=== PATIENT | female | born 1980 | race Two or more races ===

== ENCOUNTER 2019-09-18 17:56 | Inpatient (IN) | payer MEDICAID, OTHER ==
[~2019-09-18] VITALS: Ht 162.6 cm; Wt 53.1 kg
[2019-09-18] MEDS ORDERED: IPRATROPIUM BROM 0.5 MG/2.5ML INH SOL HHN ONE (18:30)
[2019-09-18] MEDS ORDERED: ALBUTEROL SULF 2.5 MG/0.5ML(0.5%) NEB SOLN HHN ONE ×2 (18:30→20:00)
[2019-09-18] MEDS ORDERED: methylPREDNISolone SOD SUCC 125 MG/2 ML VL IV ONE (18:30)
[2019-09-18 19:08] LABS: Basophils # (auto) 0.1 10 ^3/uL (0-0.2); Basophils % (auto) 0.9 % (0.0-2.0); Eosinophils # (auto) 0.7 10 ^3/uL (0-0.8); Eosinophils % (auto) 7.5 % (0.0-7.0); Hematocrit 52.9 % (36.0-46.0); Hemoglobin 17.5 g/dL (12.2-16.2); Lymphocytes # (auto) 1.6 10 ^3/uL (0.4-5.4); Lymphocytes % (auto) 17.5 % (10.0-50.0); Mean Corpuscular Hemoglobin 30.9 pg (28.0-32.0); Mean Corpuscular Volume 93.8 fL (80.0-100.0); Monocytes # (auto) 0.6 10 ^3/uL (0-1.3); Monocytes % (auto) 6.2 % (0.0-12.0); Neutrophils # (auto) 6.3 10 ^3/uL (1.6-8.6); Neutrophils % (auto) 67.9 % (37.0-80.0); Nucleated Red Blood Cells % 0.1 %; Platelet Count (auto) 181 10^3/uL (140-450); Red Blood Cells 5.64 10^6/uL (4.0-5.20); Red Cell Distribution Width 13.2 % (11.8-14.3); White Blood Cell 9.3 10^3/uL (4.4-10.8)
[2019-09-18 19:20] LABS: Albumin 4.2 g/dL (3.4-5.0); Calcium 8.8 mg/dL (8.5-10.1); Potassium 3.9 mmol/L (3.5-5.1)
[2019-09-18 19:24] LABS: Bilirubin, Total 0.3 mg/dL (0.2-1.0); Total Protein 7.7 g/dL (6.4-8.2)
[2019-09-18] MEDS ORDERED: ONDANSETRON HCL 4 MG/2 ML VIAL IV PRN (21:15)
[2019-09-18] MEDS ORDERED: ACETAMINOPHEN 325 MG TAB PO PRN (21:15)
[2019-09-18] MEDS ORDERED: DOCUSATE SOD 100 MG CAP PO PRN (21:15)
[2019-09-18 21:26] VITALS: BP 116/68
[2019-09-18 22:10] VITALS: BP 128/76
--- NOTE | 2019-09-18 22:10 | NUR ---
Telemetry admit from ER MARGIE LEARY admitted to Telemetry unit after SBAR received. Patient oriented to CRISTIAN GILBERT RN primary RN, unit, room, bed, and unit policies regarding patient care and visiting hours. Patient now on continuous telemetry monitoring, tele box # 34 and telemetry reading on arrival to unit is ST [id number]. Patient placed on bedside oxygen 4L NC and has bilateral inspiratory and expiratory wheezes, weighed by bedscale and encouraged to call if they need something. All questions and concerns addressed, patient verbalized understanding. Paged RT for HHN breathing treatment.
[2019-09-18] MEDS: LORazepam 0.5 MG TAB PO PRN (22:37)
[2019-09-18] MEDS: ALBUTEROL SULF 2.5 MG/0.5ML(0.5%) NEB SOLN NEB PRN (22:37)
[2019-09-18] MEDS: IPRATROPIUM BROM 0.5 MG/2.5ML INH SOL NEB PRN (22:37)
[2019-09-18] MEDS: HYDROcodone-ACET 5/325MG TAB PO PRN (22:43)
[2019-09-18] MEDS ORDERED: ALBUAER3 IN (23:07)
[2019-09-18] MEDS ORDERED: ALBU0.08 HHN (23:07)
[2019-09-18] MEDS ORDERED: FLUT250M2 INH (23:07)
[2019-09-18] MEDS ORDERED: ZOLP10TA PO (23:07)
[2019-09-19] MEDS: ALBUTEROL SULF 2.5 MG/0.5ML(0.5%) NEB SOLN NEB SCH ×6 (02:11→22:00)
[2019-09-19] MEDS: IPRATROPIUM BROM 0.5 MG/2.5ML INH SOL NEB SCH ×6 (02:11→22:01)
[2019-09-19 04:57] VITALS: BP 110/61
[2019-09-19 05:48] LABS: Basophils # (auto) 0 10 ^3/uL (0-0.2); Basophils % (auto) 0.4 % (0.0-2.0); Eosinophils # (auto) 0 10 ^3/uL (0-0.8); Eosinophils % (auto) 0.1 % (0.0-7.0); Hematocrit 47.4 % (36.0-46.0); Hemoglobin 15.9 g/dL (12.2-16.2); Lymphocytes # (auto) 0.4 10 ^3/uL (0.4-5.4); Lymphocytes % (auto) 8.9 % (10.0-50.0); Mean Corpuscular Hemoglobin 31.3 pg (28.0-32.0); Mean Corpuscular Hgb Conc. 33.4 g/dL (32.0-36.0); Mean Corpuscular Volume 93.7 fL (80.0-100.0); Monocytes # (auto) 0.1 10 ^3/uL (0-1.3); Monocytes % (auto) 2.8 % (0.0-12.0); Neutrophils # (auto) 3.7 10 ^3/uL (1.6-8.6); Neutrophils % (auto) 87.8 % (37.0-80.0); Platelet Count (auto) 251 10^3/uL (140-450); Red Blood Cells 5.06 10^6/uL (4.0-5.20); Red Cell Distribution Width 13.1 % (11.8-14.3); White Blood Cell 4.2 10^3/uL (4.4-10.8)
[2019-09-19 06:09] LABS: Potassium 4.6 mmol/L (3.5-5.1)
[2019-09-19 06:17] LABS: BUN/Creatinine Ratio 18.8; Calcium 8.5 mg/dL (8.5-10.1)
[2019-09-19] MEDS: LORazepam 0.5 MG TAB PO PRN ×2 (07:41→20:25)
[2019-09-19] MEDS: HYDROcodone-ACET 5/325MG TAB PO PRN ×3 (07:42→20:25)
[2019-09-19 09:00] VITALS: BP 103/65
[2019-09-19] MEDS ORDERED: methylPREDNISolone SOD SUCC 125 MG/2 ML VL IV SCH (10:00)
[2019-09-19] MEDS ORDERED: AZITHROMYCIN 250 MG TAB PO ONE ×2 (11:30→11:45)
[2019-09-19] MEDS ORDERED: methylPREDNISolone SOD SUCC 40 MG/ML VL IV ONE (11:30)
[2019-09-19] MEDS ORDERED: cefTRIAXone 1GM/50ML D5W 50 ML IV ONE ×2 (11:30→11:45)
--- NOTE | 2019-09-19 11:33 | NUR ---
Dr. ABBOTT at bedside discussed with patient, received new orders, noted and carried it out.
[2019-09-19 14:46] VITALS: BP 105/57
[2019-09-19] MEDS: ALBUTEROL SULF 2.5 MG/0.5ML(0.5%) NEB SOLN NEB PRN (16:42)
[2019-09-19] MEDS: IPRATROPIUM BROM 0.5 MG/2.5ML INH SOL NEB PRN (16:42)
[2019-09-19 17:00] VITALS: BP 104/61
--- NOTE | 2019-09-19 18:35 | NUR ---
RT NOTE PT WAS SEEN BY RT FOR HHN TX. PT TOLERATES WELL VIA MASK. NO ADVERSE REACTION NOTED. CONT ORDERED Addendum: 09/19/19 at 1859 by Vickie Boone RT Amended: Links added.
[2019-09-19] MEDS: methylPREDNISolone SOD SUCC 40 MG/ML VL IV SCH (21:03)
[2019-09-19 22:00] VITALS: BP 106/61
--- NOTE | 2019-09-19 22:05 | NUR ---
RT NOTE PT WAS SEEN BY RT FOR HHN TX. PT TOLERATES WELL VIA MASK. NO ADVERSE REACTION NOTED. FIO2 TITRATED TO 6L OXYMIZER. CONT ORDERED Addendum: 09/19/19 at 2340 by Vickie Boone RT Amended: Links added.
[2019-09-20] MEDS: ALBUTEROL SULF 2.5 MG/0.5ML(0.5%) NEB SOLN NEB SCH ×6 (02:20→21:41)
[2019-09-20] MEDS: IPRATROPIUM BROM 0.5 MG/2.5ML INH SOL NEB SCH ×6 (02:20→21:41)
--- NOTE | 2019-09-20 02:20 | NUR ---
RT NOTE PT WAS SEEN BY RT FOR HHN TX. PT TOLERATES WELL VIA MASK. NO ADVERSE REACTION NOTED. FIO2 TITRATED TO 4L OXYMIZER AT THIS TIME. CONT ORDERED Addendum: 09/20/19 at 0247 by Vickie Boone RT Amended: Links added.
[2019-09-20 05:00] VITALS: BP 95/50
[2019-09-20] MEDS: LORazepam 0.5 MG TAB PO PRN ×2 (07:40→23:13)
[2019-09-20] MEDS: HYDROcodone-ACET 5/325MG TAB PO PRN ×3 (07:40→23:13)
[2019-09-20 09:00] VITALS: BP 108/62
[2019-09-20] MEDS ORDERED: cefTRIAXone 1GM/50ML D5W 50 ML IV SCH (09:00)
[2019-09-20] MEDS: AZITHROMYCIN 250 MG TAB PO SCH (09:15)
[2019-09-20] MEDS: cefTRIAXone 1GM/50ML D5W 50 ML IV SCH (09:15)
[2019-09-20] MEDS: methylPREDNISolone SOD SUCC 40 MG/ML VL IV SCH ×2 (09:16→22:33)
[2019-09-20] MEDS ORDERED: AZITHROMYCIN 250 MG TAB PO SCH (10:00)
[2019-09-20 10:24] LABS: Basophils # (auto) 0 10 ^3/uL (0-0.2); Eosinophils # (auto) 0 10 ^3/uL (0-0.8); Hematocrit 45.4 % (36.0-46.0); Lymphocytes # (auto) 0.7 10 ^3/uL (0.4-5.4); Lymphocytes % (auto) 6.8 % (10.0-50.0); Mean Corpuscular Hgb Conc. 33.2 g/dL (32.0-36.0); Mean Corpuscular Volume 93.6 fL (80.0-100.0); Monocytes # (auto) 0.7 10 ^3/uL (0-1.3); Monocytes % (auto) 6.7 % (0.0-12.0); Neutrophils # (auto) 8.9 10 ^3/uL (1.6-8.6); Neutrophils % (auto) 86.5 % (37.0-80.0); Platelet Count (auto) 264 10^3/uL (140-450); Red Blood Cells 4.85 10^6/uL (4.0-5.20); Red Cell Distribution Width 13.3 % (11.8-14.3); White Blood Cell 10.3 10^3/uL (4.4-10.8)
[2019-09-20 10:42] LABS: Albumin 3.3 g/dL (3.4-5.0); Calcium 8.3 mg/dL (8.5-10.1); Potassium 4.3 mmol/L (3.5-5.1)
[2019-09-20 10:48] LABS: Bilirubin, Total 0.4 mg/dL (0.2-1.0); Total Protein 6.2 g/dL (6.4-8.2)
[2019-09-20 13:00] VITALS: BP 105/72
--- NOTE | 2019-09-20 13:56 | NUR ---
IS at bedside, teaching explained, patient return demonstration.
[2019-09-20 17:00] VITALS: BP 116/66
--- NOTE | 2019-09-20 19:20 | NUR ---
Opening Shift Note Assumed care of patient, awake and alert. No S/S of distress/SOB or pain. Patient on 4L Oxymizer and tolerating well. Instructed on POC and to call for assist PRN, will continue to monitor for changes Q1hr and PRN. Safety precautions in place, bed is in lowest position and locked, bed rails 2x. Call light and bedside table are within reach.
[2019-09-20 22:00] VITALS: BP 116/71
--- NOTE | 2019-09-20 23:14 | NUR ---
PAIN Patient complains of upper/lower back pain. Pain level 6 on a pain scale 0-10. Medicated per MD orders will continue to monitor Q1 and PRN.
--- NOTE | 2019-09-21 00:14 | NUR ---
PAIN REASSESSMENT Patient states "no pain." Will continue to monitor patient Q1 and PRN.
[2019-09-21] MEDS: ALBUTEROL SULF 2.5 MG/0.5ML(0.5%) NEB SOLN NEB SCH ×6 (02:17→23:04)
[2019-09-21] MEDS: IPRATROPIUM BROM 0.5 MG/2.5ML INH SOL NEB SCH ×6 (02:17→23:04)
[2019-09-21 05:00] VITALS: BP 114/74
[2019-09-21] MEDS: HYDROcodone-ACET 5/325MG TAB PO PRN ×4 (05:06→22:01)
[2019-09-21 06:59] LABS: Basophils # (auto) 0 10 ^3/uL (0-0.2); Basophils % (auto) 0.1 % (0.0-2.0); Eosinophils # (auto) 0 10 ^3/uL (0-0.8); Hematocrit 47.7 % (36.0-46.0); Hemoglobin 15.8 g/dL (12.2-16.2); Lymphocytes # (auto) 0.6 10 ^3/uL (0.4-5.4); Lymphocytes % (auto) 7.7 % (10.0-50.0); Mean Corpuscular Hemoglobin 31.4 pg (28.0-32.0); Mean Corpuscular Hgb Conc. 33.1 g/dL (32.0-36.0); Monocytes # (auto) 0.3 10 ^3/uL (0-1.3); Monocytes % (auto) 3.5 % (0.0-12.0); Neutrophils # (auto) 6.9 10 ^3/uL (1.6-8.6); Neutrophils % (auto) 88.7 % (37.0-80.0); Platelet Count (auto) 253 10^3/uL (140-450); Red Blood Cells 5.03 10^6/uL (4.0-5.20); Red Cell Distribution Width 13.1 % (11.8-14.3); White Blood Cell 7.8 10^3/uL (4.4-10.8)
--- NOTE | 2019-09-21 07:10 | NUR ---
End of Shift Note Endorsed care to dayshift RN. At this time patient has no s/s of distress or SOB. Patient responsive to name and touch, no complaints.
[2019-09-21 07:20] LABS: Albumin 3.5 g/dL (3.4-5.0); Calcium 8.5 mg/dL (8.5-10.1); Potassium 4.3 mmol/L (3.5-5.1)
[2019-09-21 07:23] LABS: BUN/Creatinine Ratio 26.7; Bilirubin, Total 0.4 mg/dL (0.2-1.0); Total Protein 6.7 g/dL (6.4-8.2)
[2019-09-21 08:38] VITALS: BP 102/68
[2019-09-21] MEDS: AZITHROMYCIN 250 MG TAB PO SCH (08:58)
[2019-09-21] MEDS: methylPREDNISolone SOD SUCC 40 MG/ML VL IV SCH ×2 (08:58→21:45)
[2019-09-21] MEDS: cefTRIAXone 1GM/50ML D5W 50 ML IV SCH (08:58)
[2019-09-21] MEDS: LORazepam 0.5 MG TAB PO PRN ×2 (09:08→17:11)
[2019-09-21 13:00] VITALS: BP 109/69
--- NOTE | 2019-09-21 15:48 | NUR ---
RT NOTE: UNABLE TO SEE PT FOR TX DUE TO EMERGENCIES IN ER. WILL CONTINUE TO MONITOR.
[2019-09-21 17:27] VITALS: BP 120/73
--- NOTE | 2019-09-21 19:08 | NUR ---
Opening Shift Note Assumed care of patient, awake and alert. No S/S of distress/SOB or pain. Instructed on POC and to call for assist PRN, will continue to monitor for changes Q1hr and PRN. Safety precautions in place bed is in lowest position and locked, bed rails 2x. Call light and bedside table are within reach.
[2019-09-21 19:11] VITALS: BP 120/73
[2019-09-21 22:00] VITALS: BP 105/69
[2019-09-22] MEDS: IPRATROPIUM BROM 0.5 MG/2.5ML INH SOL NEB SCH ×4 (02:07→14:50)
[2019-09-22] MEDS: ALBUTEROL SULF 2.5 MG/0.5ML(0.5%) NEB SOLN NEB SCH ×4 (02:07→14:50)
[2019-09-22] MEDS: LORazepam 0.5 MG TAB PO PRN ×2 (04:08→14:52)
[2019-09-22] MEDS: HYDROcodone-ACET 5/325MG TAB PO PRN ×3 (04:08→14:53)
[2019-09-22 05:00] VITALS: BP 115/59
--- NOTE | 2019-09-22 07:15 | NUR ---
Assumed care Patient currently resting in bed AOx4. No s/s of distress or SOB noted at this time. Patient denies pain. Fall precautions in place. Patient updated on POC and instructed to call for assistance as needed, patient verbalizes understanding. Will continue care.
--- NOTE | 2019-09-22 07:25 | NUR ---
End of Shift Note Endorsed care to dayshift RN. At this time patient has no s/s of distress or SOB, responsive to name and touch, no complaints.
[2019-09-22 09:00] VITALS: BP 113/69
[2019-09-22] MEDS: AZITHROMYCIN 250 MG TAB PO SCH (09:39)
[2019-09-22] MEDS: methylPREDNISolone SOD SUCC 40 MG/ML VL IV SCH (09:40)
[2019-09-22] MEDS: cefTRIAXone 1GM/50ML D5W 50 ML IV SCH (09:40)
[2019-09-22 13:00] VITALS: BP 18/68
[2019-09-22 14:01] VITALS: BP 108/68
--- NOTE | 2019-09-22 15:36 | NUR ---
Discharge instructions given as ordered. Encourage to follow up with PMD as instructed. All questions and concerns addressed. Patient verbalized understanding. Prescriptions given to patient. IV removed with catheter intact, pressure dressing applied. Telemetry unit returned to ICU. Patient taken to vehicle via wheelchair with all personal belongings, accompanied by this RN. No distress noted at time of departure.
== END 2019-09-22 15:36 | disposition home or self-care (01) | DRG 133 ==
LOC: ER 17:56 → TELE-CENTR 17:57
PROVIDERS: ADMIT Hospitalist; ATTEND Internal Medicine
DX: J96.01 Acute respiratory failure with hypoxia (principal); D72.1 Eosinophilia; J45.902 Unspecified asthma with status asthmaticus; J98.11 Atelectasis; Z79.51 Long term (current) use of inhaled steroids; F17.213 Nicotine dependence, cigarettes, with withdrawal
CPT/HCPCS: 36415; 71045; 80048; 80053; 85025; 94640; 94644; 94645; G0378; J0696

== ENCOUNTER 2019-10-22 16:03 | Inpatient (IN) | payer MEDICAID ==
[~2019-10-22] VITALS: Ht 162.6 cm; Wt 53.8 kg
[~2019-10-22 16:03] MED LIST: ALBU0.08 HHN; ALBUAER3 IN; FLUT250M2 INH; ZOLP10TA PO
[2019-10-22] MEDS ORDERED: ALBUTEROL SULF 2.5 MG/0.5ML(0.5%) NEB SOLN ONE ×2 (16:18→16:33)
[2019-10-22] MEDS ORDERED: IPRATROPIUM BROM 0.5 MG/2.5ML INH SOL ONE ×2 (16:18→16:33)
[2019-10-22] MEDS ORDERED: IPRATROPIUM BROM 0.5 MG/2.5ML INH SOL NEB ONE ×3 (16:30→20:30)
[2019-10-22] MEDS ORDERED: ALBUTEROL SULF 2.5 MG/0.5ML(0.5%) NEB SOLN NEB ONE ×3 (16:30→20:30)
[2019-10-22] MEDS ORDERED: methylPREDNISolone SOD SUCC 125 MG/2 ML VL IV ONE (16:30)
[2019-10-22] MEDS ORDERED: methylPREDNISolone SOD SUCC 125 MG/2 ML VL ONE (16:31)
[2019-10-22 18:56] LABS: Basophils # (auto) 0 10 ^3/uL (0-0.2); Basophils % (auto) 0.5 % (0.0-2.0); Eosinophils # (auto) 0.2 10 ^3/uL (0-0.8); Hematocrit 46.1 % (36.0-46.0); Hemoglobin 15.4 g/dL (12.2-16.2); Lymphocytes # (auto) 0.6 10 ^3/uL (0.4-5.4); Lymphocytes % (auto) 7.6 % (10.0-50.0); Mean Corpuscular Hgb Conc. 33.4 g/dL (32.0-36.0); Mean Corpuscular Volume 92.8 fL (80.0-100.0); Monocytes # (auto) 0.1 10 ^3/uL (0-1.3); Monocytes % (auto) 1.5 % (0.0-12.0); Neutrophils % (auto) 87.4 % (37.0-80.0); Nucleated Red Blood Cells % 0.1 %; Platelet Count (auto) 293 10^3/uL (140-450); Red Blood Cells 4.96 10^6/uL (4.0-5.20)
[2019-10-22 19:17] LABS: Albumin 3.6 g/dL (3.4-5.0); Calcium 8.4 mg/dL (8.5-10.1); Magnesium 2.6 mg/dL (1.6-2.6); Potassium 4.4 mmol/L (3.5-5.1)
[2019-10-22 19:21] LABS: Bilirubin, Total 0.4 mg/dL (0.2-1.0); Total Protein 6.7 g/dL (6.4-8.2)
[2019-10-22] MEDS ORDERED: cefTRIAXone 1GM/50ML D5W 50 ML IV ONE (21:30)
[2019-10-22 21:43] VITALS: BP 125/77
[2019-10-22] MEDS ORDERED: NITROGLYCERIN 0.4 MG SL TAB SL PRN (21:45)
[2019-10-22] MEDS ORDERED: AZITHROMYCIN 500MG/ 250ML 250 ML IV ONE (21:45)
[2019-10-22] MEDS ORDERED: ONDANSETRON HCL 4 MG/2 ML VIAL IV PRN (21:45)
[2019-10-22] MEDS ORDERED: MORPHINE SULF INJ 2 MG/ML SYRINGE 1ML IV PRN (21:45)
[2019-10-22] MEDS: FAMOTIDINE 20 MG TAB PO SCH (22:20)
[2019-10-22] MEDS ORDERED: TEMAZEPAM 15 MG CAP PO ONE (22:30)
[2019-10-23 01:42] VITALS: BP 114/69
--- NOTE | 2019-10-23 01:42 | NUR ---
OPENING NOTE Telemetry admit from ER MARGIE LEARY admitted to Telemetry unit after SBAR received. Patient oriented to MANUELA XAVIER, RN primary RN, unit, room, bed, and unit policies regarding patient care and visiting hours. Patient now on continuous telemetry monitoring, tele box # 15 and telemetry reading on arrival to unit is NSR HR 77. Patient placed on bedside oxygen, weighed by bedscale and encouraged to call if they need something. All questions and concerns addressed, patient verbalized understanding.
[2019-10-23] MEDS: TEMAZEPAM 15 MG CAP PO PRN ×2 (03:04→22:42)
--- NOTE | 2019-10-23 05:24 | NUR ---
LAB Paged lab. I am not able to draw labs. electrocardiograph technician said they will be in at [phone]. will continue to monitor.
[2019-10-23 05:30] VITALS: BP 102/60
--- NOTE | 2019-10-23 05:31 | NUR ---
RT paged RT. patient has a scheduled medneb at 0600. pt is requesting at this time. RT said they will be in shortly.
--- NOTE | 2019-10-23 06:43 | NUR ---
Lab Spoke to lab. Patient refused lab at this time. Customer Resolution Specialist Annabelle said she will send someone else up later.
--- NOTE | 2019-10-23 07:01 | NUR ---
RT AT BEDSIDE Patient is requesting her breathing treatment at 0600. Rt informed patient that per protocol will not be able to administer her breathing treatment. because of her covid rule out. Patient visibly upset, wants to speak to a doctor. Rt spoke to their higher traffic signal supervisor maintenance. Rt agreed to do breathing treatment. because of it being administered. RT explained the door will be shut for one hr. Patient verbalized understanding.
--- NOTE | 2019-10-23 07:41 | NUR ---
Closing note endorsed care to day shift RN.
--- NOTE | 2019-10-23 07:44 | NUR ---
Opening Shift Note Assumed care of patient, awake and alert. No S/S of distress, reports SOB 5l O2, wheezing. Denies pain but anxious. Instructed on POC and to call for assist PRN, will continue to monitor for changes Q1hr and PRN.
[2019-10-23 08:07] VITALS: BP 139/84
[2019-10-23] MEDS: IPRATROPIUM BROM 0.5 MG/2.5ML INH SOL NEB SCH ×4 (08:22→23:15)
[2019-10-23] MEDS: ALBUTEROL SULF 2.5 MG/0.5ML(0.5%) NEB SOLN NEB SCH ×4 (08:22→23:15)
[2019-10-23] MEDS ORDERED: ENOXAPARIN SOD 40 MG/0.4 ML SYRINGE SC SCH (10:00)
[2019-10-23] MEDS: FAMOTIDINE 20 MG TAB PO SCH ×2 (10:36→22:41)
[2019-10-23] MEDS: levoFLOXacin 500MG 100 ML IV SCH (10:36)
[2019-10-23 13:00] VITALS: BP 124/64
[2019-10-23] MEDS ORDERED: methylPREDNISolone SOD SUCC 125 MG/2 ML VL IV ONE (14:30)
[2019-10-23 16:59] VITALS: BP 90/58
--- NOTE | 2019-10-23 17:10 | NUR ---
Assumed care of patient Patient A&Ox4. Respirations even and unlabored on 2 LPM NC, no distress noted. Patient is ambulatory with a steady gait. Instructed patient on POC, fall precautions and to call for assistance as needed. Fall precautions in place with call light within reach.
--- NOTE | 2019-10-23 17:11 | NUR ---
Patient reports having all personal belongings.
--- NOTE | 2019-10-23 18:23 | NUR ---
MRSA swab collected & sent to lab per MD order
--- NOTE | 2019-10-23 18:24 | NUR ---
Patient refused collection of urine specimen per MD order Patient stated "I don't feel like that's necessary. I don't want to do it." Education provided on MD order. Patient verbalized understanding and continued to refuse.
--- NOTE | 2019-10-23 18:36 | NUR ---
RE: anxiety Patient requesting medication for anxiety. Patient stated "I'm just feeling really anxious after being over there in that COVID unit." Paged on-call hospitalist (Dr. Rios).
[2019-10-23] MEDS: BUDESONIDE (INHALATION) 0.5 MG/2 ML NEB NEB SCH (18:42)
--- NOTE | 2019-10-23 18:48 | NUR ---
Closing note Patient resting in bed with even and unlabored respirations, no distress noted. Call light within reach.
--- NOTE | 2019-10-23 19:23 | NUR ---
Care endorsed to ASTER Bennett.
[2019-10-23 22:00] VITALS: BP 117/59
[2019-10-23] MEDS: methylPREDNISolone SOD SUCC 40 MG/ML VL IV SCH (22:41)
[2019-10-24] VITALS (7 sets, daily range): BP systolic 98–122; BP diastolic 52–72
[2019-10-24] MEDS: ALBUTEROL SULF 2.5 MG/0.5ML(0.5%) NEB SOLN NEB SCH ×6 (02:41→22:18)
[2019-10-24] MEDS: IPRATROPIUM BROM 0.5 MG/2.5ML INH SOL NEB SCH ×6 (02:41→22:19)
[2019-10-24 05:23] LABS: Basophils # (auto) 0 10 ^3/uL (0-0.2); Basophils % (auto) 0.3 % (0.0-2.0); Eosinophils # (auto) 0 10 ^3/uL (0-0.8); Hematocrit 45.8 % (36.0-46.0); Hemoglobin 15.2 g/dL (12.2-16.2); Lymphocytes # (auto) 0.4 10 ^3/uL (0.4-5.4); Mean Corpuscular Hgb Conc. 33.2 g/dL (32.0-36.0); Mean Corpuscular Volume 93.3 fL (80.0-100.0); Monocytes # (auto) 0.1 10 ^3/uL (0-1.3); Monocytes % (auto) 2.1 % (0.0-12.0); Neutrophils # (auto) 2.8 10 ^3/uL (1.6-8.6); Neutrophils % (auto) 86.6 % (37.0-80.0); Platelet Count (auto) 265 10^3/uL (140-450); Red Cell Distribution Width 12.9 % (11.8-14.3); White Blood Cell 3.3 10^3/uL (4.4-10.8)
[2019-10-24 05:36] LABS: Calcium 8.7 mg/dL (8.5-10.1); Potassium 4.6 mmol/L (3.5-5.1)
[2019-10-24 05:38] LABS: BUN/Creatinine Ratio 26.3
[2019-10-24] MEDS: BUDESONIDE (INHALATION) 0.5 MG/2 ML NEB NEB SCH ×2 (06:06→22:18)
--- NOTE | 2019-10-24 07:30 | NUR ---
Opening Shift Note Assumed care of patient, awake and alert. No S/S of distress/SOB or pain. Instructed on POC and to call for assist PRN, will continue to monitor for changes Q1hr and PRN.
--- NOTE | 2019-10-24 07:32 | NUR ---
closing note pt resting in semi fowlers with HOB at 30 degrees. pt denies pain or discomfort. respirations even and nonlabored on 2lnc. bed in low locked position, call light within reach.
[2019-10-24] MEDS: levoFLOXacin 500MG 100 ML IV SCH (10:42)
[2019-10-24] MEDS: methylPREDNISolone SOD SUCC 40 MG/ML VL IV SCH ×2 (10:42→21:42)
[2019-10-24] MEDS: FAMOTIDINE 20 MG TAB PO SCH ×2 (10:42→21:43)
[2019-10-24] MEDS: LORazepam 0.5 MG TAB PO PRN ×2 (13:06→20:41)
[2019-10-24 13:26] LABS: Albumin 3.6 g/dL (3.4-5.0); Calcium 8.8 mg/dL (8.5-10.1); Potassium 4.8 mmol/L (3.5-5.1)
[2019-10-24 13:31] LABS: BUN/Creatinine Ratio 25.3; Bilirubin, Total 0.4 mg/dL (0.2-1.0)
[2019-10-24] MEDS: ACETAMINOPHEN 325 MG TAB PO PRN (14:11)
--- NOTE | 2019-10-24 19:35 | NUR ---
Opening Shift Note Received report from Raffy RODARTE. Assumed care of patient, awake and alert. No S/S of distress/SOB or pain. Instructed on POC and to call for assist PRN, will continue to monitor for changes Q1hr and PRN.
[2019-10-24] MEDS: TEMAZEPAM 15 MG CAP PO PRN (22:55)
[2019-10-25] VITALS (8 sets, daily range): BP systolic 106–126; BP diastolic 68–76
[2019-10-25] MEDS: IPRATROPIUM BROM 0.5 MG/2.5ML INH SOL NEB SCH ×5 (06:38→22:46)
[2019-10-25] MEDS: ALBUTEROL SULF 2.5 MG/0.5ML(0.5%) NEB SOLN NEB SCH ×5 (06:38→22:46)
[2019-10-25] MEDS: BUDESONIDE (INHALATION) 0.5 MG/2 ML NEB NEB SCH ×2 (06:53→19:21)
[2019-10-25] MEDS: levoFLOXacin 500MG 100 ML IV SCH (10:02)
[2019-10-25] MEDS: LORazepam 0.5 MG TAB PO PRN ×2 (10:03→20:35)
[2019-10-25] MEDS: FAMOTIDINE 20 MG TAB PO SCH ×2 (10:03→21:41)
[2019-10-25] MEDS: methylPREDNISolone SOD SUCC 40 MG/ML VL IV SCH ×2 (10:03→21:41)
[2019-10-25] MEDS: TEMAZEPAM 15 MG CAP PO PRN (23:15)
[2019-10-26] MEDS: IPRATROPIUM BROM 0.5 MG/2.5ML INH SOL NEB SCH ×6 (02:45→22:15)
[2019-10-26] MEDS: ALBUTEROL SULF 2.5 MG/0.5ML(0.5%) NEB SOLN NEB SCH ×6 (02:45→22:15)
[2019-10-26 05:00] VITALS: BP 95/59
[2019-10-26] MEDS: BUDESONIDE (INHALATION) 0.5 MG/2 ML NEB NEB SCH ×2 (06:52→18:34)
[2019-10-26 08:00] VITALS: BP 111/68
[2019-10-26 09:00] VITALS: BP 111/68
[2019-10-26 10:25] LABS: Basophils # (auto) 0 10 ^3/uL (0-0.2); Basophils % (auto) 0.5 % (0.0-2.0); Eosinophils # (auto) 0 10 ^3/uL (0-0.8); Eosinophils % (auto) 0.1 % (0.0-7.0); Hematocrit 48.7 % (36.0-46.0); Hemoglobin 16.2 g/dL (12.2-16.2); Lymphocytes # (auto) 1.2 10 ^3/uL (0.4-5.4); Lymphocytes % (auto) 19.7 % (10.0-50.0); Mean Corpuscular Hemoglobin 31.4 pg (28.0-32.0); Mean Corpuscular Hgb Conc. 33.4 g/dL (32.0-36.0); Mean Corpuscular Volume 94.1 fL (80.0-100.0); Monocytes # (auto) 0.4 10 ^3/uL (0-1.3); Monocytes % (auto) 5.8 % (0.0-12.0); Neutrophils # (auto) 4.6 10 ^3/uL (1.6-8.6); Neutrophils % (auto) 73.9 % (37.0-80.0); Nucleated Red Blood Cells % 0.1 %; Platelet Count (auto) 320 10^3/uL (140-450); Red Blood Cells 5.17 10^6/uL (4.0-5.20); White Blood Cell 6.2 10^3/uL (4.4-10.8)
[2019-10-26 10:43] LABS: BUN/Creatinine Ratio 24.4; Calcium 8.9 mg/dL (8.5-10.1); Potassium 3.6 mmol/L (3.5-5.1)
[2019-10-26] MEDS: FAMOTIDINE 20 MG TAB PO SCH ×2 (10:56→21:36)
[2019-10-26] MEDS: levoFLOXacin 500MG 100 ML IV SCH (10:56)
[2019-10-26] MEDS: methylPREDNISolone SOD SUCC 40 MG/ML VL IV SCH ×2 (10:56→21:36)
[2019-10-26] MEDS: LORazepam 0.5 MG TAB PO PRN ×2 (10:57→20:09)
[2019-10-26 13:00] VITALS: BP 98/59
--- NOTE | 2019-10-26 15:45 | NUR ---
Nutrition Assessment Notes Please refer to link for full assessment notes. Est Energy needs: 0581-2710 kcals (25-30 kcal/kgBW) Est Protein needs: 41-52 gms/day (0.8-1.0 gm/kgBW) Will continue to monitor and reassess prn. Addendum: 10/26/19 at [address] Amended: Links added.
--- NOTE | 2019-10-26 18:37 | NUR ---
RT NOTE PT WAS SEEN BY RT FOR HHN TX. PT TOLERATES WELL VIA MOUTHPIECE. NO ADVERSE REACTION NOTED. PT HAS NOTED COARSE WHEEZES PRE AND POST TX. CONT ORDERED Addendum: 10/26/19 at 1838 by Vickie Boone RT Amended: Links added.
[2019-10-26 20:00] VITALS: BP 106/69
--- NOTE | 2019-10-26 22:16 | NUR ---
RT NOTE PT WAS SEEN BY RT FOR HHN TX. PT TOLERATES WELL VIA MOUTHPIECE. NO ADVERSE REACTION NOTED. PT GIVEN NEW SET UP AT THIS TIME. CONT ORDERED Addendum: 10/26/19 at 2221 by Vickie Boone RT Amended: Links added.
[2019-10-26] MEDS: TEMAZEPAM 15 MG CAP PO PRN (23:14)
[2019-10-27] VITALS (8 sets, daily range): BP systolic 96–112; BP diastolic 56–69
--- NOTE | 2019-10-27 02:15 | NUR ---
RT NOTE PT WAS SEEN BY RT FOR HHN TX. PT TOLERATES WELL VIA MOUTHPIECE. NO ADVERSE REACTION NOTED. CONT ORDERED Addendum: 10/27/19 at 0220 by Vickie Boone RT Amended: Links added.
[2019-10-27] MEDS: IPRATROPIUM BROM 0.5 MG/2.5ML INH SOL NEB SCH ×10 (02:16→22:35)
[2019-10-27] MEDS: ALBUTEROL SULF 2.5 MG/0.5ML(0.5%) NEB SOLN NEB SCH ×6 (02:17→22:35)
[2019-10-27] MEDS: BUDESONIDE (INHALATION) 0.5 MG/2 ML NEB NEB SCH ×2 (06:21→22:35)
--- NOTE | 2019-10-27 07:20 | NUR ---
Opening Shift Note Assumed care of patient, awake and alert. Patient was sitting up in bed. No S/S of distress/SOB or pain. Safety measures maintained by keeping the bed in locked and in lowest position, 2 side rails up, items and call light within reach. Instructed on POC and to call for assist PRN, will continue to monitor for changes Q1hr and PRN.
[2019-10-27] MEDS: FAMOTIDINE 20 MG TAB PO SCH ×2 (09:24→21:48)
[2019-10-27] MEDS: LORazepam 0.5 MG TAB PO PRN ×2 (09:24→15:10)
[2019-10-27] MEDS: levoFLOXacin 500MG 100 ML IV SCH (09:25)
[2019-10-27] MEDS: methylPREDNISolone SOD SUCC 40 MG/ML VL IV SCH ×2 (09:25→21:48)
--- NOTE | 2019-10-27 19:25 | NUR ---
Opening Shift Note Received report from ravinder Leonard RN. Assumed care of patient, awake and alert, sitting up in bed. No S/S of distress/SOB or pain. Safety measures maintained by keeping the bed in locked and in lowest position, 2 side rails up, items and call light within reach. Instructed on POC and to call for assist PRN, will continue to monitor for changes Q1hr and PRN.
[2019-10-27] MEDS: ACETAMINOPHEN 325 MG TAB PO PRN (20:15)
[2019-10-27] MEDS: TEMAZEPAM 15 MG CAP PO PRN (22:56)
[2019-10-28 05:00] VITALS: BP 102/69
[2019-10-28] MEDS: IPRATROPIUM BROM 0.5 MG/2.5ML INH SOL NEB SCH ×3 (06:00→10:55)
--- NOTE | 2019-10-28 06:43 | NUR ---
Rounds Patient is resting in bed with eyes closed, no distress noted and patient denies.
[2019-10-28] MEDS: BUDESONIDE (INHALATION) 0.5 MG/2 ML NEB NEB SCH (07:06)
[2019-10-28] MEDS: ALBUTEROL SULF 2.5 MG/0.5ML(0.5%) NEB SOLN NEB SCH ×2 (07:06→10:55)
--- NOTE | 2019-10-28 07:30 | NUR ---
Opening Shift Note Assumed care of patient, awake and alert. Patient was sitting up in bed. No S/S of distress/SOB or pain. Updated on POC and instructed to call for assistance as needed, patient verbalized understanding. Bed locked in lowest position, side rails up x2, call light within reach. Safety precautions in place. Will continue to monitor for changes Q1hr and PRN.
[2019-10-28] MEDS: FAMOTIDINE 20 MG TAB PO SCH (08:47)
[2019-10-28] MEDS: LORazepam 0.5 MG TAB PO PRN (08:47)
[2019-10-28] MEDS: levoFLOXacin 500MG 100 ML IV SCH (08:48)
[2019-10-28] MEDS: methylPREDNISolone SOD SUCC 40 MG/ML VL IV SCH (08:48)
[2019-10-28 09:32] LABS: Basophils # (auto) 0 10 ^3/uL (0-0.2); Basophils % (auto) 0.4 % (0.0-2.0); Eosinophils # (auto) 0 10 ^3/uL (0-0.8); Hematocrit 47.9 % (36.0-46.0); Hemoglobin 15.7 g/dL (12.2-16.2); Lymphocytes # (auto) 0.9 10 ^3/uL (0.4-5.4); Lymphocytes % (auto) 14.2 % (10.0-50.0); Mean Corpuscular Hemoglobin 30.8 pg (28.0-32.0); Mean Corpuscular Hgb Conc. 32.8 g/dL (32.0-36.0); Mean Corpuscular Volume 93.7 fL (80.0-100.0); Monocytes # (auto) 0.4 10 ^3/uL (0-1.3); Monocytes % (auto) 6.5 % (0.0-12.0); Neutrophils # (auto) 4.8 10 ^3/uL (1.6-8.6); Neutrophils % (auto) 78.9 % (37.0-80.0); Nucleated Red Blood Cells % 0.1 %; Platelet Count (auto) 290 10^3/uL (140-450); Red Blood Cells 5.11 10^6/uL (4.0-5.20); Red Cell Distribution Width 13.3 % (11.8-14.3); White Blood Cell 6.1 10^3/uL (4.4-10.8)
[2019-10-28 09:47] LABS: Albumin 3.5 g/dL (3.4-5.0); Calcium 8.6 mg/dL (8.5-10.1); Potassium 3.6 mmol/L (3.5-5.1)
[2019-10-28 09:50] LABS: Bilirubin, Total 0.4 mg/dL (0.2-1.0); Total Protein 6.7 g/dL (6.4-8.2)
[2019-10-28 10:03] VITALS: BP 103/65
--- NOTE | 2019-10-28 10:35 | NUR ---
Discharge home Discharge instructions given as ordered. Encourage to follow up with PMD as instructed. All questions and concerns addressed. Patient verbalized understanding. Medication reconciliation form completed and copy given to patientIV removed with catheter intact, pressure dressing applied. Telemetry unit returned to ICU. Patient taken to lobby via ambulation with all personal belongings, accompanied by staff. Patient to wait for taxi in main lobby. No distress noted at time of departure.
== END 2019-10-28 10:35 | disposition home or self-care (01) | DRG 141 ==
LOC: ER 16:03 → TELE 16:04 → TELE-EAST 23:45 → TELE-CENTR 10-23 17:15
PROVIDERS: ADMIT Nurse Practitioner; ATTEND Internal Medicine
DX: J45.901 Unspecified asthma with (acute) exacerbation (principal); J96.21 Acute and chronic respiratory failure with hypoxia; Z20.828 Contact with and (suspected) exposure to other viral communicable diseases; F41.9 Anxiety disorder, unspecified; J98.11 Atelectasis; Z82.49 Family history of ischemic heart disease and other diseases of the circulatory system
CPT/HCPCS: 36415; 71045; 80048; 80053; 82550; 82728; 83605; 83735; 84702; 85025; 85379; 87040; 87070; 87081; 87804; 87880; 94640; 94644; 94668; G0378; J0696; J1956

== ENCOUNTER 2019-11-21 12:23 | Emergency (ER) | payer MEDICAID ==
[~2019-11-21] VITALS: Ht 162.6 cm; Wt 52.2 kg
[2019-11-21] MEDS ORDERED: SODIUM CHLORIDE 0.9% 1,000 ML IV ONE (12:38)
[2019-11-21] MEDS ORDERED: IPRATROPIUM BROM 0.5 MG/2.5ML INH SOL NEB ONE (12:45)
[2019-11-21] MEDS ORDERED: methylPREDNISolone SOD SUCC 125 MG/2 ML VL IV ONE (12:45)
[2019-11-21] MEDS ORDERED: ALBUTEROL SULF 2.5 MG/0.5ML(0.5%) NEB SOLN NEB ONE (12:45)
[2019-11-21 13:10] LABS: Hematocrit 44.7 % (36.0-46.0); Hemoglobin 14.7 g/dL (12.2-16.2); Mean Corpuscular Hemoglobin 31.1 pg (28.0-32.0); Mean Corpuscular Volume 94.3 fL (80.0-100.0); Platelet Count (auto) 262 10^3/uL (140-450); Red Blood Cells 4.74 10^6/uL (4.0-5.20); Red Cell Distribution Width 13.5 % (11.8-14.3); White Blood Cell 4.4 10^3/uL (4.4-10.8)
[2019-11-21 13:20] LABS: Band Neutrophils % (manual) 0; Basophils % (manual) 0 (0.0-2.0); Blast Cells 0; Metamyelocytes % 0; Myelocytes % 0; Promyelocytes % 0; Reactive Lymphocytes 0
[2019-11-21 13:22] LABS: INR 0.94 (0.9-1.15); Partial Thromboplastin Time 25.9 sec (23.0-31.2)
[2019-11-21 13:23] LABS: Albumin 3.7 g/dL (3.4-5.0); Anion Gap 6 (5-15); Blood Urea Nitrogen 10 mg/dL (7-18); Calcium 8.5 mg/dL (8.5-10.1); Carbon Dioxide 26 mmol/L (21-32); Chloride 108 mmol/L (98-107); Glucose 100 mg/dL (74-106); Sodium 140 mmol/L (136-145)
[2019-11-21 13:29] LABS: Alanine Aminotransferase 19 U/L (13-56); Alkaline Phosphatase 63 U/L (45-117); Aspartate Aminotransferase 17 U/L (15-37); BUN/Creatinine Ratio 16.7; Bilirubin, Total 0.2 mg/dL (0.2-1.0); GFR African American 144 mL/min; GFR Non-African American 119 mL/min; Total Protein 7.1 g/dL (6.4-8.2)
[2019-11-21 13:45] LABS: Eosinophils % (manual) 17 (0-7); Lymphocytes % (manual) 28 (10.0-50.0); Monocytes % (manual) 8 (0-12)
[2019-11-21] MEDS: SODIUM CHLORIDE 0.9% 1,000 ML IV ONE ×2 (14:01→14:41)
[2019-11-21 15:06] LABS: Urine Bacteria MANY /hpf (None Seen); Urine Blood Negative /uL (Negative); Urine Mucus FEW (None Seen); Urine Specific Gravity 1.003 (1.001-1.035); Urine WBC 2 /hpf (0 - 5)
[2019-11-21 15:39] VITALS: BP 107/72
== END 2019-11-21 15:58 | disposition home or self-care (01) ==
LOC: ER 12:23
DX: J45.901 Unspecified asthma with (acute) exacerbation (principal); F17.210 Nicotine dependence, cigarettes, uncomplicated
CPT/HCPCS: 36415; 71045; 80053; 81001; 83880; 84484; 85007; 85027; 85610; 85730; 94644; 96374; 99285; J2930; J7030; J7644

== ENCOUNTER 2019-12-01 16:42 | Emergency (ER) | payer MEDICAID ==
[~2019-12-01] VITALS: Ht 162.6 cm; Wt 52.2 kg
[2019-12-01] MEDS ORDERED: MAGNESIUM SULFATE 1GM/100ML 100 ML IV ONE ×3 (16:57→17:15)
[2019-12-01] MEDS ORDERED: methylPREDNISolone SOD SUCC 125 MG/2 ML VL ONE (16:57)
[2019-12-01] MEDS ORDERED: methylPREDNISolone SOD SUCC 125 MG/2 ML VL IV ONE ×2 (17:00)
[2019-12-01] MEDS ORDERED: ALBUTEROL SULF 2.5 MG/0.5ML(0.5%) NEB SOLN NEB ONE ×2 (17:00)
[2019-12-01] MEDS ORDERED: IPRATROPIUM BROM 0.5 MG/2.5ML INH SOL NEB ONE (17:00)
[2019-12-01] MEDS ORDERED: cefTRIAXone 1GM/50ML D5W 50 ML IV ONE (17:15)
[2019-12-01 17:26] LABS: Basophils # (auto) 0.1 10 ^3/uL (0-0.2); Basophils % (auto) 0.9 % (0.0-2.0); Eosinophils # (auto) 0.8 10 ^3/uL (0-0.8); Eosinophils % (auto) 8.2 % (0.0-7.0); Hematocrit 48.9 % (36.0-46.0); Hemoglobin 15.9 g/dL (12.2-16.2); Lymphocytes # (auto) 1.4 10 ^3/uL (0.4-5.4); Lymphocytes % (auto) 14.6 % (10.0-50.0); Mean Corpuscular Hemoglobin 30.8 pg (28.0-32.0); Mean Corpuscular Hgb Conc. 32.5 g/dL (32.0-36.0); Mean Corpuscular Volume 94.6 fL (80.0-100.0); Monocytes # (auto) 0.7 10 ^3/uL (0-1.3); Monocytes % (auto) 7.5 % (0.0-12.0); Neutrophils # (auto) 6.6 10 ^3/uL (1.6-8.6); Neutrophils % (auto) 68.8 % (37.0-80.0); Nucleated Red Blood Cells % 0.1 %; Platelet Count (auto) 340 10^3/uL (140-450); Red Blood Cells 5.16 10^6/uL (4.0-5.20); Red Cell Distribution Width 13.5 % (11.8-14.3); White Blood Cell 9.6 10^3/uL (4.4-10.8)
[2019-12-01 17:30] LABS: Albumin 3.8 g/dL (3.4-5.0); Calcium 8.4 mg/dL (8.5-10.1)
[2019-12-01 17:32] LABS: BUN/Creatinine Ratio 8.6; Bilirubin, Total 0.4 mg/dL (0.2-1.0); Total Protein 6.9 g/dL (6.4-8.2)
[2019-12-01 17:52] VITALS: BP 134/88
== END 2019-12-01 18:30 | disposition home or self-care (01) ==
LOC: ER 16:42
DX: J45.901 Unspecified asthma with (acute) exacerbation (principal); F17.210 Nicotine dependence, cigarettes, uncomplicated
CPT/HCPCS: 36415; 71045; 80053; 85025; 93005; 94644; 96365; 96368; 96375; 99285; J0696; J2930; J3475

== ENCOUNTER 2019-12-10 20:46 | Inpatient (IN) | payer MEDICAID ==
[~2019-12-10] VITALS: Ht 162.6 cm; Wt 55.7 kg
[2019-12-10] MEDS ORDERED: SODIUM CHLORIDE 0.9% 1,000 ML IV ONE (20:53)
[2019-12-10] MEDS ORDERED: IPRATROPIUM BROM 0.5 MG/2.5ML INH SOL NEB ONE ×2 (21:00→23:45)
[2019-12-10] MEDS ORDERED: methylPREDNISolone SOD SUCC 125 MG/2 ML VL IV ONE (21:00)
[2019-12-10] MEDS ORDERED: ALBUTEROL SULF 2.5 MG/0.5ML(0.5%) NEB SOLN NEB ONE ×2 (21:00→23:45)
[2019-12-10] MEDS ORDERED: ACETAMINOPHEN 325 MG TAB PO ONE (23:00)
[2019-12-10 23:04] LABS: Basophils # (auto) 0.1 10 ^3/uL (0-0.2); Basophils % (auto) 0.9 % (0.0-2.0); Eosinophils # (auto) 1.1 10 ^3/uL (0-0.8); Eosinophils % (auto) 14.8 % (0.0-7.0); Hematocrit 47.9 % (36.0-46.0); Hemoglobin 15.8 g/dL (12.2-16.2); Lymphocytes % (auto) 26.6 % (10.0-50.0); Mean Corpuscular Hemoglobin 31.3 pg (28.0-32.0); Mean Corpuscular Hgb Conc. 33.1 g/dL (32.0-36.0); Mean Corpuscular Volume 94.7 fL (80.0-100.0); Monocytes # (auto) 0.6 10 ^3/uL (0-1.3); Monocytes % (auto) 7.6 % (0.0-12.0); Neutrophils # (auto) 3.7 10 ^3/uL (1.6-8.6); Neutrophils % (auto) 50.1 % (37.0-80.0); Nucleated Red Blood Cells % 0.1 %; Platelet Count (auto) 306 10^3/uL (140-450); Red Blood Cells 5.06 10^6/uL (4.0-5.20); White Blood Cell 7.4 10^3/uL (4.4-10.8)
[2019-12-10 23:14] LABS: Albumin 3.7 g/dL (3.4-5.0); Calcium 8.3 mg/dL (8.5-10.1)
[2019-12-10 23:16] LABS: BUN/Creatinine Ratio 16.7
[2019-12-10 23:19] LABS: Bilirubin, Total 0.5 mg/dL (0.2-1.0); Total Protein 6.9 g/dL (6.4-8.2)
[2019-12-10] MEDS ORDERED: MAGNESIUM SULFATE 1GM/100ML 100 ML IV ONE (23:30)
[2019-12-11] MEDS ORDERED: AZITHROMYCIN 500MG/ 250ML 250 ML IV ONE (03:00)
[2019-12-11] MEDS ORDERED: MORPHINE SULF INJ 2 MG/ML SYRINGE 1ML IV PRN (03:00)
[2019-12-11] MEDS ORDERED: methylPREDNISolone SOD SUCC 125 MG/2 ML VL IV ONE (03:00)
[2019-12-11] MEDS ORDERED: ONDANSETRON HCL 4 MG/2 ML VIAL IV PRN (03:11)
[2019-12-11 07:39] LABS: Basophils # (auto) 0 10 ^3/uL (0-0.2); Basophils % (auto) 0.3 % (0.0-2.0); Eosinophils # (auto) 0 10 ^3/uL (0-0.8); Hematocrit 45.7 % (36.0-46.0); Hemoglobin 14.8 g/dL (12.2-16.2); Lymphocytes # (auto) 0.2 10 ^3/uL (0.4-5.4); Lymphocytes % (auto) 3.9 % (10.0-50.0); Mean Corpuscular Hemoglobin 30.9 pg (28.0-32.0); Mean Corpuscular Hgb Conc. 32.4 g/dL (32.0-36.0); Mean Corpuscular Volume 95.4 fL (80.0-100.0); Monocytes # (auto) 0 10 ^3/uL (0-1.3); Monocytes % (auto) 0.6 % (0.0-12.0); Neutrophils # (auto) 5.9 10 ^3/uL (1.6-8.6); Neutrophils % (auto) 95.2 % (37.0-80.0); Platelet Count (auto) 263 10^3/uL (140-450); Red Blood Cells 4.79 10^6/uL (4.0-5.20); Red Cell Distribution Width 13.8 % (11.8-14.3); White Blood Cell 6.2 10^3/uL (4.4-10.8)
[2019-12-11 07:56] LABS: Albumin 3.6 g/dL (3.4-5.0); Calcium 8.4 mg/dL (8.5-10.1); Potassium 4.9 mmol/L (3.5-5.1)
[2019-12-11 07:59] LABS: BUN/Creatinine Ratio 15.6; Bilirubin, Total 0.5 mg/dL (0.2-1.0); Total Protein 6.5 g/dL (6.4-8.2)
[2019-12-11 09:00] VITALS: BP 122/63
[2019-12-11] MEDS ORDERED: ALBUTEROL SULF 2.5 MG/0.5ML(0.5%) NEB SOLN NEB ONE (09:15)
[2019-12-11] MEDS ORDERED: IPRATROPIUM BROM 0.5 MG/2.5ML INH SOL NEB ONE (09:15)
[2019-12-11] MEDS: IPRATROPIUM BROM 0.5 MG/2.5ML INH SOL NEB PRN ×2 (09:22→12:53)
[2019-12-11] MEDS: ALBUTEROL SULF 2.5 MG/0.5ML(0.5%) NEB SOLN NEB PRN ×2 (09:22→12:53)
[2019-12-11] MEDS ORDERED: methylPREDNISolone SOD SUCC 125 MG/2 ML VL IV SCH (12:00)
[2019-12-11] MEDS: methylPREDNISolone SOD SUCC 125 MG/2 ML VL IV SCH ×2 (12:18→18:12)
[2019-12-11] MEDS: ALBUTEROL SULF 2.5 MG/0.5ML(0.5%) NEB SOLN NEB SCH ×2 (14:20→21:38)
[2019-12-11] MEDS: IPRATROPIUM BROM 0.5 MG/2.5ML INH SOL NEB SCH ×2 (14:20→21:38)
[2019-12-11] MEDS ORDERED: ALB5IS NEB (17:53)
[2019-12-11] MEDS ORDERED: ALBU0.084 NEB (17:53)
[2019-12-11] MEDS: LORazepam 0.5 MG TAB PO PRN (18:54)
[2019-12-11] MEDS: BUDESONIDE (INHALATION) 0.5 MG/2 ML NEB NEB SCH (21:38)
[2019-12-12] MEDS: methylPREDNISolone SOD SUCC 125 MG/2 ML VL IV SCH ×4 (00:16→17:32)
[2019-12-12] MEDS: ALBUTEROL SULF 2.5 MG/0.5ML(0.5%) NEB SOLN NEB SCH ×6 (01:55→21:59)
[2019-12-12] MEDS: IPRATROPIUM BROM 0.5 MG/2.5ML INH SOL NEB SCH ×6 (01:55→21:59)
[2019-12-12] MEDS: BUDESONIDE (INHALATION) 0.5 MG/2 ML NEB NEB SCH ×2 (06:41→18:26)
[2019-12-12 09:32] LABS: Basophils # (auto) 0 10 ^3/uL (0-0.2); Basophils % (auto) 0.3 % (0.0-2.0); Eosinophils # (auto) 0 10 ^3/uL (0-0.8); Hematocrit 45.6 % (36.0-46.0); Hemoglobin 14.8 g/dL (12.2-16.2); Lymphocytes # (auto) 0.3 10 ^3/uL (0.4-5.4); Lymphocytes % (auto) 2.8 % (10.0-50.0); Mean Corpuscular Hgb Conc. 32.5 g/dL (32.0-36.0); Mean Corpuscular Volume 95.4 fL (80.0-100.0); Monocytes # (auto) 0.2 10 ^3/uL (0-1.3); Monocytes % (auto) 2.4 % (0.0-12.0); Neutrophils # (auto) 8.8 10 ^3/uL (1.6-8.6); Neutrophils % (auto) 94.5 % (37.0-80.0); Platelet Count (auto) 280 10^3/uL (140-450); Red Blood Cells 4.78 10^6/uL (4.0-5.20); Red Cell Distribution Width 14.1 % (11.8-14.3); White Blood Cell 9.4 10^3/uL (4.4-10.8)
[2019-12-12 09:56] LABS: Albumin 3.5 g/dL (3.4-5.0); Potassium 4.5 mmol/L (3.5-5.1)
[2019-12-12 09:59] LABS: Bilirubin, Total 0.5 mg/dL (0.2-1.0); Total Protein 6.6 g/dL (6.4-8.2)
[2019-12-12] MEDS: LORazepam 0.5 MG TAB PO PRN (10:27)
[2019-12-12 16:24] VITALS: BP 123/69
[2019-12-12 16:41] VITALS: BP 123/69
[2019-12-12] MEDS: DOCUSATE SOD 100 MG CAP PO PRN (17:32)
[2019-12-12] MEDS: ZOLPIDEM TARTRATE 5 MG TAB PO PRN (21:44)
[2019-12-12 22:10] VITALS: BP 104/66
[2019-12-13] MEDS: IPRATROPIUM BROM 0.5 MG/2.5ML INH SOL NEB SCH ×6 (01:53→21:47)
[2019-12-13] MEDS: ALBUTEROL SULF 2.5 MG/0.5ML(0.5%) NEB SOLN NEB SCH ×6 (01:53→21:47)
[2019-12-13 05:09] VITALS: BP 113/68
[2019-12-13] MEDS: methylPREDNISolone SOD SUCC 125 MG/2 ML VL IV SCH ×4 (05:21→17:50)
[2019-12-13 09:00] VITALS: BP 103/75
[2019-12-13] MEDS: LORazepam 0.5 MG TAB PO PRN (09:01)
[2019-12-13] MEDS: DOCUSATE SOD 100 MG CAP PO PRN ×2 (09:01→22:06)
[2019-12-13] MEDS: BUDESONIDE (INHALATION) 0.5 MG/2 ML NEB NEB SCH ×2 (10:15→21:47)
[2019-12-13 10:21] LABS: Basophils # (auto) 0 10 ^3/uL (0-0.2); Eosinophils # (auto) 0 10 ^3/uL (0-0.8); Hematocrit 43.9 % (36.0-46.0); Hemoglobin 14.4 g/dL (12.2-16.2); Lymphocytes # (auto) 0.2 10 ^3/uL (0.4-5.4); Lymphocytes % (auto) 1.8 % (10.0-50.0); Mean Corpuscular Hemoglobin 31.2 pg (28.0-32.0); Mean Corpuscular Hgb Conc. 32.7 g/dL (32.0-36.0); Mean Corpuscular Volume 95.4 fL (80.0-100.0); Monocytes # (auto) 0.1 10 ^3/uL (0-1.3); Monocytes % (auto) 1.4 % (0.0-12.0); Neutrophils # (auto) 8.5 10 ^3/uL (1.6-8.6); Neutrophils % (auto) 96.8 % (37.0-80.0); Platelet Count (auto) 243 10^3/uL (140-450); Red Cell Distribution Width 13.9 % (11.8-14.3); White Blood Cell 8.8 10^3/uL (4.4-10.8)
[2019-12-13] MEDS: MORPHINE SULF INJ 2 MG/ML SYRINGE 1ML IV PRN ×2 (10:39→19:57)
[2019-12-13 10:54] LABS: Potassium 3.8 mmol/L (3.5-5.1)
[2019-12-13 11:02] LABS: Albumin 3.4 g/dL (3.4-5.0); BUN/Creatinine Ratio 36.8; Bilirubin, Total 0.5 mg/dL (0.2-1.0); Calcium 8.7 mg/dL (8.5-10.1); Total Protein 6.2 g/dL (6.4-8.2)
[2019-12-13 13:00] VITALS: BP 98/64
[2019-12-13 17:00] VITALS: BP 102/70
[2019-12-13 22:00] VITALS: BP 109/57
[2019-12-13] MEDS: ZOLPIDEM TARTRATE 5 MG TAB PO PRN (22:06)
[2019-12-14] MEDS: methylPREDNISolone SOD SUCC 125 MG/2 ML VL IV SCH ×5 (00:59→23:32)
[2019-12-14] MEDS: ALBUTEROL SULF 2.5 MG/0.5ML(0.5%) NEB SOLN NEB SCH ×6 (02:55→22:35)
[2019-12-14] MEDS: IPRATROPIUM BROM 0.5 MG/2.5ML INH SOL NEB SCH ×6 (02:55→22:35)
[2019-12-14] MEDS: MORPHINE SULF INJ 2 MG/ML SYRINGE 1ML IV PRN ×3 (04:57→20:07)
[2019-12-14 05:00] VITALS: BP 109/64
[2019-12-14 09:00] VITALS: BP 108/70
[2019-12-14] MEDS: LORazepam 0.5 MG TAB PO PRN (09:06)
[2019-12-14] MEDS: DOCUSATE SOD 100 MG CAP PO PRN (09:06)
[2019-12-14] MEDS: BUDESONIDE (INHALATION) 0.5 MG/2 ML NEB NEB SCH ×2 (10:00→22:36)
[2019-12-14] MEDS: LACTULOSE 20Gm/30ML SOLN PO SCH ×3 (10:00→18:43)
[2019-12-14 11:16] VITALS: BP 108/70
[2019-12-14 13:00] VITALS: BP 112/76
[2019-12-14 16:55] VITALS: BP 115/66
[2019-12-14 22:00] VITALS: BP 106/67
[2019-12-14] MEDS: ZOLPIDEM TARTRATE 5 MG TAB PO PRN (23:33)
[2019-12-15] MEDS: IPRATROPIUM BROM 0.5 MG/2.5ML INH SOL NEB SCH ×4 (02:20→14:10)
[2019-12-15] MEDS: ALBUTEROL SULF 2.5 MG/0.5ML(0.5%) NEB SOLN NEB SCH ×4 (02:20→14:10)
[2019-12-15 05:00] VITALS: BP 106/68
[2019-12-15] MEDS: methylPREDNISolone SOD SUCC 125 MG/2 ML VL IV SCH ×2 (05:34→12:01)
[2019-12-15] MEDS: MORPHINE SULF INJ 2 MG/ML SYRINGE 1ML IV PRN (05:35)
[2019-12-15] MEDS: LACTULOSE 20Gm/30ML SOLN PO SCH ×3 (05:51→12:00)
[2019-12-15] MEDS: BUDESONIDE (INHALATION) 0.5 MG/2 ML NEB NEB SCH (06:16)
[2019-12-15 08:45] VITALS: BP 124/73
[2019-12-15 09:00] VITALS: BP 124/73
[2019-12-15] MEDS: LORazepam 0.5 MG TAB PO PRN (09:13)
[2019-12-15 09:57] LABS: Basophils # (auto) 0 10 ^3/uL (0-0.2); Basophils % (auto) 0.3 % (0.0-2.0); Eosinophils # (auto) 0 10 ^3/uL (0-0.8); Hematocrit 44.8 % (36.0-46.0); Hemoglobin 14.6 g/dL (12.2-16.2); Lymphocytes # (auto) 0.1 10 ^3/uL (0.4-5.4); Lymphocytes % (auto) 1.6 % (10.0-50.0); Mean Corpuscular Hemoglobin 31.1 pg (28.0-32.0); Mean Corpuscular Hgb Conc. 32.6 g/dL (32.0-36.0); Mean Corpuscular Volume 95.3 fL (80.0-100.0); Monocytes # (auto) 0.2 10 ^3/uL (0-1.3); Monocytes % (auto) 2.5 % (0.0-12.0); Neutrophils # (auto) 6.9 10 ^3/uL (1.6-8.6); Neutrophils % (auto) 95.6 % (37.0-80.0); Platelet Count (auto) 229 10^3/uL (140-450); Red Cell Distribution Width 13.9 % (11.8-14.3); White Blood Cell 7.2 10^3/uL (4.4-10.8)
[2019-12-15 10:17] LABS: Albumin 3.2 g/dL (3.4-5.0); BUN/Creatinine Ratio 31.8; Calcium 8.4 mg/dL (8.5-10.1)
[2019-12-15 10:20] LABS: Bilirubin, Total 0.4 mg/dL (0.2-1.0); Total Protein 6.2 g/dL (6.4-8.2)
[2019-12-15 10:48] VITALS: BP 124/73
[2019-12-15 12:35] VITALS: BP 97/52
== END 2019-12-15 15:35 | disposition home or self-care (01) | DRG 133 ==
LOC: ER 20:46 → TELE 20:47 → TELE-WESTW 12-12 15:42
PROVIDERS: ADMIT Internal Medicine; ATTEND Internal Medicine
DX: J96.01 Acute respiratory failure with hypoxia (principal); J45.902 Unspecified asthma with status asthmaticus; J01.00 Acute maxillary sinusitis, unspecified; E86.0 Dehydration; Z20.828 Contact with and (suspected) exposure to other viral communicable diseases; Z71.6 Tobacco abuse counseling; F17.210 Nicotine dependence, cigarettes, uncomplicated; Z82.49 Family history of ischemic heart disease and other diseases of the circulatory system
CPT/HCPCS: 36415; 36600; 71045; 80053; 82805; 85025; 87081; 94640; 96365; 96375; 99291; G0378

== ENCOUNTER 2020-03-26 17:24 | Inpatient (IN) | payer MEDICAID ==
[~2020-03-26] VITALS: Ht 160 cm; Wt 58.0 kg
[~2020-03-26 17:24] MED LIST changes: +ALB5IS NEB; -ALBU0.08 HHN; +ALBU0.084 NEB; -ALBUAER3 IN; -ZOLP10TA PO
[2020-03-26] MEDS ORDERED: ALBUTEROL SULF 2.5 MG/0.5ML(0.5%) NEB SOLN NEB ONE ×2 (17:30→19:45)
[2020-03-26] MEDS ORDERED: IPRATROPIUM BROM 0.5 MG/2.5ML INH SOL NEB ONE ×2 (17:30→19:45)
[2020-03-26] MEDS ORDERED: SODIUM CHLORIDE 0.9% 1,000 ML IV ONE (18:00)
[2020-03-26] MEDS ORDERED: methylPREDNISolone SOD SUCC 125 MG/2 ML VL IV ONE (18:00)
[2020-03-26] MEDS: MAGNESIUM SULFATE 1GM/100ML 100 ML IV SCH ×2 (20:00→21:02)
[2020-03-26 20:39] LABS: Basophils # (auto) 0.1 10 ^3/uL (0-0.2); Basophils % (auto) 0.9 % (0.0-2.0); Eosinophils # (auto) 0.5 10 ^3/uL (0-0.8); Eosinophils % (auto) 5.9 % (0.0-7.0); Hematocrit 47.5 % (36.0-46.0); Hemoglobin 15.9 g/dL (12.2-16.2); Lymphocytes # (auto) 0.7 10 ^3/uL (0.4-5.4); Lymphocytes % (auto) 8.9 % (10.0-50.0); Mean Corpuscular Hemoglobin 31.5 pg (28.0-32.0); Mean Corpuscular Hgb Conc. 33.4 g/dL (32.0-36.0); Mean Corpuscular Volume 94.4 fL (80.0-100.0); Monocytes # (auto) 0.4 10 ^3/uL (0-1.3); Monocytes % (auto) 4.9 % (0.0-12.0); Neutrophils # (auto) 6.5 10 ^3/uL (1.6-8.6); Neutrophils % (auto) 79.4 % (37.0-80.0); Platelet Count (auto) 318 10^3/uL (140-450); Red Blood Cells 5.03 10^6/uL (4.0-5.20); Red Cell Distribution Width 12.9 % (11.8-14.3); White Blood Cell 8.1 10^3/uL (4.4-10.8)
[2020-03-26 20:57] LABS: Albumin 3.8 g/dL (3.4-5.0); BUN/Creatinine Ratio 14.7; Calcium 8.8 mg/dL (8.5-10.1); Potassium 4.3 mmol/L (3.5-5.1)
[2020-03-26 21:00] LABS: Bilirubin, Total 0.5 mg/dL (0.2-1.0); Total Protein 7.1 g/dL (6.4-8.2)
[2020-03-26] MEDS ORDERED: ACETAMINOPHEN 325 MG TAB PO ONE (21:00)
[2020-03-26] MEDS ORDERED: diazePAM 5 MG TAB PO ONE (21:15)
[2020-03-26] MEDS ORDERED: DOCUSATE CALCIUM 240 MG CAP PO PRN (21:45)
[2020-03-26] MEDS ORDERED: hydrALAZINE HCL 20 MG/ML VL IV PRN (21:45)
[2020-03-26] MEDS ORDERED: ACETAMINOPHEN 500 MG TAB PO PRN (21:45)
[2020-03-26] MEDS ORDERED: ONDANSETRON HCL 4 MG/2 ML VIAL IV PRN (21:45)
[2020-03-26] MEDS ORDERED: NITROGLYCERIN 0.4 MG SL TAB SL PRN (21:45)
[2020-03-26] MEDS ORDERED: KETOROLAC TROMETH 60MG/2ML VIAL IM ONE (21:45)
[2020-03-26] MEDS ORDERED: KETOROLAC TROMETH 60MG/2ML VIAL IM PRN (21:45)
[2020-03-26] MEDS ORDERED: MORPHINE SULF INJ 2 MG/ML SYRINGE 1ML IV PRN (21:45)
[2020-03-26] MEDS: IPRATROPIUM BROM 0.5 MG/2.5ML INH SOL NEB SCH (22:00)
[2020-03-26] MEDS: ALBUTEROL SULF 2.5 MG/0.5ML(0.5%) NEB SOLN NEB SCH (22:00)
[2020-03-26] MEDS: BUDESONIDE (INHALATION) 0.5 MG/2 ML NEB NEB SCH (22:00)
[2020-03-26] MEDS: SODIUM CHLORIDE 0.9% 1,000 ML IV SCH (22:15)
[2020-03-27] MEDS: methylPREDNISolone SOD SUCC 125 MG/2 ML VL IV SCH ×4 (00:36→17:53)
[2020-03-27 05:42] LABS: Basophils # (auto) 0 10 ^3/uL (0-0.2); Basophils % (auto) 1.1 % (0.0-2.0); Eosinophils # (auto) 0 10 ^3/uL (0-0.8); Eosinophils % (auto) 0.1 % (0.0-7.0); Hematocrit 46.5 % (36.0-46.0); Hemoglobin 15.3 g/dL (12.2-16.2); Lymphocytes # (auto) 0.3 10 ^3/uL (0.4-5.4); Lymphocytes % (auto) 6.2 % (10.0-50.0); Mean Corpuscular Hemoglobin 31.2 pg (28.0-32.0); Mean Corpuscular Volume 94.5 fL (80.0-100.0); Monocytes # (auto) 0.1 10 ^3/uL (0-1.3); Monocytes % (auto) 1.8 % (0.0-12.0); Neutrophils # (auto) 3.7 10 ^3/uL (1.6-8.6); Neutrophils % (auto) 90.8 % (37.0-80.0); Nucleated Red Blood Cells % 0.1 %; Platelet Count (auto) 299 10^3/uL (140-450); Red Blood Cells 4.92 10^6/uL (4.0-5.20); Red Cell Distribution Width 13.1 % (11.8-14.3); White Blood Cell 4.1 10^3/uL (4.4-10.8)
[2020-03-27 06:03] LABS: Potassium 4.4 mmol/L (3.5-5.1)
[2020-03-27] MEDS: BUDESONIDE (INHALATION) 0.5 MG/2 ML NEB NEB SCH ×2 (06:14→19:27)
[2020-03-27] MEDS: ALBUTEROL SULF 2.5 MG/0.5ML(0.5%) NEB SOLN NEB SCH ×5 (06:14→23:46)
[2020-03-27] MEDS: IPRATROPIUM BROM 0.5 MG/2.5ML INH SOL NEB SCH ×5 (06:14→23:46)
[2020-03-27 06:15] LABS: Albumin 3.4 g/dL (3.4-5.0); BUN/Creatinine Ratio 16.9; Bilirubin, Total 0.5 mg/dL (0.2-1.0); Calcium 8.5 mg/dL (8.5-10.1); Total Protein 6.6 g/dL (6.4-8.2)
[2020-03-27] MEDS: PANTOPRAZOLE 40 MG TAB PO SCH (11:45)
[2020-03-27] MEDS: ENOXAPARIN SOD 40 MG/0.4 ML SYRINGE SC SCH (11:45)
[2020-03-27] MEDS: SODIUM CHLORIDE 0.9% 1,000 ML IV SCH (14:25)
[2020-03-27] MEDS ORDERED: MAGNESIUM SULFATE 1GM/100ML 100 ML IV ONE (15:05)
[2020-03-27] MEDS: MAGNESIUM SULFATE 1GM/100ML 100 ML IV SCH ×2 (16:00→17:53)
[2020-03-27] MEDS ORDERED: ACETAMINOPHEN 325 MG TAB PO PRN (21:30)
[2020-03-27] MEDS: LORazepam 0.5 MG TAB PO PRN (21:38)
[2020-03-28] MEDS: methylPREDNISolone SOD SUCC 125 MG/2 ML VL IV SCH ×3 (00:23→13:00)
[2020-03-28] MEDS: BUDESONIDE (INHALATION) 0.5 MG/2 ML NEB NEB SCH (05:55)
[2020-03-28] MEDS: IPRATROPIUM BROM 0.5 MG/2.5ML INH SOL NEB SCH ×3 (05:55→14:29)
[2020-03-28] MEDS: ALBUTEROL SULF 2.5 MG/0.5ML(0.5%) NEB SOLN NEB SCH ×3 (05:55→14:29)
[2020-03-28] MEDS: SODIUM CHLORIDE 0.9% 1,000 ML IV SCH ×2 (07:05→23:03)
[2020-03-28] MEDS: ENOXAPARIN SOD 40 MG/0.4 ML SYRINGE SC SCH (10:14)
[2020-03-28] MEDS: PANTOPRAZOLE 40 MG TAB PO SCH (10:14)
[2020-03-28] MEDS: LORazepam 0.5 MG TAB PO PRN (13:26)
[2020-03-28] MEDS: BUDESONIDE (INHALATION) 180 MCG IH IN SCH (22:00)
[2020-03-28] MEDS: ALBUTEROL SULF HFA 90MCG INH 200DOSE IN SCH (22:00)
[2020-03-28] MEDS ORDERED: TEMAZEPAM 15 MG CAP PO ONE (23:00)
[2020-03-29] MEDS ORDERED: ALBUTEROL SULF HFA 90MCG INH 200DOSE IN PRN (02:00)
[2020-03-29] MEDS: ALBUTEROL SULF HFA 90MCG INH 200DOSE IN SCH ×3 (06:00→22:00)
[2020-03-29 06:10] LABS: Basophils # (auto) 0 10 ^3/uL (0-0.2); Basophils % (auto) 0.1 % (0.0-2.0); Eosinophils # (auto) 0 10 ^3/uL (0-0.8); Eosinophils % (auto) 0.1 % (0.0-7.0); Hematocrit 42.7 % (36.0-46.0); Hemoglobin 13.7 g/dL (12.2-16.2); Lymphocytes # (auto) 1.3 10 ^3/uL (0.4-5.4); Lymphocytes % (auto) 14.2 % (10.0-50.0); Mean Corpuscular Hemoglobin 30.9 pg (28.0-32.0); Mean Corpuscular Hgb Conc. 32.1 g/dL (32.0-36.0); Mean Corpuscular Volume 96.2 fL (80.0-100.0); Monocytes # (auto) 0.7 10 ^3/uL (0-1.3); Monocytes % (auto) 7.7 % (0.0-12.0); Neutrophils # (auto) 7.3 10 ^3/uL (1.6-8.6); Neutrophils % (auto) 77.9 % (37.0-80.0); Platelet Count (auto) 260 10^3/uL (140-450); Red Blood Cells 4.44 10^6/uL (4.0-5.20); Red Cell Distribution Width 13.5 % (11.8-14.3); White Blood Cell 9.4 10^3/uL (4.4-10.8)
[2020-03-29 06:29] LABS: Potassium 4.2 mmol/L (3.5-5.1)
[2020-03-29 06:36] LABS: BUN/Creatinine Ratio 25.3; Bilirubin, Total 0.3 mg/dL (0.2-1.0); CRP High Sensitivity 0.07 mg/dL (< 0.3); Calcium 8.5 mg/dL (8.5-10.1); Total Protein 5.8 g/dL (6.4-8.2)
[2020-03-29] MEDS: BUDESONIDE (INHALATION) 180 MCG IH IN SCH ×2 (07:30→22:00)
[2020-03-29] MEDS: PANTOPRAZOLE 40 MG TAB PO SCH (08:23)
[2020-03-29] MEDS: AZITHROMYCIN 500MG/ 250ML 250 ML IV SCH (08:23)
[2020-03-29] MEDS: DexAMETHasone SOD PHOS 10MG/1ML VIAL INJ IV SCH (08:23)
[2020-03-29] MEDS: ZINC SULFATE 220mg CAP or TAB PO SCH (08:23)
[2020-03-29] MEDS: ASCORBIC ACID 500 MG TAB PO SCH (08:23)
[2020-03-29] MEDS: CHOLECALCIFEROL (VITD3) 1,000UNIT=25mCg TAB PO SCH (08:23)
[2020-03-29] MEDS: LORazepam 0.5 MG TAB PO PRN (08:30)
[2020-03-29] MEDS ORDERED: ENOXAPARIN SOD 60 MG/0.6 ML SYRINGE SC ONE (09:15)
[2020-03-29] MEDS: ENOXAPARIN SOD 40 MG/0.4 ML SYRINGE SC SCH (10:04)
[2020-03-29] MEDS ORDERED: ONDANSETRON HCL 4 MG/2 ML VIAL IV PRN (14:15)
[2020-03-29] MEDS ORDERED: LACTULOSE 20Gm/30ML SOLN PO ONE (14:15)
[2020-03-29] MEDS: HYDROcodone-ACET 10/325MG TAB PO PRN (14:51)
[2020-03-29] MEDS: ALPRAZolam 0.5 MG TAB PO PRN (19:37)
[2020-03-29] MEDS: DOCUSATE SOD 100 MG CAP PO SCH (22:07)
[2020-03-29] MEDS: MORPHINE SULFATE 4 MG/ML SYR/VIAL IV PRN (22:07)
[2020-03-30] MEDS: ZOLPIDEM TARTRATE 5 MG TAB PO PRN (00:12)
[2020-03-30] MEDS: BUDESONIDE (INHALATION) 180 MCG IH IN SCH ×2 (07:07→22:00)
[2020-03-30] MEDS: ALPRAZolam 0.5 MG TAB PO PRN ×2 (08:18→16:45)
[2020-03-30] MEDS: DexAMETHasone SOD PHOS 10MG/1ML VIAL INJ IV SCH (09:46)
[2020-03-30] MEDS: AZITHROMYCIN 500MG/ 250ML 250 ML IV SCH (09:47)
[2020-03-30] MEDS: PANTOPRAZOLE 40 MG TAB PO SCH (09:48)
[2020-03-30] MEDS: ASCORBIC ACID 500 MG TAB PO SCH (09:48)
[2020-03-30] MEDS: CHOLECALCIFEROL (VITD3) 1,000UNIT=25mCg TAB PO SCH (09:48)
[2020-03-30] MEDS: ZINC SULFATE 220mg CAP or TAB PO SCH (09:48)
[2020-03-30] MEDS: ENOXAPARIN SOD 40 MG/0.4 ML SYRINGE SC SCH (10:30)
[2020-03-30] MEDS: DOCUSATE SOD 100 MG CAP PO SCH ×2 (10:30→22:00)
[2020-03-30] MEDS ORDERED: REMDESIVIR PER PHARMACY 0 ML IV SCH (10:30)
[2020-03-30] MEDS ORDERED: ALBUTEROL SULF 2.5 MG/0.5ML(0.5%) NEB SOLN NEB PRN ×2 (10:30→18:00)
[2020-03-30 13:25] LABS: Albumin 3.3 g/dL (3.4-5.0); Calcium 8.6 mg/dL (8.5-10.1); Potassium 3.5 mmol/L (3.5-5.1)
[2020-03-30 13:34] LABS: BUN/Creatinine Ratio 17.4; Bilirubin, Total 0.2 mg/dL (0.2-1.0); CRP High Sensitivity 0.08 mg/dL (< 0.3); Total Protein 6.1 g/dL (6.4-8.2)
[2020-03-30] MEDS: MORPHINE SULFATE 4 MG/ML SYR/VIAL IV PRN (14:30)
[2020-03-30] MEDS ORDERED: REMDESIVIR 200 MG in NS 210ml LOADING DOSE ADULT IV ONE (15:00)
[2020-03-30 15:38] VITALS: BP 116/70
[2020-03-30] MEDS ORDERED: BUDE1AER4 PO (15:47)
[2020-03-30] MEDS ORDERED: IPRATROPIUM BROM 0.5 MG/2.5ML INH SOL ONE ×3 (16:45→21:52)
[2020-03-30 17:00] VITALS: BP 125/75
[2020-03-30 17:35] LABS: Basophils # (auto) 0 10 ^3/uL (0-0.2); Basophils % (auto) 0.2 % (0.0-2.0); Eosinophils # (auto) 0 10 ^3/uL (0-0.8); Eosinophils % (auto) 0.1 % (0.0-7.0); Hematocrit 48.4 % (36.0-46.0); Hemoglobin 15.9 g/dL (12.2-16.2); Lymphocytes # (auto) 0.3 10 ^3/uL (0.4-5.4); Lymphocytes % (auto) 5.4 % (10.0-50.0); Mean Corpuscular Hemoglobin 31.1 pg (28.0-32.0); Mean Corpuscular Hgb Conc. 32.9 g/dL (32.0-36.0); Mean Corpuscular Volume 94.3 fL (80.0-100.0); Monocytes # (auto) 0.2 10 ^3/uL (0-1.3); Monocytes % (auto) 2.5 % (0.0-12.0); Neutrophils # (auto) 5.7 10 ^3/uL (1.6-8.6); Neutrophils % (auto) 91.8 % (37.0-80.0); Platelet Count (auto) 240 10^3/uL (140-450); Red Blood Cells 5.13 10^6/uL (4.0-5.20); Red Cell Distribution Width 13.1 % (11.8-14.3); White Blood Cell 6.2 10^3/uL (4.4-10.8)
[2020-03-30] MEDS ORDERED: ALBUTEROL SULF 2.5 MG/0.5ML(0.5%) NEB SOLN ONE ×2 (18:59→21:52)
[2020-03-30 21:26] VITALS: BP 124/74
[2020-03-30 21:40] VITALS: BP 124/78
[2020-03-30] MEDS: BUDESONIDE FORMOTEROL FUMARATE PO SCH (22:00)
[2020-03-30 22:30] VITALS: BP 144/93
[2020-03-30] MEDS ORDERED: methylPREDNISolone SOD SUCC 40 MG/ML VL IV ONE (23:45)
[2020-03-31] MEDS: ZOLPIDEM TARTRATE 5 MG TAB PO PRN
[2020-03-31] MEDS: ALPRAZolam 0.5 MG TAB PO PRN ×2 (00:53→13:00)
[2020-03-31] MEDS ORDERED: ALBUTEROL SULF 2.5 MG/0.5ML(0.5%) NEB SOLN ONE (02:11)
[2020-03-31] MEDS ORDERED: IPRATROPIUM BROM 0.5 MG/2.5ML INH SOL ONE ×2 (02:11→05:45)
[2020-03-31 06:00] VITALS: BP 124/84
[2020-03-31] MEDS: BUDESONIDE (INHALATION) 180 MCG IH IN SCH ×2 (06:53→19:29)
[2020-03-31] MEDS: ALBUTEROL SULF 2.5 MG/0.5ML(0.5%) NEB SOLN NEB PRN ×4 (06:53→23:39)
[2020-03-31 08:04] LABS: Potassium 4.3 mmol/L (3.5-5.1)
[2020-03-31 08:06] LABS: Basophils # (auto) 0 10 ^3/uL (0-0.2); Basophils % (auto) 0.1 % (0.0-2.0); Eosinophils # (auto) 0 10 ^3/uL (0-0.8); Eosinophils % (auto) 0.1 % (0.0-7.0); Hematocrit 47.2 % (36.0-46.0); Hemoglobin 15.5 g/dL (12.2-16.2); Lymphocytes # (auto) 0.6 10 ^3/uL (0.4-5.4); Lymphocytes % (auto) 7.2 % (10.0-50.0); Mean Corpuscular Hemoglobin 31.2 pg (28.0-32.0); Mean Corpuscular Hgb Conc. 32.9 g/dL (32.0-36.0); Monocytes # (auto) 0.5 10 ^3/uL (0-1.3); Monocytes % (auto) 6.1 % (0.0-12.0); Neutrophils # (auto) 7.2 10 ^3/uL (1.6-8.6); Neutrophils % (auto) 86.5 % (37.0-80.0); Platelet Count (auto) 295 10^3/uL (140-450); Red Blood Cells 4.96 10^6/uL (4.0-5.20); Red Cell Distribution Width 12.9 % (11.8-14.3); White Blood Cell 8.4 10^3/uL (4.4-10.8)
[2020-03-31 08:10] LABS: Albumin 3.4 g/dL (3.4-5.0); BUN/Creatinine Ratio 21.4; Bilirubin, Total 0.3 mg/dL (0.2-1.0); CRP High Sensitivity 0.43 mg/dL (< 0.3); Calcium 9.1 mg/dL (8.5-10.1); Total Protein 6.8 g/dL (6.4-8.2)
[2020-03-31 09:00] VITALS: BP 117/70
[2020-03-31] MEDS: DexAMETHasone SOD PHOS 10MG/1ML VIAL INJ IV SCH (10:16)
[2020-03-31] MEDS: ZINC SULFATE 220mg CAP or TAB PO SCH (10:16)
[2020-03-31] MEDS: AZITHROMYCIN 500MG/ 250ML 250 ML IV SCH (10:16)
[2020-03-31] MEDS: PANTOPRAZOLE 40 MG TAB PO SCH (10:17)
[2020-03-31] MEDS: DOCUSATE SOD 100 MG CAP PO SCH ×2 (10:17→20:44)
[2020-03-31] MEDS: CHOLECALCIFEROL (VITD3) 1,000UNIT=25mCg TAB PO SCH (10:22)
[2020-03-31] MEDS: BUDESONIDE FORMOTEROL FUMARATE PO SCH (10:22)
[2020-03-31] MEDS: ASCORBIC ACID 500 MG TAB PO SCH (10:22)
[2020-03-31] MEDS: IPRATROPIUM BROM 0.5 MG/2.5ML INH SOL NEB PRN (11:04)
[2020-03-31] MEDS: MORPHINE SULFATE 4 MG/ML SYR/VIAL IV PRN ×2 (11:15→20:44)
[2020-03-31] MEDS ORDERED: REMDESIVIR PER PHARMACY 0 ML IV SCH (11:30)
[2020-03-31 12:54] VITALS: BP 111/77
[2020-03-31] MEDS: REMDESIVIR 100 MG in SODIUM CHL 0.9% 250 ML IV SCH (15:39)
[2020-03-31 17:00] VITALS: BP 125/76
[2020-03-31] MEDS: methylPREDNISolone SOD SUCC 40 MG/ML VL IV SCH (21:51)
[2020-03-31 22:47] VITALS: BP 119/64
[2020-04-01] MEDS: BUDESONIDE FORMOTEROL FUMARATE PO SCH ×3 (01:03→21:29)
[2020-04-01] MEDS: ZOLPIDEM TARTRATE 5 MG TAB PO PRN ×2 (01:16→23:02)
[2020-04-01 06:10] VITALS: BP 107/69
[2020-04-01] MEDS: methylPREDNISolone SOD SUCC 40 MG/ML VL IV SCH ×3 (06:36→21:29)
[2020-04-01] MEDS: MORPHINE SULFATE 4 MG/ML SYR/VIAL IV PRN ×2 (07:15→20:07)
[2020-04-01 09:00] VITALS: BP 112/64
[2020-04-01] MEDS: ALBUTEROL SULF 2.5 MG/0.5ML(0.5%) NEB SOLN NEB PRN (09:03)
[2020-04-01] MEDS: IPRATROPIUM BROM 0.5 MG/2.5ML INH SOL NEB PRN (09:04)
[2020-04-01] MEDS: AZITHROMYCIN 500MG/ 250ML 250 ML IV SCH (09:59)
[2020-04-01] MEDS: ZINC SULFATE 220mg CAP or TAB PO SCH (10:00)
[2020-04-01] MEDS ORDERED: BUDESONIDE (INHALATION) 0.5 MG/2 ML NEB NEB SCH (10:00)
[2020-04-01] MEDS: DOCUSATE SOD 100 MG CAP PO SCH ×2 (10:00→21:30)
[2020-04-01] MEDS: CHOLECALCIFEROL (VITD3) 1,000UNIT=25mCg TAB PO SCH (10:01)
[2020-04-01] MEDS: ENOXAPARIN SOD 40 MG/0.4 ML SYRINGE SC SCH (10:01)
[2020-04-01] MEDS: ASCORBIC ACID 500 MG TAB PO SCH (10:01)
[2020-04-01] MEDS: PANTOPRAZOLE 40 MG TAB PO SCH (10:01)
[2020-04-01] MEDS: ALBUTEROL SULF 2.5 MG/0.5ML(0.5%) NEB SOLN NEB SCH ×4 (10:33→21:13)
[2020-04-01] MEDS: IPRATROPIUM BROM 0.5 MG/2.5ML INH SOL NEB SCH ×4 (10:33→21:13)
[2020-04-01 13:00] VITALS: BP 131/82
[2020-04-01] MEDS: ALPRAZolam 0.5 MG TAB PO PRN (13:17)
[2020-04-01 13:39] LABS: Basophils # (auto) 0 10 ^3/uL (0-0.2); Basophils % (auto) 0.2 % (0.0-2.0); Eosinophils # (auto) 0 10 ^3/uL (0-0.8); Eosinophils % (auto) 0.1 % (0.0-7.0); Hematocrit 48.6 % (36.0-46.0); Hemoglobin 16.3 g/dL (12.2-16.2); Lymphocytes # (auto) 0.5 10 ^3/uL (0.4-5.4); Lymphocytes % (auto) 6.5 % (10.0-50.0); Mean Corpuscular Hemoglobin 31.9 pg (28.0-32.0); Mean Corpuscular Hgb Conc. 33.5 g/dL (32.0-36.0); Mean Corpuscular Volume 95.2 fL (80.0-100.0); Monocytes # (auto) 0.3 10 ^3/uL (0-1.3); Monocytes % (auto) 3.9 % (0.0-12.0); Neutrophils # (auto) 6.7 10 ^3/uL (1.6-8.6); Neutrophils % (auto) 89.3 % (37.0-80.0); Platelet Count (auto) 341 10^3/uL (140-450); Red Blood Cells 5.11 10^6/uL (4.0-5.20); Red Cell Distribution Width 13.1 % (11.8-14.3); White Blood Cell 7.5 10^3/uL (4.4-10.8)
[2020-04-01 14:18] LABS: Albumin 3.6 g/dL (3.4-5.0); CRP High Sensitivity 0.3 mg/dL (< 0.3); Calcium 8.5 mg/dL (8.5-10.1); Potassium 3.9 mmol/L (3.5-5.1)
[2020-04-01 14:22] LABS: BUN/Creatinine Ratio 18.5; Bilirubin, Total 0.3 mg/dL (0.2-1.0); Total Protein 7.1 g/dL (6.4-8.2)
[2020-04-01] MEDS ORDERED: LACTULOSE 20Gm/30ML SOLN ONE (15:13)
[2020-04-01] MEDS: REMDESIVIR 100 MG in SODIUM CHL 0.9% 250 ML IV SCH (16:09)
[2020-04-01 16:36] VITALS: BP 126/93
[2020-04-01] MEDS: BUDESONIDE (INHALATION) 0.5 MG/2 ML NEB NEB SCH (18:56)
[2020-04-01 20:15] VITALS: BP 121/70
[2020-04-01 22:00] VITALS: BP 112/70
[2020-04-01] MEDS ORDERED: LACTULOSE 20Gm/30ML SOLN PO SCH (22:00)
[2020-04-02] MEDS: IPRATROPIUM BROM 0.5 MG/2.5ML INH SOL NEB SCH ×6 (02:48→20:08)
[2020-04-02] MEDS: ALBUTEROL SULF 2.5 MG/0.5ML(0.5%) NEB SOLN NEB SCH ×6 (02:48→20:07)
[2020-04-02 05:00] VITALS: BP 121/68
[2020-04-02] MEDS: methylPREDNISolone SOD SUCC 40 MG/ML VL IV SCH ×3 (05:40→22:28)
[2020-04-02] MEDS: MORPHINE SULFATE 4 MG/ML SYR/VIAL IV PRN ×2 (06:59→20:56)
[2020-04-02 07:39] LABS: Basophils # (auto) 0 10 ^3/uL (0-0.2); Eosinophils # (auto) 0 10 ^3/uL (0-0.8); Eosinophils % (auto) 0.1 % (0.0-7.0); Hematocrit 47.1 % (36.0-46.0); Hemoglobin 15.6 g/dL (12.2-16.2); Lymphocytes # (auto) 0.7 10 ^3/uL (0.4-5.4); Lymphocytes % (auto) 9.7 % (10.0-50.0); Mean Corpuscular Hemoglobin 31.5 pg (28.0-32.0); Mean Corpuscular Volume 95.3 fL (80.0-100.0); Monocytes # (auto) 0.4 10 ^3/uL (0-1.3); Monocytes % (auto) 6.3 % (0.0-12.0); Neutrophils # (auto) 5.9 10 ^3/uL (1.6-8.6); Neutrophils % (auto) 83.9 % (37.0-80.0); Platelet Count (auto) 311 10^3/uL (140-450); Red Blood Cells 4.94 10^6/uL (4.0-5.20); Red Cell Distribution Width 12.8 % (11.8-14.3)
[2020-04-02 07:58] LABS: Potassium 4.3 mmol/L (3.5-5.1)
[2020-04-02 08:05] LABS: Albumin 3.4 g/dL (3.4-5.0); BUN/Creatinine Ratio 22.2; Bilirubin, Total 0.3 mg/dL (0.2-1.0); CRP High Sensitivity 0.14 mg/dL (< 0.3); Calcium 8.9 mg/dL (8.5-10.1); Total Protein 6.6 g/dL (6.4-8.2)
[2020-04-02] MEDS: BUDESONIDE (INHALATION) 0.5 MG/2 ML NEB NEB SCH ×2 (09:38→20:08)
[2020-04-02] MEDS: AZITHROMYCIN 500MG/ 250ML 250 ML IV SCH (10:27)
[2020-04-02] MEDS: ASCORBIC ACID 500 MG TAB PO SCH (10:28)
[2020-04-02] MEDS: ZINC SULFATE 220mg CAP or TAB PO SCH (10:28)
[2020-04-02] MEDS: PANTOPRAZOLE 40 MG TAB PO SCH (10:28)
[2020-04-02] MEDS: CHOLECALCIFEROL (VITD3) 1,000UNIT=25mCg TAB PO SCH (10:28)
[2020-04-02] MEDS: DOCUSATE SOD 100 MG CAP PO SCH ×2 (10:28→22:28)
[2020-04-02] MEDS: ENOXAPARIN SOD 40 MG/0.4 ML SYRINGE SC SCH (10:29)
[2020-04-02] MEDS: LACTULOSE 20Gm/30ML SOLN PO PRN (10:29)
[2020-04-02] MEDS: ALPRAZolam 0.5 MG TAB PO PRN (17:12)
[2020-04-02 22:00] VITALS: BP 118/73
[2020-04-02] MEDS: ZOLPIDEM TARTRATE 5 MG TAB PO PRN (22:34)
[2020-04-03 05:00] VITALS: BP 112/70
[2020-04-03] MEDS: IPRATROPIUM BROM 0.5 MG/2.5ML INH SOL NEB SCH ×5 (05:54→22:30)
[2020-04-03] MEDS: BUDESONIDE (INHALATION) 0.5 MG/2 ML NEB NEB SCH ×2 (05:54→19:41)
[2020-04-03] MEDS: ALBUTEROL SULF 2.5 MG/0.5ML(0.5%) NEB SOLN NEB SCH ×5 (05:54→22:30)
[2020-04-03] MEDS: methylPREDNISolone SOD SUCC 40 MG/ML VL IV SCH ×3 (05:56→21:06)
[2020-04-03] MEDS: MORPHINE SULFATE 4 MG/ML SYR/VIAL IV PRN ×3 (05:56→21:06)
[2020-04-03 09:00] VITALS: BP 117/73
[2020-04-03] MEDS: DOCUSATE SOD 100 MG CAP PO SCH ×2 (09:30→21:06)
[2020-04-03] MEDS: ZINC SULFATE 220mg CAP or TAB PO SCH (09:30)
[2020-04-03] MEDS: PANTOPRAZOLE 40 MG TAB PO SCH (09:30)
[2020-04-03] MEDS: AZITHROMYCIN 500MG/ 250ML 250 ML IV SCH (09:30)
[2020-04-03] MEDS: ASCORBIC ACID 500 MG TAB PO SCH (09:30)
[2020-04-03] MEDS: CHOLECALCIFEROL (VITD3) 1,000UNIT=25mCg TAB PO SCH (09:31)
[2020-04-03] MEDS: ENOXAPARIN SOD 40 MG/0.4 ML SYRINGE SC SCH (09:31)
[2020-04-03] MEDS: ALPRAZolam 0.5 MG TAB PO PRN (09:50)
[2020-04-03 13:00] VITALS: BP 125/74
[2020-04-03 17:00] VITALS: BP 128/90
[2020-04-03] MEDS: LACTULOSE 20Gm/30ML SOLN PO PRN (21:06)
[2020-04-03 22:00] VITALS: BP 114/73
[2020-04-03] MEDS: ZOLPIDEM TARTRATE 5 MG TAB PO PRN (23:44)
[2020-04-04] MEDS: ALBUTEROL SULF 2.5 MG/0.5ML(0.5%) NEB SOLN NEB SCH ×6 (01:32→22:50)
[2020-04-04] MEDS: IPRATROPIUM BROM 0.5 MG/2.5ML INH SOL NEB SCH ×6 (01:32→22:50)
[2020-04-04 05:00] VITALS: BP 102/63
[2020-04-04] MEDS: methylPREDNISolone SOD SUCC 40 MG/ML VL IV SCH ×3 (06:14→22:29)
[2020-04-04 09:00] VITALS: BP 124/69
[2020-04-04] MEDS: AZITHROMYCIN 500MG/ 250ML 250 ML IV SCH (09:10)
[2020-04-04] MEDS: PANTOPRAZOLE 40 MG TAB PO SCH (09:10)
[2020-04-04] MEDS: DOCUSATE SOD 100 MG CAP PO SCH ×2 (09:10→22:29)
[2020-04-04] MEDS: ZINC SULFATE 220mg CAP or TAB PO SCH (10:00)
[2020-04-04] MEDS: ASCORBIC ACID 500 MG TAB PO SCH (10:00)
[2020-04-04] MEDS: CHOLECALCIFEROL (VITD3) 1,000UNIT=25mCg TAB PO SCH (10:00)
[2020-04-04] MEDS: ENOXAPARIN SOD 40 MG/0.4 ML SYRINGE SC SCH (10:00)
[2020-04-04] MEDS: BUDESONIDE (INHALATION) 0.5 MG/2 ML NEB NEB SCH ×2 (11:00→18:27)
[2020-04-04 12:58] VITALS: BP 107/84
[2020-04-04] MEDS: MORPHINE SULFATE 4 MG/ML SYR/VIAL IV PRN (14:20)
[2020-04-04 17:00] VITALS: BP 91/52
[2020-04-04] MEDS: ALPRAZolam 0.5 MG TAB PO PRN (19:41)
[2020-04-04] MEDS: LACTULOSE 20Gm/30ML SOLN PO PRN (19:42)
[2020-04-04 22:00] VITALS: BP 124/72
[2020-04-04] MEDS: ZOLPIDEM TARTRATE 5 MG TAB PO PRN (22:29)
[2020-04-05] MEDS: IPRATROPIUM BROM 0.5 MG/2.5ML INH SOL NEB SCH ×4 (02:18→22:24)
[2020-04-05] MEDS: ALBUTEROL SULF 2.5 MG/0.5ML(0.5%) NEB SOLN NEB SCH ×4 (02:18→22:24)
[2020-04-05 05:00] VITALS: BP 110/62
[2020-04-05] MEDS: BUDESONIDE (INHALATION) 0.5 MG/2 ML NEB NEB SCH ×2 (06:00→18:52)
[2020-04-05] MEDS: methylPREDNISolone SOD SUCC 40 MG/ML VL IV SCH ×3 (06:03→22:02)
[2020-04-05 08:09] VITALS: BP 136/80
[2020-04-05 08:48] VITALS: BP 136/80
[2020-04-05] MEDS: MORPHINE SULFATE 4 MG/ML SYR/VIAL IV PRN ×2 (08:49→20:00)
[2020-04-05] MEDS: DOCUSATE SOD 100 MG CAP PO SCH ×2 (10:30→22:02)
[2020-04-05] MEDS: ZINC SULFATE 220mg CAP or TAB PO SCH (10:30)
[2020-04-05] MEDS: CHOLECALCIFEROL (VITD3) 1,000UNIT=25mCg TAB PO SCH (10:30)
[2020-04-05] MEDS: ENOXAPARIN SOD 40 MG/0.4 ML SYRINGE SC SCH (10:30)
[2020-04-05] MEDS: ASCORBIC ACID 500 MG TAB PO SCH (10:30)
[2020-04-05] MEDS: PANTOPRAZOLE 40 MG TAB PO SCH (10:30)
[2020-04-05] MEDS: AZITHROMYCIN 500MG/ 250ML 250 ML IV SCH (10:30)
[2020-04-05 13:00] VITALS: BP 119/80
[2020-04-05 16:59] VITALS: BP 110/86
[2020-04-05 22:00] VITALS: BP 126/83
[2020-04-05] MEDS: ZOLPIDEM TARTRATE 5 MG TAB PO PRN (22:46)
[2020-04-06] MEDS: IPRATROPIUM BROM 0.5 MG/2.5ML INH SOL NEB SCH ×3 (02:14→11:16)
[2020-04-06] MEDS: ALBUTEROL SULF 2.5 MG/0.5ML(0.5%) NEB SOLN NEB SCH ×3 (02:14→11:16)
[2020-04-06 05:00] VITALS: BP 105/63
[2020-04-06] MEDS: methylPREDNISolone SOD SUCC 40 MG/ML VL IV SCH ×2 (06:04→14:41)
[2020-04-06] MEDS: HYDROcodone-ACET 10/325MG TAB PO PRN (06:05)
[2020-04-06 09:00] VITALS: BP 128/83
[2020-04-06] MEDS: ASCORBIC ACID 500 MG TAB PO SCH ×2 (10:00→10:29)
[2020-04-06] MEDS: ZINC SULFATE 220mg CAP or TAB PO SCH ×2 (10:00→10:26)
[2020-04-06] MEDS: CHOLECALCIFEROL (VITD3) 1,000UNIT=25mCg TAB PO SCH ×2 (10:00→10:29)
[2020-04-06] MEDS: AZITHROMYCIN 500MG/ 250ML 250 ML IV SCH (10:26)
[2020-04-06] MEDS: DOCUSATE SOD 100 MG CAP PO SCH (10:26)
[2020-04-06] MEDS: PANTOPRAZOLE 40 MG TAB PO SCH (10:27)
[2020-04-06] MEDS: ALPRAZolam 0.5 MG TAB PO PRN (10:28)
[2020-04-06] MEDS: ENOXAPARIN SOD 40 MG/0.4 ML SYRINGE SC SCH (10:29)
[2020-04-06] MEDS: BUDESONIDE (INHALATION) 0.5 MG/2 ML NEB NEB SCH (11:16)
== END 2020-04-06 15:20 | disposition home or self-care (01) | DRG 137 ==
LOC: ER 17:24 → OVERFLOW 17:25 → TELE-EAST 03-30 13:27 → TELE-WESTW 04-02 20:30 → TELE-CENTR 04-05 21:36
PROVIDERS: ADMIT Family Medicine; ATTEND Internal Medicine
PROC: XW033E5 Introduction of Remdesivir Anti-infective into Peripheral Vein, Percutaneous Approach, New Technology Group 5 (ICD-10-PCS; principal; 2020-03-30)
DX: U07.1 COVID-19 (principal); J12.89 Other viral pneumonia; J96.21 Acute and chronic respiratory failure with hypoxia; J45.41 Moderate persistent asthma with (acute) exacerbation; F41.9 Anxiety disorder, unspecified; F17.210 Nicotine dependence, cigarettes, uncomplicated; Z79.51 Long term (current) use of inhaled steroids; Z82.49 Family history of ischemic heart disease and other diseases of the circulatory system; N91.2 Amenorrhea, unspecified; M54.6 Pain in thoracic spine; R73.9 Hyperglycemia, unspecified
CPT/HCPCS: 36415; 36600; 71045; 80053; 82728; 82805; 83036; 83605; 83615; 83735; 84702; 85025; 85379; 86141; 87040; 87426; 93005; 94640; 96361; 96365; 96367; 96372; 96375; G0378; J1100; J1885

== ENCOUNTER 2020-05-06 19:32 | Inpatient (IN) | payer MEDICAID ==
[~2020-05-06] VITALS: Ht 162.6 cm; Wt 57.3 kg
[~2020-05-06 19:32] MED LIST changes: +BUDE1AER4 PO
[2020-05-06] MEDS ORDERED: methylPREDNISolone SOD SUCC 125 MG/2 ML VL IV ONE (19:45)
[2020-05-06] MEDS ORDERED: SODIUM CHLORIDE 0.9% 1,000 ML IV ONE (19:45)
[2020-05-06] MEDS ORDERED: IPRATROPIUM BROM 0.5 MG/2.5ML INH SOL NEB ONE (19:45)
[2020-05-06] MEDS ORDERED: ALBUTEROL SULF 2.5 MG/0.5ML(0.5%) NEB SOLN NEB ONE (19:45)
[2020-05-06] MEDS ORDERED: ALBUTEROL SULF 2.5 MG/0.5ML(0.5%) NEB SOLN ONE (20:01)
[2020-05-06 23:58] LABS: Basophils # (auto) 0 10 ^3/uL (0-0.2); Basophils % (auto) 0.4 % (0.0-2.0); Eosinophils # (auto) 0 10 ^3/uL (0-0.8); Eosinophils % (auto) 0.1 % (0.0-7.0); Hematocrit 42.7 % (36.0-46.0); Hemoglobin 14.4 g/dL (12.2-16.2); Lymphocytes # (auto) 0.2 10 ^3/uL (0.4-5.4); Lymphocytes % (auto) 2.7 % (10.0-50.0); Mean Corpuscular Hemoglobin 31.9 pg (28.0-32.0); Mean Corpuscular Hgb Conc. 33.8 g/dL (32.0-36.0); Mean Corpuscular Volume 94.5 fL (80.0-100.0); Monocytes # (auto) 0.1 10 ^3/uL (0-1.3); Monocytes % (auto) 0.7 % (0.0-12.0); Neutrophils # (auto) 8.9 10 ^3/uL (1.6-8.6); Neutrophils % (auto) 96.1 % (37.0-80.0); Platelet Count (auto) 317 10^3/uL (140-450); Red Blood Cells 4.52 10^6/uL (4.0-5.20); Red Cell Distribution Width 13.1 % (11.8-14.3); White Blood Cell 9.2 10^3/uL (4.4-10.8)
[2020-05-07] MEDS ORDERED: ALBUTEROL SULF 2.5 MG/0.5ML(0.5%) NEB SOLN NEB ONE (00:15)
[2020-05-07] MEDS ORDERED: IPRATROPIUM BROM 0.5 MG/2.5ML INH SOL NEB ONE (00:15)
[2020-05-07] MEDS ORDERED: ALBUTEROL SULF 2.5 MG/0.5ML(0.5%) NEB SOLN ONE (00:16)
[2020-05-07 00:23] LABS: Albumin 3.5 g/dL (3.4-5.0); BUN/Creatinine Ratio 11.2; Potassium 3.9 mmol/L (3.5-5.1)
[2020-05-07 00:25] LABS: Bilirubin, Total 0.2 mg/dL (0.2-1.0); Total Protein 6.7 g/dL (6.4-8.2)
[2020-05-07] MEDS ORDERED: MAGNESIUM SULFATE 1GM/100ML 100 ML IV ONE (00:45)
[2020-05-07] MEDS ORDERED: ONDANSETRON HCL 4 MG/2 ML VIAL IV PRN (03:00)
[2020-05-07] MEDS ORDERED: MORPHINE SULF INJ 2 MG/ML SYRINGE 1ML IV PRN (03:00)
[2020-05-07] MEDS ORDERED: NITROGLYCERIN 0.4 MG SL TAB SL PRN (03:00)
[2020-05-07] MEDS ORDERED: ACETAMINOPHEN 325 MG TAB PO PRN (03:00)
[2020-05-07] MEDS ORDERED: DEXTROSE (50%) 50ML SYRG IV PRN (04:30)
[2020-05-07 05:37] LABS: Basophils # (auto) 0 10 ^3/uL (0-0.2); Basophils % (auto) 0.3 % (0.0-2.0); Eosinophils # (auto) 0 10 ^3/uL (0-0.8); Hematocrit 39.6 % (36.0-46.0); Hemoglobin 13.4 g/dL (12.2-16.2); Lymphocytes # (auto) 0.2 10 ^3/uL (0.4-5.4); Lymphocytes % (auto) 4.8 % (10.0-50.0); Mean Corpuscular Hemoglobin 31.7 pg (28.0-32.0); Mean Corpuscular Hgb Conc. 33.8 g/dL (32.0-36.0); Mean Corpuscular Volume 93.8 fL (80.0-100.0); Monocytes # (auto) 0 10 ^3/uL (0-1.3); Monocytes % (auto) 0.9 % (0.0-12.0); Neutrophils # (auto) 4.3 10 ^3/uL (1.6-8.6); Platelet Count (auto) 293 10^3/uL (140-450); Red Blood Cells 4.22 10^6/uL (4.0-5.20); Red Cell Distribution Width 12.8 % (11.8-14.3); White Blood Cell 4.6 10^3/uL (4.4-10.8)
[2020-05-07 05:51] LABS: Albumin 3.1 g/dL (3.4-5.0); Calcium 8.1 mg/dL (8.5-10.1); Magnesium 2.6 mg/dL (1.6-2.6); Potassium 4.1 mmol/L (3.5-5.1)
[2020-05-07 05:54] LABS: BUN/Creatinine Ratio 16.3; Bilirubin, Total 0.2 mg/dL (0.2-1.0); Total Protein 6.4 g/dL (6.4-8.2)
[2020-05-07] MEDS: methylPREDNISolone SOD SUCC 40 MG/ML VL IV SCH ×3 (05:59→20:42)
[2020-05-07] MEDS: ALBUTEROL SULF 2.5 MG/0.5ML(0.5%) NEB SOLN NEB SCH ×5 (06:00→22:27)
[2020-05-07] MEDS: IPRATROPIUM BROM 0.5 MG/2.5ML INH SOL NEB SCH ×5 (06:00→22:27)
[2020-05-07] MEDS: SODIUM CHLOR 0.9% PF (SALINE LOCK) 10ML VIAL/SYR IV SCH ×3 (06:00→20:43)
[2020-05-07] MEDS: InsuLIN REG 1unit/0.01ml Soln (100units/ml) SC SCH ×4 (07:49→20:39)
[2020-05-07] MEDS: ACCU-CHEK COMFORT CURVE STRIP VI SCH ×4 (07:49→20:39)
[2020-05-07] MEDS: FAMOTIDINE 20 MG TAB PO SCH ×2 (08:47→20:39)
[2020-05-07] MEDS: ASCORBIC ACID 500 MG TAB PO SCH ×2 (08:47→20:39)
[2020-05-07] MEDS: MULTIPLE VITAMIN TAB PO SCH (08:48)
[2020-05-07] MEDS: ZINC SULFATE 220mg CAP or TAB PO SCH (08:48)
[2020-05-07] MEDS: ENOXAPARIN SOD 40 MG/0.4 ML SYRINGE SC SCH (08:48)
[2020-05-07] MEDS ORDERED: cefTRIAXone 1GM/50ML D5W 50 ML IV ONE (15:00)
[2020-05-07] MEDS: LORazepam 2MG/ML-1ML VIAL IV PRN (20:17)
[2020-05-07] MEDS: HYDROcodone-ACET 5/325MG TAB PO PRN (22:07)
[2020-05-08] MEDS: LORazepam 2MG/ML-1ML VIAL IV PRN ×2 (02:38→17:28)
[2020-05-08 02:42] VITALS: BP 130/76
[2020-05-08] MEDS ORDERED: HYDR-4833 PO (03:05)
[2020-05-08] MEDS ORDERED: ZOLP10TA PO (03:05)
[2020-05-08] MEDS: DOCUSATE SOD 100 MG CAP PO PRN ×2 (03:16→21:09)
[2020-05-08] MEDS: HYDROcodone-ACET 5/325MG TAB PO PRN ×3 (03:17→21:14)
[2020-05-08] MEDS: ALBUTEROL SULF 2.5 MG/0.5ML(0.5%) NEB SOLN NEB SCH ×5 (05:35→21:50)
[2020-05-08] MEDS: IPRATROPIUM BROM 0.5 MG/2.5ML INH SOL NEB SCH ×5 (05:35→21:50)
[2020-05-08] MEDS: ACCU-CHEK COMFORT CURVE STRIP VI SCH ×2 (06:16→11:30)
[2020-05-08] MEDS: InsuLIN REG 1unit/0.01ml Soln (100units/ml) SC SCH ×2 (06:16→11:30)
[2020-05-08] MEDS: SODIUM CHLOR 0.9% PF (SALINE LOCK) 10ML VIAL/SYR IV SCH ×3 (06:22→21:09)
[2020-05-08] MEDS: methylPREDNISolone SOD SUCC 40 MG/ML VL IV SCH ×3 (06:23→21:09)
[2020-05-08 08:00] VITALS: BP 117/63
[2020-05-08] MEDS: ENOXAPARIN SOD 40 MG/0.4 ML SYRINGE SC SCH (09:38)
[2020-05-08] MEDS: MULTIPLE VITAMIN TAB PO SCH (09:38)
[2020-05-08] MEDS: cefTRIAXone 1GM/50ML D5W 50 ML IV SCH (09:38)
[2020-05-08] MEDS: ASCORBIC ACID 500 MG TAB PO SCH ×2 (09:38→21:09)
[2020-05-08] MEDS: FAMOTIDINE 20 MG TAB PO SCH ×2 (09:40→21:09)
[2020-05-08] MEDS: ZINC SULFATE 220mg CAP or TAB PO SCH (09:40)
[2020-05-08 10:53] LABS: Basophils # (auto) 0 10 ^3/uL (0-0.2); Basophils % (auto) 0.1 % (0.0-2.0); Eosinophils # (auto) 0 10 ^3/uL (0-0.8); Hematocrit 39.7 % (36.0-46.0); Hemoglobin 13.5 g/dL (12.2-16.2); Lymphocytes # (auto) 0.5 10 ^3/uL (0.4-5.4); Lymphocytes % (auto) 6.4 % (10.0-50.0); Mean Corpuscular Hemoglobin 31.7 pg (28.0-32.0); Mean Corpuscular Volume 93.1 fL (80.0-100.0); Monocytes # (auto) 0.3 10 ^3/uL (0-1.3); Monocytes % (auto) 3.8 % (0.0-12.0); Neutrophils # (auto) 7.5 10 ^3/uL (1.6-8.6); Neutrophils % (auto) 89.7 % (37.0-80.0); Platelet Count (auto) 338 10^3/uL (140-450); Red Blood Cells 4.26 10^6/uL (4.0-5.20); Red Cell Distribution Width 12.6 % (11.8-14.3); White Blood Cell 8.3 10^3/uL (4.4-10.8)
[2020-05-08 11:05] LABS: Albumin 3.4 g/dL (3.4-5.0); Calcium 8.8 mg/dL (8.5-10.1); Potassium 4.1 mmol/L (3.5-5.1)
[2020-05-08 11:09] LABS: BUN/Creatinine Ratio 15.8; Bilirubin, Total 0.2 mg/dL (0.2-1.0); Total Protein 6.8 g/dL (6.4-8.2)
[2020-05-08 16:00] VITALS: BP 119/80
[2020-05-08 21:45] VITALS: BP 127/62
[2020-05-08 21:48] VITALS: BP 106/72
[2020-05-09] MEDS: LORazepam 2MG/ML-1ML VIAL IV PRN ×3 (00:10→21:49)
[2020-05-09] MEDS: IPRATROPIUM BROM 0.5 MG/2.5ML INH SOL NEB SCH ×5 (02:21→21:03)
[2020-05-09] MEDS: ALBUTEROL SULF 2.5 MG/0.5ML(0.5%) NEB SOLN NEB SCH ×5 (02:21→21:03)
[2020-05-09] MEDS: SODIUM CHLOR 0.9% PF (SALINE LOCK) 10ML VIAL/SYR IV SCH ×3 (05:09→21:35)
[2020-05-09] MEDS: methylPREDNISolone SOD SUCC 40 MG/ML VL IV SCH ×3 (05:12→21:38)
[2020-05-09 05:16] VITALS: BP 112/70
[2020-05-09 08:00] VITALS: BP 116/70
[2020-05-09] MEDS: MULTIPLE VITAMIN TAB PO SCH (09:06)
[2020-05-09] MEDS: ASCORBIC ACID 500 MG TAB PO SCH ×2 (09:06→21:39)
[2020-05-09] MEDS: FAMOTIDINE 20 MG TAB PO SCH ×2 (09:06→21:38)
[2020-05-09] MEDS: cefTRIAXone 1GM/50ML D5W 50 ML IV SCH (09:07)
[2020-05-09] MEDS: ENOXAPARIN SOD 40 MG/0.4 ML SYRINGE SC SCH (09:07)
[2020-05-09] MEDS: HYDROcodone-ACET 5/325MG TAB PO PRN ×2 (09:13→19:42)
[2020-05-09] MEDS: DOCUSATE SOD 100 MG CAP PO PRN ×2 (09:17→21:49)
[2020-05-09] MEDS: ZINC SULFATE 220mg CAP or TAB PO SCH (09:19)
[2020-05-09 10:24] LABS: Basophils # (auto) 0 10 ^3/uL (0-0.2); Basophils % (auto) 0.2 % (0.0-2.0); Eosinophils # (auto) 0 10 ^3/uL (0-0.8); Hematocrit 44.3 % (36.0-46.0); Hemoglobin 14.7 g/dL (12.2-16.2); Lymphocytes # (auto) 0.5 10 ^3/uL (0.4-5.4); Lymphocytes % (auto) 6.9 % (10.0-50.0); Mean Corpuscular Hgb Conc. 33.1 g/dL (32.0-36.0); Mean Corpuscular Volume 93.6 fL (80.0-100.0); Monocytes # (auto) 0.2 10 ^3/uL (0-1.3); Monocytes % (auto) 3.1 % (0.0-12.0); Neutrophils # (auto) 6.5 10 ^3/uL (1.6-8.6); Neutrophils % (auto) 89.8 % (37.0-80.0); Platelet Count (auto) 392 10^3/uL (140-450); Red Blood Cells 4.73 10^6/uL (4.0-5.20); Red Cell Distribution Width 12.9 % (11.8-14.3); White Blood Cell 7.2 10^3/uL (4.4-10.8)
[2020-05-09 10:45] LABS: BUN/Creatinine Ratio 17.2; Potassium 3.7 mmol/L (3.5-5.1)
[2020-05-09 16:00] VITALS: BP 126/88
[2020-05-09 22:00] VITALS: BP 122/89
[2020-05-09] MEDS: BUDESONIDE (INHALATION) 0.5 MG/2 ML NEB NEB SCH (22:00)
[2020-05-10] MEDS: HYDROcodone-ACET 5/325MG TAB PO PRN ×2 (01:50→20:40)
[2020-05-10] MEDS: ALBUTEROL SULF 2.5 MG/0.5ML(0.5%) NEB SOLN NEB SCH ×6 (02:00→22:00)
[2020-05-10] MEDS: IPRATROPIUM BROM 0.5 MG/2.5ML INH SOL NEB SCH ×6 (02:00→22:00)
[2020-05-10] MEDS ORDERED: ALBUTEROL SULF 2.5 MG/0.5ML(0.5%) NEB SOLN NEB PRN (02:15)
[2020-05-10 05:00] VITALS: BP 98/49
[2020-05-10] MEDS: methylPREDNISolone SOD SUCC 40 MG/ML VL IV SCH ×3 (05:54→22:16)
[2020-05-10] MEDS: SODIUM CHLOR 0.9% PF (SALINE LOCK) 10ML VIAL/SYR IV SCH ×3 (05:54→22:16)
[2020-05-10] MEDS: LORazepam 2MG/ML-1ML VIAL IV PRN ×2 (05:56→22:32)
[2020-05-10 08:00] VITALS: BP 116/74
[2020-05-10] MEDS ORDERED: ALBUTEROL SULFATE IN PRN (08:00)
[2020-05-10] MEDS: DOCUSATE SOD 100 MG CAP PO PRN ×2 (09:45→22:32)
[2020-05-10] MEDS: BUDESONIDE (INHALATION) 0.5 MG/2 ML NEB NEB SCH ×2 (11:00→18:47)
[2020-05-10] MEDS: ZINC SULFATE 220mg CAP or TAB PO SCH (11:37)
[2020-05-10] MEDS: FAMOTIDINE 20 MG TAB PO SCH ×2 (11:37→22:17)
[2020-05-10] MEDS: ASCORBIC ACID 500 MG TAB PO SCH ×2 (11:37→22:17)
[2020-05-10] MEDS: cefTRIAXone 1GM/50ML D5W 50 ML IV SCH (11:37)
[2020-05-10] MEDS: MULTIPLE VITAMIN TAB PO SCH (11:37)
[2020-05-10] MEDS: ENOXAPARIN SOD 40 MG/0.4 ML SYRINGE SC SCH (11:38)
[2020-05-10 20:00] VITALS: BP 136/91
[2020-05-10 22:00] VITALS: BP 136/91
[2020-05-11] MEDS: IPRATROPIUM BROM 0.5 MG/2.5ML INH SOL NEB SCH ×6 (02:17→22:11)
[2020-05-11] MEDS: ALBUTEROL SULF 2.5 MG/0.5ML(0.5%) NEB SOLN NEB SCH ×6 (02:17→22:11)
[2020-05-11 05:00] VITALS: BP 104/70
[2020-05-11] MEDS: methylPREDNISolone SOD SUCC 40 MG/ML VL IV SCH ×3 (06:06→22:18)
[2020-05-11] MEDS: SODIUM CHLOR 0.9% PF (SALINE LOCK) 10ML VIAL/SYR IV SCH ×3 (06:06→22:18)
[2020-05-11 09:00] VITALS: BP 113/68
[2020-05-11] MEDS: BUDESONIDE (INHALATION) 0.5 MG/2 ML NEB NEB SCH ×2 (10:04→18:32)
[2020-05-11] MEDS: cefTRIAXone 1GM/50ML D5W 50 ML IV SCH (10:46)
[2020-05-11] MEDS: FAMOTIDINE 20 MG TAB PO SCH ×2 (10:48→22:19)
[2020-05-11] MEDS: ZINC SULFATE 220mg CAP or TAB PO SCH (10:48)
[2020-05-11] MEDS: MULTIPLE VITAMIN TAB PO SCH (10:48)
[2020-05-11] MEDS: ASCORBIC ACID 500 MG TAB PO SCH ×2 (10:48→22:19)
[2020-05-11] MEDS: ENOXAPARIN SOD 40 MG/0.4 ML SYRINGE SC SCH (10:49)
[2020-05-11] MEDS: DOCUSATE SOD 100 MG CAP PO PRN ×2 (11:28→22:20)
[2020-05-11] MEDS: HYDROcodone-ACET 5/325MG TAB PO PRN ×4 (11:29→22:57)
[2020-05-11] MEDS: LORazepam 2MG/ML-1ML VIAL IV PRN ×2 (11:29→22:19)
[2020-05-11 11:57] LABS: Albumin 3.4 g/dL (3.4-5.0); BUN/Creatinine Ratio 21.7; Bilirubin, Total 0.2 mg/dL (0.2-1.0); Calcium 8.5 mg/dL (8.5-10.1)
[2020-05-11 11:59] LABS: Basophils # (auto) 0 10 ^3/uL (0-0.2); Basophils % (auto) 0.1 % (0.0-2.0); Eosinophils # (auto) 0 10 ^3/uL (0-0.8); Hematocrit 43.6 % (36.0-46.0); Hemoglobin 14.8 g/dL (12.2-16.2); Lymphocytes # (auto) 0.4 10 ^3/uL (0.4-5.4); Lymphocytes % (auto) 6.6 % (10.0-50.0); Mean Corpuscular Hemoglobin 31.5 pg (28.0-32.0); Mean Corpuscular Volume 92.8 fL (80.0-100.0); Monocytes # (auto) 0.3 10 ^3/uL (0-1.3); Monocytes % (auto) 4.1 % (0.0-12.0); Neutrophils # (auto) 5.9 10 ^3/uL (1.6-8.6); Neutrophils % (auto) 89.2 % (37.0-80.0); Platelet Count (auto) 342 10^3/uL (140-450); Red Cell Distribution Width 12.5 % (11.8-14.3); White Blood Cell 6.6 10^3/uL (4.4-10.8)
[2020-05-11 15:57] VITALS: BP 124/54
[2020-05-11 16:00] VITALS: BP 131/86
[2020-05-11 20:00] VITALS: BP 148/82
[2020-05-11 22:00] VITALS: BP 141/89
[2020-05-12] MEDS: IPRATROPIUM BROM 0.5 MG/2.5ML INH SOL NEB SCH ×4 (02:00→13:27)
[2020-05-12] MEDS: ALBUTEROL SULF 2.5 MG/0.5ML(0.5%) NEB SOLN NEB SCH ×4 (02:00→13:27)
[2020-05-12 05:00] VITALS: BP 98/73
[2020-05-12] MEDS: methylPREDNISolone SOD SUCC 40 MG/ML VL IV SCH (06:09)
[2020-05-12] MEDS: SODIUM CHLOR 0.9% PF (SALINE LOCK) 10ML VIAL/SYR IV SCH (06:09)
[2020-05-12 08:00] VITALS: BP 109/74
[2020-05-12] MEDS: HYDROcodone-ACET 5/325MG TAB PO PRN ×2 (08:55→13:00)
[2020-05-12] MEDS: cefTRIAXone 1GM/50ML D5W 50 ML IV SCH (08:55)
[2020-05-12] MEDS: DOCUSATE SOD 100 MG CAP PO PRN (08:55)
[2020-05-12] MEDS: LORazepam 2MG/ML-1ML VIAL IV PRN (08:56)
[2020-05-12] MEDS: ZINC SULFATE 220mg CAP or TAB PO SCH (09:30)
[2020-05-12] MEDS: FAMOTIDINE 20 MG TAB PO SCH (09:30)
[2020-05-12] MEDS: ENOXAPARIN SOD 40 MG/0.4 ML SYRINGE SC SCH (09:30)
[2020-05-12] MEDS: ASCORBIC ACID 500 MG TAB PO SCH (09:30)
[2020-05-12] MEDS: MULTIPLE VITAMIN TAB PO SCH (09:30)
[2020-05-12] MEDS: BUDESONIDE (INHALATION) 0.5 MG/2 ML NEB NEB SCH (10:00)
[2020-05-12 12:12] VITALS: BP 109/74
== END 2020-05-12 14:30 | disposition home or self-care (01) | DRG 133 ==
LOC: ER 19:32 → TELE 05-07 03:00 → TELE-CENTR 05-07 23:57
PROVIDERS: ADMIT Nurse Practitioner Family; ATTEND Internal Medicine
DX: J96.01 Acute respiratory failure with hypoxia (principal); J45.51 Severe persistent asthma with (acute) exacerbation; R73.9 Hyperglycemia, unspecified; Z20.822 Contact with and (suspected) exposure to COVID-19; Z82.49 Family history of ischemic heart disease and other diseases of the circulatory system; F17.200 Nicotine dependence, unspecified, uncomplicated
CPT/HCPCS: 36415; 71045; 80048; 80053; 83036; 83735; 85025; 87081; 94640; 94644; 94645; 96361; 96365; 96367; 96375; G0378; J0696

== ENCOUNTER 2020-06-08 18:14 | Inpatient (IN) | payer MEDICAID ==
[~2020-06-08] VITALS: Ht 160 cm; Wt 56.0 kg
[~2020-06-08 18:14] MED LIST changes: -FLUT250M2 INH; +HYDR-4833 PO; +ZOLP10TA PO
[2020-06-08] MEDS ORDERED: ALBUTEROL SULF 2.5 MG/0.5ML(0.5%) NEB SOLN HHN STA ×2 (18:19→18:31)
[2020-06-08] MEDS ORDERED: IPRATROPIUM BROM 0.5 MG/2.5ML INH SOL NEB ONE ×2 (18:30→18:45)
[2020-06-08] MEDS ORDERED: methylPREDNISolone SOD SUCC 125 MG/2 ML VL IV ONE ×2 (18:45→21:45)
[2020-06-08] MEDS ORDERED: cefTRIAXone 1GM/50ML D5W 50 ML IV ONE (18:45)
[2020-06-08] MEDS ORDERED: AZITHROMYCIN 500MG/ 250ML 250 ML IV ONE ×2 (18:45→21:45)
[2020-06-08] MEDS ORDERED: SODIUM CHLORIDE 0.9% 1,000 ML IV ONE (18:45)
[2020-06-08 19:33] LABS: Basophils # (auto) 0.1 10 ^3/uL (0-0.2); Basophils % (auto) 1.2 % (0.0-2.0); Eosinophils # (auto) 0.5 10 ^3/uL (0-0.8); Eosinophils % (auto) 11.3 % (0.0-7.0); Hematocrit 42.9 % (36.0-46.0); Hemoglobin 14.7 g/dL (12.2-16.2); Lymphocytes # (auto) 1.3 10 ^3/uL (0.4-5.4); Lymphocytes % (auto) 28.6 % (10.0-50.0); Mean Corpuscular Hemoglobin 31.5 pg (28.0-32.0); Mean Corpuscular Hgb Conc. 34.4 g/dL (32.0-36.0); Mean Corpuscular Volume 91.7 fL (80.0-100.0); Monocytes # (auto) 0.4 10 ^3/uL (0-1.3); Monocytes % (auto) 8.6 % (0.0-12.0); Neutrophils # (auto) 2.2 10 ^3/uL (1.6-8.6); Neutrophils % (auto) 50.3 % (37.0-80.0); Platelet Count (auto) 416 10^3/uL (140-450); Red Blood Cells 4.68 10^6/uL (4.0-5.20); Red Cell Distribution Width 12.8 % (11.8-14.3); White Blood Cell 4.4 10^3/uL (4.4-10.8)
[2020-06-08 19:48] LABS: Albumin 3.6 g/dL (3.4-5.0); Calcium 8.6 mg/dL (8.5-10.1); Potassium 3.8 mmol/L (3.5-5.1)
[2020-06-08 19:50] LABS: BUN/Creatinine Ratio 6.3
[2020-06-08 19:53] LABS: Bilirubin, Total 0.2 mg/dL (0.2-1.0); Total Protein 7.1 g/dL (6.4-8.2)
[2020-06-08] MEDS: MAGNESIUM SULFATE 1GM/100ML 100 ML IV SCH ×2 (21:29→22:19)
[2020-06-08] MEDS ORDERED: ACETAMINOPHEN 325 MG TAB PO PRN (21:45)
[2020-06-08] MEDS ORDERED: NITROGLYCERIN 0.4 MG SL TAB SL PRN (21:45)
[2020-06-08] MEDS ORDERED: MORPHINE SULF INJ 2 MG/ML SYRINGE 1ML IV PRN (21:45)
[2020-06-08] MEDS ORDERED: ONDANSETRON HCL 4 MG/2 ML VIAL IV PRN (21:45)
[2020-06-08] MEDS: ENOXAPARIN SOD 40 MG/0.4 ML SYRINGE SC SCH (21:57)
[2020-06-08] MEDS: FAMOTIDINE 20 MG TAB PO SCH (21:58)
[2020-06-08] MEDS: ASCORBIC ACID 500 MG TAB PO SCH (21:58)
[2020-06-08] MEDS: MORPHINE SULF INJ 2 MG/ML SYRINGE 1ML IV PRN (22:19)
[2020-06-09] MEDS: methylPREDNISolone SOD SUCC 125 MG/2 ML VL IV SCH ×5 (00:17→23:44)
[2020-06-09] MEDS: MORPHINE SULF INJ 2 MG/ML SYRINGE 1ML IV PRN ×3 (06:14→21:05)
[2020-06-09 06:47] LABS: Basophils # (auto) 0 10 ^3/uL (0-0.2); Basophils % (auto) 0.8 % (0.0-2.0); Eosinophils # (auto) 0 10 ^3/uL (0-0.8); Eosinophils % (auto) 0.1 % (0.0-7.0); Hematocrit 43.9 % (36.0-46.0); Hemoglobin 14.8 g/dL (12.2-16.2); Lymphocytes # (auto) 0.4 10 ^3/uL (0.4-5.4); Lymphocytes % (auto) 14.6 % (10.0-50.0); Mean Corpuscular Hemoglobin 31.3 pg (28.0-32.0); Mean Corpuscular Hgb Conc. 33.6 g/dL (32.0-36.0); Mean Corpuscular Volume 93.1 fL (80.0-100.0); Monocytes # (auto) 0 10 ^3/uL (0-1.3); Monocytes % (auto) 0.9 % (0.0-12.0); Neutrophils # (auto) 2.6 10 ^3/uL (1.6-8.6); Neutrophils % (auto) 83.6 % (37.0-80.0); Nucleated Red Blood Cells % 0.2 %; Platelet Count (auto) 413 10^3/uL (140-450); Red Blood Cells 4.72 10^6/uL (4.0-5.20); Red Cell Distribution Width 12.7 % (11.8-14.3)
[2020-06-09 07:04] LABS: Calcium 8.6 mg/dL (8.5-10.1); Potassium 4.3 mmol/L (3.5-5.1)
[2020-06-09 07:07] LABS: Albumin 3.6 g/dL (3.4-5.0); BUN/Creatinine Ratio 11.3
[2020-06-09 07:20] LABS: Bilirubin, Total 0.3 mg/dL (0.2-1.0)
[2020-06-09] MEDS: FAMOTIDINE 20 MG TAB PO SCH ×2 (09:59→21:01)
[2020-06-09] MEDS: ASCORBIC ACID 500 MG TAB PO SCH ×2 (09:59→21:01)
[2020-06-09] MEDS: MULTIPLE VITAMIN TAB PO SCH (09:59)
[2020-06-09] MEDS: ZINC SULFATE 220mg CAP or TAB PO SCH (09:59)
[2020-06-09] MEDS: AZITHROMYCIN 500MG/ 250ML 250 ML IV SCH (09:59)
[2020-06-09] MEDS: ENOXAPARIN SOD 40 MG/0.4 ML SYRINGE SC SCH (10:00)
[2020-06-09] MEDS ORDERED: ALBUTEROL SULF 2.5 MG/0.5ML(0.5%) NEB SOLN NEB ONE (12:00)
[2020-06-09] MEDS ORDERED: IPRATROPIUM BROM 0.5 MG/2.5ML INH SOL NEB ONE (12:00)
[2020-06-09] MEDS: ALBUTEROL SULF 2.5 MG/0.5ML(0.5%) NEB SOLN NEB PRN (16:13)
[2020-06-09] MEDS: IPRATROPIUM BROM 0.5 MG/2.5ML INH SOL NEB PRN (16:14)
[2020-06-09 17:00] VITALS: BP 135/81
[2020-06-09] MEDS: ALPRAZolam 0.5 MG TAB PO PRN (17:04)
[2020-06-09] MEDS: IPRATROPIUM BROM 0.5 MG/2.5ML INH SOL NEB SCH ×2 (18:24→22:02)
[2020-06-09] MEDS: ALBUTEROL SULF 2.5 MG/0.5ML(0.5%) NEB SOLN NEB SCH ×2 (18:24→22:02)
[2020-06-09] MEDS: DOCUSATE SOD 100 MG CAP PO PRN (21:02)
[2020-06-09 22:00] VITALS: BP 99/74
[2020-06-09] MEDS: BUDESONIDE (INHALATION) 0.5 MG/2 ML NEB NEB SCH (22:02)
[2020-06-10] MEDS: ALBUTEROL SULF 2.5 MG/0.5ML(0.5%) NEB SOLN NEB SCH ×6 (02:18→22:27)
[2020-06-10] MEDS: IPRATROPIUM BROM 0.5 MG/2.5ML INH SOL NEB SCH ×6 (02:18→22:27)
[2020-06-10 05:00] VITALS: BP 96/58
[2020-06-10] MEDS: methylPREDNISolone SOD SUCC 125 MG/2 ML VL IV SCH ×4 (05:16→23:34)
[2020-06-10] MEDS: ALPRAZolam 0.5 MG TAB PO PRN ×2 (05:26→14:53)
[2020-06-10] MEDS: MORPHINE SULF INJ 2 MG/ML SYRINGE 1ML IV PRN ×4 (06:50→21:22)
[2020-06-10 08:15] VITALS: BP 105/73
[2020-06-10 09:00] VITALS: BP 105/73
[2020-06-10] MEDS: BUDESONIDE (INHALATION) 0.5 MG/2 ML NEB NEB SCH ×2 (10:12→22:27)
[2020-06-10] MEDS: MULTIPLE VITAMIN TAB PO SCH (10:31)
[2020-06-10] MEDS: ZINC SULFATE 220mg CAP or TAB PO SCH (10:31)
[2020-06-10] MEDS: AZITHROMYCIN 500MG/ 250ML 250 ML IV SCH (10:31)
[2020-06-10] MEDS: FAMOTIDINE 20 MG TAB PO SCH ×2 (10:31→21:16)
[2020-06-10] MEDS: ASCORBIC ACID 500 MG TAB PO SCH ×2 (10:32→21:16)
[2020-06-10] MEDS: ENOXAPARIN SOD 40 MG/0.4 ML SYRINGE SC SCH (10:32)
[2020-06-10 13:00] VITALS: BP 102/81
[2020-06-10 16:30] VITALS: BP 108/75
[2020-06-10] MEDS: DOCUSATE SOD 100 MG CAP PO PRN (21:23)
[2020-06-10 22:00] VITALS: BP 123/81
[2020-06-10] MEDS: TEMAZEPAM 15 MG CAP PO PRN (22:53)
[2020-06-11] MEDS: IPRATROPIUM BROM 0.5 MG/2.5ML INH SOL NEB SCH ×6 (02:21→22:12)
[2020-06-11] MEDS: ALBUTEROL SULF 2.5 MG/0.5ML(0.5%) NEB SOLN NEB SCH ×6 (02:21→22:12)
[2020-06-11 05:00] VITALS: BP 112/71
[2020-06-11] MEDS: methylPREDNISolone SOD SUCC 125 MG/2 ML VL IV SCH ×4 (05:32→23:32)
[2020-06-11] MEDS: ALPRAZolam 0.5 MG TAB PO PRN ×2 (06:44→15:07)
[2020-06-11 09:12] VITALS: BP 126/77
[2020-06-11] MEDS: ASCORBIC ACID 500 MG TAB PO SCH ×2 (10:20→21:11)
[2020-06-11] MEDS: ZINC SULFATE 220mg CAP or TAB PO SCH (10:20)
[2020-06-11] MEDS: MORPHINE SULF INJ 2 MG/ML SYRINGE 1ML IV PRN ×2 (10:20→21:22)
[2020-06-11] MEDS: AZITHROMYCIN 500MG/ 250ML 250 ML IV SCH (10:20)
[2020-06-11] MEDS: MULTIPLE VITAMIN TAB PO SCH (10:20)
[2020-06-11] MEDS: FAMOTIDINE 20 MG TAB PO SCH ×2 (10:20→21:11)
[2020-06-11] MEDS: ENOXAPARIN SOD 40 MG/0.4 ML SYRINGE SC SCH (10:20)
[2020-06-11] MEDS: BUDESONIDE (INHALATION) 0.5 MG/2 ML NEB NEB SCH ×2 (11:00→18:01)
[2020-06-11 13:00] VITALS: BP 128/68
[2020-06-11 15:59] VITALS: BP 136/85
[2020-06-11] MEDS: IPRATROPIUM BROM 0.5 MG/2.5ML INH SOL NEB PRN (18:10)
[2020-06-11] MEDS: ALBUTEROL SULF 2.5 MG/0.5ML(0.5%) NEB SOLN NEB PRN (18:10)
[2020-06-11] MEDS: DOCUSATE SOD 100 MG CAP PO PRN (21:22)
[2020-06-11 22:25] VITALS: BP 119/81
[2020-06-11] MEDS: TEMAZEPAM 15 MG CAP PO PRN (23:33)
[2020-06-12] MEDS: ALBUTEROL SULF 2.5 MG/0.5ML(0.5%) NEB SOLN NEB SCH ×6 (02:04→22:17)
[2020-06-12] MEDS: IPRATROPIUM BROM 0.5 MG/2.5ML INH SOL NEB SCH ×6 (02:04→22:17)
[2020-06-12 05:08] VITALS: BP 130/84
[2020-06-12] MEDS: methylPREDNISolone SOD SUCC 125 MG/2 ML VL IV SCH ×4 (06:02→23:18)
[2020-06-12] MEDS: BUDESONIDE (INHALATION) 0.5 MG/2 ML NEB NEB SCH ×2 (06:12→18:01)
[2020-06-12] MEDS: MORPHINE SULF INJ 2 MG/ML SYRINGE 1ML IV PRN ×2 (06:48→13:59)
[2020-06-12] MEDS: ALPRAZolam 0.5 MG TAB PO PRN ×2 (08:34→19:32)
[2020-06-12] MEDS: ASCORBIC ACID 500 MG TAB PO SCH ×2 (08:35→23:18)
[2020-06-12] MEDS: ZINC SULFATE 220mg CAP or TAB PO SCH (08:36)
[2020-06-12] MEDS: FAMOTIDINE 20 MG TAB PO SCH ×2 (08:36→23:18)
[2020-06-12] MEDS: MULTIPLE VITAMIN TAB PO SCH (08:36)
[2020-06-12] MEDS: AZITHROMYCIN 500MG/ 250ML 250 ML IV SCH (08:38)
[2020-06-12] MEDS: ENOXAPARIN SOD 40 MG/0.4 ML SYRINGE SC SCH (08:43)
[2020-06-12 09:00] VITALS: BP 138/89
[2020-06-12 13:00] VITALS: BP 116/87
[2020-06-12 14:20] VITALS: BP 138/89
[2020-06-12 16:53] VITALS: BP 125/88
[2020-06-12] MEDS: DOCUSATE SOD 100 MG CAP PO PRN ×2 (18:21→23:18)
[2020-06-12 22:00] VITALS: BP 120/86
[2020-06-12] MEDS: TEMAZEPAM 15 MG CAP PO PRN (23:18)
[2020-06-13] MEDS: IPRATROPIUM BROM 0.5 MG/2.5ML INH SOL NEB SCH ×6 (02:35→21:39)
[2020-06-13] MEDS: IPRATROPIUM BROM 0.5 MG/2.5ML INH SOL NEB PRN (02:35)
[2020-06-13] MEDS: ALBUTEROL SULF 2.5 MG/0.5ML(0.5%) NEB SOLN NEB SCH ×6 (02:35→21:39)
[2020-06-13] MEDS: ALBUTEROL SULF 2.5 MG/0.5ML(0.5%) NEB SOLN NEB PRN (02:35)
[2020-06-13] MEDS: MORPHINE SULF INJ 2 MG/ML SYRINGE 1ML IV PRN ×3 (02:44→21:22)
[2020-06-13 05:00] VITALS: BP 109/72
[2020-06-13] MEDS: methylPREDNISolone SOD SUCC 125 MG/2 ML VL IV SCH ×4 (06:22→23:20)
[2020-06-13] MEDS: MULTIPLE VITAMIN TAB PO SCH (08:50)
[2020-06-13] MEDS: FAMOTIDINE 20 MG TAB PO SCH ×2 (08:50→21:21)
[2020-06-13] MEDS: ZINC SULFATE 220mg CAP or TAB PO SCH (08:50)
[2020-06-13] MEDS: ALPRAZolam 0.5 MG TAB PO PRN ×2 (08:50→20:09)
[2020-06-13] MEDS: AZITHROMYCIN 500MG/ 250ML 250 ML IV SCH (08:51)
[2020-06-13] MEDS: ASCORBIC ACID 500 MG TAB PO SCH ×2 (08:51→21:22)
[2020-06-13] MEDS: ENOXAPARIN SOD 40 MG/0.4 ML SYRINGE SC SCH (08:51)
[2020-06-13 09:00] VITALS: BP 115/77
[2020-06-13] MEDS: BUDESONIDE (INHALATION) 0.5 MG/2 ML NEB NEB SCH ×2 (09:37→18:33)
[2020-06-13 13:00] VITALS: BP 117/60
[2020-06-13 17:00] VITALS: BP 106/76
[2020-06-13] MEDS: DOCUSATE SOD 100 MG CAP PO PRN (20:09)
[2020-06-13 22:00] VITALS: BP 120/74
[2020-06-13] MEDS: TEMAZEPAM 15 MG CAP PO PRN (23:21)
[2020-06-14] MEDS: IPRATROPIUM BROM 0.5 MG/2.5ML INH SOL NEB SCH ×6 (01:47→22:27)
[2020-06-14] MEDS: ALBUTEROL SULF 2.5 MG/0.5ML(0.5%) NEB SOLN NEB SCH ×6 (01:47→22:27)
[2020-06-14 05:00] VITALS: BP 113/77
[2020-06-14] MEDS: methylPREDNISolone SOD SUCC 125 MG/2 ML VL IV SCH ×3 (05:08→18:23)
[2020-06-14] MEDS: MORPHINE SULF INJ 2 MG/ML SYRINGE 1ML IV PRN ×3 (05:09→14:45)
[2020-06-14] MEDS: ALPRAZolam 0.5 MG TAB PO PRN ×2 (05:17→13:41)
[2020-06-14] MEDS: BUDESONIDE (INHALATION) 0.5 MG/2 ML NEB NEB SCH ×2 (06:00→18:16)
[2020-06-14 08:47] VITALS: BP 116/71
[2020-06-14] MEDS: AZITHROMYCIN 500MG/ 250ML 250 ML IV SCH (09:53)
[2020-06-14] MEDS: MULTIPLE VITAMIN TAB PO SCH (09:53)
[2020-06-14] MEDS: ENOXAPARIN SOD 40 MG/0.4 ML SYRINGE SC SCH (09:54)
[2020-06-14] MEDS: FAMOTIDINE 20 MG TAB PO SCH ×2 (09:54→22:14)
[2020-06-14] MEDS: ZINC SULFATE 220mg CAP or TAB PO SCH (10:21)
[2020-06-14] MEDS: DOCUSATE SOD 100 MG CAP PO PRN ×2 (10:21→22:16)
[2020-06-14 10:25] LABS: Basophils # (auto) 0 10 ^3/uL (0-0.2); Basophils % (auto) 0.2 % (0.0-2.0); Eosinophils # (auto) 0 10 ^3/uL (0-0.8); Hematocrit 45.4 % (36.0-46.0); Hemoglobin 15.3 g/dL (12.2-16.2); Lymphocytes # (auto) 0.5 10 ^3/uL (0.4-5.4); Lymphocytes % (auto) 8.8 % (10.0-50.0); Mean Corpuscular Hemoglobin 31.1 pg (28.0-32.0); Mean Corpuscular Hgb Conc. 33.7 g/dL (32.0-36.0); Mean Corpuscular Volume 92.4 fL (80.0-100.0); Monocytes # (auto) 0.2 10 ^3/uL (0-1.3); Monocytes % (auto) 3.7 % (0.0-12.0); Neutrophils # (auto) 4.7 10 ^3/uL (1.6-8.6); Neutrophils % (auto) 87.3 % (37.0-80.0); Nucleated Red Blood Cells % 0.1 %; Platelet Count (auto) 415 10^3/uL (140-450); Red Blood Cells 4.91 10^6/uL (4.0-5.20); Red Cell Distribution Width 12.8 % (11.8-14.3); White Blood Cell 5.4 10^3/uL (4.4-10.8)
[2020-06-14 10:41] LABS: Albumin 3.5 g/dL (3.4-5.0); Calcium 8.8 mg/dL (8.5-10.1); Magnesium 2.4 mg/dL (1.6-2.6); Potassium 4.1 mmol/L (3.5-5.1)
[2020-06-14 10:46] LABS: BUN/Creatinine Ratio 25.6; Bilirubin, Total 0.2 mg/dL (0.2-1.0); Phosphorus 3.8 mg/dL (2.5-4.90); Total Protein 6.8 g/dL (6.4-8.2)
[2020-06-14 12:51] VITALS: BP 122/75
[2020-06-14] MEDS: ASCORBIC ACID 500 MG TAB PO SCH ×2 (14:34→22:14)
[2020-06-14 16:43] VITALS: BP 124/83
[2020-06-14 22:35] VITALS: BP 126/76
[2020-06-15] MEDS: methylPREDNISolone SOD SUCC 125 MG/2 ML VL IV SCH ×2 (00:13→06:00)
[2020-06-15] MEDS: ALBUTEROL SULF 2.5 MG/0.5ML(0.5%) NEB SOLN NEB SCH ×4 (01:50→14:38)
[2020-06-15] MEDS: IPRATROPIUM BROM 0.5 MG/2.5ML INH SOL NEB SCH ×4 (01:50→14:38)
[2020-06-15 05:17] VITALS: BP 113/69
[2020-06-15] MEDS: BUDESONIDE (INHALATION) 0.5 MG/2 ML NEB NEB SCH (06:33)
[2020-06-15] MEDS: MORPHINE SULF INJ 2 MG/ML SYRINGE 1ML IV PRN (07:04)
[2020-06-15] MEDS: ALPRAZolam 0.5 MG TAB PO PRN ×2 (08:10→10:32)
[2020-06-15] MEDS: FAMOTIDINE 20 MG TAB PO SCH (08:13)
[2020-06-15] MEDS: ZINC SULFATE 220mg CAP or TAB PO SCH (08:13)
[2020-06-15] MEDS: MULTIPLE VITAMIN TAB PO SCH (08:13)
[2020-06-15] MEDS: ASCORBIC ACID 500 MG TAB PO SCH (08:13)
[2020-06-15] MEDS: ENOXAPARIN SOD 40 MG/0.4 ML SYRINGE SC SCH (08:14)
[2020-06-15 08:20] VITALS: BP 126/84
[2020-06-15] MEDS ORDERED: methylPREDNISolone SOD SUCC 40 MG/ML VL IV SCH (12:00)
[2020-06-15 12:45] VITALS: BP 100/65
== END 2020-06-15 15:30 | disposition home or self-care (01) | DRG 133 ==
LOC: ER 18:14 → TELE 18:15 → TELE-CENTR 06-09 15:31
PROVIDERS: ADMIT Internal Medicine; ATTEND Internal Medicine
DX: J96.21 Acute and chronic respiratory failure with hypoxia (principal); J18.9 Pneumonia, unspecified organism; R00.0 Tachycardia, unspecified; J98.11 Atelectasis; Z20.822 Contact with and (suspected) exposure to COVID-19; J84.10 Pulmonary fibrosis, unspecified; F17.200 Nicotine dependence, unspecified, uncomplicated; J45.901 Unspecified asthma with (acute) exacerbation
CPT/HCPCS: 36415; 36600; 71045; 80053; 82805; 83605; 83735; 84100; 85025; 87040; 87081; 87426; 93005; 94640; 96365; 96366; 96368; 96375; G0378; J0696; J2405

== ENCOUNTER 2020-07-18 13:42 | Inpatient (IN) | payer MEDICAID ==
[~2020-07-18] VITALS: Ht 162.6 cm; Wt 58.6 kg
[~2020-07-18 13:42] MED LIST changes: +BUDE1AER4 NEB; -BUDE1AER4 PO
[2020-07-18] MEDS ORDERED: methylPREDNISolone SOD SUCC 125 MG/2 ML VL IV ONE (14:00)
[2020-07-18] MEDS ORDERED: IPRATROPIUM BROM 0.5 MG/2.5ML INH SOL NEB ONE ×3 (14:00→17:00)
[2020-07-18] MEDS ORDERED: ALBUTEROL SULF 2.5 MG/0.5ML(0.5%) NEB SOLN NEB ONE ×3 (14:00→17:00)
[2020-07-18 14:43] LABS: Basophils # (auto) 0.1 10 ^3/uL (0-0.2); Basophils % (auto) 1.1 % (0.0-2.0); Eosinophils # (auto) 0.4 10 ^3/uL (0-0.8); Eosinophils % (auto) 5.3 % (0.0-7.0); Hematocrit 46.2 % (36.0-46.0); Hemoglobin 15.4 g/dL (12.2-16.2); Lymphocytes # (auto) 1.2 10 ^3/uL (0.4-5.4); Lymphocytes % (auto) 17.3 % (10.0-50.0); Mean Corpuscular Hgb Conc. 33.3 g/dL (32.0-36.0); Mean Corpuscular Volume 92.9 fL (80.0-100.0); Monocytes # (auto) 0.6 10 ^3/uL (0-1.3); Monocytes % (auto) 9.2 % (0.0-12.0); Neutrophils # (auto) 4.7 10 ^3/uL (1.6-8.6); Neutrophils % (auto) 67.1 % (37.0-80.0); Nucleated Red Blood Cells % 0.2 %; Platelet Count (auto) 352 10^3/uL (140-450); Red Blood Cells 4.97 10^6/uL (4.0-5.20); Red Cell Distribution Width 14.3 % (11.8-14.3)
[2020-07-18 15:04] LABS: Calcium 8.7 mg/dL (8.5-10.1); Chloride 104 mmol/L (98-107); Potassium 3.9 mmol/L (3.5-5.1); Sodium 138 mmol/L (136-145)
[2020-07-18 15:08] LABS: Albumin 3.9 g/dL (3.4-5.0); Anion Gap 8 (5-15); BUN/Creatinine Ratio 11.4; Blood Urea Nitrogen 9 mg/dL (7-18); Carbon Dioxide 26 mmol/L (21-32); GFR African American 104 mL/min; GFR Non-African American 86 mL/min; Glucose 117 mg/dL (74-106); Magnesium 2.2 mg/dL (1.6-2.6)
[2020-07-18 15:14] LABS: Alanine Aminotransferase 17 U/L (13-56); Alkaline Phosphatase 60 U/L (45-117); Aspartate Aminotransferase 11 U/L (15-37); Bilirubin, Total 0.4 mg/dL (0.2-1.0); Total Protein 7.2 g/dL (6.4-8.2)
[2020-07-18] MEDS ORDERED: MAGNESIUM SULFATE 1GM/100ML 100 ML IV ONE ×2 (15:15→18:45)
[2020-07-18] MEDS ORDERED: HYDROcodone-ACET 5/325MG TAB PO PRN (18:45)
[2020-07-18] MEDS ORDERED: TEMAZEPAM 15 MG CAP PO PRN (18:45)
[2020-07-18] MEDS ORDERED: MORPHINE SULF INJ 2 MG/ML SYRINGE 1ML IV PRN (18:45)
[2020-07-18] MEDS ORDERED: ONDANSETRON HCL 4 MG/2 ML VIAL IV PRN (18:45)
[2020-07-18] MEDS ORDERED: ACETAMINOPHEN 325 MG TAB PO PRN (18:45)
[2020-07-18] MEDS ORDERED: DOCUSATE SOD 100 MG CAP PO PRN (18:45)
[2020-07-18] MEDS ORDERED: NITROGLYCERIN 0.4 MG SL TAB SL PRN (18:45)
[2020-07-18 18:50] VITALS: BP 111/60
[2020-07-18 19:55] VITALS: BP 139/76
[2020-07-18] MEDS ORDERED: LORA0.5T20 PO (21:20)
[2020-07-18] MEDS ORDERED: ALBUAER3 IN (21:20)
[2020-07-18] MEDS ORDERED: IPRA0.03 NEB (21:21)
[2020-07-18] MEDS: BUDESONIDE (INHALATION) 0.5 MG/2 ML NEB NEB SCH (21:33)
[2020-07-18] MEDS: ALBUTEROL SULF 2.5 MG/0.5ML(0.5%) NEB SOLN NEB PRN (21:33)
[2020-07-18 23:05] VITALS: BP 139/76
[2020-07-19] MEDS: ALBUTEROL SULF 2.5 MG/0.5ML(0.5%) NEB SOLN NEB PRN (01:53)
[2020-07-19 04:40] VITALS: BP 100/61
[2020-07-19] MEDS: IPRATROPIUM BROM 0.5 MG/2.5ML INH SOL NEB SCH ×5 (06:28→22:04)
[2020-07-19] MEDS: ALBUTEROL SULF 2.5 MG/0.5ML(0.5%) NEB SOLN NEB SCH ×5 (06:28→22:04)
[2020-07-19] MEDS: BUDESONIDE (INHALATION) 0.5 MG/2 ML NEB NEB SCH ×2 (06:29→18:03)
[2020-07-19] MEDS ORDERED: methylPREDNISolone SOD SUCC 125 MG/2 ML VL IV SCH ×2 (08:00→14:00)
[2020-07-19 09:00] VITALS: BP 125/81
[2020-07-19 09:59] LABS: Basophils # (auto) 0 10 ^3/uL (0-0.2); Basophils % (auto) 0.4 % (0.0-2.0); Eosinophils # (auto) 0 10 ^3/uL (0-0.8); Eosinophils % (auto) 0.3 % (0.0-7.0); Hematocrit 40.5 % (36.0-46.0); Hemoglobin 13.6 g/dL (12.2-16.2); Lymphocytes # (auto) 0.4 10 ^3/uL (0.4-5.4); Lymphocytes % (auto) 4.7 % (10.0-50.0); Mean Corpuscular Hemoglobin 31.3 pg (28.0-32.0); Mean Corpuscular Hgb Conc. 33.6 g/dL (32.0-36.0); Mean Corpuscular Volume 93.2 fL (80.0-100.0); Monocytes # (auto) 0.4 10 ^3/uL (0-1.3); Monocytes % (auto) 3.9 % (0.0-12.0); Neutrophils # (auto) 8.6 10 ^3/uL (1.6-8.6); Neutrophils % (auto) 90.7 % (37.0-80.0); Platelet Count (auto) 293 10^3/uL (140-450); Red Blood Cells 4.34 10^6/uL (4.0-5.20); Red Cell Distribution Width 13.8 % (11.8-14.3); White Blood Cell 9.5 10^3/uL (4.4-10.8)
[2020-07-19] MEDS ORDERED: methylPREDNISolone SOD SUCC 40 MG/ML VL IV SCH (10:00)
[2020-07-19 10:40] LABS: Potassium 3.7 mmol/L (3.5-5.1)
[2020-07-19 10:46] LABS: Albumin 3.3 g/dL (3.4-5.0); BUN/Creatinine Ratio 17.6; Bilirubin, Total 0.3 mg/dL (0.2-1.0); Calcium 8.4 mg/dL (8.5-10.1); Total Protein 6.2 g/dL (6.4-8.2)
[2020-07-19 13:00] VITALS: BP 113/78
[2020-07-19] MEDS: methylPREDNISolone SOD SUCC 125 MG/2 ML VL IV SCH ×2 (18:16→23:52)
[2020-07-19] MEDS: MORPHINE SULF INJ 2 MG/ML SYRINGE 1ML IV PRN (18:20)
[2020-07-19 22:00] VITALS: BP 133/78
[2020-07-20 00:35] LABS: Urine Bacteria FEW /hpf (None Seen); Urine Blood Negative /uL (Negative); Urine WBC 2 /hpf (0 - 5)
[2020-07-20] MEDS: ALBUTEROL SULF 2.5 MG/0.5ML(0.5%) NEB SOLN NEB SCH ×6 (01:54→22:53)
[2020-07-20] MEDS: IPRATROPIUM BROM 0.5 MG/2.5ML INH SOL NEB SCH ×6 (01:54→22:52)
[2020-07-20] MEDS: MORPHINE SULF INJ 2 MG/ML SYRINGE 1ML IV PRN ×3 (02:08→22:51)
[2020-07-20 05:00] VITALS: BP 101/62
[2020-07-20] MEDS: BUDESONIDE (INHALATION) 0.5 MG/2 ML NEB NEB SCH ×2 (05:57→22:52)
[2020-07-20] MEDS: methylPREDNISolone SOD SUCC 125 MG/2 ML VL IV SCH ×3 (06:14→18:00)
[2020-07-20 08:00] VITALS: BP 113/76
[2020-07-20 09:16] VITALS: BP 113/76
[2020-07-20] MEDS ORDERED: LORazepam 2MG/ML-1ML VIAL IV ONE (11:30)
[2020-07-20] MEDS ORDERED: ALBUTEROL SULF 2.5 MG/0.5ML(0.5%) NEB SOLN NEB ONE (12:00)
[2020-07-20] MEDS ORDERED: IOHEXOL 350 MG/ML 100ML IJ ONE (12:10)
[2020-07-20 13:00] VITALS: BP 103/71
[2020-07-20 14:06] LABS: Basophils # (auto) 0 10 ^3/uL (0-0.2); Basophils % (auto) 0.1 % (0.0-2.0); Eosinophils # (auto) 0 10 ^3/uL (0-0.8); Hemoglobin 14.6 g/dL (12.2-16.2); Lymphocytes # (auto) 0.4 10 ^3/uL (0.4-5.4); Lymphocytes % (auto) 6.1 % (10.0-50.0); Mean Corpuscular Hemoglobin 31.7 pg (28.0-32.0); Mean Corpuscular Hgb Conc. 33.9 g/dL (32.0-36.0); Mean Corpuscular Volume 93.4 fL (80.0-100.0); Monocytes # (auto) 0.2 10 ^3/uL (0-1.3); Monocytes % (auto) 2.8 % (0.0-12.0); Neutrophils # (auto) 6.4 10 ^3/uL (1.6-8.6); Nucleated Red Blood Cells % 0.1 %; Platelet Count (auto) 312 10^3/uL (140-450); Red Cell Distribution Width 13.9 % (11.8-14.3)
[2020-07-20 14:48] LABS: Albumin 3.6 g/dL (3.4-5.0); Calcium 9.2 mg/dL (8.5-10.1); Magnesium 2.5 mg/dL (1.6-2.6); Potassium 4.3 mmol/L (3.5-5.1)
[2020-07-20 14:55] LABS: BUN/Creatinine Ratio 18.1; Bilirubin, Total 0.2 mg/dL (0.2-1.0); Phosphorus 2.9 mg/dL (2.5-4.90); Total Protein 6.7 g/dL (6.4-8.2)
[2020-07-20 17:00] VITALS: BP 112/76
[2020-07-20] MEDS: AZITHROMYCIN 500MG/ 250ML 250 ML IV SCH (18:00)
[2020-07-20 21:42] VITALS: BP 117/78
[2020-07-20] MEDS: ALPRAZolam 0.5 MG TAB PO PRN (21:44)
[2020-07-21] MEDS: methylPREDNISolone SOD SUCC 125 MG/2 ML VL IV SCH ×5 (00:31→23:30)
[2020-07-21] MEDS: IPRATROPIUM BROM 0.5 MG/2.5ML INH SOL NEB SCH ×6 (02:16→22:12)
[2020-07-21] MEDS: ALBUTEROL SULF 2.5 MG/0.5ML(0.5%) NEB SOLN NEB SCH ×6 (02:16→22:12)
[2020-07-21] MEDS: MORPHINE SULF INJ 2 MG/ML SYRINGE 1ML IV PRN ×3 (04:48→23:30)
[2020-07-21 05:01] VITALS: BP 102/62
[2020-07-21] MEDS: ALPRAZolam 0.5 MG TAB PO PRN ×2 (08:41→20:36)
[2020-07-21 08:56] VITALS: BP 111/72
[2020-07-21] MEDS: BUDESONIDE (INHALATION) 0.5 MG/2 ML NEB NEB SCH ×2 (09:58→22:12)
[2020-07-21] MEDS: AZITHROMYCIN 500MG/ 250ML 250 ML IV SCH (10:01)
[2020-07-21 13:00] VITALS: BP 96/49
[2020-07-21 16:28] VITALS: BP 109/66
[2020-07-21 22:00] VITALS: BP 104/72
[2020-07-22] MEDS: ALBUTEROL SULF 2.5 MG/0.5ML(0.5%) NEB SOLN NEB SCH ×6 (02:27→22:34)
[2020-07-22] MEDS: IPRATROPIUM BROM 0.5 MG/2.5ML INH SOL NEB SCH ×6 (02:27→22:34)
[2020-07-22] MEDS: MORPHINE SULF INJ 2 MG/ML SYRINGE 1ML IV PRN ×3 (04:22→23:03)
[2020-07-22 04:38] VITALS: BP 104/72
[2020-07-22 05:25] VITALS: BP 105/63
[2020-07-22] MEDS: methylPREDNISolone SOD SUCC 125 MG/2 ML VL IV SCH ×3 (05:56→19:56)
[2020-07-22] MEDS: BUDESONIDE (INHALATION) 0.5 MG/2 ML NEB NEB SCH ×2 (06:00→22:34)
[2020-07-22 06:47] LABS: Potassium 3.9 mmol/L (3.5-5.1)
[2020-07-22 06:57] LABS: Albumin 3.2 g/dL (3.4-5.0); BUN/Creatinine Ratio 30.2; Bilirubin, Total 0.2 mg/dL (0.2-1.0); Calcium 8.6 mg/dL (8.5-10.1); Total Protein 5.8 g/dL (6.4-8.2)
[2020-07-22 09:00] VITALS: BP 101/59
[2020-07-22] MEDS: ALPRAZolam 0.5 MG TAB PO PRN ×2 (09:15→20:23)
[2020-07-22] MEDS: AZITHROMYCIN 500MG/ 250ML 250 ML IV SCH (09:15)
[2020-07-22 12:43] VITALS: BP 106/65
[2020-07-22 16:45] VITALS: BP 122/85
[2020-07-22 22:00] VITALS: BP 110/72
[2020-07-23] MEDS: methylPREDNISolone SOD SUCC 125 MG/2 ML VL IV SCH ×4 (00:06→22:04)
[2020-07-23] MEDS: ALBUTEROL SULF 2.5 MG/0.5ML(0.5%) NEB SOLN NEB SCH ×6 (02:21→22:36)
[2020-07-23] MEDS: IPRATROPIUM BROM 0.5 MG/2.5ML INH SOL NEB SCH ×6 (02:21→22:36)
[2020-07-23 05:00] VITALS: BP 130/91
[2020-07-23] MEDS: MORPHINE SULF INJ 2 MG/ML SYRINGE 1ML IV PRN ×4 (05:51→23:35)
[2020-07-23] MEDS: BUDESONIDE (INHALATION) 0.5 MG/2 ML NEB NEB SCH ×2 (05:55→22:36)
[2020-07-23 09:24] VITALS: BP 118/74
[2020-07-23] MEDS: AZITHROMYCIN 500MG/ 250ML 250 ML IV SCH (09:53)
[2020-07-23] MEDS: ALPRAZolam 0.5 MG TAB PO PRN ×2 (11:23→20:28)
[2020-07-23 12:26] LABS: Albumin 3.3 g/dL (3.4-5.0); Calcium 8.7 mg/dL (8.5-10.1); Magnesium 2.6 mg/dL (1.6-2.6); Potassium 4.1 mmol/L (3.5-5.1)
[2020-07-23 12:29] LABS: BUN/Creatinine Ratio 26.2; Bilirubin, Total 0.2 mg/dL (0.2-1.0); Total Protein 6.2 g/dL (6.4-8.2)
[2020-07-23 13:00] VITALS: BP 135/68
[2020-07-23 15:23] LABS: Basophils # (auto) 0 10 ^3/uL (0-0.2); Eosinophils # (auto) 0 10 ^3/uL (0-0.8); Hematocrit 42.2 % (36.0-46.0); Hemoglobin 13.9 g/dL (12.2-16.2); Lymphocytes # (auto) 0.3 10 ^3/uL (0.4-5.4); Lymphocytes % (auto) 5.3 % (10.0-50.0); Mean Corpuscular Hemoglobin 30.9 pg (28.0-32.0); Mean Corpuscular Volume 93.4 fL (80.0-100.0); Monocytes # (auto) 0.3 10 ^3/uL (0-1.3); Monocytes % (auto) 6.7 % (0.0-12.0); Neutrophils # (auto) 4.2 10 ^3/uL (1.6-8.6); Platelet Count (auto) 317 10^3/uL (140-450); Red Blood Cells 4.52 10^6/uL (4.0-5.20); Red Cell Distribution Width 13.5 % (11.8-14.3); White Blood Cell 4.7 10^3/uL (4.4-10.8)
[2020-07-23 16:57] VITALS: BP 126/77
[2020-07-23] MEDS ORDERED: ALBUTEROL SULF 2.5 MG/0.5ML(0.5%) NEB SOLN NEB ONE (20:30)
[2020-07-23 22:00] VITALS: BP 121/83
[2020-07-24] MEDS: IPRATROPIUM BROM 0.5 MG/2.5ML INH SOL NEB SCH ×6 (02:30→22:35)
[2020-07-24] MEDS: ALBUTEROL SULF 2.5 MG/0.5ML(0.5%) NEB SOLN NEB SCH ×6 (02:30→22:35)
[2020-07-24] MEDS: MORPHINE SULF INJ 2 MG/ML SYRINGE 1ML IV PRN ×4 (04:44→19:19)
[2020-07-24 05:00] VITALS: BP 119/72
[2020-07-24] MEDS: methylPREDNISolone SOD SUCC 125 MG/2 ML VL IV SCH ×3 (06:22→22:32)
[2020-07-24] MEDS: BUDESONIDE (INHALATION) 0.5 MG/2 ML NEB NEB SCH ×2 (07:01→18:39)
[2020-07-24 09:00] VITALS: BP 106/66
[2020-07-24] MEDS: AZITHROMYCIN 500MG/ 250ML 250 ML IV SCH (09:23)
[2020-07-24] MEDS: ALPRAZolam 0.5 MG TAB PO PRN ×2 (11:06→22:32)
[2020-07-24 13:00] VITALS: BP 123/73
[2020-07-24 17:00] VITALS: BP 127/91
[2020-07-24 20:21] VITALS: BP 127/91
[2020-07-24 22:00] VITALS: BP 128/75
[2020-07-25] MEDS: IPRATROPIUM BROM 0.5 MG/2.5ML INH SOL NEB SCH ×4 (02:43→14:38)
[2020-07-25] MEDS: ALBUTEROL SULF 2.5 MG/0.5ML(0.5%) NEB SOLN NEB SCH ×4 (02:43→14:38)
[2020-07-25] MEDS: MORPHINE SULF INJ 2 MG/ML SYRINGE 1ML IV PRN (04:31)
[2020-07-25 05:00] VITALS: BP 132/81
[2020-07-25] MEDS: methylPREDNISolone SOD SUCC 125 MG/2 ML VL IV SCH ×2 (06:22→14:28)
[2020-07-25 09:00] VITALS: BP 109/69
[2020-07-25] MEDS: AZITHROMYCIN 500MG/ 250ML 250 ML IV SCH (09:09)
[2020-07-25] MEDS: ALPRAZolam 0.5 MG TAB PO PRN (09:10)
[2020-07-25] MEDS: BUDESONIDE (INHALATION) 0.5 MG/2 ML NEB NEB SCH (10:22)
[2020-07-25 13:00] VITALS: BP 115/75
== END 2020-07-25 15:04 | disposition home or self-care (01) | DRG 133 ==
LOC: ER 13:42 → TELE 18:32 → TELE-WESTW 19:55
PROVIDERS: ADMIT Nurse Practitioner; ATTEND Nurse Practitioner
DX: J96.01 Acute respiratory failure with hypoxia (principal); J45.902 Unspecified asthma with status asthmaticus; J43.9 Emphysema, unspecified; Z20.822 Contact with and (suspected) exposure to COVID-19; J98.11 Atelectasis; F41.9 Anxiety disorder, unspecified; F17.200 Nicotine dependence, unspecified, uncomplicated; G47.00 Insomnia, unspecified; Z79.52 Long term (current) use of systemic steroids; Z82.49 Family history of ischemic heart disease and other diseases of the circulatory system; Z71.6 Tobacco abuse counseling
CPT/HCPCS: 36415; 71045; 71275; 80053; 81001; 81025; 83735; 84100; 84484; 85025; 87081; 87426; 93005; 94640; 96365; 96366; 96375; G0378

== ENCOUNTER 2020-11-12 21:39 | Inpatient (IN) | payer MEDICAID ==
[~2020-11-12] VITALS: Ht 162.6 cm; Wt 58.7 kg
[~2020-11-12 21:39] MED LIST changes: -ALBU0.084 NEB; +ALBUAER3 IN; +DEXT1SYP9 PO; +IPRA0.03 NEB; +LEVO-28 PO; +LORA0.5T20 PO; +OMEP20TA PO; +PRED20TA2 PO
[2020-11-12] MEDS ORDERED: ALBUTEROL SULF 2.5 MG/0.5ML(0.5%) NEB SOLN NEB ONE ×2 (21:45→23:15)
[2020-11-12] MEDS ORDERED: IPRATROPIUM BROM 0.5 MG/2.5ML INH SOL NEB ONE (21:45)
[2020-11-12] MEDS ORDERED: methylPREDNISolone SOD SUCC 125 MG/2 ML VL IM ONE (22:30)
[2020-11-12] MEDS ORDERED: cefTRIAXone SOD 1,000 MG VL IM ONE (22:30)
[2020-11-12 22:53] LABS: Basophils # (auto) 0.1 10 ^3/uL (0-0.2); Basophils % (auto) 0.8 % (0.0-2.0); Eosinophils # (auto) 0.3 10 ^3/uL (0-0.8); Eosinophils % (auto) 3.7 % (0.0-7.0); Hemoglobin 14.7 g/dL (12.2-16.2); Lymphocytes # (auto) 1.1 10 ^3/uL (0.4-5.4); Lymphocytes % (auto) 12.5 % (10.0-50.0); Mean Corpuscular Hemoglobin 31.4 pg (28.0-32.0); Mean Corpuscular Hgb Conc. 34.1 g/dL (32.0-36.0); Monocytes # (auto) 0.8 10 ^3/uL (0-1.3); Monocytes % (auto) 9.1 % (0.0-12.0); Neutrophils # (auto) 6.6 10 ^3/uL (1.6-8.6); Neutrophils % (auto) 73.9 % (37.0-80.0); Red Blood Cells 4.67 10^6/uL (4.0-5.20)
[2020-11-12 23:08] LABS: Albumin 3.6 g/dL (3.4-5.0); Calcium 8.6 mg/dL (8.5-10.1); Potassium 3.8 mmol/L (3.5-5.1)
[2020-11-12 23:11] LABS: BUN/Creatinine Ratio 15.3; Bilirubin, Total 0.6 mg/dL (0.2-1.0); Total Protein 7.3 g/dL (6.4-8.2)
[2020-11-13] MEDS: MAGNESIUM SULFATE 1GM/100ML 100 ML IV SCH ×2 (02:52→03:46)
[2020-11-13] MEDS ORDERED: IOHEXOL 350 MG/ML 100ML IJ ONE (04:39)
[2020-11-13] MEDS ORDERED: ALBUTEROL SULF 2.5 MG/0.5ML(0.5%) NEB SOLN NEB ONE (05:45)
[2020-11-13] MEDS ORDERED: DexAMETHasone SOD PHOS 10MG/1ML VIAL INJ IV ONE (06:15)
[2020-11-13] MEDS ORDERED: NITROGLYCERIN 0.4 MG SL TAB SL PRN (06:30)
[2020-11-13] MEDS ORDERED: MORPHINE SULF INJ 2 MG/ML SYRINGE 1ML IV PRN (06:30)
[2020-11-13] MEDS ORDERED: ALBUTEROL SULF HFA 90MCG INH 200DOSE IN SCH (10:00)
[2020-11-13] MEDS: cefTRIAXone 1GM/50ML D5W 50 ML IV SCH (10:30)
[2020-11-13] MEDS: DexAMETHasone SOD PHOS 10MG/1ML VIAL INJ IV SCH (10:30)
[2020-11-13] MEDS: ENOXAPARIN SOD 40 MG/0.4 ML SYRINGE SC SCH (10:33)
[2020-11-13] MEDS ORDERED: FLUT1AER3 IN (10:46)
[2020-11-13] MEDS: AZITHROMYCIN 500MG/ 250ML 250 ML IV SCH (11:44)
[2020-11-13] MEDS: FOLIC ACID 1 MG TAB PO SCH (11:45)
[2020-11-13] MEDS: THIAMINE HCL 100 MG TAB PO SCH (11:45)
[2020-11-13 13:00] VITALS: BP 124/78
[2020-11-13] MEDS: GABAPENTIN 100 MG CAP PO SCH ×3 (14:14→21:43)
[2020-11-13] MEDS: chlordiazePOXIDE HCL 5 MG CAP PO PRN (14:14)
[2020-11-13 17:00] VITALS: BP 102/56
[2020-11-13] MEDS ORDERED: ALBUTEROL SULF 2.5 MG/0.5ML(0.5%) NEB SOLN NEB PRN (17:30)
[2020-11-13] MEDS: IPRATROPIUM BROM 0.5 MG/2.5ML INH SOL NEB SCH ×2 (18:32→22:59)
[2020-11-13] MEDS: BUDESONIDE (INHALATION) 0.5 MG/2 ML NEB NEB SCH (18:32)
[2020-11-13] MEDS: ALBUTEROL SULF 2.5 MG/0.5ML(0.5%) NEB SOLN NEB SCH ×2 (18:32→22:58)
[2020-11-13] MEDS: HYDROcodone-ACET 5/325MG TAB PO PRN (20:33)
[2020-11-13 22:00] VITALS: BP 115/77
[2020-11-14] MEDS: chlordiazePOXIDE HCL 5 MG CAP PO PRN ×3 (01:25→23:11)
[2020-11-14 01:26] VITALS: BP 115/77
[2020-11-14] MEDS: ALBUTEROL SULF 2.5 MG/0.5ML(0.5%) NEB SOLN NEB SCH ×6 (02:45→21:54)
[2020-11-14] MEDS: IPRATROPIUM BROM 0.5 MG/2.5ML INH SOL NEB SCH ×9 (02:45→22:00)
[2020-11-14 05:00] VITALS: BP 96/61
[2020-11-14] MEDS: BUDESONIDE (INHALATION) 0.5 MG/2 ML NEB NEB SCH ×2 (05:50→18:03)
[2020-11-14] MEDS: GABAPENTIN 100 MG CAP PO SCH ×3 (06:19→22:17)
[2020-11-14] MEDS: HYDROcodone-ACET 5/325MG TAB PO PRN ×3 (06:19→22:17)
[2020-11-14 08:28] LABS: Basophils # (auto) 0 10 ^3/uL (0-0.2); Basophils % (auto) 0.1 % (0.0-2.0); Eosinophils # (auto) 0 10 ^3/uL (0-0.8); Eosinophils % (auto) 0.1 % (0.0-7.0); Hematocrit 38.6 % (36.0-46.0); Lymphocytes # (auto) 0.8 10 ^3/uL (0.4-5.4); Lymphocytes % (auto) 5.9 % (10.0-50.0); Mean Corpuscular Hemoglobin 31.4 pg (28.0-32.0); Mean Corpuscular Hgb Conc. 33.8 g/dL (32.0-36.0); Mean Corpuscular Volume 93.2 fL (80.0-100.0); Monocytes % (auto) 6.9 % (0.0-12.0); Neutrophils # (auto) 12.2 10 ^3/uL (1.6-8.6); Red Blood Cells 4.14 10^6/uL (4.0-5.20); Red Cell Distribution Width 13.9 % (11.8-14.3)
[2020-11-14 08:40] LABS: Albumin 3.4 g/dL (3.4-5.0); Calcium 8.4 mg/dL (8.5-10.1); Potassium 4.6 mmol/L (3.5-5.1)
[2020-11-14 08:45] LABS: BUN/Creatinine Ratio 21.4; Bilirubin, Total 0.4 mg/dL (0.2-1.0); Total Protein 6.8 g/dL (6.4-8.2)
[2020-11-14] MEDS: cefTRIAXone 1GM/50ML D5W 50 ML IV SCH (09:29)
[2020-11-14] MEDS: ENOXAPARIN SOD 40 MG/0.4 ML SYRINGE SC SCH (09:30)
[2020-11-14] MEDS: DexAMETHasone SOD PHOS 10MG/1ML VIAL INJ IV SCH (09:32)
[2020-11-14] MEDS: FOLIC ACID 1 MG TAB PO SCH (09:32)
[2020-11-14] MEDS: THIAMINE HCL 100 MG TAB PO SCH (09:32)
[2020-11-14 09:54] VITALS: BP 103/56
[2020-11-14] MEDS: AZITHROMYCIN 500MG/ 250ML 250 ML IV SCH (10:30)
[2020-11-14] MEDS ORDERED: methylPREDNISolone SOD SUCC 125 MG/2 ML VL IV ONE (10:30)
[2020-11-14 12:51] VITALS: BP 120/74
[2020-11-14 17:27] VITALS: BP 100/64
[2020-11-14] MEDS: LACTULOSE 20Gm/30ML SOLN PO PRN (17:33)
[2020-11-14 22:00] VITALS: BP 102/62
[2020-11-14] MEDS: methylPREDNISolone SOD SUCC 40 MG/ML VL IV SCH (22:17)
[2020-11-15] MEDS: IPRATROPIUM BROM 0.5 MG/2.5ML INH SOL NEB SCH ×4 (02:08→14:19)
[2020-11-15] MEDS: ALBUTEROL SULF 2.5 MG/0.5ML(0.5%) NEB SOLN NEB SCH ×4 (02:08→14:19)
[2020-11-15 05:08] VITALS: BP 109/68
[2020-11-15] MEDS: GABAPENTIN 100 MG CAP PO SCH (06:16)
[2020-11-15] MEDS: HYDROcodone-ACET 5/325MG TAB PO PRN (06:16)
[2020-11-15] MEDS: BUDESONIDE (INHALATION) 0.5 MG/2 ML NEB NEB SCH (06:36)
[2020-11-15 07:35] VITALS: BP 102/60
[2020-11-15] MEDS: ENOXAPARIN SOD 40 MG/0.4 ML SYRINGE SC SCH (08:22)
[2020-11-15] MEDS: THIAMINE HCL 100 MG TAB PO SCH (08:22)
[2020-11-15] MEDS: cefTRIAXone 1GM/50ML D5W 50 ML IV SCH (08:22)
[2020-11-15] MEDS: FOLIC ACID 1 MG TAB PO SCH (08:22)
[2020-11-15 09:00] VITALS: BP 102/60
[2020-11-15] MEDS: LACTULOSE 20Gm/30ML SOLN PO PRN (09:01)
[2020-11-15] MEDS: AZITHROMYCIN 500MG/ 250ML 250 ML IV SCH (09:53)
[2020-11-15] MEDS: methylPREDNISolone SOD SUCC 40 MG/ML VL IV SCH (10:17)
[2020-11-15] MEDS ORDERED: LORazepam 0.5 MG TAB PO PRN (10:30)
[2020-11-15] MEDS ORDERED: LEVO500T31 PO (10:31)
[2020-11-15] MEDS ORDERED: IPR002IS NEB (10:31)
[2020-11-15] MEDS ORDERED: PRED20TA2 PO (10:31)
[2020-11-15] MEDS ORDERED: ALB5IS NEB (10:31)
[2020-11-15] MEDS ORDERED: THIA50CA PO (10:31)
[2020-11-15] MEDS ORDERED: DEXT1SYP9 PO (10:31)
[2020-11-15] MEDS ORDERED: FOLI1TAB6 PO (10:31)
[2020-11-15 12:58] VITALS: BP 94/63
[2020-11-15 13:00] VITALS: BP 94/63
== END 2020-11-15 14:20 | disposition home health service (06) | DRG 139 ==
LOC: ER 21:39 → TELE 11-13 06:26 → TELE-EAST 11-13 11:43
PROVIDERS: ADMIT Hospitalist; ATTEND Hospitalist
DX: J18.9 Pneumonia, unspecified organism (principal); J96.01 Acute respiratory failure with hypoxia; J45.901 Unspecified asthma with (acute) exacerbation; F17.200 Nicotine dependence, unspecified, uncomplicated; F41.9 Anxiety disorder, unspecified; Z20.822 Contact with and (suspected) exposure to COVID-19; Z82.49 Family history of ischemic heart disease and other diseases of the circulatory system; G47.00 Insomnia, unspecified; F10.20 Alcohol dependence, uncomplicated
CPT/HCPCS: 36415; 36600; 71275; 80053; 82728; 82805; 84702; 85025; 85379; 86141; 87081; 87426; 94640; 94644; 94645; 96365; 96366; 96372; 96375; 99291; G0378; J0696; J1100

== ENCOUNTER 2020-12-08 22:34 | Inpatient (IN) | payer MEDICAID ==
[~2020-12-08] VITALS: Ht 160 cm; Wt 63.3 kg
[~2020-12-08 22:34] MED LIST changes: -ALBUAER3 IN; +FLUT1AER3 IN; +FOLI1TAB6 PO; +IPR002IS NEB; -IPRA0.03 NEB; -LEVO-28 PO; +LEVO500T31 PO; +THIA50CA PO
[2020-12-08] MEDS ORDERED: MAGNESIUM SULFATE 1GM/100ML 200 ML IV STA (22:42)
[2020-12-08] MEDS ORDERED: methylPREDNISolone SOD SUCC 125 MG/2 ML VL IV ONE (22:45)
[2020-12-08] MEDS ORDERED: ALBUTEROL SULF 2.5 MG/0.5ML(0.5%) NEB SOLN NEB ONE (23:00)
[2020-12-08] MEDS ORDERED: IPRATROPIUM BROM 0.5 MG/2.5ML INH SOL NEB ONE (23:00)
[2020-12-09] MEDS ORDERED: ALBUTEROL SULF 2.5 MG/0.5ML(0.5%) NEB SOLN NEB ONE (02:45)
[2020-12-09] MEDS ORDERED: IPRATROPIUM BROM 0.5 MG/2.5ML INH SOL NEB ONE (02:45)
[2020-12-09 04:17] LABS: Basophils # (auto) 0.1 10 ^3/uL (0-0.2); Basophils % (auto) 0.9 % (0.0-2.0); Eosinophils # (auto) 0.5 10 ^3/uL (0-0.8); Eosinophils % (auto) 8.2 % (0.0-7.0); Hematocrit 43.4 % (36.0-46.0); Hemoglobin 14.3 g/dL (12.2-16.2); Lymphocytes # (auto) 1.4 10 ^3/uL (0.4-5.4); Mean Corpuscular Hemoglobin 31.3 pg (28.0-32.0); Mean Corpuscular Hgb Conc. 32.9 g/dL (32.0-36.0); Monocytes # (auto) 0.5 10 ^3/uL (0-1.3); Neutrophils # (auto) 4.1 10 ^3/uL (1.6-8.6); Neutrophils % (auto) 61.9 % (37.0-80.0); Nucleated Red Blood Cells % 0.2 %; Red Blood Cells 4.57 10^6/uL (4.0-5.20); Red Cell Distribution Width 14.4 % (11.8-14.3); White Blood Cell 6.6 10^3/uL (4.4-10.8)
[2020-12-09 04:31] LABS: Albumin 3.6 g/dL (3.4-5.0); Calcium 8.9 mg/dL (8.5-10.1); Magnesium 2.7 mg/dL (1.6-2.6); Potassium 3.2 mmol/L (3.5-5.1)
[2020-12-09 04:36] LABS: Bilirubin, Total 0.3 mg/dL (0.2-1.0); Total Protein 7.2 g/dL (6.4-8.2)
[2020-12-09] MEDS ORDERED: NITROGLYCERIN 0.4 MG SL TAB SL PRN (06:45)
[2020-12-09] MEDS ORDERED: MORPHINE SULFATE INJECTION 2 MG/ML SYRG IV PRN (06:45)
[2020-12-09] MEDS ORDERED: ALBUTEROL SULF 2.5 MG/0.5ML(0.5%) NEB SOLN HHN ONE (07:15)
[2020-12-09] MEDS ORDERED: IPRATROPIUM BROM 0.5 MG/2.5ML INH SOL HHN ONE (07:15)
[2020-12-09] MEDS: ALBUTEROL SULF 2.5 MG/0.5ML(0.5%) NEB SOLN NEB SCH ×4 (10:15→21:38)
[2020-12-09] MEDS: IPRATROPIUM BROM 0.5 MG/2.5ML INH SOL NEB SCH ×4 (10:15→21:38)
[2020-12-09] MEDS ORDERED: POTASSIUM CHL 20 Meq TABLET PO ONE (10:30)
[2020-12-09] MEDS: methylPREDNISolone SOD SUCC 125 MG/2 ML VL IV SCH ×2 (11:58→23:40)
[2020-12-09 23:19] VITALS: BP 128/69
[2020-12-09] MEDS ORDERED: ZOLPIDEM TARTRATE 5 MG TAB PO PRN (23:30)
[2020-12-09] MEDS: LACTULOSE 20Gm/30ML SOLN PO PRN (23:41)
[2020-12-09] MEDS: LORazepam 0.5 MG TAB PO PRN (23:41)
[2020-12-09 23:50] VITALS: BP 128/69
[2020-12-10] MEDS: IPRATROPIUM BROM 0.5 MG/2.5ML INH SOL NEB SCH ×6 (02:07→22:26)
[2020-12-10] MEDS: ALBUTEROL SULF 2.5 MG/0.5ML(0.5%) NEB SOLN NEB SCH ×6 (02:07→22:26)
[2020-12-10 05:00] VITALS: BP 105/54
[2020-12-10] MEDS: methylPREDNISolone SOD SUCC 125 MG/2 ML VL IV SCH ×4 (06:04→23:40)
[2020-12-10 09:00] VITALS: BP 104/64
[2020-12-10 09:18] LABS: Basophils # (auto) 0 10 ^3/uL (0-0.2); Basophils % (auto) 0.1 % (0.0-2.0); Eosinophils # (auto) 0 10 ^3/uL (0-0.8); Hemoglobin 13.5 g/dL (12.2-16.2); Lymphocytes # (auto) 0.3 10 ^3/uL (0.4-5.4); Lymphocytes % (auto) 4.4 % (10.0-50.0); Mean Corpuscular Hemoglobin 31.2 pg (28.0-32.0); Mean Corpuscular Volume 94.5 fL (80.0-100.0); Monocytes # (auto) 0.1 10 ^3/uL (0-1.3); Monocytes % (auto) 1.7 % (0.0-12.0); Neutrophils # (auto) 6.1 10 ^3/uL (1.6-8.6); Neutrophils % (auto) 93.8 % (37.0-80.0); Red Blood Cells 4.33 10^6/uL (4.0-5.20); Red Cell Distribution Width 14.2 % (11.8-14.3); White Blood Cell 6.5 10^3/uL (4.4-10.8)
[2020-12-10 09:44] LABS: BUN/Creatinine Ratio 16.7; Potassium 4.2 mmol/L (3.5-5.1)
[2020-12-10 09:45] LABS: Calcium 8.9 mg/dL (8.5-10.1); Magnesium 2.6 mg/dL (1.6-2.6)
[2020-12-10] MEDS: LORazepam 0.5 MG TAB PO PRN ×2 (10:34→21:43)
[2020-12-10] MEDS ORDERED: HYDROcodone-ACET 5/325MG TAB PO SCH (11:45)
[2020-12-10] MEDS: HYDROcodone-ACET 5/325MG TAB PO PRN ×2 (12:58→17:26)
[2020-12-10 13:00] VITALS: BP 118/81
[2020-12-10] MEDS: levoFLOXacin 500MG 100 ML IV SCH (13:01)
[2020-12-10] MEDS: ENOXAPARIN SOD 40 MG/0.4 ML SYRINGE SC SCH (14:19)
[2020-12-10 16:26] VITALS: BP 121/71
[2020-12-10] MEDS: FAMOTIDINE 20 MG TAB PO SCH (21:37)
[2020-12-10] MEDS: LACTULOSE 20Gm/30ML SOLN PO PRN (21:43)
[2020-12-10 22:00] VITALS: BP 130/69
[2020-12-11] MEDS: ALBUTEROL SULF 2.5 MG/0.5ML(0.5%) NEB SOLN NEB SCH ×5 (02:12→19:26)
[2020-12-11] MEDS: IPRATROPIUM BROM 0.5 MG/2.5ML INH SOL NEB SCH ×6 (02:12→22:16)
[2020-12-11 05:07] VITALS: BP 114/63
[2020-12-11] MEDS: HYDROcodone-ACET 5/325MG TAB PO PRN ×3 (05:07→18:55)
[2020-12-11] MEDS: methylPREDNISolone SOD SUCC 125 MG/2 ML VL IV SCH ×3 (06:26→21:24)
[2020-12-11] MEDS: LORazepam 0.5 MG TAB PO PRN ×2 (08:55→22:16)
[2020-12-11 09:00] VITALS: BP 117/71
[2020-12-11 09:37] LABS: Basophils # (auto) 0 10 ^3/uL (0-0.2); Basophils % (auto) 0.6 % (0.0-2.0); Eosinophils # (auto) 0 10 ^3/uL (0-0.8); Hematocrit 44.3 % (36.0-46.0); Lymphocytes # (auto) 0.3 10 ^3/uL (0.4-5.4); Lymphocytes % (auto) 4.7 % (10.0-50.0); Mean Corpuscular Hemoglobin 31.1 pg (28.0-32.0); Mean Corpuscular Hgb Conc. 31.7 g/dL (32.0-36.0); Mean Corpuscular Volume 98.2 fL (80.0-100.0); Monocytes # (auto) 0.2 10 ^3/uL (0-1.3); Monocytes % (auto) 2.4 % (0.0-12.0); Neutrophils # (auto) 5.9 10 ^3/uL (1.6-8.6); Neutrophils % (auto) 92.3 % (37.0-80.0); Red Blood Cells 4.51 10^6/uL (4.0-5.20); Red Cell Distribution Width 14.6 % (11.8-14.3); White Blood Cell 6.4 10^3/uL (4.4-10.8)
[2020-12-11] MEDS: FAMOTIDINE 20 MG TAB PO SCH (09:45)
[2020-12-11] MEDS: levoFLOXacin 500MG 100 ML IV SCH (09:45)
[2020-12-11] MEDS: LACTULOSE 20Gm/30ML SOLN PO PRN (09:46)
[2020-12-11] MEDS: ENOXAPARIN SOD 40 MG/0.4 ML SYRINGE SC SCH (09:46)
[2020-12-11 09:55] LABS: Potassium 3.7 mmol/L (3.5-5.1)
[2020-12-11 10:03] LABS: BUN/Creatinine Ratio 18.8; Magnesium 2.8 mg/dL (1.6-2.6)
[2020-12-11] MEDS: PANTOPRAZOLE 40 MG/10 ML VIAL INJ IV SCH (11:39)
[2020-12-11 12:47] VITALS: BP 130/87
[2020-12-11 16:36] VITALS: BP 132/76
[2020-12-11 21:53] VITALS: BP 116/72
[2020-12-12] MEDS: HYDROcodone-ACET 5/325MG TAB PO PRN ×3 (00:50→21:52)
[2020-12-12] MEDS: IPRATROPIUM BROM 0.5 MG/2.5ML INH SOL NEB SCH ×6 (02:30→22:20)
[2020-12-12] MEDS: ALBUTEROL SULF 2.5 MG/0.5ML(0.5%) NEB SOLN NEB SCH ×6 (02:31→22:20)
[2020-12-12] MEDS: methylPREDNISolone SOD SUCC 125 MG/2 ML VL IV SCH ×3 (05:29→21:52)
[2020-12-12 05:30] VITALS: BP 121/71
[2020-12-12] MEDS: PANTOPRAZOLE 40 MG/10 ML VIAL INJ IV SCH (08:35)
[2020-12-12] MEDS: ENOXAPARIN SOD 40 MG/0.4 ML SYRINGE SC SCH (08:35)
[2020-12-12] MEDS: levoFLOXacin 500MG 100 ML IV SCH (08:36)
[2020-12-12] MEDS: LACTULOSE 20Gm/30ML SOLN PO PRN (08:46)
[2020-12-12] MEDS: LORazepam 0.5 MG TAB PO PRN ×2 (08:46→18:21)
[2020-12-12 09:00] VITALS: BP 135/80
[2020-12-12] MEDS: BUDESONIDE (INHALATION) 0.5 MG/2 ML NEB NEB SCH ×2 (10:05→18:14)
[2020-12-12 12:15] VITALS: BP 135/80
[2020-12-12 13:00] VITALS: BP 137/84
[2020-12-12 17:00] VITALS: BP 130/87
[2020-12-12 21:53] VITALS: BP 139/81
[2020-12-13] MEDS: ALBUTEROL SULF 2.5 MG/0.5ML(0.5%) NEB SOLN NEB SCH ×6 (03:12→23:05)
[2020-12-13] MEDS: IPRATROPIUM BROM 0.5 MG/2.5ML INH SOL NEB SCH ×6 (03:12→23:06)
[2020-12-13 05:30] VITALS: BP 121/75
[2020-12-13] MEDS: methylPREDNISolone SOD SUCC 125 MG/2 ML VL IV SCH ×3 (05:43→21:40)
[2020-12-13] MEDS: BUDESONIDE (INHALATION) 0.5 MG/2 ML NEB NEB SCH ×2 (06:03→19:06)
[2020-12-13 08:00] VITALS: BP 132/87
[2020-12-13] MEDS: ENOXAPARIN SOD 40 MG/0.4 ML SYRINGE SC SCH (08:41)
[2020-12-13] MEDS: LACTULOSE 20Gm/30ML SOLN PO PRN (08:41)
[2020-12-13] MEDS: PANTOPRAZOLE 40 MG/10 ML VIAL INJ IV SCH (08:41)
[2020-12-13] MEDS: LORazepam 0.5 MG TAB PO PRN ×2 (08:41→18:11)
[2020-12-13] MEDS: levoFLOXacin 500MG 100 ML IV SCH (08:42)
[2020-12-13] MEDS: HYDROcodone-ACET 5/325MG TAB PO PRN ×2 (11:42→21:42)
[2020-12-13 12:00] VITALS: BP 125/87
[2020-12-13 16:00] VITALS: BP 123/75
[2020-12-14] MEDS: ALBUTEROL SULF 2.5 MG/0.5ML(0.5%) NEB SOLN NEB SCH ×5 (02:49→19:08)
[2020-12-14] MEDS: IPRATROPIUM BROM 0.5 MG/2.5ML INH SOL NEB SCH ×5 (02:49→19:08)
[2020-12-14 05:00] VITALS: BP 109/70
[2020-12-14] MEDS: methylPREDNISolone SOD SUCC 125 MG/2 ML VL IV SCH ×3 (05:54→21:08)
[2020-12-14] MEDS: BUDESONIDE (INHALATION) 0.5 MG/2 ML NEB NEB SCH ×2 (06:07→19:08)
[2020-12-14] MEDS: LACTULOSE 20Gm/30ML SOLN PO PRN (08:31)
[2020-12-14] MEDS: LORazepam 0.5 MG TAB PO PRN (08:32)
[2020-12-14 09:00] VITALS: BP 125/81
[2020-12-14] MEDS: levoFLOXacin 500MG 100 ML IV SCH (09:39)
[2020-12-14] MEDS: PANTOPRAZOLE 40 MG/10 ML VIAL INJ IV SCH (09:39)
[2020-12-14] MEDS: ENOXAPARIN SOD 40 MG/0.4 ML SYRINGE SC SCH (09:39)
[2020-12-14] MEDS: HYDROcodone-ACET 5/325MG TAB PO PRN ×2 (12:30→17:50)
[2020-12-14 13:00] VITALS: BP 126/74
[2020-12-14 14:40] LABS: Basophils # (auto) 0 10 ^3/uL (0-0.2); Basophils % (auto) 0.5 % (0.0-2.0); Eosinophils # (auto) 0 10 ^3/uL (0-0.8); Hematocrit 42.4 % (36.0-46.0); Lymphocytes # (auto) 0.3 10 ^3/uL (0.4-5.4); Lymphocytes % (auto) 6.6 % (10.0-50.0); Mean Corpuscular Hemoglobin 30.6 pg (28.0-32.0); Mean Corpuscular Hgb Conc. 33.1 g/dL (32.0-36.0); Mean Corpuscular Volume 92.5 fL (80.0-100.0); Monocytes # (auto) 0.4 10 ^3/uL (0-1.3); Monocytes % (auto) 9.3 % (0.0-12.0); Neutrophils # (auto) 3.8 10 ^3/uL (1.6-8.6); Neutrophils % (auto) 83.6 % (37.0-80.0); Red Blood Cells 4.58 10^6/uL (4.0-5.20); Red Cell Distribution Width 13.9 % (11.8-14.3); White Blood Cell 4.6 10^3/uL (4.4-10.8)
[2020-12-14 15:00] LABS: Potassium 4.4 mmol/L (3.5-5.1)
[2020-12-14 15:01] LABS: BUN/Creatinine Ratio 21.4; Calcium 8.4 mg/dL (8.5-10.1); Magnesium 2.4 mg/dL (1.6-2.6)
[2020-12-14 17:00] VITALS: BP 134/72
== END 2020-12-14 21:14 | disposition home or self-care (01) | DRG 140 ==
LOC: ER 22:35 → TELE 12-09 06:43 → TELE-WESTW 12-09 21:10
PROVIDERS: ADMIT Hospitalist; ATTEND Hospitalist
DX: J44.1 Chronic obstructive pulmonary disease with (acute) exacerbation (principal); J96.01 Acute respiratory failure with hypoxia; J45.901 Unspecified asthma with (acute) exacerbation; E87.6 Hypokalemia; F41.9 Anxiety disorder, unspecified; J98.11 Atelectasis; Z20.822 Contact with and (suspected) exposure to COVID-19; Z82.49 Family history of ischemic heart disease and other diseases of the circulatory system; Z87.891 Personal history of nicotine dependence
CPT/HCPCS: 36415; 71045; 80048; 80053; 83605; 83735; 83880; 84702; 85025; 87081; 87426; 93005; 94640; 94644; 96365; 96375; 96376; C9113; G0378; J1956

== ENCOUNTER 2021-01-07 17:16 | Inpatient (IN) | payer MEDICAID ==
[~2021-01-07] VITALS: Ht 162.6 cm; Wt 62.5 kg
[2021-01-07 02:15] VITALS: BP 124/81
[~2021-01-07 17:16] MED LIST changes: -LEVO500T31 PO
[2021-01-07] MEDS ORDERED: ALBUTEROL SULF 2.5 MG/0.5ML(0.5%) NEB SOLN HHN ONE ×2 (17:30→20:30)
[2021-01-07] MEDS ORDERED: IPRATROPIUM BROM 0.5 MG/2.5ML INH SOL HHN ONE (17:30)
[2021-01-07] MEDS ORDERED: methylPREDNISolone SOD SUCC 125 MG/2 ML VL IV ONE (17:30)
[2021-01-07 17:52] LABS: Basophils # (auto) 0.1 10 ^3/uL (0-0.2); Basophils % (auto) 1.3 % (0.0-2.0); Eosinophils # (auto) 0.5 10 ^3/uL (0-0.8); Eosinophils % (auto) 9.6 % (0.0-7.0); Hematocrit 46.8 % (36.0-46.0); Lymphocytes % (auto) 18.5 % (10.0-50.0); Mean Corpuscular Hemoglobin 29.8 pg (28.0-32.0); Mean Corpuscular Volume 92.9 fL (80.0-100.0); Monocytes # (auto) 0.4 10 ^3/uL (0-1.3); Neutrophils # (auto) 3.3 10 ^3/uL (1.6-8.6); Neutrophils % (auto) 62.6 % (37.0-80.0); Nucleated Red Blood Cells % 0.1 %; Red Blood Cells 5.04 10^6/uL (4.0-5.20); Red Cell Distribution Width 14.6 % (11.8-14.3); White Blood Cell 5.3 10^3/uL (4.4-10.8)
[2021-01-07 18:04] LABS: Alanine Aminotransferase 15 U/L (13-56); Albumin 3.3 g/dL (3.4-5.0); Anion Gap 6 (5-15); Aspartate Aminotransferase 10 U/L (15-37); BUN/Creatinine Ratio 9.2; Blood Urea Nitrogen 6 mg/dL (7-18); Calcium 8.3 mg/dL (8.5-10.1); Carbon Dioxide 27 mmol/L (21-32); Chloride 109 mmol/L (98-107); GFR African American 131 mL/min; GFR Non-African American 108 mL/min; Glucose 118 mg/dL (74-106); Potassium 3.8 mmol/L (3.5-5.1); Sodium 142 mmol/L (136-145)
[2021-01-07 18:07] LABS: Alkaline Phosphatase 70 U/L (45-117); Bilirubin, Total 0.2 mg/dL (0.2-1.0); Total Protein 6.7 g/dL (6.4-8.2)
[2021-01-07] MEDS ORDERED: HYDROcodone-ACET 10/325MG TAB PO ONE (19:45)
[2021-01-07] MEDS ORDERED: LORazepam 2MG/ML-1ML VIAL IV ONE (21:30)
[2021-01-07 23:55] VITALS: BP 111/65
[2021-01-08] MEDS: methylPREDNISolone SOD SUCC 125 MG/2 ML VL IV SCH ×5 (00:28→23:04)
[2021-01-08] MEDS: ALBUTEROL SULF 2.5 MG/0.5ML(0.5%) NEB SOLN NEB SCH ×7 (01:56→22:20)
[2021-01-08] MEDS: IPRATROPIUM BROM 0.5 MG/2.5ML INH SOL NEB SCH ×7 (01:57→22:20)
[2021-01-08 02:15] VITALS: BP 124/81
[2021-01-08] MEDS ORDERED: HYDR-4609 PO (03:33)
[2021-01-08 05:00] VITALS: BP 122/67
[2021-01-08] MEDS: HYDROcodone-ACET 7.5/325MG TAB PO PRN ×3 (05:49→21:13)
[2021-01-08] MEDS: ALPRAZolam 0.5 MG TAB PO PRN ×3 (07:07→23:04)
[2021-01-08 08:43] LABS: Basophils # (auto) 0 10 ^3/uL (0-0.2); Basophils % (auto) 0.4 % (0.0-2.0); Eosinophils # (auto) 0 10 ^3/uL (0-0.8); Hematocrit 44.8 % (36.0-46.0); Hemoglobin 14.7 g/dL (12.2-16.2); Lymphocytes # (auto) 0.2 10 ^3/uL (0.4-5.4); Lymphocytes % (auto) 8.3 % (10.0-50.0); Mean Corpuscular Hemoglobin 30.7 pg (28.0-32.0); Mean Corpuscular Hgb Conc. 32.8 g/dL (32.0-36.0); Mean Corpuscular Volume 93.5 fL (80.0-100.0); Monocytes # (auto) 0 10 ^3/uL (0-1.3); Monocytes % (auto) 1.1 % (0.0-12.0); Neutrophils # (auto) 2.4 10 ^3/uL (1.6-8.6); Neutrophils % (auto) 90.2 % (37.0-80.0); Nucleated Red Blood Cells % 0.3 %; Red Blood Cells 4.79 10^6/uL (4.0-5.20); Red Cell Distribution Width 14.6 % (11.8-14.3); White Blood Cell 2.7 10^3/uL (4.4-10.8)
[2021-01-08 08:59] LABS: Albumin 3.5 g/dL (3.4-5.0); Calcium 8.9 mg/dL (8.5-10.1)
[2021-01-08 09:00] VITALS: BP 113/72
[2021-01-08 09:01] LABS: BUN/Creatinine Ratio 15.5
[2021-01-08 09:04] LABS: Bilirubin, Total 0.3 mg/dL (0.2-1.0)
[2021-01-08 13:00] VITALS: BP 123/82
[2021-01-08] MEDS: DOXYCYCLINE 100MG/250ML 250 ML IV SCH ×2 (15:58→20:37)
[2021-01-08 17:00] VITALS: BP 122/68
[2021-01-08] MEDS: BUDESONIDE (INHALATION) 0.5 MG/2 ML NEB NEB SCH (18:22)
[2021-01-08] MEDS: FAMOTIDINE 20 MG TAB PO SCH (20:37)
[2021-01-08] MEDS: LACTULOSE 20Gm/30ML SOLN PO PRN (21:13)
[2021-01-08 22:00] VITALS: BP 121/78
[2021-01-09] MEDS: ALBUTEROL SULF 2.5 MG/0.5ML(0.5%) NEB SOLN NEB SCH ×6 (02:14→22:16)
[2021-01-09] MEDS: IPRATROPIUM BROM 0.5 MG/2.5ML INH SOL NEB SCH ×6 (02:14→22:16)
[2021-01-09 05:00] VITALS: BP 101/66
[2021-01-09] MEDS: methylPREDNISolone SOD SUCC 125 MG/2 ML VL IV SCH ×4 (05:57→23:59)
[2021-01-09] MEDS: HYDROcodone-ACET 7.5/325MG TAB PO PRN ×3 (05:58→20:27)
[2021-01-09] MEDS: BUDESONIDE (INHALATION) 0.5 MG/2 ML NEB NEB SCH ×2 (06:19→18:33)
[2021-01-09 08:00] VITALS: BP 105/71
[2021-01-09 09:00] VITALS: BP 105/71
[2021-01-09] MEDS: DOXYCYCLINE 100MG/250ML 250 ML IV SCH ×2 (09:35→21:23)
[2021-01-09] MEDS: ALPRAZolam 0.5 MG TAB PO PRN ×2 (09:35→19:55)
[2021-01-09] MEDS: FAMOTIDINE 20 MG TAB PO SCH ×2 (09:35→21:23)
[2021-01-09 13:00] VITALS: BP 111/63
[2021-01-09 17:00] VITALS: BP 118/79
[2021-01-09] MEDS: LACTULOSE 20Gm/30ML SOLN PO PRN (20:28)
[2021-01-09 22:00] VITALS: BP 122/79
[2021-01-10] MEDS: ALBUTEROL SULF 2.5 MG/0.5ML(0.5%) NEB SOLN NEB SCH ×6 (02:12→22:30)
[2021-01-10] MEDS: IPRATROPIUM BROM 0.5 MG/2.5ML INH SOL NEB SCH ×6 (02:12→22:30)
[2021-01-10 05:00] VITALS: BP 102/63
[2021-01-10] MEDS: methylPREDNISolone SOD SUCC 125 MG/2 ML VL IV SCH ×2 (05:55→12:24)
[2021-01-10] MEDS: BUDESONIDE (INHALATION) 0.5 MG/2 ML NEB NEB SCH ×2 (06:15→18:40)
[2021-01-10] MEDS: HYDROcodone-ACET 7.5/325MG TAB PO PRN ×3 (06:17→18:29)
[2021-01-10] MEDS: ALPRAZolam 0.5 MG TAB PO PRN ×3 (06:28→18:29)
[2021-01-10] MEDS: LACTULOSE 20Gm/30ML SOLN PO PRN (08:49)
[2021-01-10] MEDS: FAMOTIDINE 20 MG TAB PO SCH ×2 (08:49→21:53)
[2021-01-10] MEDS: DOXYCYCLINE 100MG/250ML 250 ML IV SCH ×2 (08:58→21:53)
[2021-01-10 09:00] VITALS: BP 114/76
[2021-01-10 13:00] VITALS: BP 144/78
[2021-01-10 17:00] VITALS: BP 111/77
[2021-01-10] MEDS: methylPREDNISolone SOD SUCC 40 MG/ML VL IV SCH (18:27)
[2021-01-10] MEDS: SENNA 8.6 MG TAB PO SCH (21:53)
[2021-01-10 22:00] VITALS: BP 121/71
[2021-01-11] MEDS: methylPREDNISolone SOD SUCC 40 MG/ML VL IV SCH ×4 (00:31→18:47)
[2021-01-11] MEDS: ALPRAZolam 0.5 MG TAB PO PRN ×4 (00:32→18:49)
[2021-01-11] MEDS: LACTULOSE 20Gm/30ML SOLN PO PRN ×3 (00:32→21:51)
[2021-01-11] MEDS: HYDROcodone-ACET 7.5/325MG TAB PO PRN ×4 (00:46→18:49)
[2021-01-11] MEDS: IPRATROPIUM BROM 0.5 MG/2.5ML INH SOL NEB SCH ×6 (02:19→21:47)
[2021-01-11] MEDS: ALBUTEROL SULF 2.5 MG/0.5ML(0.5%) NEB SOLN NEB SCH ×7 (02:19→21:47)
[2021-01-11 05:00] VITALS: BP 132/77
[2021-01-11] MEDS: BUDESONIDE (INHALATION) 0.5 MG/2 ML NEB NEB SCH ×2 (06:11→19:10)
[2021-01-11] MEDS: DOXYCYCLINE 100MG/250ML 250 ML IV SCH (08:31)
[2021-01-11] MEDS: FAMOTIDINE 20 MG TAB PO SCH ×2 (08:32→21:50)
[2021-01-11] MEDS: SENNA 8.6 MG TAB PO SCH ×2 (08:32→21:50)
[2021-01-11 08:39] VITALS: BP 121/80
[2021-01-11 12:26] VITALS: BP 122/77
[2021-01-11 17:27] VITALS: BP 121/84
[2021-01-11] MEDS: DOXYCYCLINE 100 MG TAB/CAP PO SCH (21:50)
[2021-01-11 22:00] VITALS: BP 128/70
[2021-01-12] MEDS: methylPREDNISolone SOD SUCC 40 MG/ML VL IV SCH ×4 (00:40→18:29)
[2021-01-12] MEDS: HYDROcodone-ACET 7.5/325MG TAB PO PRN ×3 (00:40→14:21)
[2021-01-12] MEDS: ALPRAZolam 0.5 MG TAB PO PRN ×3 (00:41→14:21)
[2021-01-12] MEDS: ALBUTEROL SULF 2.5 MG/0.5ML(0.5%) NEB SOLN NEB SCH ×4 (01:45→14:07)
[2021-01-12] MEDS: IPRATROPIUM BROM 0.5 MG/2.5ML INH SOL NEB SCH ×4 (01:45→14:07)
[2021-01-12 05:00] VITALS: BP 108/68
[2021-01-12] MEDS: BUDESONIDE (INHALATION) 0.5 MG/2 ML NEB NEB SCH (06:16)
[2021-01-12 09:00] VITALS: BP 139/78
[2021-01-12] MEDS: SENNA 8.6 MG TAB PO SCH (10:00)
[2021-01-12] MEDS: FAMOTIDINE 20 MG TAB PO SCH (10:00)
[2021-01-12] MEDS: DOXYCYCLINE 100 MG TAB/CAP PO SCH (10:00)
[2021-01-12 13:00] VITALS: BP 126/77
[2021-01-12] MEDS ORDERED: BUDE1AER4 NEB (13:28)
[2021-01-12] MEDS ORDERED: ALB5IS NEB (13:28)
[2021-01-12] MEDS ORDERED: AMOX500T86 PO (13:28)
[2021-01-12] MEDS ORDERED: PRED20TA2 PO (13:28)
[2021-01-12] MEDS ORDERED: IPR002IS NEB (13:28)
[2021-01-12 15:34] VITALS: BP 132/66
[2021-01-12 17:00] VITALS: BP 131/73
[2021-01-12] MEDS ORDERED: ALPR0.25 PO (17:08)
[2021-01-12] MEDS ORDERED: HYDR-4902 PO (17:08)
== END 2021-01-12 18:40 | disposition home or self-care (01) | DRG 133 ==
LOC: ER 17:16 → TELE 01-08 02:06 → TELE-WESTW 01-08 02:15
PROVIDERS: ADMIT Hospitalist; ATTEND Hospitalist
DX: J96.01 Acute respiratory failure with hypoxia (principal); J45.901 Unspecified asthma with (acute) exacerbation; J44.9 Chronic obstructive pulmonary disease, unspecified; J98.11 Atelectasis; F17.210 Nicotine dependence, cigarettes, uncomplicated; Z20.822 Contact with and (suspected) exposure to COVID-19; F41.9 Anxiety disorder, unspecified; G47.00 Insomnia, unspecified; Z82.49 Family history of ischemic heart disease and other diseases of the circulatory system
CPT/HCPCS: 36415; 36600; 71045; 80053; 82805; 83735; 85025; 87081; 87426; 94640; 94644; 96374; 96375; G0378; J3490

== ENCOUNTER 2021-02-18 18:22 | Inpatient (IN) | payer MEDICAID ==
[~2021-02-18] VITALS: Ht 162.6 cm; Wt 54.1 kg
[~2021-02-18 18:22] MED LIST changes: +ALPR0.25 PO; +AMOX500T86 PO; -FOLI1TAB6 PO; +HYDR-4609 PO; -HYDR-4833 PO; +HYDR-4902 PO; -THIA50CA PO
[2021-02-18] MEDS ORDERED: IPRATROPIUM BROM 0.5 MG/2.5ML INH SOL HHN ONE (18:30)
[2021-02-18] MEDS ORDERED: ALBUTEROL SULF 2.5 MG/0.5ML(0.5%) NEB SOLN HHN ONE (18:30)
[2021-02-18] MEDS ORDERED: methylPREDNISolone SOD SUCC 125 MG/2 ML VL IV ONE (18:30)
[2021-02-18 20:38] LABS: Basophils # (auto) 0.1 10 ^3/uL (0-0.2); Eosinophils # (auto) 0.1 10 ^3/uL (0-0.8); Eosinophils % (auto) 1.3 % (0.0-7.0); Hematocrit 46.2 % (36.0-46.0); Hemoglobin 15.1 g/dL (12.2-16.2); Lymphocytes # (auto) 0.3 10 ^3/uL (0.4-5.4); Lymphocytes % (auto) 5.2 % (10.0-50.0); Mean Corpuscular Hemoglobin 30.1 pg (28.0-32.0); Mean Corpuscular Hgb Conc. 32.6 g/dL (32.0-36.0); Mean Corpuscular Volume 92.2 fL (80.0-100.0); Monocytes # (auto) 0.2 10 ^3/uL (0-1.3); Monocytes % (auto) 3.2 % (0.0-12.0); Neutrophils # (auto) 5.8 10 ^3/uL (1.6-8.6); Neutrophils % (auto) 89.3 % (37.0-80.0); Red Blood Cells 5.01 10^6/uL (4.0-5.20); Red Cell Distribution Width 14.8 % (11.8-14.3); White Blood Cell 6.4 10^3/uL (4.4-10.8)
[2021-02-18 20:55] LABS: Albumin 3.8 g/dL (3.4-5.0); BUN/Creatinine Ratio 7.7; Calcium 8.6 mg/dL (8.5-10.1)
[2021-02-18 20:59] LABS: Bilirubin, Total 0.2 mg/dL (0.2-1.0)
[2021-02-18] MEDS ORDERED: HYDROcodone-ACET 10/325MG TAB PO ONE (21:00)
[2021-02-18] MEDS ORDERED: ACETAMINOPHEN 325 MG TAB PO ONE (22:00)
[2021-02-18] MEDS ORDERED: MORPHINE SULFATE INJECTION 2 MG/ML SYRG IV PRN (22:45)
[2021-02-18] MEDS ORDERED: NITROGLYCERIN 0.4 MG SL TAB SL PRN (22:45)
[2021-02-18] MEDS ORDERED: ONDANSETRON HCL 4 MG/2 ML VIAL IV PRN (22:45)
[2021-02-18 23:14] VITALS: BP 109/67
[2021-02-19] MEDS: methylPREDNISolone SOD SUCC 125 MG/2 ML VL IV SCH ×4 (00:07→21:54)
[2021-02-19] MEDS: ALBUTEROL SULF 2.5 MG/0.5ML(0.5%) NEB SOLN NEB SCH ×6 (01:56→22:21)
[2021-02-19] MEDS: IPRATROPIUM BROM 0.5 MG/2.5ML INH SOL NEB SCH ×6 (01:56→22:21)
[2021-02-19] MEDS: LORazepam 0.5 MG TAB PO PRN ×2 (03:50→16:24)
[2021-02-19 04:03] VITALS: BP_SYST 118; BP_DIAS 71; BP_DIAS 72
[2021-02-19 05:00] VITALS: BP 118/71
[2021-02-19 08:46] VITALS: BP 99/55
[2021-02-19] MEDS: MORPHINE SULFATE 4 MG/ML SYR/VIAL IV PRN ×3 (10:13→22:09)
[2021-02-19 11:25] LABS: Basophils # (auto) 0 10 ^3/uL (0-0.2); Basophils % (auto) 0.3 % (0.0-2.0); Eosinophils # (auto) 0 10 ^3/uL (0-0.8); Hematocrit 45.9 % (36.0-46.0); Hemoglobin 15.3 g/dL (12.2-16.2); Lymphocytes # (auto) 0.2 10 ^3/uL (0.4-5.4); Lymphocytes % (auto) 8.5 % (10.0-50.0); Mean Corpuscular Hemoglobin 30.8 pg (28.0-32.0); Mean Corpuscular Hgb Conc. 33.3 g/dL (32.0-36.0); Mean Corpuscular Volume 92.7 fL (80.0-100.0); Monocytes # (auto) 0.1 10 ^3/uL (0-1.3); Monocytes % (auto) 2.4 % (0.0-12.0); Neutrophils # (auto) 2.4 10 ^3/uL (1.6-8.6); Neutrophils % (auto) 88.8 % (37.0-80.0); Red Blood Cells 4.95 10^6/uL (4.0-5.20); Red Cell Distribution Width 14.9 % (11.8-14.3); White Blood Cell 2.7 10^3/uL (4.4-10.8)
[2021-02-19 11:34] LABS: BUN/Creatinine Ratio 13.9; Calcium 8.5 mg/dL (8.5-10.1); Potassium 4.2 mmol/L (3.5-5.1)
[2021-02-19 13:00] VITALS: BP 118/69
[2021-02-19 17:00] VITALS: BP 107/61
[2021-02-19] MEDS: AZITHROMYCIN 500MG/ 250ML 250 ML IV SCH (20:23)
[2021-02-19 22:05] VITALS: BP 117/77
[2021-02-19] MEDS: BUDESONIDE (INHALATION) 0.5 MG/2 ML NEB NEB SCH (22:22)
[2021-02-20] MEDS: IPRATROPIUM BROM 0.5 MG/2.5ML INH SOL NEB SCH ×6 (02:57→22:08)
[2021-02-20] MEDS: ALBUTEROL SULF 2.5 MG/0.5ML(0.5%) NEB SOLN NEB SCH ×6 (02:57→22:08)
[2021-02-20 04:50] VITALS: BP 107/73
[2021-02-20] MEDS: BUDESONIDE (INHALATION) 0.5 MG/2 ML NEB NEB SCH ×2 (06:18→18:35)
[2021-02-20] MEDS: methylPREDNISolone SOD SUCC 125 MG/2 ML VL IV SCH ×3 (06:20→22:18)
[2021-02-20] MEDS: LORazepam 0.5 MG TAB PO PRN ×3 (06:25→22:26)
[2021-02-20] MEDS: MORPHINE SULFATE 4 MG/ML SYR/VIAL IV PRN ×3 (08:53→20:03)
[2021-02-20 09:00] VITALS: BP 115/67
[2021-02-20] MEDS: AZITHROMYCIN 500MG/ 250ML 250 ML IV SCH (10:08)
[2021-02-20 12:00] VITALS: BP 118/78
[2021-02-20] MEDS: LACTULOSE 20Gm/30ML SOLN PO PRN ×2 (12:23→22:40)
[2021-02-20 16:00] VITALS: BP 120/75
[2021-02-20 20:00] VITALS: BP 134/81
[2021-02-20 22:00] VITALS: BP 134/81
[2021-02-21] MEDS: IPRATROPIUM BROM 0.5 MG/2.5ML INH SOL NEB SCH ×6 (01:56→23:05)
[2021-02-21] MEDS: ALBUTEROL SULF 2.5 MG/0.5ML(0.5%) NEB SOLN NEB SCH ×6 (01:56→23:05)
[2021-02-21] MEDS: MORPHINE SULFATE 4 MG/ML SYR/VIAL IV PRN ×3 (04:41→19:46)
[2021-02-21 05:00] VITALS: BP 130/90
[2021-02-21] MEDS: BUDESONIDE (INHALATION) 0.5 MG/2 ML NEB NEB SCH ×2 (06:02→19:57)
[2021-02-21] MEDS: methylPREDNISolone SOD SUCC 125 MG/2 ML VL IV SCH (06:15)
[2021-02-21 08:00] VITALS: BP 136/95
[2021-02-21] MEDS: AZITHROMYCIN 500MG/ 250ML 250 ML IV SCH (09:53)
[2021-02-21] MEDS: LORazepam 0.5 MG TAB PO PRN (10:01)
[2021-02-21 12:00] VITALS: BP 124/76
[2021-02-21] MEDS ORDERED: LORazepam 0.5 MG TAB PO PRN (15:45)
[2021-02-21] MEDS: ALPRAZolam 0.5 MG TAB PO SCH ×2 (15:50→21:31)
[2021-02-21 16:00] VITALS: BP 136/91
[2021-02-21] MEDS: methylPREDNISolone SOD SUCC 40 MG/ML VL IV SCH ×2 (16:11→21:31)
[2021-02-21] MEDS: LACTULOSE 20Gm/30ML SOLN PO PRN (21:36)
[2021-02-21 22:00] VITALS: BP 111/67
[2021-02-21 23:28] VITALS: BP 111/67
[2021-02-22] MEDS: IPRATROPIUM BROM 0.5 MG/2.5ML INH SOL NEB SCH ×6 (04:16→21:46)
[2021-02-22] MEDS: ALBUTEROL SULF 2.5 MG/0.5ML(0.5%) NEB SOLN NEB SCH ×6 (04:16→21:46)
[2021-02-22 05:00] VITALS: BP 102/59
[2021-02-22] MEDS: ALPRAZolam 0.5 MG TAB PO SCH ×3 (06:00→21:18)
[2021-02-22] MEDS: methylPREDNISolone SOD SUCC 40 MG/ML VL IV SCH ×3 (06:00→21:18)
[2021-02-22 08:58] VITALS: BP 120/81
[2021-02-22] MEDS: AZITHROMYCIN 500MG/ 250ML 250 ML IV SCH (09:25)
[2021-02-22] MEDS: BUDESONIDE (INHALATION) 0.5 MG/2 ML NEB NEB SCH ×2 (09:42→19:15)
[2021-02-22] MEDS: MORPHINE SULFATE 4 MG/ML SYR/VIAL IV PRN ×3 (09:43→23:46)
[2021-02-22] MEDS: LACTULOSE 20Gm/30ML SOLN PO PRN ×2 (09:55→23:37)
[2021-02-22 12:42] VITALS: BP 105/61
[2021-02-22] MEDS ORDERED: ALBUTEROL SULF 2.5 MG/0.5ML(0.5%) NEB SOLN NEB ONE (14:00)
[2021-02-22 17:00] VITALS: BP 113/73
[2021-02-22 22:00] VITALS: BP 128/83
[2021-02-23] MEDS: ALBUTEROL SULF 2.5 MG/0.5ML(0.5%) NEB SOLN NEB SCH ×6 (02:31→22:11)
[2021-02-23] MEDS: IPRATROPIUM BROM 0.5 MG/2.5ML INH SOL NEB SCH ×6 (02:31→22:11)
[2021-02-23 05:00] VITALS: BP 116/70
[2021-02-23] MEDS: methylPREDNISolone SOD SUCC 40 MG/ML VL IV SCH ×3 (06:02→21:01)
[2021-02-23] MEDS: ALPRAZolam 0.5 MG TAB PO SCH ×3 (06:02→21:01)
[2021-02-23] MEDS: BUDESONIDE (INHALATION) 0.5 MG/2 ML NEB NEB SCH ×2 (08:44→19:11)
[2021-02-23 09:00] VITALS: BP 107/71
[2021-02-23] MEDS: LACTULOSE 20Gm/30ML SOLN PO PRN ×2 (10:04→21:14)
[2021-02-23] MEDS: AZITHROMYCIN 500MG/ 250ML 250 ML IV SCH (10:04)
[2021-02-23 12:57] VITALS: BP 121/74
[2021-02-23 16:33] VITALS: BP 104/71
[2021-02-23] MEDS: MORPHINE SULFATE 4 MG/ML SYR/VIAL IV PRN (17:55)
[2021-02-23 21:53] VITALS: BP 116/78
[2021-02-24] MEDS: IPRATROPIUM BROM 0.5 MG/2.5ML INH SOL NEB SCH ×6 (02:43→23:19)
[2021-02-24] MEDS: ALBUTEROL SULF 2.5 MG/0.5ML(0.5%) NEB SOLN NEB SCH ×6 (02:43→23:19)
[2021-02-24 04:54] VITALS: BP 112/70
[2021-02-24] MEDS: ALPRAZolam 0.5 MG TAB PO SCH ×3 (05:18→22:06)
[2021-02-24] MEDS: methylPREDNISolone SOD SUCC 40 MG/ML VL IV SCH ×3 (05:19→22:05)
[2021-02-24] MEDS: BUDESONIDE (INHALATION) 0.5 MG/2 ML NEB NEB SCH ×2 (07:49→19:25)
[2021-02-24 08:33] VITALS: BP 122/81
[2021-02-24] MEDS: AZITHROMYCIN 500MG/ 250ML 250 ML IV SCH (09:00)
[2021-02-24] MEDS: LACTULOSE 20Gm/30ML SOLN PO PRN ×2 (09:15→22:07)
[2021-02-24] MEDS: MORPHINE SULFATE 4 MG/ML SYR/VIAL IV PRN ×3 (09:16→22:06)
[2021-02-24 11:54] LABS: Basophils # (auto) 0 10 ^3/uL (0-0.2); Basophils % (auto) 0.2 % (0.0-2.0); Eosinophils # (auto) 0 10 ^3/uL (0-0.8); Hematocrit 46.4 % (36.0-46.0); Hemoglobin 15.1 g/dL (12.2-16.2); Lymphocytes # (auto) 0.3 10 ^3/uL (0.4-5.4); Lymphocytes % (auto) 5.6 % (10.0-50.0); Mean Corpuscular Hemoglobin 29.8 pg (28.0-32.0); Mean Corpuscular Hgb Conc. 32.6 g/dL (32.0-36.0); Mean Corpuscular Volume 91.6 fL (80.0-100.0); Monocytes # (auto) 0.4 10 ^3/uL (0-1.3); Monocytes % (auto) 6.1 % (0.0-12.0); Neutrophils # (auto) 5.2 10 ^3/uL (1.6-8.6); Neutrophils % (auto) 88.1 % (37.0-80.0); Red Blood Cells 5.07 10^6/uL (4.0-5.20); Red Cell Distribution Width 14.6 % (11.8-14.3); White Blood Cell 5.9 10^3/uL (4.4-10.8)
[2021-02-24 12:07] LABS: BUN/Creatinine Ratio 24.7; Calcium 8.8 mg/dL (8.5-10.1); Magnesium 3.3 mg/dL (1.6-2.6); Potassium 4.7 mmol/L (3.5-5.1)
[2021-02-24 13:00] VITALS: BP 123/84
[2021-02-24 16:33] VITALS: BP 121/77
[2021-02-24 22:00] VITALS: BP 122/78
[2021-02-25] VITALS (7 sets, daily range): BP systolic 112–122; BP diastolic 64–83
[2021-02-25] MEDS: IPRATROPIUM BROM 0.5 MG/2.5ML INH SOL NEB SCH ×6 (04:41→22:02)
[2021-02-25] MEDS: ALBUTEROL SULF 2.5 MG/0.5ML(0.5%) NEB SOLN NEB SCH ×6 (04:41→22:02)
[2021-02-25] MEDS: methylPREDNISolone SOD SUCC 40 MG/ML VL IV SCH ×3 (06:03→22:18)
[2021-02-25] MEDS: ALPRAZolam 0.5 MG TAB PO SCH ×3 (06:04→22:19)
[2021-02-25] MEDS: MORPHINE SULFATE 4 MG/ML SYR/VIAL IV PRN ×3 (06:06→23:21)
[2021-02-25] MEDS: BUDESONIDE (INHALATION) 0.5 MG/2 ML NEB NEB SCH ×2 (06:35→22:02)
[2021-02-25] MEDS: LACTULOSE 20Gm/30ML SOLN PO PRN ×2 (08:19→22:42)
[2021-02-26] MEDS: ALBUTEROL SULF 2.5 MG/0.5ML(0.5%) NEB SOLN NEB SCH ×2 (01:59→06:25)
[2021-02-26] MEDS: IPRATROPIUM BROM 0.5 MG/2.5ML INH SOL NEB SCH ×2 (01:59→06:25)
[2021-02-26 05:00] VITALS: BP 109/71
[2021-02-26] MEDS: BUDESONIDE (INHALATION) 0.5 MG/2 ML NEB NEB SCH (06:25)
[2021-02-26] MEDS: methylPREDNISolone SOD SUCC 40 MG/ML VL IV SCH (07:00)
[2021-02-26] MEDS: ALPRAZolam 0.5 MG TAB PO SCH (07:01)
== END 2021-02-26 08:19 | disposition home or self-care (01) | DRG 141 ==
LOC: ER 18:24 → TELE 22:44 → TELE-WESTW 02-19 02:53
PROVIDERS: ADMIT Hospitalist; ATTEND Hospitalist
DX: J45.52 Severe persistent asthma with status asthmaticus (principal); J96.21 Acute and chronic respiratory failure with hypoxia; Z77.22 Contact with and (suspected) exposure to environmental tobacco smoke (acute) (chronic); D72.819 Decreased white blood cell count, unspecified; F41.9 Anxiety disorder, unspecified; Z20.822 Contact with and (suspected) exposure to COVID-19; Z82.49 Family history of ischemic heart disease and other diseases of the circulatory system; Z87.891 Personal history of nicotine dependence
CPT/HCPCS: 36415; 71045; 80048; 80053; 83735; 85025; 87081; 87426; 93005; 94640; 96374; G0378

== ENCOUNTER 2021-03-28 20:03 | Inpatient (IN) | payer MEDICAID ==
[~2021-03-28] VITALS: Ht 162.6 cm; Wt 57.1 kg
[2021-03-28] MEDS ORDERED: IPRATROPIUM BROM 0.5 MG/2.5ML INH SOL ONE (20:11)
[2021-03-28] MEDS ORDERED: ALBUTEROL SULF 2.5 MG/0.5ML(0.5%) NEB SOLN ONE (20:11)
[2021-03-28] MEDS: MAGNESIUM SULFATE 1GM/100ML 100 ML IV SCH ×2 (20:15→21:29)
[2021-03-28] MEDS ORDERED: methylPREDNISolone SOD SUCC 125 MG/2 ML VL IV ONE (20:15)
[2021-03-28] MEDS ORDERED: MAGNESIUM SULFATE 1GM/100ML 200 ML IV ONE (20:18)
[2021-03-28] MEDS ORDERED: IPRATROPIUM BROM 0.5 MG/2.5ML INH SOL NEB ONE (21:15)
[2021-03-28] MEDS ORDERED: ALBUTEROL SULF 2.5 MG/0.5ML(0.5%) NEB SOLN NEB ONE (21:15)
[2021-03-29] MEDS ORDERED: LORazepam 2MG/ML-1ML VIAL IV ONE
[2021-03-29] MEDS ORDERED: IPRATROPIUM BROM 0.5 MG/2.5ML INH SOL ONE (00:10)
[2021-03-29] MEDS ORDERED: ALBUTEROL SULF 2.5 MG/0.5ML(0.5%) NEB SOLN ONE (00:10)
[2021-03-29] MEDS ORDERED: BUDESONIDE (INHALATION) 0.5 MG/2 ML NEB ONE (00:10)
[2021-03-29] MEDS ORDERED: IPRATROPIUM BROM 0.5 MG/2.5ML INH SOL NEB ONE (00:30)
[2021-03-29] MEDS ORDERED: ALBUTEROL SULF 2.5 MG/0.5ML(0.5%) NEB SOLN NEB ONE ×3 (00:30→09:00)
[2021-03-29] MEDS ORDERED: BUDESONIDE (INHALATION) 0.5 MG/2 ML NEB NEB ONE ×2 (00:30→09:00)
[2021-03-29 03:43] LABS: Basophils # (auto) 0.1 10 ^3/uL (0-0.2); Basophils % (auto) 1.2 % (0.0-2.0); Eosinophils # (auto) 0.5 10 ^3/uL (0-0.8); Hematocrit 50.3 % (36.0-46.0); Lymphocytes # (auto) 1.5 10 ^3/uL (0.4-5.4); Lymphocytes % (auto) 23.3 % (10.0-50.0); Mean Corpuscular Hemoglobin 29.2 pg (28.0-32.0); Mean Corpuscular Hgb Conc. 31.7 g/dL (32.0-36.0); Mean Corpuscular Volume 92.2 fL (80.0-100.0); Monocytes # (auto) 0.6 10 ^3/uL (0-1.3); Monocytes % (auto) 9.8 % (0.0-12.0); Neutrophils # (auto) 3.8 10 ^3/uL (1.6-8.6); Neutrophils % (auto) 58.7 % (37.0-80.0); Nucleated Red Blood Cells % 0.1 %; Red Blood Cells 5.46 10^6/uL (4.0-5.20); Red Cell Distribution Width 16.7 % (11.8-14.3); White Blood Cell 6.4 10^3/uL (4.4-10.8)
[2021-03-29 05:57] LABS: Albumin 4.1 g/dL (3.4-5.0); Bilirubin, Total 0.2 mg/dL (0.2-1.0); Calcium 9.1 mg/dL (8.5-10.1); Potassium 3.6 mmol/L (3.5-5.1); Total Protein 7.3 g/dL (6.4-8.2)
[2021-03-29] MEDS ORDERED: methylPREDNISolone SOD SUCC 125 MG/2 ML VL IV ONE (09:00)
[2021-03-29] MEDS ORDERED: SODIUM CHLORIDE 0.9% 1,000 ML IV ONE (13:30)
[2021-03-29] MEDS ORDERED: ONDANSETRON HCL 4 MG/2 ML VIAL IV PRN (13:30)
[2021-03-29] MEDS ORDERED: ACETAMINOPHEN 325 MG TAB PO PRN (13:30)
[2021-03-29] MEDS ORDERED: NITROGLYCERIN 0.4 MG SL TAB SL PRN (13:30)
[2021-03-29] MEDS ORDERED: ALBUTEROL SULF 2.5 MG/0.5ML(0.5%) NEB SOLN NEB PRN (13:30)
[2021-03-29] MEDS: IPRATROPIUM BROM 0.5 MG/2.5ML INH SOL NEB SCH ×4 (14:00→22:07)
[2021-03-29 14:12] VITALS: BP 115/62
[2021-03-29] MEDS: ALPRAZolam 0.25 MG TAB PO PRN (14:23)
[2021-03-29] MEDS: ALBUTEROL SULF 2.5 MG/0.5ML(0.5%) NEB SOLN NEB SCH ×4 (14:34→22:07)
[2021-03-29] MEDS: levoFLOXacin 500MG 100 ML IV SCH (16:20)
[2021-03-29] MEDS: BUDESONIDE (INHALATION) 0.5 MG/2 ML NEB NEB SCH (18:24)
[2021-03-29] MEDS: MORPHINE SULFATE INJECTION 2 MG/ML SYRG IV PRN ×2 (19:05→23:05)
[2021-03-29 23:00] VITALS: BP_SYST 130; BP_SYST 132; BP_DIAS 79; BP_DIAS 80
[2021-03-29] MEDS: methylPREDNISolone SOD SUCC 125 MG/2 ML VL IV SCH (23:04)
[2021-03-30] MEDS: ALBUTEROL SULF 2.5 MG/0.5ML(0.5%) NEB SOLN NEB SCH ×6 (02:13→22:15)
[2021-03-30] MEDS: IPRATROPIUM BROM 0.5 MG/2.5ML INH SOL NEB SCH ×6 (02:13→22:16)
[2021-03-30 05:00] VITALS: BP 112/72
[2021-03-30] MEDS: methylPREDNISolone SOD SUCC 125 MG/2 ML VL IV SCH ×3 (05:16→21:52)
[2021-03-30] MEDS: MORPHINE SULFATE INJECTION 2 MG/ML SYRG IV PRN ×3 (05:17→21:54)
[2021-03-30 08:51] VITALS: BP 114/69
[2021-03-30] MEDS: HYDROcodone-ACET 5/325MG TAB PO PRN ×2 (09:20→17:46)
[2021-03-30] MEDS: ALPRAZolam 0.25 MG TAB PO PRN ×2 (09:21→17:47)
[2021-03-30] MEDS ORDERED: levoFLOXacin 250MG 50 ML IV SCH (10:00)
[2021-03-30] MEDS: levoFLOXacin 500MG 100 ML IV SCH (10:14)
[2021-03-30] MEDS: BUDESONIDE (INHALATION) 0.5 MG/2 ML NEB NEB SCH ×2 (11:05→22:16)
[2021-03-30 12:36] VITALS: BP 119/66
[2021-03-30 16:35] VITALS: BP 120/77
[2021-03-30 22:00] VITALS: BP 112/82
[2021-03-30] MEDS: LACTULOSE 20Gm/30ML SOLN PO PRN (22:26)
[2021-03-31] MEDS: ALBUTEROL SULF 2.5 MG/0.5ML(0.5%) NEB SOLN NEB SCH ×6 (01:47→22:30)
[2021-03-31] MEDS: IPRATROPIUM BROM 0.5 MG/2.5ML INH SOL NEB SCH ×6 (01:47→22:30)
[2021-03-31 05:00] VITALS: BP 106/66
[2021-03-31] MEDS: methylPREDNISolone SOD SUCC 125 MG/2 ML VL IV SCH ×3 (06:32→21:03)
[2021-03-31] MEDS: BUDESONIDE (INHALATION) 0.5 MG/2 ML NEB NEB SCH ×2 (06:53→18:45)
[2021-03-31] MEDS: MORPHINE SULFATE INJECTION 2 MG/ML SYRG IV PRN ×2 (08:54→20:17)
[2021-03-31] MEDS: ALPRAZolam 0.25 MG TAB PO PRN ×2 (08:55→20:16)
[2021-03-31 09:00] VITALS: BP 121/83
[2021-03-31 12:00] VITALS: BP 128/90
[2021-03-31] MEDS: HYDROcodone-ACET 5/325MG TAB PO PRN (12:19)
[2021-03-31 17:00] VITALS: BP 147/89
[2021-03-31] MEDS: LACTULOSE 20Gm/30ML SOLN PO PRN (20:16)
[2021-03-31 22:00] VITALS: BP 126/72
[2021-04-01] MEDS: ALBUTEROL SULF 2.5 MG/0.5ML(0.5%) NEB SOLN NEB SCH ×6 (02:19→22:21)
[2021-04-01] MEDS: IPRATROPIUM BROM 0.5 MG/2.5ML INH SOL NEB SCH ×6 (02:19→22:21)
[2021-04-01 05:10] VITALS: BP 126/80
[2021-04-01] MEDS: methylPREDNISolone SOD SUCC 125 MG/2 ML VL IV SCH ×4 (05:43→21:39)
[2021-04-01] MEDS: BUDESONIDE (INHALATION) 0.5 MG/2 ML NEB NEB SCH ×2 (07:08→19:04)
[2021-04-01 08:00] VITALS: BP 126/80
[2021-04-01 09:00] VITALS: BP 134/80
[2021-04-01] MEDS: LACTULOSE 20Gm/30ML SOLN PO PRN ×2 (09:03→22:08)
[2021-04-01] MEDS: MORPHINE SULFATE INJECTION 2 MG/ML SYRG IV PRN ×2 (09:03→17:29)
[2021-04-01] MEDS: ALPRAZolam 0.25 MG TAB PO PRN ×2 (09:04→17:30)
[2021-04-01 13:00] VITALS: BP 105/65
[2021-04-01 16:53] VITALS: BP 118/77
[2021-04-01] MEDS: HYDROcodone-ACET 5/325MG TAB PO PRN (19:42)
[2021-04-01 22:00] VITALS: BP 125/83
[2021-04-02] MEDS: ALBUTEROL SULF 2.5 MG/0.5ML(0.5%) NEB SOLN NEB SCH ×6 (02:23→22:18)
[2021-04-02] MEDS: IPRATROPIUM BROM 0.5 MG/2.5ML INH SOL NEB SCH ×6 (02:23→22:18)
[2021-04-02 05:04] VITALS: BP 107/55
[2021-04-02] MEDS: methylPREDNISolone SOD SUCC 125 MG/2 ML VL IV SCH ×3 (05:55→22:08)
[2021-04-02] MEDS: BUDESONIDE (INHALATION) 0.5 MG/2 ML NEB NEB SCH ×2 (07:53→18:32)
[2021-04-02 09:00] VITALS: BP 117/77
[2021-04-02] MEDS: MORPHINE SULFATE INJECTION 2 MG/ML SYRG IV PRN ×2 (10:30→21:12)
[2021-04-02] MEDS: ALPRAZolam 0.25 MG TAB PO PRN ×2 (10:57→22:08)
[2021-04-02 13:00] VITALS: BP 112/64
[2021-04-02 17:00] VITALS: BP 135/93
[2021-04-02 22:00] VITALS: BP 114/74
[2021-04-02] MEDS: LACTULOSE 20Gm/30ML SOLN PO PRN (22:17)
[2021-04-03] MEDS: IPRATROPIUM BROM 0.5 MG/2.5ML INH SOL NEB SCH ×5 (02:00→18:41)
[2021-04-03] MEDS: ALBUTEROL SULF 2.5 MG/0.5ML(0.5%) NEB SOLN NEB SCH ×5 (02:00→18:41)
[2021-04-03 05:00] VITALS: BP 120/73
[2021-04-03] MEDS: methylPREDNISolone SOD SUCC 125 MG/2 ML VL IV SCH ×2 (06:17→15:26)
[2021-04-03 09:02] VITALS: BP 113/68
[2021-04-03] MEDS: ALPRAZolam 0.25 MG TAB PO PRN ×2 (10:37→18:32)
[2021-04-03] MEDS: BUDESONIDE (INHALATION) 0.5 MG/2 ML NEB NEB SCH ×2 (10:44→18:41)
[2021-04-03] MEDS ORDERED: ALB5IS NEB (12:01)
[2021-04-03] MEDS ORDERED: PRED20TA2 PO (12:01)
[2021-04-03] MEDS ORDERED: ALBUAER3 IN (12:01)
[2021-04-03] MEDS ORDERED: IPR002IS NEB (12:02)
[2021-04-03 12:44] VITALS: BP 112/72
[2021-04-03] MEDS: HYDROcodone-ACET 5/325MG TAB PO PRN (15:43)
[2021-04-03 17:29] VITALS: BP 117/68
== END 2021-04-03 18:50 | disposition home health service (06) | DRG 133 ==
LOC: ER 20:05 → TELE 03-29 13:17 → TELE-WESTW 03-29 22:25
PROVIDERS: ADMIT Nurse Practitioner Family; ATTEND Nurse Practitioner Family
DX: J96.21 Acute and chronic respiratory failure with hypoxia (principal); J45.901 Unspecified asthma with (acute) exacerbation; F41.9 Anxiety disorder, unspecified; Z82.49 Family history of ischemic heart disease and other diseases of the circulatory system; K21.9 Gastro-esophageal reflux disease without esophagitis; Z20.822 Contact with and (suspected) exposure to COVID-19
CPT/HCPCS: 36415; 36600; 71045; 80053; 82805; 85025; 87426; 94640; 94644; 96365; 96375; 96376; 99291; G0378; J1956

== ENCOUNTER 2021-05-12 05:31 | Inpatient (IN) | payer MEDICAID ==
[~2021-05-12] VITALS: Ht 162.6 cm; Wt 62.9 kg
[~2021-05-12 05:31] MED LIST changes: +ALBUAER3 IN; -ALPR0.25 PO; -AMOX500T86 PO; -DEXT1SYP9 PO; -HYDR-4609 PO; -HYDR-4902 PO
[2021-05-12] MEDS ORDERED: IPRATROPIUM BROM 0.5 MG/2.5ML INH SOL NEB ONE ×3 (05:45→13:45)
[2021-05-12] MEDS ORDERED: methylPREDNISolone SOD SUCC 125 MG/2 ML VL IV ONE (05:45)
[2021-05-12] MEDS ORDERED: ALBUTEROL SULF 2.5 MG/0.5ML(0.5%) NEB SOLN NEB ONE ×4 (05:45→13:45)
[2021-05-12 07:27] LABS: Basophils # (auto) 0.1 10 ^3/uL (0-0.2); Eosinophils # (auto) 0.4 10 ^3/uL (0-0.8); Eosinophils % (auto) 5.8 % (0.0-7.0); Hemoglobin 15.3 g/dL (12.2-16.2); Lymphocytes # (auto) 1.1 10 ^3/uL (0.4-5.4); Lymphocytes % (auto) 15.5 % (10.0-50.0); Mean Corpuscular Hemoglobin 30.3 pg (28.0-32.0); Mean Corpuscular Hgb Conc. 32.5 g/dL (32.0-36.0); Mean Corpuscular Volume 93.3 fL (80.0-100.0); Monocytes # (auto) 0.5 10 ^3/uL (0-1.3); Monocytes % (auto) 6.7 % (0.0-12.0); Neutrophils # (auto) 4.9 10 ^3/uL (1.6-8.6); Nucleated Red Blood Cells % 0.2 %; Red Blood Cells 5.04 10^6/uL (4.0-5.20); Red Cell Distribution Width 15.3 % (11.8-14.3); White Blood Cell 6.9 10^3/uL (4.4-10.8)
[2021-05-12] MEDS: MAGNESIUM SULFATE 1GM/100ML 100 ML IV SCH ×2 (07:38→08:35)
[2021-05-12] MEDS ORDERED: IPRATROPIUM BROM 0.5 MG/2.5ML INH SOL ONE (07:46)
[2021-05-12 09:17] LABS: Albumin 3.9 g/dL (3.4-5.0); BUN/Creatinine Ratio 14.1; Calcium 8.7 mg/dL (8.5-10.1); Potassium 3.7 mmol/L (3.5-5.1)
[2021-05-12 09:26] LABS: Bilirubin, Total 0.3 mg/dL (0.2-1.0); Total Protein 6.6 g/dL (6.4-8.2)
[2021-05-12] MEDS ORDERED: NITROGLYCERIN 0.4 MG SL TAB SL PRN (14:45)
[2021-05-12] MEDS ORDERED: cloNIDine HCL 0.1 MG TAB PO PRN (14:45)
[2021-05-12] MEDS ORDERED: PROMETHAZINE HCL 25 MG/ML 1ML IV PRN (14:45)
[2021-05-12] MEDS ORDERED: MORPHINE SULFATE INJECTION 2 MG/ML SYRG IV PRN (14:45)
[2021-05-12] MEDS ORDERED: ACETAMINOPHEN 500 MG TAB PO PRN (14:45)
[2021-05-12] MEDS: methylPREDNISolone SOD SUCC 125 MG/2 ML VL IV SCH ×2 (17:13→23:08)
[2021-05-12] MEDS: IPRATROPIUM BROM 0.5 MG/2.5ML INH SOL NEB SCH ×2 (19:18→21:41)
[2021-05-12] MEDS: ALBUTEROL SULF 2.5 MG/0.5ML(0.5%) NEB SOLN NEB SCH ×2 (19:18→21:41)
[2021-05-12] MEDS: BUDESONIDE (INHALATION) 0.5 MG/2 ML NEB NEB SCH (19:18)
[2021-05-12 21:30] VITALS: BP 124/83
[2021-05-12] MEDS: ALPRAZolam 0.25 MG TAB PO SCH (21:32)
[2021-05-12 22:00] VITALS: BP 124/83
[2021-05-12] MEDS: FAMOTIDINE 20 MG TAB PO SCH (23:07)
[2021-05-12] MEDS: DOXYCYCLINE 100 MG TAB/CAP PO SCH (23:08)
[2021-05-12] MEDS: HYDROcodone-ACET 5/325MG TAB PO PRN (23:09)
[2021-05-13] MEDS: IPRATROPIUM BROM 0.5 MG/2.5ML INH SOL NEB SCH ×6 (02:29→22:00)
[2021-05-13] MEDS: ALBUTEROL SULF 2.5 MG/0.5ML(0.5%) NEB SOLN NEB SCH ×6 (02:29→22:00)
[2021-05-13 05:00] VITALS: BP 103/57
[2021-05-13] MEDS: methylPREDNISolone SOD SUCC 125 MG/2 ML VL IV SCH ×4 (06:05→23:49)
[2021-05-13 08:54] VITALS: BP 129/70
[2021-05-13] MEDS: BUDESONIDE (INHALATION) 0.5 MG/2 ML NEB NEB SCH ×2 (10:23→18:50)
[2021-05-13 13:19] VITALS: BP 107/49
[2021-05-13] MEDS: FAMOTIDINE 20 MG TAB PO SCH ×2 (13:39→22:19)
[2021-05-13] MEDS: DOXYCYCLINE 100 MG TAB/CAP PO SCH ×2 (13:39→22:21)
[2021-05-13] MEDS: ENOXAPARIN SOD 40 MG/0.4 ML SYRINGE SC SCH (13:40)
[2021-05-13] MEDS: ALPRAZolam 0.25 MG TAB PO SCH ×2 (13:40→22:21)
[2021-05-13 16:56] VITALS: BP 115/68
[2021-05-13] MEDS: HYDROcodone-ACET 5/325MG TAB PO PRN ×2 (18:38→23:49)
[2021-05-13 21:25] VITALS: BP 131/83
[2021-05-14 04:40] VITALS: BP 122/74
[2021-05-14] MEDS: methylPREDNISolone SOD SUCC 125 MG/2 ML VL IV SCH ×4 (06:12→23:24)
[2021-05-14] MEDS: ALBUTEROL SULF 2.5 MG/0.5ML(0.5%) NEB SOLN NEB SCH ×5 (06:24→22:36)
[2021-05-14] MEDS: IPRATROPIUM BROM 0.5 MG/2.5ML INH SOL NEB SCH ×4 (06:24→22:37)
[2021-05-14 09:00] VITALS: BP 125/78
[2021-05-14] MEDS: FAMOTIDINE 20 MG TAB PO SCH ×2 (09:21→21:47)
[2021-05-14] MEDS: ALPRAZolam 0.25 MG TAB PO SCH ×2 (09:22→21:49)
[2021-05-14] MEDS: DOXYCYCLINE 100 MG TAB/CAP PO SCH ×2 (09:22→21:49)
[2021-05-14] MEDS: ENOXAPARIN SOD 40 MG/0.4 ML SYRINGE SC SCH (09:24)
[2021-05-14] MEDS: BUDESONIDE (INHALATION) 0.5 MG/2 ML NEB NEB SCH ×2 (10:19→22:37)
[2021-05-14] MEDS: HYDROcodone-ACET 5/325MG TAB PO PRN ×2 (12:25→21:50)
[2021-05-14 13:00] VITALS: BP 114/72
[2021-05-14] MEDS: LACTULOSE 20Gm/30ML SOLN PO PRN (14:38)
[2021-05-14 15:20] LABS: Cannabinoid Screen, Urine NEGATIVE (NEGATIVE)
[2021-05-14 15:33] LABS: Amphetamine Screen, Urine NEGATIVE (NEGATIVE); Barbiturate Scree,Urine NEGATIVE (NEGATIVE); Benzodiazephine Screen, Urine NEGATIVE (NEGATIVE); Cocaine Screen, Urine NEGATIVE (NEGATIVE); Opiate Scree,Urine POSITIVE (NEGATIVE); Phencyclidine Screen, Urine NEGATIVE (NEGATIVE)
[2021-05-14 15:34] LABS: Alcohol, Urine < 3.0 mg/dL (0-10)
[2021-05-14 17:00] VITALS: BP 132/77
[2021-05-14 22:00] VITALS: BP 125/75
[2021-05-15] MEDS: IPRATROPIUM BROM 0.5 MG/2.5ML INH SOL NEB SCH ×6 (02:41→22:21)
[2021-05-15] MEDS: ALBUTEROL SULF 2.5 MG/0.5ML(0.5%) NEB SOLN NEB SCH ×6 (02:41→22:21)
[2021-05-15 05:12] VITALS: BP 111/61
[2021-05-15] MEDS: methylPREDNISolone SOD SUCC 125 MG/2 ML VL IV SCH ×4 (06:20→23:38)
[2021-05-15] MEDS: HYDROcodone-ACET 5/325MG TAB PO PRN ×3 (06:24→13:49)
[2021-05-15 09:00] VITALS: BP_SYST 114; BP_SYST 115; BP_DIAS 68; BP_DIAS 77
[2021-05-15] MEDS: LACTULOSE 20Gm/30ML SOLN PO PRN (10:01)
[2021-05-15] MEDS: DOXYCYCLINE 100 MG TAB/CAP PO SCH ×2 (10:02→21:39)
[2021-05-15] MEDS: FAMOTIDINE 20 MG TAB PO SCH ×2 (10:02→21:39)
[2021-05-15] MEDS: ENOXAPARIN SOD 40 MG/0.4 ML SYRINGE SC SCH (10:03)
[2021-05-15] MEDS: ALPRAZolam 0.25 MG TAB PO SCH ×2 (10:04→21:39)
[2021-05-15] MEDS: BUDESONIDE (INHALATION) 0.5 MG/2 ML NEB NEB SCH ×2 (10:05→22:21)
[2021-05-15 12:36] VITALS: BP 126/89
[2021-05-15 17:00] VITALS: BP 127/74
[2021-05-15 22:00] VITALS: BP 137/85
[2021-05-16] MEDS: ALBUTEROL SULF 2.5 MG/0.5ML(0.5%) NEB SOLN NEB SCH ×4 (02:40→18:57)
[2021-05-16] MEDS: IPRATROPIUM BROM 0.5 MG/2.5ML INH SOL NEB SCH ×4 (02:40→18:57)
[2021-05-16 04:46] VITALS: BP 122/73
[2021-05-16] MEDS: methylPREDNISolone SOD SUCC 125 MG/2 ML VL IV SCH ×3 (06:20→18:00)
[2021-05-16] MEDS: HYDROcodone-ACET 5/325MG TAB PO PRN (06:21)
[2021-05-16 08:45] VITALS: BP_SYST 126; BP_SYST 134; BP_DIAS 46; BP_DIAS 85
[2021-05-16] MEDS: FAMOTIDINE 20 MG TAB PO SCH (09:50)
[2021-05-16] MEDS: ALPRAZolam 0.25 MG TAB PO SCH (09:50)
[2021-05-16] MEDS: ENOXAPARIN SOD 40 MG/0.4 ML SYRINGE SC SCH (09:50)
[2021-05-16] MEDS: DOXYCYCLINE 100 MG TAB/CAP PO SCH (09:51)
[2021-05-16] MEDS: LACTULOSE 20Gm/30ML SOLN PO PRN (09:52)
[2021-05-16] MEDS: BUDESONIDE (INHALATION) 0.5 MG/2 ML NEB NEB SCH ×2 (10:38→18:57)
[2021-05-16 13:00] VITALS: BP 125/79
[2021-05-16] MEDS ORDERED: ALBUAER3 IN (15:06)
[2021-05-16] MEDS ORDERED: ACE104IS IN (15:06)
[2021-05-16] MEDS ORDERED: FAMO20TA10 PO (15:06)
[2021-05-16] MEDS ORDERED: PRED20TA2 PO (15:06)
[2021-05-16 17:00] VITALS: BP 119/78
[2021-05-16 20:00] VITALS: BP 120/68
== END 2021-05-16 20:30 | disposition home or self-care (01) | DRG 133 ==
LOC: ER 05:31 → TELE 14:37 → CENTRAL 21:18
PROVIDERS: ADMIT Hospitalist; ATTEND Hospitalist
DX: J96.01 Acute respiratory failure with hypoxia (principal); J45.901 Unspecified asthma with (acute) exacerbation; F41.9 Anxiety disorder, unspecified; J98.11 Atelectasis; Z20.822 Contact with and (suspected) exposure to COVID-19; Z82.49 Family history of ischemic heart disease and other diseases of the circulatory system
CPT/HCPCS: 36415; 36600; 71045; 80053; 80307; 82805; 84484; 85025; 87426; 93005; 94640; 94644; 96365; 96375; G0378

== ENCOUNTER 2021-06-06 23:47 | Inpatient (IN) | payer MEDICAID ==
[~2021-06-06] VITALS: Ht 162.6 cm; Wt 57.5 kg
[~2021-06-06 23:47] MED LIST changes: +ACE104IS IN; +FAMO20TA10 PO
[2021-06-06] MEDS ORDERED: ALBUTEROL SULF 2.5 MG/0.5ML(0.5%) NEB SOLN ONE (23:54)
[2021-06-07] MEDS ORDERED: ALBUTEROL SULF 2.5 MG/0.5ML(0.5%) NEB SOLN NEB ONE ×2
[2021-06-07] MEDS ORDERED: IPRATROPIUM BROM 0.5 MG/2.5ML INH SOL NEB ONE ×2
[2021-06-07] MEDS ORDERED: methylPREDNISolone SOD SUCC 125 MG/2 ML VL IV ONE (00:15)
[2021-06-07] MEDS ORDERED: MAGNESIUM SULFATE 1GM/100ML 100 ML IV STA (05:32)
[2021-06-07] MEDS ORDERED: cefTRIAXone 1GM/50ML D5W 50 ML IV ONE (05:45)
[2021-06-07] MEDS ORDERED: AZITHROMYCIN 500MG/ 250ML 250 ML IV ONE (05:45)
[2021-06-07] MEDS: IPRATROPIUM BROM 0.5 MG/2.5ML INH SOL NEB SCH ×5 (05:58→21:58)
[2021-06-07] MEDS: ALBUTEROL SULF 2.5 MG/0.5ML(0.5%) NEB SOLN NEB SCH ×2 (05:58→09:20)
[2021-06-07] MEDS: BUDESONIDE (INHALATION) 0.5 MG/2 ML NEB NEB SCH ×2 (05:58→18:22)
[2021-06-07] MEDS: methylPREDNISolone SOD SUCC 40 MG/ML VL IV SCH ×3 (10:55→21:36)
[2021-06-07 11:35] LABS: BUN/Creatinine Ratio 12.2; Calcium 8.8 mg/dL (8.5-10.1); Potassium 4.4 mmol/L (3.5-5.1)
[2021-06-07 11:36] LABS: Basophils # (auto) 0 10 ^3/uL (0-0.2); Basophils % (auto) 0.7 % (0.0-2.0); Eosinophils # (auto) 0 10 ^3/uL (0-0.8); Hematocrit 42.7 % (36.0-46.0); Hemoglobin 13.9 g/dL (12.2-16.2); Lymphocytes # (auto) 0.4 10 ^3/uL (0.4-5.4); Lymphocytes % (auto) 10.6 % (10.0-50.0); Mean Corpuscular Hemoglobin 30.4 pg (28.0-32.0); Mean Corpuscular Hgb Conc. 32.6 g/dL (32.0-36.0); Mean Corpuscular Volume 93.3 fL (80.0-100.0); Monocytes # (auto) 0.1 10 ^3/uL (0-1.3); Monocytes % (auto) 3.4 % (0.0-12.0); Neutrophils # (auto) 2.8 10 ^3/uL (1.6-8.6); Neutrophils % (auto) 85.3 % (37.0-80.0); Nucleated Red Blood Cells % 0.2 %; Red Blood Cells 4.58 10^6/uL (4.0-5.20); White Blood Cell 3.3 10^3/uL (4.4-10.8)
[2021-06-07] MEDS ORDERED: LEVALBUTEROL HCL 1.25 MG/3 ML NEB NEB SCH (12:00)
[2021-06-07 12:09] LABS: INR 0.97 (0.9-1.15); Partial Thromboplastin Time 23.4 sec (23.6-33.0)
[2021-06-07] MEDS: LEVALBUTEROL HCL 1.25 MG/3 ML NEB NEB SCH ×3 (13:25→21:58)
[2021-06-07] MEDS ORDERED: ACETAMINOPHEN 325 MG TAB PO PRN (13:45)
[2021-06-07] MEDS ORDERED: levoFLOXacin 500MG 100 ML IV ONE (13:45)
[2021-06-07] MEDS ORDERED: ONDANSETRON HCL 4 MG/2 ML VIAL IV PRN (13:45)
[2021-06-07] MEDS: ALPRAZolam 0.5 MG TAB PO PRN (17:23)
[2021-06-07 17:52] VITALS: BP 131/86
[2021-06-07] MEDS: FAMOTIDINE 20 MG TAB PO SCH (21:36)
[2021-06-07 22:00] VITALS: BP 127/78
[2021-06-08] MEDS: IPRATROPIUM BROM 0.5 MG/2.5ML INH SOL NEB SCH ×6 (01:51→22:04)
[2021-06-08] MEDS: LEVALBUTEROL HCL 1.25 MG/3 ML NEB NEB SCH ×5 (01:51→18:39)
[2021-06-08 05:00] VITALS: BP 110/70
[2021-06-08] MEDS: methylPREDNISolone SOD SUCC 40 MG/ML VL IV SCH ×3 (05:29→22:13)
[2021-06-08] MEDS: HYDROcodone-ACET 5/325MG TAB PO PRN ×3 (08:29→22:13)
[2021-06-08] MEDS: ALPRAZolam 0.5 MG TAB PO PRN (08:29)
[2021-06-08 09:00] VITALS: BP 134/69
[2021-06-08] MEDS: levoFLOXacin 500 MG TAB PO SCH (09:11)
[2021-06-08] MEDS: FAMOTIDINE 20 MG TAB PO SCH (09:11)
[2021-06-08] MEDS: ENOXAPARIN SOD 40 MG/0.4 ML SYRINGE SC SCH (09:11)
[2021-06-08 09:30] LABS: Basophils # (auto) 0 10 ^3/uL (0-0.2); Eosinophils # (auto) 0 10 ^3/uL (0-0.8); Eosinophils % (auto) 0.2 % (0.0-7.0); Hematocrit 43.1 % (36.0-46.0); Hemoglobin 14.1 g/dL (12.2-16.2); Lymphocytes # (auto) 0.3 10 ^3/uL (0.4-5.4); Lymphocytes % (auto) 4.7 % (10.0-50.0); Mean Corpuscular Hemoglobin 30.5 pg (28.0-32.0); Mean Corpuscular Hgb Conc. 32.7 g/dL (32.0-36.0); Mean Corpuscular Volume 93.3 fL (80.0-100.0); Monocytes # (auto) 0.2 10 ^3/uL (0-1.3); Monocytes % (auto) 4.5 % (0.0-12.0); Neutrophils % (auto) 90.6 % (37.0-80.0); Nucleated Red Blood Cells % 0.1 %; Red Blood Cells 4.61 10^6/uL (4.0-5.20); Red Cell Distribution Width 14.1 % (11.8-14.3); White Blood Cell 5.6 10^3/uL (4.4-10.8)
[2021-06-08 10:08] LABS: BUN/Creatinine Ratio 18.5; Calcium 8.9 mg/dL (8.5-10.1)
[2021-06-08] MEDS: BUDESONIDE (INHALATION) 0.5 MG/2 ML NEB NEB SCH ×2 (10:56→18:39)
[2021-06-08 13:00] VITALS: BP 118/68
[2021-06-08] MEDS: DOCUSATE SOD 100 MG CAP PO PRN ×2 (14:38→20:43)
[2021-06-08 17:00] VITALS: BP 124/67
[2021-06-08] MEDS: LORazepam 0.5 MG TAB PO PRN (20:44)
[2021-06-08 22:00] VITALS: BP 120/87
[2021-06-08] MEDS: ALBUTEROL SULF 2.5 MG/0.5ML(0.5%) NEB SOLN NEB SCH (22:04)
[2021-06-09] MEDS: ALBUTEROL SULF 2.5 MG/0.5ML(0.5%) NEB SOLN NEB SCH ×6 (01:45→23:44)
[2021-06-09] MEDS: IPRATROPIUM BROM 0.5 MG/2.5ML INH SOL NEB SCH ×6 (01:45→23:44)
[2021-06-09 05:00] VITALS: BP 110/67
[2021-06-09] MEDS: methylPREDNISolone SOD SUCC 40 MG/ML VL IV SCH ×3 (05:45→22:38)
[2021-06-09] MEDS: HYDROcodone-ACET 5/325MG TAB PO PRN ×3 (05:46→23:00)
[2021-06-09 07:04] LABS: Basophils # (auto) 0 10 ^3/uL (0-0.2); Basophils % (auto) 0.1 % (0.0-2.0); Eosinophils # (auto) 0 10 ^3/uL (0-0.8); Hematocrit 42.5 % (36.0-46.0); Hemoglobin 14.3 g/dL (12.2-16.2); Lymphocytes # (auto) 0.8 10 ^3/uL (0.4-5.4); Lymphocytes % (auto) 13.1 % (10.0-50.0); Mean Corpuscular Hemoglobin 31.2 pg (28.0-32.0); Mean Corpuscular Hgb Conc. 33.7 g/dL (32.0-36.0); Mean Corpuscular Volume 92.7 fL (80.0-100.0); Monocytes # (auto) 0.3 10 ^3/uL (0-1.3); Monocytes % (auto) 5.2 % (0.0-12.0); Neutrophils # (auto) 4.7 10 ^3/uL (1.6-8.6); Neutrophils % (auto) 81.6 % (37.0-80.0); Red Blood Cells 4.58 10^6/uL (4.0-5.20); White Blood Cell 5.8 10^3/uL (4.4-10.8)
[2021-06-09 07:11] LABS: Potassium 4.4 mmol/L (3.5-5.1)
[2021-06-09 07:17] LABS: BUN/Creatinine Ratio 25.6; Calcium 9.6 mg/dL (8.5-10.1)
[2021-06-09 09:10] VITALS: BP 109/66
[2021-06-09] MEDS: levoFLOXacin 500 MG TAB PO SCH (10:23)
[2021-06-09] MEDS: ENOXAPARIN SOD 40 MG/0.4 ML SYRINGE SC SCH (10:23)
[2021-06-09] MEDS: DOCUSATE SOD 100 MG CAP PO PRN ×2 (10:24→21:28)
[2021-06-09] MEDS: LORazepam 0.5 MG TAB PO PRN ×3 (10:24→23:00)
[2021-06-09] MEDS: BUDESONIDE (INHALATION) 0.5 MG/2 ML NEB NEB SCH ×2 (10:32→19:44)
[2021-06-09 13:00] VITALS: BP 107/66
[2021-06-09 17:12] VITALS: BP 113/69
[2021-06-09 20:00] VITALS: BP 135/86
[2021-06-09 22:00] VITALS: BP 135/86
[2021-06-10] MEDS: LACTULOSE 20Gm/30ML SOLN PO PRN ×2 (00:02→09:20)
[2021-06-10] MEDS: IPRATROPIUM BROM 0.5 MG/2.5ML INH SOL NEB SCH ×4 (03:20→13:44)
[2021-06-10] MEDS: ALBUTEROL SULF 2.5 MG/0.5ML(0.5%) NEB SOLN NEB SCH ×4 (03:21→13:44)
[2021-06-10] MEDS: methylPREDNISolone SOD SUCC 40 MG/ML VL IV SCH ×2 (06:00→14:00)
[2021-06-10] MEDS: BUDESONIDE (INHALATION) 0.5 MG/2 ML NEB NEB SCH (06:21)
[2021-06-10] MEDS: HYDROcodone-ACET 5/325MG TAB PO PRN (07:14)
[2021-06-10 08:00] VITALS: BP 134/47
[2021-06-10 09:00] VITALS: BP 128/75
[2021-06-10] MEDS: LORazepam 0.5 MG TAB PO PRN ×2 (09:22→14:53)
[2021-06-10] MEDS: levoFLOXacin 500 MG TAB PO SCH (09:22)
[2021-06-10] MEDS: ENOXAPARIN SOD 40 MG/0.4 ML SYRINGE SC SCH (09:22)
[2021-06-10 10:56] LABS: Basophils # (auto) 0 10 ^3/uL (0-0.2); Basophils % (auto) 0.4 % (0.0-2.0); Eosinophils # (auto) 0 10 ^3/uL (0-0.8); Eosinophils % (auto) 0.4 % (0.0-7.0); Hematocrit 44.3 % (36.0-46.0); Hemoglobin 14.7 g/dL (12.2-16.2); Lymphocytes # (auto) 0.4 10 ^3/uL (0.4-5.4); Lymphocytes % (auto) 8.7 % (10.0-50.0); Mean Corpuscular Hemoglobin 30.9 pg (28.0-32.0); Mean Corpuscular Hgb Conc. 33.2 g/dL (32.0-36.0); Mean Corpuscular Volume 93.3 fL (80.0-100.0); Monocytes # (auto) 0.2 10 ^3/uL (0-1.3); Monocytes % (auto) 4.3 % (0.0-12.0); Neutrophils # (auto) 4.2 10 ^3/uL (1.6-8.6); Neutrophils % (auto) 86.2 % (37.0-80.0); Nucleated Red Blood Cells % 0.2 %; Red Blood Cells 4.75 10^6/uL (4.0-5.20); Red Cell Distribution Width 14.2 % (11.8-14.3); White Blood Cell 4.9 10^3/uL (4.4-10.8)
[2021-06-10 11:11] LABS: Potassium 3.9 mmol/L (3.5-5.1)
[2021-06-10 11:42] LABS: BUN/Creatinine Ratio 24.4; Calcium 9.1 mg/dL (8.5-10.1)
[2021-06-10 12:31] VITALS: BP 116/75
[2021-06-10] MEDS ORDERED: PRED20TA2 PO (14:00)
[2021-06-10] MEDS ORDERED: OMEP20TA PO (14:00)
[2021-06-10] MEDS ORDERED: FAMO20TA10 PO (14:00)
[2021-06-10] MEDS ORDERED: LORA0.5T20 PO (14:00)
[2021-06-10] MEDS ORDERED: ALB5IS NEB (14:00)
[2021-06-10] MEDS ORDERED: IPR002IS NEB (14:00)
[2021-06-10] MEDS ORDERED: LEVO-28 PO (14:00)
[2021-06-10] MEDS ORDERED: ALBUAER3 IN (14:00)
[2021-06-10] MEDS ORDERED: FLUT1AER3 IN (14:00)
== END 2021-06-10 16:10 | disposition home or self-care (01) | DRG 139 ==
LOC: ER 23:47 → OVERFLOW 06-07 13:39 → EAST 06-07 16:41 → WEST WING 06-08 03:23
PROVIDERS: ADMIT Internal Medicine; ATTEND Internal Medicine
DX: J18.9 Pneumonia, unspecified organism (principal); J96.21 Acute and chronic respiratory failure with hypoxia; J45.901 Unspecified asthma with (acute) exacerbation; Z20.822 Contact with and (suspected) exposure to COVID-19; F41.9 Anxiety disorder, unspecified; G89.4 Chronic pain syndrome; Z82.49 Family history of ischemic heart disease and other diseases of the circulatory system; Z87.891 Personal history of nicotine dependence
CPT/HCPCS: 36415; 36600; 71046; 80048; 82805; 83605; 85025; 85379; 85610; 85730; 87040; 87081; 87426; 87804; 94010; 94640; 94644; 96365; 96367; 96368; 96375; G0378; J0696; J1956

== ENCOUNTER 2021-09-16 20:30 | Inpatient (IN) | payer MEDICAID ==
[~2021-09-16] VITALS: Ht 162.6 cm; Wt 62.3 kg
[~2021-09-16 20:30] MED LIST changes: -ACE104IS IN; -BUDE1AER4 NEB; +DEXT1SYP9 PO; +DOXY-332 PO; -LORA0.5T20 PO; -ZOLP10TA PO
[2021-09-16] MEDS ORDERED: IPRATROPIUM BROM 0.5 MG/2.5ML INH SOL NEB ONE (20:45)
[2021-09-16] MEDS ORDERED: ALBUTEROL SULF 2.5 MG/0.5ML(0.5%) NEB SOLN NEB ONE (20:45)
[2021-09-16] MEDS ORDERED: ALBUTEROL SULF 2.5 MG/0.5ML(0.5%) NEB SOLN ONE (20:49)
[2021-09-16 21:14] LABS: Basophils # (auto) 0 10 ^3/uL (0-0.2); Basophils % (auto) 0.5 % (0.0-2.0); Eosinophils # (auto) 0 10 ^3/uL (0-0.8); Eosinophils % (auto) 0.3 % (0.0-7.0); Hematocrit 44.2 % (36.0-46.0); Hemoglobin 14.9 g/dL (12.2-16.2); Lymphocytes # (auto) 0.9 10 ^3/uL (0.4-5.4); Lymphocytes % (auto) 11.8 % (10.0-50.0); Mean Corpuscular Hgb Conc. 33.7 g/dL (32.0-36.0); Mean Corpuscular Volume 91.8 fL (80.0-100.0); Monocytes # (auto) 0.6 10 ^3/uL (0-1.3); Monocytes % (auto) 7.8 % (0.0-12.0); Neutrophils # (auto) 6.2 10 ^3/uL (1.6-8.6); Neutrophils % (auto) 79.6 % (37.0-80.0); Nucleated Red Blood Cells % 0.1 %; Red Blood Cells 4.82 10^6/uL (4.0-5.20); Red Cell Distribution Width 13.5 % (11.8-14.3); White Blood Cell 7.8 10^3/uL (4.4-10.8)
[2021-09-16] MEDS ORDERED: predniSONE 20 MG TAB PO ONE (21:15)
[2021-09-16 21:22] LABS: Albumin 3.2 g/dL (3.4-5.0); Calcium 8.2 mg/dL (8.5-10.1); Magnesium 2.3 mg/dL (1.6-2.6); Potassium 3.7 mmol/L (3.5-5.1)
[2021-09-16 21:27] LABS: Bilirubin, Total 0.4 mg/dL (0.2-1.0); Total Protein 6.3 g/dL (6.4-8.2)
[2021-09-16] MEDS ORDERED: methylPREDNISolone SOD SUCC 125 MG/2 ML VL IV ONE (21:30)
[2021-09-16] MEDS: MAGNESIUM SULFATE 1GM/100ML 100 ML IV SCH ×2 (22:13→23:06)
[2021-09-17] MEDS ORDERED: ONDANSETRON HCL 4 MG/2 ML VIAL IV PRN (00:30)
[2021-09-17] MEDS ORDERED: MORPHINE SULFATE INJ 2 MG/ml SYRG IV PRN (00:30)
[2021-09-17] MEDS ORDERED: NITROGLYCERIN 0.4 MG SL TAB SL PRN (00:30)
[2021-09-17] MEDS ORDERED: ALBUTEROL SULF 2.5 MG/0.5ML(0.5%) NEB SOLN NEB PRN (01:00)
[2021-09-17] MEDS: ALBUTEROL SULF 2.5 MG/0.5ML(0.5%) NEB SOLN NEB SCH ×6 (01:31→21:56)
[2021-09-17] MEDS: IPRATROPIUM BROM 0.5 MG/2.5ML INH SOL NEB SCH ×6 (01:32→21:56)
[2021-09-17 01:43] VITALS: BP 128/101
[2021-09-17] MEDS ORDERED: ALBUTEROL SULF 2.5 MG/0.5ML(0.5%) NEB SOLN NEB SCH ×2 (02:00→06:00)
[2021-09-17] MEDS ORDERED: methylPREDNISolone SOD SUCC 125 MG/2 ML VL IV SCH ×2 (06:00→12:00)
[2021-09-17] MEDS ORDERED: HYDROcodone-ACET 10/325MG TAB PO ONE (08:30)
[2021-09-17 08:53] LABS: Hematocrit 46.9 % (36.0-46.0); Hemoglobin 15.7 g/dL (12.2-16.2); Mean Corpuscular Hemoglobin 30.8 pg (28.0-32.0); Mean Corpuscular Hgb Conc. 33.4 g/dL (32.0-36.0); Mean Corpuscular Volume 92.1 fL (80.0-100.0); Red Blood Cells 5.09 10^6/uL (4.0-5.20); Red Cell Distribution Width 13.4 % (11.8-14.3); White Blood Cell 7.5 10^3/uL (4.4-10.8)
[2021-09-17 08:58] LABS: Basophils % (manual) 0 (0.0-2.0); Blast Cells 0; Eosinophils % (manual) 0 (0-7); Metamyelocytes % 0; Myelocytes % 0; Promyelocytes % 0; Reactive Lymphocytes 0
[2021-09-17] MEDS: ALPRAZolam 0.5 MG TAB PO PRN ×2 (09:08→18:56)
[2021-09-17 09:13] LABS: Calcium 8.8 mg/dL (8.5-10.1); Potassium 4.3 mmol/L (3.5-5.1)
[2021-09-17 09:16] LABS: BUN/Creatinine Ratio 9.6
[2021-09-17 10:34] LABS: Band Neutrophils % (manual) 5; Lymphocytes % (manual) 5 (10.0-50.0); Monocytes % (manual) 1 (0-12)
[2021-09-17] MEDS: methylPREDNISolone SOD SUCC 125 MG/2 ML VL IV SCH ×3 (12:30→23:42)
[2021-09-17 17:55] VITALS: BP 123/76
[2021-09-17] MEDS ORDERED: [UNRECOGNIZED DRUG - CODE] SC (18:03)
[2021-09-17] MEDS ORDERED: ALPR0.5T8 PO (18:03)
[2021-09-17] MEDS ORDERED: HYDR-4798 PO (18:03)
[2021-09-17] MEDS: HYDROcodone-ACET 5/325MG TAB PO PRN (18:56)
[2021-09-17 22:00] VITALS: BP 109/64
[2021-09-18] MEDS: HYDROcodone-ACET 5/325MG TAB PO PRN ×3 (02:05→21:56)
[2021-09-18] MEDS: ALBUTEROL SULF 2.5 MG/0.5ML(0.5%) NEB SOLN NEB SCH ×6 (02:12→22:00)
[2021-09-18] MEDS: IPRATROPIUM BROM 0.5 MG/2.5ML INH SOL NEB SCH ×6 (02:12→22:00)
[2021-09-18 05:00] VITALS: BP 100/62
[2021-09-18 08:00] VITALS: BP 107/53
[2021-09-18 09:00] VITALS: BP 107/55
[2021-09-18] MEDS: ALPRAZolam 0.5 MG TAB PO PRN ×2 (09:22→21:56)
[2021-09-18] MEDS: methylPREDNISolone SOD SUCC 125 MG/2 ML VL IV SCH ×2 (09:48→21:56)
[2021-09-18 13:00] VITALS: BP 102/57
[2021-09-18 17:11] VITALS: BP 107/65
[2021-09-18 22:00] VITALS: BP 98/64
[2021-09-19 05:00] VITALS: BP 109/58
[2021-09-19] MEDS: HYDROcodone-ACET 5/325MG TAB PO PRN ×3 (05:07→20:54)
[2021-09-19] MEDS: ALBUTEROL SULF 2.5 MG/0.5ML(0.5%) NEB SOLN NEB SCH ×5 (05:36→22:04)
[2021-09-19] MEDS: IPRATROPIUM BROM 0.5 MG/2.5ML INH SOL NEB SCH ×5 (05:36→22:04)
[2021-09-19 08:00] VITALS: BP 106/69
[2021-09-19 09:25] VITALS: BP 106/69
[2021-09-19] MEDS: methylPREDNISolone SOD SUCC 125 MG/2 ML VL IV SCH ×2 (10:29→20:49)
[2021-09-19] MEDS: ALPRAZolam 0.5 MG TAB PO PRN ×2 (10:40→20:55)
[2021-09-19 13:05] VITALS: BP 92/52
[2021-09-19 17:00] VITALS: BP 97/68
[2021-09-19] MEDS: BUDESONIDE (INHALATION) 0.5 MG/2 ML NEB NEB SCH (18:45)
[2021-09-19 22:00] VITALS: BP 125/87
[2021-09-20] MEDS: IPRATROPIUM BROM 0.5 MG/2.5ML INH SOL NEB SCH ×6 (02:22→22:10)
[2021-09-20] MEDS: ALBUTEROL SULF 2.5 MG/0.5ML(0.5%) NEB SOLN NEB SCH ×6 (02:23→22:10)
[2021-09-20 05:00] VITALS: BP 101/60
[2021-09-20 09:00] VITALS: BP 115/81
[2021-09-20] MEDS: methylPREDNISolone SOD SUCC 125 MG/2 ML VL IV SCH ×2 (09:04→21:38)
[2021-09-20] MEDS: HYDROcodone-ACET 5/325MG TAB PO PRN ×2 (09:05→15:06)
[2021-09-20] MEDS: ALPRAZolam 0.5 MG TAB PO PRN ×2 (09:05→17:12)
[2021-09-20] MEDS: BUDESONIDE (INHALATION) 0.5 MG/2 ML NEB NEB SCH ×2 (09:59→22:10)
[2021-09-20 13:00] VITALS: BP 108/60
[2021-09-20 17:00] VITALS: BP 126/78
[2021-09-20] MEDS ORDERED: LACTULOSE 20Gm/30ML SOLN PO ONE (17:30)
[2021-09-20 22:00] VITALS: BP 109/78
[2021-09-21] MEDS: ALBUTEROL SULF 2.5 MG/0.5ML(0.5%) NEB SOLN NEB SCH ×5 (02:12→18:52)
[2021-09-21] MEDS: IPRATROPIUM BROM 0.5 MG/2.5ML INH SOL NEB SCH ×5 (02:12→18:52)
[2021-09-21] MEDS: HYDROcodone-ACET 5/325MG TAB PO PRN ×2 (04:29→12:24)
[2021-09-21 05:00] VITALS: BP 119/72
[2021-09-21] MEDS: methylPREDNISolone SOD SUCC 125 MG/2 ML VL IV SCH (08:16)
[2021-09-21] MEDS: ALPRAZolam 0.5 MG TAB PO PRN (08:17)
[2021-09-21 09:00] VITALS: BP 130/79
[2021-09-21 09:54] LABS: Basophils # (auto) 0 10 ^3/uL (0-0.2); Basophils % (auto) 0.3 % (0.0-2.0); Eosinophils # (auto) 0 10 ^3/uL (0-0.8); Hematocrit 42.5 % (36.0-46.0); Hemoglobin 14.1 g/dL (12.2-16.2); Lymphocytes # (auto) 0.5 10 ^3/uL (0.4-5.4); Lymphocytes % (auto) 8.9 % (10.0-50.0); Mean Corpuscular Hemoglobin 30.9 pg (28.0-32.0); Mean Corpuscular Hgb Conc. 33.2 g/dL (32.0-36.0); Mean Corpuscular Volume 92.9 fL (80.0-100.0); Monocytes # (auto) 0.5 10 ^3/uL (0-1.3); Monocytes % (auto) 7.9 % (0.0-12.0); Neutrophils # (auto) 5.1 10 ^3/uL (1.6-8.6); Neutrophils % (auto) 82.9 % (37.0-80.0); Nucleated Red Blood Cells % 0.1 %; Red Blood Cells 4.58 10^6/uL (4.0-5.20); Red Cell Distribution Width 13.6 % (11.8-14.3); White Blood Cell 6.1 10^3/uL (4.4-10.8)
[2021-09-21] MEDS: BUDESONIDE (INHALATION) 0.5 MG/2 ML NEB NEB SCH ×2 (10:26→18:52)
[2021-09-21 10:27] LABS: Calcium 8.4 mg/dL (8.5-10.1)
[2021-09-21 13:00] VITALS: BP 121/85
[2021-09-21 17:00] VITALS: BP 97/56
[2021-09-21] MEDS ORDERED: ALBUAER3 IN (19:30)
[2021-09-21] MEDS ORDERED: ALB5IS NEB (19:30)
[2021-09-21] MEDS ORDERED: PRED20TA2 PO (19:30)
== END 2021-09-21 20:33 | disposition home or self-care (01) | DRG 141 ==
LOC: ER 20:30 → TELE 09-17 00:26 → TELE-EAST 09-17 16:50
PROVIDERS: ADMIT Hospitalist; ATTEND Internal Medicine
DX: J45.901 Unspecified asthma with (acute) exacerbation (principal); J96.10 Chronic respiratory failure, unspecified whether with hypoxia or hypercapnia; Z99.81 Dependence on supplemental oxygen; F17.210 Nicotine dependence, cigarettes, uncomplicated; F41.9 Anxiety disorder, unspecified; Z20.822 Contact with and (suspected) exposure to COVID-19
CPT/HCPCS: 36415; 71045; 80048; 80053; 83735; 85007; 85025; 85027; 94640; 94644; 96365; 96375; 96376; 99291; G0378

== ENCOUNTER 2021-12-01 15:58 | Inpatient (IN) | payer MEDICAID ==
[~2021-12-01] VITALS: Ht 162.6 cm; Wt 139.7 kg
[~2021-12-01 15:58] MED LIST changes: +ALPR0.5T8 PO; +AZIT250T9 PO; +BUDE0.5S IN; -DEXT1SYP9 PO; -DOXY-332 PO; -FAMO20TA10 PO; -FLUT1AER3 IN; +HYDR-4798 PO; -OMEP20TA PO; -PRED20TA2 PO; +[UNRECOGNIZED DRUG - CODE] SC
[2021-12-01] MEDS ORDERED: IPRATROPIUM BROM 0.5 MG/2.5ML INH SOL NEB ONE (16:15)
[2021-12-01] MEDS ORDERED: ALBUTEROL SULF 2.5 MG/0.5ML(0.5%) NEB SOLN NEB ONE ×2 (16:15→17:30)
[2021-12-01] MEDS ORDERED: methylPREDNISolone SOD SUCC 125 MG/2 ML VL IV ONE (16:30)
[2021-12-01] MEDS: MAGNESIUM SULFATE 1GM/100ML 100 ML IV SCH ×2 (17:06→18:45)
[2021-12-01] MEDS ORDERED: DOCUSATE SOD 100 MG CAP PO PRN (21:30)
[2021-12-01] MEDS ORDERED: IPRATROPIUM BROM 0.5 MG/2.5ML INH SOL NEB PRN (21:30)
[2021-12-01] MEDS ORDERED: ALBUTEROL SULF 2.5 MG/0.5ML(0.5%) NEB SOLN NEB PRN (21:30)
[2021-12-01] MEDS ORDERED: ONDANSETRON HCL 4 MG/2 ML VIAL IV PRN (21:30)
[2021-12-01] MEDS ORDERED: MORPHINE SULFATE INJ 2 MG/ml SYRG IV PRN (21:30)
[2021-12-01] MEDS ORDERED: ACETAMINOPHEN 325 MG TAB PO PRN (21:30)
[2021-12-01] MEDS ORDERED: NITROGLYCERIN 0.4 MG SL TAB SL PRN (21:30)
[2021-12-01] MEDS: IPRATROPIUM BROM 0.5 MG/2.5ML INH SOL NEB SCH ×2 (22:21→22:25)
[2021-12-01] MEDS: ALBUTEROL SULF 2.5 MG/0.5ML(0.5%) NEB SOLN NEB SCH ×2 (22:21→22:25)
[2021-12-01 22:27] LABS: Basophils # (auto) 0 10 ^3/uL (0-0.2); Basophils % (auto) 0.3 % (0.0-2.0); Eosinophils # (auto) 0 10 ^3/uL (0-0.8); Eosinophils % (auto) 0.1 % (0.0-7.0); Hematocrit 47.3 % (36.0-46.0); Lymphocytes # (auto) 0.2 10 ^3/uL (0.4-5.4); Lymphocytes % (auto) 3.4 % (10.0-50.0); Mean Corpuscular Hemoglobin 28.5 pg (28.0-32.0); Mean Corpuscular Hgb Conc. 31.8 g/dL (32.0-36.0); Mean Corpuscular Volume 89.8 fL (80.0-100.0); Monocytes # (auto) 0.1 10 ^3/uL (0-1.3); Monocytes % (auto) 1.1 % (0.0-12.0); Neutrophils # (auto) 6.6 10 ^3/uL (1.6-8.6); Neutrophils % (auto) 95.1 % (37.0-80.0); Red Blood Cells 5.27 10^6/uL (4.0-5.20); Red Cell Distribution Width 15.3 % (11.8-14.3)
[2021-12-01 22:46] VITALS: BP 124/75
[2021-12-01] MEDS: ALPRAZolam 0.5 MG TAB PO PRN (23:18)
[2021-12-01] MEDS: methylPREDNISolone SOD SUCC 40 MG/ML VL IV SCH (23:18)
[2021-12-01 23:42] LABS: Calcium 9.1 mg/dL (8.5-10.1); Potassium 5.1 mmol/L (3.5-5.1)
[2021-12-01 23:46] LABS: BUN/Creatinine Ratio 11.6; Bilirubin, Total 0.5 mg/dL (0.2-1.0); Total Protein 7.6 g/dL (6.4-8.2)
[2021-12-02] MEDS: IPRATROPIUM BROM 0.5 MG/2.5ML INH SOL NEB SCH ×6 (02:10→22:03)
[2021-12-02] MEDS: ALBUTEROL SULF 2.5 MG/0.5ML(0.5%) NEB SOLN NEB SCH ×6 (02:10→22:03)
[2021-12-02] MEDS: methylPREDNISolone SOD SUCC 40 MG/ML VL IV SCH ×3 (06:24→21:13)
[2021-12-02 07:20] LABS: Basophils # (auto) 0 10 ^3/uL (0-0.2); Basophils % (auto) 0.3 % (0.0-2.0); Eosinophils # (auto) 0 10 ^3/uL (0-0.8); Hematocrit 42.9 % (36.0-46.0); Hemoglobin 13.6 g/dL (12.2-16.2); Lymphocytes # (auto) 0.3 10 ^3/uL (0.4-5.4); Lymphocytes % (auto) 2.9 % (10.0-50.0); Mean Corpuscular Hemoglobin 28.5 pg (28.0-32.0); Mean Corpuscular Hgb Conc. 31.7 g/dL (32.0-36.0); Mean Corpuscular Volume 89.9 fL (80.0-100.0); Monocytes # (auto) 0.4 10 ^3/uL (0-1.3); Monocytes % (auto) 4.7 % (0.0-12.0); Neutrophils # (auto) 7.9 10 ^3/uL (1.6-8.6); Neutrophils % (auto) 92.1 % (37.0-80.0); Red Blood Cells 4.78 10^6/uL (4.0-5.20); Red Cell Distribution Width 15.3 % (11.8-14.3); White Blood Cell 8.5 10^3/uL (4.4-10.8)
[2021-12-02 07:49] LABS: Albumin 3.7 g/dL (3.4-5.0); Calcium 8.9 mg/dL (8.5-10.1); Potassium 4.9 mmol/L (3.5-5.1)
[2021-12-02 07:52] LABS: BUN/Creatinine Ratio 16.9
[2021-12-02 07:53] LABS: Bilirubin, Total 0.3 mg/dL (0.2-1.0)
[2021-12-02] MEDS: HYDROcodone-ACET 5/325MG TAB PO PRN ×2 (08:53→15:22)
[2021-12-02] MEDS ORDERED: IOHEXOL 350 MG/ML 100ML IJ ONE (12:33)
[2021-12-02] MEDS: ALPRAZolam 0.5 MG TAB PO PRN ×2 (12:38→18:52)
[2021-12-02] MEDS ORDERED: ALPRAZolam 0.5 MG TAB PO PRN (13:00)
[2021-12-02] MEDS: BUDESONIDE (INHALATION) 0.5 MG/2 ML NEB NEB SCH (18:41)
[2021-12-02] MEDS: PANTOPRAZOLE 40 MG TAB PO SCH (21:13)
[2021-12-02 22:00] VITALS: BP 108/66
[2021-12-03] MEDS: HYDROcodone-ACET 5/325MG TAB PO PRN ×4 (00:09→22:26)
[2021-12-03] MEDS: IPRATROPIUM BROM 0.5 MG/2.5ML INH SOL NEB SCH ×6 (02:41→22:16)
[2021-12-03] MEDS: ALBUTEROL SULF 2.5 MG/0.5ML(0.5%) NEB SOLN NEB SCH ×6 (02:41→22:16)
[2021-12-03 05:00] VITALS: BP 104/63
[2021-12-03] MEDS: BUDESONIDE (INHALATION) 0.5 MG/2 ML NEB NEB SCH ×2 (05:50→22:16)
[2021-12-03] MEDS: methylPREDNISolone SOD SUCC 40 MG/ML VL IV SCH ×3 (05:52→22:25)
[2021-12-03] MEDS: ALPRAZolam 0.5 MG TAB PO PRN ×2 (08:46→19:34)
[2021-12-03 09:17] VITALS: BP 108/69
[2021-12-03] MEDS: PANTOPRAZOLE 40 MG TAB PO SCH ×2 (09:48→22:25)
[2021-12-03] MEDS ORDERED: AZITHROMYCIN 500MG/ 250ML 250 ML IV SCH (10:00)
[2021-12-03] MEDS ORDERED: LACTULOSE 20Gm/30ML SOLN PO SCH (12:00)
[2021-12-03 13:00] VITALS: BP 101/58
[2021-12-03] MEDS: LACTULOSE 20Gm/30ML SOLN PO PRN ×2 (13:01→22:26)
[2021-12-03 17:11] VITALS: BP 105/54
[2021-12-03 22:00] VITALS: BP 119/68
[2021-12-04] MEDS: IPRATROPIUM BROM 0.5 MG/2.5ML INH SOL NEB SCH ×6 (02:15→22:02)
[2021-12-04] MEDS: ALBUTEROL SULF 2.5 MG/0.5ML(0.5%) NEB SOLN NEB SCH ×6 (02:15→22:02)
[2021-12-04 05:00] VITALS: BP 101/68
[2021-12-04] MEDS: methylPREDNISolone SOD SUCC 40 MG/ML VL IV SCH ×3 (05:50→21:40)
[2021-12-04 09:00] VITALS: BP 133/88
[2021-12-04] MEDS: LACTULOSE 20Gm/30ML SOLN PO PRN ×2 (09:03→21:40)
[2021-12-04] MEDS: HYDROcodone-ACET 5/325MG TAB PO PRN ×3 (09:04→22:50)
[2021-12-04] MEDS: ALPRAZolam 0.5 MG TAB PO PRN ×2 (09:04→20:12)
[2021-12-04] MEDS: PANTOPRAZOLE 40 MG TAB PO SCH ×2 (09:53→21:40)
[2021-12-04] MEDS: AZITHROMYCIN 250 MG TAB PO SCH (09:54)
[2021-12-04] MEDS: BUDESONIDE (INHALATION) 0.5 MG/2 ML NEB NEB SCH ×2 (10:09→18:13)
[2021-12-04 17:00] VITALS: BP 113/69
[2021-12-04 21:44] VITALS: BP 114/63
[2021-12-04 22:45] VITALS: BP 114/63
[2021-12-05] MEDS: ALBUTEROL SULF 2.5 MG/0.5ML(0.5%) NEB SOLN NEB SCH ×4 (02:01→13:54)
[2021-12-05] MEDS: IPRATROPIUM BROM 0.5 MG/2.5ML INH SOL NEB SCH ×4 (02:01→13:54)
[2021-12-05 04:42] VITALS: BP 121/80
[2021-12-05] MEDS: ALPRAZolam 0.5 MG TAB PO PRN ×2 (05:05→11:16)
[2021-12-05] MEDS: methylPREDNISolone SOD SUCC 40 MG/ML VL IV SCH ×2 (05:33→14:01)
[2021-12-05 09:00] VITALS: BP 114/89
[2021-12-05] MEDS: PANTOPRAZOLE 40 MG TAB PO SCH (09:14)
[2021-12-05] MEDS: AZITHROMYCIN 250 MG TAB PO SCH (09:14)
[2021-12-05] MEDS: HYDROcodone-ACET 5/325MG TAB PO PRN (09:16)
[2021-12-05] MEDS: LACTULOSE 20Gm/30ML SOLN PO PRN (09:17)
[2021-12-05] MEDS: BUDESONIDE (INHALATION) 0.5 MG/2 ML NEB NEB SCH (09:52)
[2021-12-05 12:38] VITALS: BP 125/79
[2021-12-05] MEDS ORDERED: ALB5IS NEB (13:27)
[2021-12-05] MEDS ORDERED: AMOX500T86 PO (13:28)
[2021-12-05] MEDS ORDERED: BUDE0.5S IN (13:28)
[2021-12-05] MEDS ORDERED: IPR002IS NEB (13:28)
[2021-12-05 16:49] VITALS: BP 116/73
== END 2021-12-05 17:30 | disposition home or self-care (01) | DRG 140 ==
LOC: ER 15:58 → UNDOADMIN 21:24 → TELE 21:24 → TELE-EAST 12-02 18:31
PROVIDERS: ADMIT Nurse Practitioner Family; ATTEND Hospitalist
DX: J44.1 Chronic obstructive pulmonary disease with (acute) exacerbation (principal); J96.01 Acute respiratory failure with hypoxia; J45.51 Severe persistent asthma with (acute) exacerbation; F41.9 Anxiety disorder, unspecified; J98.11 Atelectasis; Z20.822 Contact with and (suspected) exposure to COVID-19; Z82.3 Family history of stroke; Z82.49 Family history of ischemic heart disease and other diseases of the circulatory system; Z79.891 Long term (current) use of opiate analgesic; Z79.899 Other long term (current) drug therapy
CPT/HCPCS: 36415; 36600; 71045; 71275; 80053; 82805; 85025; 87804; 94640; 96365; 96375; 99291; G0378

== ENCOUNTER 2021-12-31 17:55 | Inpatient (IN) | payer MEDICAID ==
[~2021-12-31] VITALS: Ht 162.6 cm; Wt 60.0 kg
[~2021-12-31 17:55] MED LIST changes: +AMOX500T86 PO
[2021-12-31] MEDS ORDERED: IPRATROPIUM BROM 0.5 MG/2.5ML INH SOL ONE (18:03)
[2021-12-31] MEDS ORDERED: ALBUTEROL SULF 2.5 MG/0.5ML(0.5%) NEB SOLN ONE (18:03)
[2021-12-31] MEDS ORDERED: methylPREDNISolone SOD SUCC 125 MG/2 ML VL IV ONE (18:30)
[2021-12-31] MEDS ORDERED: SODIUM CHLORIDE 0.9% 1,000 ML IVB ONE (19:15)
[2021-12-31] MEDS ORDERED: SODIUM CHLORIDE 0.9% 500 ML IV ONE (19:15)
[2021-12-31] MEDS ORDERED: LORazepam 0.5 MG TAB PO ONE (19:15)
[2021-12-31 19:33] LABS: Basophils # (auto) 0 10 ^3/uL (0-0.2); Basophils % (auto) 0.5 % (0.0-2.0); Eosinophils # (auto) 0.1 10 ^3/uL (0-0.8); Eosinophils % (auto) 0.9 % (0.0-7.0); Hemoglobin 15.3 g/dL (12.2-16.2); Lymphocytes # (auto) 0.9 10 ^3/uL (0.4-5.4); Lymphocytes % (auto) 12.4 % (10.0-50.0); Mean Corpuscular Hemoglobin 28.4 pg (28.0-32.0); Mean Corpuscular Hgb Conc. 31.8 g/dL (32.0-36.0); Mean Corpuscular Volume 89.3 fL (80.0-100.0); Monocytes # (auto) 0.7 10 ^3/uL (0-1.3); Monocytes % (auto) 10.6 % (0.0-12.0); Neutrophils # (auto) 5.3 10 ^3/uL (1.6-8.6); Neutrophils % (auto) 75.6 % (37.0-80.0); Red Blood Cells 5.38 10^6/uL (4.0-5.20); Red Cell Distribution Width 15.3 % (11.8-14.3)
[2021-12-31 19:49] LABS: Albumin 3.8 g/dL (3.4-5.0); Calcium 8.8 mg/dL (8.5-10.1); Magnesium 2.3 mg/dL (1.6-2.6); Potassium 4.3 mmol/L (3.5-5.1)
[2021-12-31 19:53] LABS: BUN/Creatinine Ratio 8.3; Bilirubin, Total 0.3 mg/dL (0.2-1.0); Total Protein 7.4 g/dL (6.4-8.2)
[2021-12-31] MEDS ORDERED: ALBUTEROL SULF 2.5 MG/0.5ML(0.5%) NEB SOLN NEB ONE (20:45)
[2021-12-31] MEDS ORDERED: IPRATROPIUM BROM 0.5 MG/2.5ML INH SOL NEB ONE (20:45)
[2021-12-31] MEDS: MAGNESIUM SULFATE 1GM/100ML 100 ML IV SCH (23:20)
[2022-01-01] MEDS ORDERED: ONDANSETRON HCL 4 MG/2 ML VIAL IV PRN
[2022-01-01] MEDS ORDERED: ACETAMINOPHEN 325 MG TAB PO PRN
[2022-01-01] MEDS ORDERED: ALBUTEROL SULF 2.5 MG/0.5ML(0.5%) NEB SOLN NEB PRN
[2022-01-01] MEDS ORDERED: TEMAZEPAM 15 MG CAP PO PRN
[2022-01-01] MEDS ORDERED: IPRATROPIUM BROM 0.5 MG/2.5ML INH SOL NEB PRN
[2022-01-01] MEDS ORDERED: DOCUSATE SOD 100 MG CAP PO PRN
[2022-01-01] MEDS: MAGNESIUM SULFATE 1GM/100ML 100 ML IV SCH (00:20)
[2022-01-01 00:52] VITALS: BP 102/62
[2022-01-01] MEDS ORDERED: MORPHINE SULFATE INJ 2 MG/ml SYRG IV PRN (01:30)
[2022-01-01] MEDS ORDERED: NITROGLYCERIN 0.4 MG SL TAB SL PRN (01:30)
[2022-01-01] MEDS: ALBUTEROL SULF 2.5 MG/0.5ML(0.5%) NEB SOLN NEB SCH ×6 (01:52→22:44)
[2022-01-01] MEDS: IPRATROPIUM BROM 0.5 MG/2.5ML INH SOL NEB SCH ×6 (01:52→22:44)
[2022-01-01] MEDS: SODIUM CHLOR 0.9% PF (SALINE LOCK) 10ML VIAL/SYR IV SCH ×3 (05:42→21:56)
[2022-01-01] MEDS: methylPREDNISolone SOD SUCC 40 MG/ML VL IV SCH ×3 (05:42→21:56)
[2022-01-01] MEDS: LORazepam 0.5 MG TAB PO PRN ×2 (05:45→10:18)
[2022-01-01] MEDS: HYDROcodone-ACET 5/325MG TAB PO PRN ×2 (06:13→21:58)
[2022-01-01 06:56] LABS: Basophils # (auto) 0 10 ^3/uL (0-0.2); Basophils % (auto) 0.3 % (0.0-2.0); Eosinophils # (auto) 0 10 ^3/uL (0-0.8); Hematocrit 43.8 % (36.0-46.0); Hemoglobin 14.2 g/dL (12.2-16.2); Lymphocytes # (auto) 0.3 10 ^3/uL (0.4-5.4); Lymphocytes % (auto) 5.7 % (10.0-50.0); Mean Corpuscular Hemoglobin 28.7 pg (28.0-32.0); Mean Corpuscular Hgb Conc. 32.4 g/dL (32.0-36.0); Mean Corpuscular Volume 88.4 fL (80.0-100.0); Monocytes # (auto) 0.3 10 ^3/uL (0-1.3); Monocytes % (auto) 5.7 % (0.0-12.0); Neutrophils # (auto) 4.6 10 ^3/uL (1.6-8.6); Neutrophils % (auto) 88.3 % (37.0-80.0); Red Blood Cells 4.95 10^6/uL (4.0-5.20); Red Cell Distribution Width 15.1 % (11.8-14.3); White Blood Cell 5.3 10^3/uL (4.4-10.8)
[2022-01-01 07:13] LABS: Albumin 3.5 g/dL (3.4-5.0); Calcium 8.8 mg/dL (8.5-10.1); Potassium 4.6 mmol/L (3.5-5.1)
[2022-01-01 07:16] LABS: BUN/Creatinine Ratio 10.9; Bilirubin, Total 0.5 mg/dL (0.2-1.0); Total Protein 7.1 g/dL (6.4-8.2)
[2022-01-01 09:20] VITALS: BP 111/66
[2022-01-01] MEDS: FAMOTIDINE (10MG/ML) 2ML VL IV SCH ×2 (10:16→21:56)
[2022-01-01] MEDS: ASCORBIC ACID 500 MG TAB PO SCH ×2 (10:17→21:57)
[2022-01-01] MEDS: ZINC SULFATE 220mg CAP or TAB PO SCH (10:17)
[2022-01-01 10:46] VITALS: BP 103/60
[2022-01-01 12:45] VITALS: BP 100/55
[2022-01-01 14:47] LABS: Urine Bacteria MANY /hpf (None Seen); Urine Blood Negative /uL (Negative); Urine Mucus FEW (None Seen); Urine Specific Gravity 1.015 (1.001-1.035); Urine WBC 6 /hpf (0 - 5)
[2022-01-01 14:54] LABS: Alcohol, Urine < 3.0 mg/dL (0-10); Barbiturate Scree,Urine NEGATIVE (NEGATIVE); Benzodiazephine Screen, Urine POSITIVE (NEGATIVE); Cannabinoid Screen, Urine NEGATIVE (NEGATIVE); Cocaine Screen, Urine POSITIVE (NEGATIVE); Opiate Scree,Urine POSITIVE (NEGATIVE); Phencyclidine Screen, Urine NEGATIVE (NEGATIVE)
[2022-01-01 15:01] LABS: Amphetamine Screen, Urine NEGATIVE (NEGATIVE)
[2022-01-01 16:18] VITALS: BP 115/53
[2022-01-01] MEDS: MONTELUKAST SODIUM 10 MG TAB PO SCH (21:56)
[2022-01-01] MEDS: BUDESONIDE (INHALATION) 0.5 MG/2 ML NEB NEB SCH (22:44)
[2022-01-01 22:53] VITALS: BP 117/80
[2022-01-02] MEDS: IPRATROPIUM BROM 0.5 MG/2.5ML INH SOL NEB SCH ×6 (02:42→22:30)
[2022-01-02] MEDS: ALBUTEROL SULF 2.5 MG/0.5ML(0.5%) NEB SOLN NEB SCH ×6 (02:42→22:30)
[2022-01-02] MEDS: methylPREDNISolone SOD SUCC 40 MG/ML VL IV SCH ×3 (05:23→21:41)
[2022-01-02] MEDS: SODIUM CHLOR 0.9% PF (SALINE LOCK) 10ML VIAL/SYR IV SCH ×3 (05:23→21:41)
[2022-01-02 05:37] VITALS: BP 113/66
[2022-01-02] MEDS: BUDESONIDE (INHALATION) 0.5 MG/2 ML NEB NEB SCH ×2 (06:02→22:31)
[2022-01-02 09:00] VITALS: BP 122/79
[2022-01-02] MEDS: cefTRIAXone 1GM/50ML D5W 50 ML IV SCH (09:20)
[2022-01-02] MEDS: FAMOTIDINE (10MG/ML) 2ML VL IV SCH ×2 (09:21→21:41)
[2022-01-02] MEDS: ASCORBIC ACID 500 MG TAB PO SCH ×2 (09:21→21:42)
[2022-01-02] MEDS: ZINC SULFATE 220mg CAP or TAB PO SCH (09:21)
[2022-01-02] MEDS: HYDROcodone-ACET 5/325MG TAB PO PRN ×2 (09:22→22:50)
[2022-01-02] MEDS: LORazepam 0.5 MG TAB PO PRN ×3 (09:22→22:50)
[2022-01-02] MEDS ORDERED: ACETYLCYSTEINE 10 %(100MG/ML) SOL 4ML NEB ONE (11:00)
[2022-01-02 13:00] VITALS: BP 114/64
[2022-01-02] MEDS: LACTULOSE 20Gm/30ML SOLN PO PRN ×2 (14:48→21:43)
[2022-01-02 17:00] VITALS: BP 145/89
[2022-01-02] MEDS: ACETYLCYSTEINE 10 %(100MG/ML) SOL 4ML NEB SCH ×2 (18:37→22:50)
[2022-01-02] MEDS: MONTELUKAST SODIUM 10 MG TAB PO SCH (21:41)
[2022-01-02 22:00] VITALS: BP 107/68
[2022-01-03] MEDS: IPRATROPIUM BROM 0.5 MG/2.5ML INH SOL NEB SCH ×4 (02:00→13:54)
[2022-01-03] MEDS: ALBUTEROL SULF 2.5 MG/0.5ML(0.5%) NEB SOLN NEB SCH ×4 (02:00→13:54)
[2022-01-03 05:00] VITALS: BP 109/70
[2022-01-03] MEDS: SODIUM CHLOR 0.9% PF (SALINE LOCK) 10ML VIAL/SYR IV SCH ×2 (05:15→14:00)
[2022-01-03] MEDS: methylPREDNISolone SOD SUCC 40 MG/ML VL IV SCH ×2 (05:15→15:09)
[2022-01-03] MEDS: ACETYLCYSTEINE 10 %(100MG/ML) SOL 4ML NEB SCH ×2 (06:09→09:50)
[2022-01-03 09:00] VITALS: BP 114/70
[2022-01-03] MEDS: BUDESONIDE (INHALATION) 0.5 MG/2 ML NEB NEB SCH (09:50)
[2022-01-03] MEDS: cefTRIAXone 1GM/50ML D5W 50 ML IV SCH (09:53)
[2022-01-03] MEDS: ZINC SULFATE 220mg CAP or TAB PO SCH (09:53)
[2022-01-03] MEDS: HYDROcodone-ACET 5/325MG TAB PO PRN (09:54)
[2022-01-03] MEDS: LACTULOSE 20Gm/30ML SOLN PO PRN (09:54)
[2022-01-03] MEDS: LORazepam 0.5 MG TAB PO PRN (11:34)
[2022-01-03] MEDS: ASCORBIC ACID 500 MG TAB PO SCH (11:34)
[2022-01-03] MEDS ORDERED: ALBUAER3 IN (14:07)
[2022-01-03] MEDS ORDERED: PRED20TA2 PO (14:07)
[2022-01-03] MEDS ORDERED: ACE104IS NEB (14:07)
[2022-01-03] MEDS ORDERED: FAMO20TA10 PO (14:07)
== END 2022-01-03 15:42 | disposition home or self-care (01) | DRG 133 ==
LOC: ER 17:58 → TELE 01-01 01:21 → TELE-WESTW 01-01 09:05
PROVIDERS: ADMIT Nurse Practitioner Family; ATTEND Hospitalist
DX: J96.01 Acute respiratory failure with hypoxia (principal); J45.42 Moderate persistent asthma with status asthmaticus; F19.90 Other psychoactive substance use, unspecified, uncomplicated; F41.1 Generalized anxiety disorder; F12.90 Cannabis use, unspecified, uncomplicated; Z82.49 Family history of ischemic heart disease and other diseases of the circulatory system; Z87.891 Personal history of nicotine dependence
CPT/HCPCS: 36415; 71046; 80053; 80307; 81001; 83735; 84702; 85025; 93005; 94640; 94644; 96361; 96365; 96375; G0378; J0696; J3490

== ENCOUNTER 2022-01-22 15:52 | Inpatient (IN) | payer MEDICAID ==
[~2022-01-22] VITALS: Ht 154.9 cm; Wt 55.0 kg
[~2022-01-22 15:52] MED LIST changes: +ACE104IS NEB; -AMOX500T86 PO; -AZIT250T9 PO; -BUDE0.5S IN; +FAMO20TA10 PO; +PRED20TA2 PO
[2022-01-22] MEDS ORDERED: IPRATROPIUM BROM 0.5 MG/2.5ML INH SOL ONE (15:58)
[2022-01-22] MEDS ORDERED: ALBUTEROL SULF 2.5 MG/0.5ML(0.5%) NEB SOLN ONE (15:58)
[2022-01-22] MEDS ORDERED: MAGNESIUM SULFATE 1GM/100ML 100 ML IV ONE (16:00)
[2022-01-22] MEDS ORDERED: ALBUTEROL SULF 2.5 MG/0.5ML(0.5%) NEB SOLN NEB ONE ×3 (16:15→20:00)
[2022-01-22] MEDS ORDERED: IPRATROPIUM BROM 0.5 MG/2.5ML INH SOL NEB ONE ×3 (16:15→20:00)
[2022-01-22] MEDS ORDERED: methylPREDNISolone SOD SUCC 125 MG/2 ML VL IV ONE (16:30)
[2022-01-22 17:02] LABS: Basophils # (auto) 0.1 10 ^3/uL (0-0.2); Basophils % (auto) 0.8 % (0.0-2.0); Eosinophils # (auto) 0 10 ^3/uL (0-0.8); Eosinophils % (auto) 0.7 % (0.0-7.0); Hematocrit 44.4 % (36.0-46.0); Hemoglobin 14.2 g/dL (12.2-16.2); Lymphocytes # (auto) 0.7 10 ^3/uL (0.4-5.4); Lymphocytes % (auto) 10.6 % (10.0-50.0); Mean Corpuscular Hemoglobin 28.4 pg (28.0-32.0); Mean Corpuscular Hgb Conc. 32.1 g/dL (32.0-36.0); Mean Corpuscular Volume 88.5 fL (80.0-100.0); Monocytes # (auto) 0.5 10 ^3/uL (0-1.3); Monocytes % (auto) 7.1 % (0.0-12.0); Neutrophils # (auto) 5.4 10 ^3/uL (1.6-8.6); Neutrophils % (auto) 80.8 % (37.0-80.0); Nucleated Red Blood Cells % 0.1 %; Red Blood Cells 5.01 10^6/uL (4.0-5.20); Red Cell Distribution Width 14.3 % (11.8-14.3); White Blood Cell 6.7 10^3/uL (4.4-10.8)
[2022-01-22 17:21] LABS: Albumin 3.5 g/dL (3.4-5.0); Calcium 8.8 mg/dL (8.5-10.1); Potassium 4.3 mmol/L (3.5-5.1)
[2022-01-22 17:24] LABS: BUN/Creatinine Ratio 14.5; Bilirubin, Total 0.3 mg/dL (0.2-1.0); Total Protein 6.5 g/dL (6.4-8.2)
[2022-01-23] MEDS ORDERED: ALBUTEROL SULF 2.5 MG/0.5ML(0.5%) NEB SOLN NEB ONE ×2 (02:00→07:20)
[2022-01-23] MEDS ORDERED: IPRATROPIUM BROM 0.5 MG/2.5ML INH SOL NEB ONE (02:00)
[2022-01-23] MEDS ORDERED: ONDANSETRON HCL 4 MG/2 ML VIAL IV PRN (02:15)
[2022-01-23] MEDS ORDERED: NITROGLYCERIN 0.4 MG SL TAB SL PRN (02:15)
[2022-01-23 02:28] VITALS: BP 106/66
[2022-01-23] MEDS: TEMAZEPAM 15 MG CAP PO PRN ×2 (04:05→21:20)
[2022-01-23] MEDS ORDERED: ALPRAZolam 0.5 MG TAB PO ONE (04:45)
[2022-01-23] MEDS ORDERED: ALBUTEROL SULF 2.5 MG/0.5ML(0.5%) NEB SOLN NEB SCH (06:00)
[2022-01-23] MEDS ORDERED: IPRATROPIUM BROM 0.5 MG/2.5ML INH SOL NEB SCH (06:00)
[2022-01-23] MEDS ORDERED: ALPRAZolam 0.5 MG TAB PO PRN ×2 (06:45→13:30)
[2022-01-23] MEDS: ALBUTEROL SULF 2.5 MG/0.5ML(0.5%) NEB SOLN NEB SCH ×5 (06:48→21:57)
[2022-01-23] MEDS: IPRATROPIUM BROM 0.5 MG/2.5ML INH SOL NEB SCH ×5 (06:48→21:58)
[2022-01-23] MEDS: BUDESONIDE (INHALATION) 0.5 MG/2 ML NEB NEB SCH ×2 (06:48→18:35)
[2022-01-23] MEDS ORDERED: ALBUTEROL SULF 2.5 MG/0.5ML(0.5%) NEB SOLN ONE (07:22)
[2022-01-23] MEDS ORDERED: PANTOPRAZOLE 40 MG TAB PO SCH (10:00)
[2022-01-23] MEDS ORDERED: methylPREDNISolone SOD SUCC 125 MG/2 ML VL IV SCH (10:00)
[2022-01-23] MEDS ORDERED: LORazepam 2MG/ML-1ML VIAL IV ONE (13:30)
[2022-01-23] MEDS ORDERED: guaiFENesin-DM 100/10mg/5ml SYR PO PRN (13:30)
[2022-01-23] MEDS: MAGNESIUM SULFATE 1GM/100ML 100 ML IV SCH ×2 (14:03→15:21)
[2022-01-23] MEDS: SODIUM CHLORIDE 0.9% 1,000 ML IV SCH ×2 (15:23→23:21)
[2022-01-23] MEDS: ALPRAZolam 0.5 MG TAB PO PRN ×2 (16:48→21:20)
[2022-01-23 17:33] VITALS: BP 125/74
[2022-01-23] MEDS: methylPREDNISolone SOD SUCC 125 MG/2 ML VL IV SCH ×2 (17:42→21:19)
[2022-01-23] MEDS ORDERED: ALPR1TAB2 PO (17:48)
[2022-01-23] MEDS ORDERED: ALBU0.084 INH (17:48)
[2022-01-23] MEDS ORDERED: ALBU108A5 INH (17:48)
[2022-01-23] MEDS ORDERED: BUDE0.5S NEB (17:48)
[2022-01-23 22:00] VITALS: BP 109/71
[2022-01-24] MEDS: ACETAMINOPHEN 325 MG TAB PO PRN ×2 (03:02→18:20)
[2022-01-24 05:00] VITALS: BP 95/57
[2022-01-24] MEDS: BUDESONIDE (INHALATION) 0.5 MG/2 ML NEB NEB SCH ×2 (05:54→18:06)
[2022-01-24] MEDS: IPRATROPIUM BROM 0.5 MG/2.5ML INH SOL NEB SCH ×5 (05:54→23:23)
[2022-01-24] MEDS: ALBUTEROL SULF 2.5 MG/0.5ML(0.5%) NEB SOLN NEB SCH ×5 (05:54→23:23)
[2022-01-24] MEDS: methylPREDNISolone SOD SUCC 125 MG/2 ML VL IV SCH ×4 (06:13→22:15)
[2022-01-24 09:00] VITALS: BP 102/62
[2022-01-24] MEDS: SODIUM CHLORIDE 0.9% 1,000 ML IV SCH ×2 (09:15→18:15)
[2022-01-24] MEDS: ALPRAZolam 0.5 MG TAB PO PRN ×2 (09:29→22:17)
[2022-01-24 09:35] LABS: Basophils # (auto) 0 10 ^3/uL (0-0.2); Basophils % (auto) 0.2 % (0.0-2.0); Eosinophils # (auto) 0 10 ^3/uL (0-0.8); Hematocrit 44.1 % (36.0-46.0); Hemoglobin 14.1 g/dL (12.2-16.2); Lymphocytes # (auto) 0.4 10 ^3/uL (0.4-5.4); Mean Corpuscular Hemoglobin 28.4 pg (28.0-32.0); Mean Corpuscular Volume 88.6 fL (80.0-100.0); Monocytes # (auto) 0.3 10 ^3/uL (0-1.3); Monocytes % (auto) 3.7 % (0.0-12.0); Neutrophils # (auto) 6.6 10 ^3/uL (1.6-8.6); Neutrophils % (auto) 91.1 % (37.0-80.0); Red Blood Cells 4.98 10^6/uL (4.0-5.20); Red Cell Distribution Width 14.9 % (11.8-14.3); White Blood Cell 7.3 10^3/uL (4.4-10.8)
[2022-01-24 10:00] LABS: Albumin 3.5 g/dL (3.4-5.0); Calcium 8.6 mg/dL (8.5-10.1); Potassium 4.5 mmol/L (3.5-5.1)
[2022-01-24 10:05] LABS: Bilirubin, Total 0.3 mg/dL (0.2-1.0); Total Protein 6.8 g/dL (6.4-8.2)
[2022-01-24] MEDS: LACTULOSE 20Gm/30ML SOLN PO PRN ×2 (11:39→22:16)
[2022-01-24 13:00] VITALS: BP 116/80
[2022-01-24 17:00] VITALS: BP 100/60
[2022-01-24 19:08] VITALS: BP 100/60
[2022-01-24 22:00] VITALS: BP 118/80
[2022-01-24] MEDS: TEMAZEPAM 15 MG CAP PO PRN (22:16)
[2022-01-25] MEDS: IPRATROPIUM BROM 0.5 MG/2.5ML INH SOL NEB SCH ×4 (03:47→13:35)
[2022-01-25] MEDS: ALBUTEROL SULF 2.5 MG/0.5ML(0.5%) NEB SOLN NEB SCH ×4 (03:47→13:35)
[2022-01-25] MEDS: MORPHINE SULFATE INJ 2 MG/ml SYRG IV PRN ×2 (04:51→13:29)
[2022-01-25 05:00] VITALS: BP 103/70
[2022-01-25] MEDS: SODIUM CHLORIDE 0.9% 1,000 ML IV SCH (05:30)
[2022-01-25] MEDS: methylPREDNISolone SOD SUCC 125 MG/2 ML VL IV SCH ×2 (05:34→11:54)
[2022-01-25] MEDS: BUDESONIDE (INHALATION) 0.5 MG/2 ML NEB NEB SCH (05:55)
[2022-01-25 07:28] VITALS: BP 116/76
[2022-01-25] MEDS ORDERED: ALBU108A5 IN (10:49)
[2022-01-25] MEDS ORDERED: BUDE0.5S IN (10:49)
[2022-01-25] MEDS ORDERED: PRED10TA PO (10:49)
[2022-01-25] MEDS ORDERED: PRED20TA2 PO ×2 (10:49)
[2022-01-25] MEDS: ALPRAZolam 0.5 MG TAB PO PRN (11:00)
[2022-01-25] MEDS: LACTULOSE 20Gm/30ML SOLN PO PRN (11:00)
[2022-01-25 12:07] VITALS: BP 116/86
[2022-01-25 12:45] VITALS: BP 116/86
[2022-01-25 14:00] VITALS: BP 116/86
== END 2022-01-25 14:10 | disposition home or self-care (01) | DRG 133 ==
LOC: ER 15:59 → TELE 01-23 02:18 → TELE-EAST 01-23 17:07 → EAST 01-23 17:35
PROVIDERS: ADMIT Nurse Practitioner; ATTEND Nurse Practitioner Acute Care
DX: J96.21 Acute and chronic respiratory failure with hypoxia (principal); J45.902 Unspecified asthma with status asthmaticus; Z20.822 Contact with and (suspected) exposure to COVID-19; F41.9 Anxiety disorder, unspecified; Z79.51 Long term (current) use of inhaled steroids; Z82.49 Family history of ischemic heart disease and other diseases of the circulatory system; Z87.891 Personal history of nicotine dependence
CPT/HCPCS: 36415; 71045; 80053; 84484; 85025; 87081; 93005; 94640; 94644; 94645; 96365; 96366; 96375; 96376; G0378

== ENCOUNTER 2022-02-09 15:26 | Inpatient (IN) | payer MEDICAID ==
[~2022-02-09] VITALS: Ht 162.6 cm; Wt 77.6 kg
[~2022-02-09 15:26] MED LIST changes: +ALBU0.084 INH; +ALBU108A5 IN; +ALBU108A5 INH; +ALPR1TAB2 PO; +BUDE0.5S IN; +BUDE0.5S NEB; +PRED10TA PO
[2022-02-09] MEDS ORDERED: ALBUTEROL SULF 2.5 MG/0.5ML(0.5%) NEB SOLN NEB ONE (15:30)
[2022-02-09] MEDS ORDERED: DexAMETHasone SOD PHOS 10MG/1ML VIAL INJ IV ONE (15:30)
[2022-02-09] MEDS ORDERED: MAGNESIUM SULFATE 1GM/100ML 100 ML IV ONE (15:30)
[2022-02-09] MEDS ORDERED: IPRATROPIUM BROM 0.5 MG/2.5ML INH SOL NEB ONE (15:30)
[2022-02-09 15:40] VITALS: BP 122/78
[2022-02-09 16:00] VITALS: BP 122/78
[2022-02-09 16:03] LABS: Basophils # (auto) 0.1 10 ^3/uL (0-0.2); Basophils % (auto) 0.7 % (0.0-2.0); Eosinophils # (auto) 0 10 ^3/uL (0-0.8); Eosinophils % (auto) 0.3 % (0.0-7.0); Hematocrit 43.2 % (36.0-46.0); Hemoglobin 14.4 g/dL (12.2-16.2); Lymphocytes # (auto) 0.9 10 ^3/uL (0.4-5.4); Lymphocytes % (auto) 9.7 % (10.0-50.0); Mean Corpuscular Hemoglobin 29.2 pg (28.0-32.0); Mean Corpuscular Hgb Conc. 33.3 g/dL (32.0-36.0); Mean Corpuscular Volume 87.6 fL (80.0-100.0); Monocytes # (auto) 0.8 10 ^3/uL (0-1.3); Monocytes % (auto) 8.8 % (0.0-12.0); Neutrophils # (auto) 7.2 10 ^3/uL (1.6-8.6); Neutrophils % (auto) 80.5 % (37.0-80.0); Red Blood Cells 4.94 10^6/uL (4.0-5.20); Red Cell Distribution Width 14.6 % (11.8-14.3); White Blood Cell 8.9 10^3/uL (4.4-10.8)
[2022-02-09 16:33] LABS: Albumin 3.6 g/dL (3.4-5.0); BUN/Creatinine Ratio 11.6; Calcium 8.5 mg/dL (8.5-10.1); Magnesium 2.2 mg/dL (1.6-2.6); Potassium 4.2 mmol/L (3.5-5.1)
[2022-02-09 16:35] LABS: Bilirubin, Total 0.5 mg/dL (0.2-1.0); Total Protein 6.6 g/dL (6.4-8.2)
[2022-02-09 17:38] VITALS: BP 97/54
[2022-02-09] MEDS ORDERED: IPRATROPIUM BROM 0.5 MG/2.5ML INH SOL NEB SCH (18:00)
[2022-02-09] MEDS ORDERED: ALBUTEROL SULF 2.5 MG/0.5ML(0.5%) NEB SOLN NEB SCH (18:00)
[2022-02-09] MEDS ORDERED: NITROGLYCERIN 0.4 MG SL TAB SL PRN (18:00)
[2022-02-09] MEDS ORDERED: ALBUTEROL SULF 2.5 MG/0.5ML(0.5%) NEB SOLN NEB PRN (18:15)
[2022-02-09] MEDS ORDERED: IPRATROPIUM BROM 0.5 MG/2.5ML INH SOL NEB PRN (18:15)
[2022-02-09] MEDS ORDERED: AZITHROMYCIN 500MG/ 250ML 250 ML IV ONE (18:15)
[2022-02-09] MEDS: BUDESONIDE (INHALATION) 0.5 MG/2 ML NEB NEB SCH (18:18)
[2022-02-09] MEDS: methylPREDNISolone SOD SUCC 40 MG/ML VL IV SCH (22:42)
[2022-02-09] MEDS: IPRATROPIUM BROM 0.5 MG/2.5ML INH SOL NEB SCH (23:31)
[2022-02-09] MEDS: ALBUTEROL SULF 2.5 MG/0.5ML(0.5%) NEB SOLN NEB SCH (23:31)
[2022-02-10] MEDS: IPRATROPIUM BROM 0.5 MG/2.5ML INH SOL NEB SCH ×6 (02:17→22:24)
[2022-02-10] MEDS: ALBUTEROL SULF 2.5 MG/0.5ML(0.5%) NEB SOLN NEB SCH ×6 (02:17→22:24)
[2022-02-10 04:44] LABS: Basophils # (auto) 0 10 ^3/uL (0-0.2); Basophils % (auto) 0.2 % (0.0-2.0); Eosinophils # (auto) 0 10 ^3/uL (0-0.8); Hematocrit 41.2 % (36.0-46.0); Hemoglobin 13.6 g/dL (12.2-16.2); Lymphocytes # (auto) 0.3 10 ^3/uL (0.4-5.4); Lymphocytes % (auto) 8.1 % (10.0-50.0); Mean Corpuscular Hemoglobin 28.9 pg (28.0-32.0); Mean Corpuscular Hgb Conc. 32.9 g/dL (32.0-36.0); Mean Corpuscular Volume 87.8 fL (80.0-100.0); Monocytes # (auto) 0.1 10 ^3/uL (0-1.3); Monocytes % (auto) 1.5 % (0.0-12.0); Neutrophils # (auto) 3.4 10 ^3/uL (1.6-8.6); Neutrophils % (auto) 90.2 % (37.0-80.0); Red Blood Cells 4.69 10^6/uL (4.0-5.20); Red Cell Distribution Width 14.5 % (11.8-14.3); White Blood Cell 3.8 10^3/uL (4.4-10.8)
[2022-02-10] MEDS ORDERED: IPRATROPIUM BROM 0.5 MG/2.5ML INH SOL NEB SCH (06:00)
[2022-02-10] MEDS ORDERED: ALBUTEROL SULF 2.5 MG/0.5ML(0.5%) NEB SOLN NEB SCH (06:00)
[2022-02-10] MEDS: methylPREDNISolone SOD SUCC 40 MG/ML VL IV SCH ×3 (06:36→23:23)
[2022-02-10] MEDS: BUDESONIDE (INHALATION) 0.5 MG/2 ML NEB NEB SCH ×2 (06:36→22:24)
[2022-02-10] MEDS: AZITHROMYCIN 500MG/ 250ML 250 ML IV SCH (10:26)
[2022-02-10] MEDS: ALPRAZolam 0.25 MG TAB PO SCH (19:47)
[2022-02-10] MEDS: MORPHINE SULFATE INJ 2 MG/ml SYRG IV PRN ×2 (19:48→23:30)
[2022-02-10] MEDS: FAMOTIDINE 20 MG TAB PO SCH (23:23)
[2022-02-10 23:39] VITALS: BP 118/67
[2022-02-10 23:40] VITALS: BP 118/67
[2022-02-11] MEDS: ALBUTEROL SULF 2.5 MG/0.5ML(0.5%) NEB SOLN NEB SCH ×6 (02:02→22:06)
[2022-02-11] MEDS: IPRATROPIUM BROM 0.5 MG/2.5ML INH SOL NEB SCH ×6 (02:02→22:06)
[2022-02-11 05:00] VITALS: BP 93/60
[2022-02-11] MEDS: methylPREDNISolone SOD SUCC 40 MG/ML VL IV SCH ×3 (05:13→21:01)
[2022-02-11] MEDS: BUDESONIDE (INHALATION) 0.5 MG/2 ML NEB NEB SCH ×2 (06:25→18:00)
[2022-02-11 09:00] VITALS: BP 113/72
[2022-02-11] MEDS: FAMOTIDINE 20 MG TAB PO SCH ×2 (09:42→21:01)
[2022-02-11] MEDS: ENOXAPARIN SOD 30 MG/0.3 ML SYRINGE SC SCH (09:43)
[2022-02-11] MEDS: ALPRAZolam 0.25 MG TAB PO SCH ×2 (09:43→21:01)
[2022-02-11] MEDS: AZITHROMYCIN 500MG/ 250ML 250 ML IV SCH (10:09)
[2022-02-11] MEDS: HYDROcodone-ACET 7.5/325MG TAB PO PRN ×2 (11:58→21:08)
[2022-02-11 13:00] VITALS: BP 104/58
[2022-02-11] MEDS ORDERED: LACTULOSE 20Gm/30ML SOLN PO ONE (13:30)
[2022-02-11 17:02] VITALS: BP 110/65
[2022-02-11 22:00] VITALS: BP 111/76
[2022-02-12] MEDS: ALBUTEROL SULF 2.5 MG/0.5ML(0.5%) NEB SOLN NEB SCH ×6 (02:08→21:58)
[2022-02-12] MEDS: IPRATROPIUM BROM 0.5 MG/2.5ML INH SOL NEB SCH ×6 (02:08→21:58)
[2022-02-12] MEDS: HYDROcodone-ACET 7.5/325MG TAB PO PRN ×4 (04:54→21:24)
[2022-02-12] MEDS: methylPREDNISolone SOD SUCC 40 MG/ML VL IV SCH ×3 (04:54→21:17)
[2022-02-12 05:00] VITALS: BP 92/56
[2022-02-12] MEDS: AZITHROMYCIN 500MG/ 250ML 250 ML IV SCH (08:57)
[2022-02-12] MEDS: ALPRAZolam 0.25 MG TAB PO SCH ×2 (08:58→21:18)
[2022-02-12] MEDS: ENOXAPARIN SOD 30 MG/0.3 ML SYRINGE SC SCH (08:58)
[2022-02-12] MEDS: LACTULOSE 20Gm/30ML SOLN PO SCH (08:58)
[2022-02-12] MEDS: FAMOTIDINE 20 MG TAB PO SCH ×2 (08:58→21:18)
[2022-02-12 09:00] VITALS: BP 120/82
[2022-02-12] MEDS: BUDESONIDE (INHALATION) 0.5 MG/2 ML NEB NEB SCH ×2 (10:24→18:48)
[2022-02-12 11:12] VITALS: BP 122/80
[2022-02-12 13:00] VITALS: BP 114/69
[2022-02-12 17:00] VITALS: BP 141/84
[2022-02-12 22:13] VITALS: BP 143/68
[2022-02-13] MEDS: HYDROcodone-ACET 7.5/325MG TAB PO PRN ×2 (03:59→13:17)
[2022-02-13] MEDS: IPRATROPIUM BROM 0.5 MG/2.5ML INH SOL NEB SCH ×2 (05:42→11:54)
[2022-02-13] MEDS: BUDESONIDE (INHALATION) 0.5 MG/2 ML NEB NEB SCH (05:43)
[2022-02-13] MEDS: ALBUTEROL SULF 2.5 MG/0.5ML(0.5%) NEB SOLN NEB SCH ×2 (05:43→11:56)
[2022-02-13 05:53] VITALS: BP 118/64
[2022-02-13] MEDS: methylPREDNISolone SOD SUCC 40 MG/ML VL IV SCH ×2 (05:56→14:26)
[2022-02-13 06:18] LABS: BUN/Creatinine Ratio 19.4; Potassium 4.3 mmol/L (3.5-5.1)
[2022-02-13 06:29] LABS: Basophils # (auto) 0 10 ^3/uL (0-0.2); Basophils % (auto) 0.1 % (0.0-2.0); Eosinophils # (auto) 0 10 ^3/uL (0-0.8); Hematocrit 38.9 % (36.0-46.0); Hemoglobin 12.8 g/dL (12.2-16.2); Lymphocytes # (auto) 0.7 10 ^3/uL (0.4-5.4); Lymphocytes % (auto) 12.2 % (10.0-50.0); Mean Corpuscular Hemoglobin 28.9 pg (28.0-32.0); Mean Corpuscular Volume 87.7 fL (80.0-100.0); Monocytes # (auto) 0.5 10 ^3/uL (0-1.3); Monocytes % (auto) 8.9 % (0.0-12.0); Neutrophils # (auto) 4.6 10 ^3/uL (1.6-8.6); Neutrophils % (auto) 78.8 % (37.0-80.0); Nucleated Red Blood Cells % 0.1 %; Red Blood Cells 4.44 10^6/uL (4.0-5.20); Red Cell Distribution Width 14.3 % (11.8-14.3); White Blood Cell 5.8 10^3/uL (4.4-10.8)
[2022-02-13 09:00] VITALS: BP 119/73
[2022-02-13] MEDS: FAMOTIDINE 20 MG TAB PO SCH ×2 (10:00→10:18)
[2022-02-13] MEDS: LACTULOSE 20Gm/30ML SOLN PO SCH (10:18)
[2022-02-13] MEDS: AZITHROMYCIN 500MG/ 250ML 250 ML IV SCH (10:18)
[2022-02-13] MEDS: ALPRAZolam 0.25 MG TAB PO SCH (10:18)
[2022-02-13] MEDS: ENOXAPARIN SOD 30 MG/0.3 ML SYRINGE SC SCH (10:20)
[2022-02-13 13:00] VITALS: BP 124/79
[2022-02-13] MEDS ORDERED: FAMO20TA10 PO (13:00)
[2022-02-13] MEDS ORDERED: ALBU108A5 INH (13:00)
[2022-02-13] MEDS ORDERED: AZIT250T9 PO (13:00)
[2022-02-13] MEDS ORDERED: PRED20TA2 PO (13:00)
[2022-02-13 17:00] VITALS: BP 127/84
== END 2022-02-13 17:20 | disposition home or self-care (01) | DRG 133 ==
LOC: ER 15:26 → TELE 17:55 → TELE-CENTR 02-10 21:17
PROVIDERS: ADMIT Registered Nurse; ATTEND Hospitalist
PROC: 5A09357 Assistance with Respiratory Ventilation, Less than 24 Consecutive Hours, Continuous Positive Airway Pressure (ICD-10-PCS; principal; 2022-02-09)
DX: J96.01 Acute respiratory failure with hypoxia (principal); J44.1 Chronic obstructive pulmonary disease with (acute) exacerbation; J45.902 Unspecified asthma with status asthmaticus; Z99.81 Dependence on supplemental oxygen; F41.9 Anxiety disorder, unspecified; J98.11 Atelectasis; K59.00 Constipation, unspecified; Z79.51 Long term (current) use of inhaled steroids; Z79.899 Other long term (current) drug therapy; Z82.49 Family history of ischemic heart disease and other diseases of the circulatory system; Z87.891 Personal history of nicotine dependence; Z20.822 Contact with and (suspected) exposure to COVID-19
CPT/HCPCS: 36415; 36600; 71045; 80048; 80053; 82805; 83735; 83880; 84484; 85025; 85652; 87081; 87426; 94640; 94660; 96365; 96375; 99291; G0378; J1100

== ENCOUNTER 2022-04-05 14:12 | Inpatient (IN) | payer MEDICAID ==
[~2022-04-05] VITALS: Ht 162.6 cm; Wt 62.8 kg
[~2022-04-05 14:12] MED LIST changes: +AZIT250T9 PO; -PRED10TA PO
[2022-04-05] MEDS ORDERED: IPRATROPIUM BROM 0.5 MG/2.5ML INH SOL ONE (14:16)
[2022-04-05] MEDS ORDERED: ALBUTEROL SULF 2.5 MG/0.5ML(0.5%) NEB SOLN ONE (14:16)
[2022-04-05] MEDS ORDERED: methylPREDNISolone SOD SUCC 125 MG/2 ML VL IV ONE (14:30)
[2022-04-05] MEDS ORDERED: ALBUTEROL SULF 2.5 MG/0.5ML(0.5%) NEB SOLN NEB ONE (14:30)
[2022-04-05] MEDS ORDERED: IPRATROPIUM BROM 0.5 MG/2.5ML INH SOL NEB ONE (14:30)
[2022-04-05] MEDS: MAGNESIUM SULFATE 1GM/100ML 100 ML IV SCH ×2 (15:20→18:33)
[2022-04-05] MEDS ORDERED: MAGNESIUM SULFATE 1GM/100ML 100 ML IV ONE (18:31)
[2022-04-05 18:41] LABS: Basophils # (auto) 0 10 ^3/uL (0-0.2); Basophils % (auto) 0.3 % (0.0-2.0); Eosinophils # (auto) 0 10 ^3/uL (0-0.8); Eosinophils % (auto) 0.2 % (0.0-7.0); Hematocrit 40.7 % (36.0-46.0); Hemoglobin 13.4 g/dL (12.2-16.2); Lymphocytes # (auto) 0.3 10 ^3/uL (0.4-5.4); Lymphocytes % (auto) 3.4 % (10.0-50.0); Mean Corpuscular Volume 88.1 fL (80.0-100.0); Monocytes # (auto) 0.1 10 ^3/uL (0-1.3); Monocytes % (auto) 1.1 % (0.0-12.0); Neutrophils # (auto) 7.2 10 ^3/uL (1.6-8.6); Red Blood Cells 4.62 10^6/uL (4.0-5.20); Red Cell Distribution Width 15.2 % (11.8-14.3); White Blood Cell 7.6 10^3/uL (4.4-10.8)
[2022-04-05 18:48] LABS: Albumin 3.3 g/dL (3.4-5.0); Calcium 9.2 mg/dL (8.5-10.1); Potassium 4.3 mmol/L (3.5-5.1)
[2022-04-05 18:50] LABS: BUN/Creatinine Ratio 14.5; Bilirubin, Total 0.3 mg/dL (0.2-1.0); Total Protein 6.8 g/dL (6.4-8.2)
[2022-04-05] MEDS ORDERED: DOCUSATE SOD 100 MG CAP PO PRN (19:30)
[2022-04-05] MEDS ORDERED: NITROGLYCERIN 0.4 MG SL TAB SL PRN (19:30)
[2022-04-05] MEDS ORDERED: MORPHINE SULFATE INJ 2 MG/ml SYRG IV PRN (19:30)
[2022-04-05] MEDS ORDERED: ONDANSETRON HCL 4 MG/2 ML VIAL IV PRN (19:30)
[2022-04-05] MEDS ORDERED: ACETAMINOPHEN 325 MG TAB PO PRN (19:30)
[2022-04-05 20:12] VITALS: BP 95/50
[2022-04-05] MEDS ORDERED: IPRATROPIUM BROM 0.5 MG/2.5ML INH SOL NEB SCH (20:15)
[2022-04-05] MEDS ORDERED: ALBUTEROL SULF 2.5 MG/0.5ML(0.5%) NEB SOLN NEB SCH (20:15)
[2022-04-05] MEDS: methylPREDNISolone SOD SUCC 40 MG/ML VL IV SCH (22:18)
[2022-04-05] MEDS: ALPRAZolam 0.5 MG TAB PO PRN (22:18)
[2022-04-05] MEDS: IPRATROPIUM BROM 0.5 MG/2.5ML INH SOL NEB SCH (23:04)
[2022-04-05] MEDS: ALBUTEROL SULF 2.5 MG/0.5ML(0.5%) NEB SOLN NEB SCH (23:04)
[2022-04-06] MEDS: ALBUTEROL SULF 2.5 MG/0.5ML(0.5%) NEB SOLN NEB SCH ×5 (02:09→22:22)
[2022-04-06] MEDS: IPRATROPIUM BROM 0.5 MG/2.5ML INH SOL NEB SCH ×5 (02:09→22:21)
[2022-04-06 04:32] LABS: Basophils # (auto) 0 10 ^3/uL (0-0.2); Basophils % (auto) 0.3 % (0.0-2.0); Eosinophils # (auto) 0 10 ^3/uL (0-0.8); Hematocrit 40.2 % (36.0-46.0); Lymphocytes # (auto) 0.3 10 ^3/uL (0.4-5.4); Lymphocytes % (auto) 10.5 % (10.0-50.0); Mean Corpuscular Hemoglobin 28.4 pg (28.0-32.0); Mean Corpuscular Hgb Conc. 32.4 g/dL (32.0-36.0); Mean Corpuscular Volume 87.8 fL (80.0-100.0); Monocytes # (auto) 0.1 10 ^3/uL (0-1.3); Monocytes % (auto) 2.8 % (0.0-12.0); Neutrophils # (auto) 2.8 10 ^3/uL (1.6-8.6); Neutrophils % (auto) 86.4 % (37.0-80.0); Nucleated Red Blood Cells % 0.1 %; Red Blood Cells 4.57 10^6/uL (4.0-5.20); White Blood Cell 3.3 10^3/uL (4.4-10.8)
[2022-04-06 04:54] LABS: Potassium 5.3 mmol/L (3.5-5.1)
[2022-04-06 05:04] LABS: Albumin 3.2 g/dL (3.4-5.0); BUN/Creatinine Ratio 23.3; Bilirubin, Total 0.4 mg/dL (0.2-1.0); Calcium 8.8 mg/dL (8.5-10.1); Magnesium 2.6 mg/dL (1.6-2.6); Total Protein 6.1 g/dL (6.4-8.2)
[2022-04-06] MEDS ORDERED: IPRATROPIUM BROM 0.5 MG/2.5ML INH SOL NEB SCH (06:00)
[2022-04-06] MEDS ORDERED: ALBUTEROL SULF 2.5 MG/0.5ML(0.5%) NEB SOLN NEB SCH (06:00)
[2022-04-06 09:00] VITALS: BP 117/63
[2022-04-06] MEDS ORDERED: PANTOPRAZOLE 40 MG/10 ML VIAL INJ IV SCH (10:00)
[2022-04-06] MEDS: methylPREDNISolone SOD SUCC 40 MG/ML VL IV SCH ×2 (11:20→21:08)
[2022-04-06] MEDS: ALPRAZolam 0.5 MG TAB PO PRN (11:20)
[2022-04-06 13:37] VITALS: BP 102/61
[2022-04-06 16:45] VITALS: BP 91/42
[2022-04-06] MEDS: TEMAZEPAM 15 MG CAP PO PRN ×2 (21:46→21:51)
[2022-04-06 22:00] VITALS: BP 108/64
[2022-04-07] MEDS: ALBUTEROL SULF 2.5 MG/0.5ML(0.5%) NEB SOLN NEB SCH ×6 (02:00→22:04)
[2022-04-07] MEDS: IPRATROPIUM BROM 0.5 MG/2.5ML INH SOL NEB SCH ×6 (02:01→22:04)
[2022-04-07 05:00] VITALS: BP 104/65
[2022-04-07] MEDS: HYDROcodone-ACET 5/325MG TAB PO PRN ×3 (08:19→21:40)
[2022-04-07 08:53] VITALS: BP 124/57
[2022-04-07] MEDS: BUDESONIDE (INHALATION) 0.5 MG/2 ML NEB NEB SCH ×2 (10:00→22:05)
[2022-04-07] MEDS: methylPREDNISolone SOD SUCC 40 MG/ML VL IV SCH ×3 (10:45→21:21)
[2022-04-07] MEDS: ALPRAZolam 0.5 MG TAB PO PRN (10:47)
[2022-04-07] MEDS: LACTULOSE 20Gm/30ML SOLN PO PRN (12:05)
[2022-04-07 12:23] VITALS: BP 118/62
[2022-04-07] MEDS: ACETYLCYSTEINE 10 %(100MG/ML) SOL 4ML NEB SCH ×3 (14:23→22:04)
[2022-04-07 18:02] VITALS: BP 129/78
[2022-04-07] MEDS: FAMOTIDINE 20 MG TAB PO SCH (21:21)
[2022-04-07 22:00] VITALS: BP 137/96
[2022-04-07] MEDS: TEMAZEPAM 15 MG CAP PO PRN (22:52)
[2022-04-08 01:41] LABS: Alcohol, Urine < 3.0 mg/dL (0-10); Amphetamine Screen, Urine NEGATIVE (NEGATIVE); Barbiturate Scree,Urine NEGATIVE (NEGATIVE); Benzodiazephine Screen, Urine POSITIVE (NEGATIVE); Cannabinoid Screen, Urine NEGATIVE (NEGATIVE); Cocaine Screen, Urine NEGATIVE (NEGATIVE); Opiate Scree,Urine POSITIVE (NEGATIVE); Phencyclidine Screen, Urine NEGATIVE (NEGATIVE)
[2022-04-08] MEDS: IPRATROPIUM BROM 0.5 MG/2.5ML INH SOL NEB SCH ×6 (02:16→22:06)
[2022-04-08] MEDS: ALBUTEROL SULF 2.5 MG/0.5ML(0.5%) NEB SOLN NEB SCH ×6 (02:16→22:06)
[2022-04-08] MEDS: ACETYLCYSTEINE 10 %(100MG/ML) SOL 4ML NEB SCH ×6 (02:17→22:06)
[2022-04-08] MEDS: HYDROcodone-ACET 5/325MG TAB PO PRN ×4 (04:57→22:55)
[2022-04-08] MEDS: TEMAZEPAM 15 MG CAP PO PRN ×2 (04:57→22:54)
[2022-04-08 05:00] VITALS: BP 128/68
[2022-04-08] MEDS: BUDESONIDE (INHALATION) 0.5 MG/2 ML NEB NEB SCH ×2 (07:13→22:06)
[2022-04-08 09:00] VITALS: BP 129/77
[2022-04-08] MEDS: LACTULOSE 20Gm/30ML SOLN PO PRN ×2 (09:59→23:01)
[2022-04-08] MEDS: methylPREDNISolone SOD SUCC 40 MG/ML VL IV SCH ×4 (10:00→22:55)
[2022-04-08] MEDS: ALPRAZolam 0.5 MG TAB PO PRN (10:00)
[2022-04-08] MEDS: FAMOTIDINE 20 MG TAB PO SCH ×2 (10:01→22:54)
[2022-04-08] MEDS: guaiFENesin-DM 100/10mg/5ml SYR PO PRN ×2 (12:13→17:58)
[2022-04-08 13:00] VITALS: BP 139/97
[2022-04-08 17:00] VITALS: BP 130/77
[2022-04-08 20:00] VITALS: BP 131/80
[2022-04-08 22:00] VITALS: BP 131/80
[2022-04-09] VITALS (8 sets, daily range): BP systolic 106–131; BP diastolic 64–81
[2022-04-09] MEDS: ACETYLCYSTEINE 10 %(100MG/ML) SOL 4ML NEB SCH ×7 (02:00→22:01)
[2022-04-09] MEDS: ALBUTEROL SULF 2.5 MG/0.5ML(0.5%) NEB SOLN NEB SCH ×6 (02:29→22:01)
[2022-04-09] MEDS: IPRATROPIUM BROM 0.5 MG/2.5ML INH SOL NEB SCH ×6 (02:29→22:01)
[2022-04-09] MEDS: BUDESONIDE (INHALATION) 0.5 MG/2 ML NEB NEB SCH ×2 (05:56→22:01)
[2022-04-09] MEDS: methylPREDNISolone SOD SUCC 40 MG/ML VL IV SCH ×4 (06:08→22:17)
[2022-04-09] MEDS: LACTULOSE 20Gm/30ML SOLN PO PRN ×2 (06:08→21:01)
[2022-04-09] MEDS: HYDROcodone-ACET 5/325MG TAB PO PRN ×2 (06:08→21:02)
[2022-04-09] MEDS: ALPRAZolam 0.5 MG TAB PO PRN ×2 (09:49→22:16)
[2022-04-09] MEDS: FAMOTIDINE 20 MG TAB PO SCH ×2 (09:51→22:17)
[2022-04-09] MEDS: guaiFENesin-DM 100/10mg/5ml SYR PO PRN (09:51)
[2022-04-09] MEDS: TEMAZEPAM 15 MG CAP PO PRN (23:02)
[2022-04-10] MEDS: ACETYLCYSTEINE 10 %(100MG/ML) SOL 4ML NEB SCH ×5 (02:00→18:00)
[2022-04-10] MEDS: IPRATROPIUM BROM 0.5 MG/2.5ML INH SOL NEB SCH ×5 (02:36→18:09)
[2022-04-10] MEDS: ALBUTEROL SULF 2.5 MG/0.5ML(0.5%) NEB SOLN NEB SCH ×5 (02:36→18:09)
[2022-04-10] MEDS: methylPREDNISolone SOD SUCC 40 MG/ML VL IV SCH ×3 (03:53→16:08)
[2022-04-10 05:00] VITALS: BP 123/72
[2022-04-10] MEDS: HYDROcodone-ACET 5/325MG TAB PO PRN ×3 (06:39→16:03)
[2022-04-10 08:00] VITALS: BP 121/62
[2022-04-10 08:36] LABS: Basophils # (auto) 0 10 ^3/uL (0-0.2); Eosinophils # (auto) 0 10 ^3/uL (0-0.8); Lymphocytes # (auto) 0.4 10 ^3/uL (0.4-5.4); Mean Corpuscular Volume 89.1 fL (80.0-100.0); Monocytes # (auto) 0.2 10 ^3/uL (0-1.3)
[2022-04-10 08:38] LABS: Basophils % (auto) 0.1 % (0.0-2.0); Hemoglobin 13.4 g/dL (12.2-16.2); Lymphocytes % (auto) 6.9 % (10.0-50.0); Mean Corpuscular Hemoglobin 28.5 pg (28.0-32.0); Mean Corpuscular Hgb Conc. 31.9 g/dL (32.0-36.0); Nucleated Red Blood Cells % 0.1 %; Red Blood Cells 4.71 10^6/uL (4.0-5.20); Red Cell Distribution Width 15.3 % (11.8-14.3); White Blood Cell 5.6 10^3/uL (4.4-10.8)
[2022-04-10 08:53] LABS: Calcium 8.7 mg/dL (8.5-10.1)
[2022-04-10 09:00] VITALS: BP 121/62
[2022-04-10] MEDS: FAMOTIDINE 20 MG TAB PO SCH (10:00)
[2022-04-10] MEDS ORDERED: ALBUAER3 IN (10:10)
[2022-04-10] MEDS ORDERED: IPR002IS NEB (10:10)
[2022-04-10] MEDS ORDERED: ALB5IS NEB (10:10)
[2022-04-10] MEDS: BUDESONIDE (INHALATION) 0.5 MG/2 ML NEB NEB SCH (10:21)
[2022-04-10] MEDS: ALPRAZolam 0.5 MG TAB PO PRN (11:53)
[2022-04-10] MEDS: LACTULOSE 20Gm/30ML SOLN PO PRN ×2 (11:53→18:00)
[2022-04-10 13:00] VITALS: BP 114/80
[2022-04-10] MEDS ORDERED: BUDE0.5S NEB (15:57)
[2022-04-10] MEDS ORDERED: PRED20TA2 PO (15:57)
[2022-04-10 17:00] VITALS: BP 132/80
== END 2022-04-10 18:45 | disposition home or self-care (01) | DRG 133 ==
LOC: ER 14:12 → TELE 19:32 → TELE-CENTR 04-06 08:05
PROVIDERS: ADMIT Nurse Practitioner Family; ATTEND Hospitalist
PROC: 5A0935A Assistance with Respiratory Ventilation, Less than 24 Consecutive Hours, High Flow/Velocity Cannula (ICD-10-PCS; principal; 2022-04-06)
DX: J96.21 Acute and chronic respiratory failure with hypoxia (principal); J45.902 Unspecified asthma with status asthmaticus; F41.9 Anxiety disorder, unspecified; Z20.822 Contact with and (suspected) exposure to COVID-19; K59.00 Constipation, unspecified; Z87.891 Personal history of nicotine dependence; Z82.49 Family history of ischemic heart disease and other diseases of the circulatory system
CPT/HCPCS: 36415; 71045; 80048; 80053; 80307; 83036; 83735; 85025; 85379; 87426; 87804; 94640; 94644; 96365; 96366; 96375; 99291; C9113; G0378; J2405

== ENCOUNTER 2022-04-26 19:54 | Inpatient (IN) | payer MEDICAID ==
[~2022-04-26] VITALS: Ht 162.6 cm; Wt 103.1 kg
[~2022-04-26 19:54] MED LIST changes: -ACE104IS NEB; -ALBU0.084 INH; -ALBU108A5 IN; -ALPR0.5T8 PO; -AZIT250T9 PO; -FAMO20TA10 PO; -HYDR-4798 PO
[2022-04-26] MEDS ORDERED: ALBUTEROL MEDNEB 2.5 mg/3ml NEB ONE ×2 (20:14→22:50)
[2022-04-26] MEDS ORDERED: SODIUM CHLORIDE 0.9% 1,000 ML IV ONE (20:15)
[2022-04-26] MEDS ORDERED: methylPREDNISolone SOD SUCC 125 MG/2 ML VL IV ONE (20:15)
[2022-04-26] MEDS ORDERED: FAMOTIDINE (10MG/ML) 2ML VL IV ONE (20:15)
[2022-04-26] MEDS ORDERED: IPRATROPIUM BROM 0.5 MG/2.5ML INH SOL NEB ONE ×2 (20:15→23:00)
[2022-04-26] MEDS ORDERED: ALBUTEROL SULF 2.5 MG/0.5ML(0.5%) NEB SOLN NEB ONE ×2 (20:15→23:00)
[2022-04-26] MEDS ORDERED: MAGNESIUM SULFATE 1GM/100ML 100 ML IV ONE (20:30)
[2022-04-26 21:34] LABS: Basophils # (auto) 0.1 10 ^3/uL (0-0.2); Basophils % (auto) 0.4 % (0.0-2.0); Eosinophils # (auto) 0 10 ^3/uL (0-0.8); Eosinophils % (auto) 0.1 % (0.0-7.0); Hematocrit 44.2 % (36.0-46.0); Hemoglobin 14.9 g/dL (12.2-16.2); Lymphocytes # (auto) 0.7 10 ^3/uL (0.4-5.4); Mean Corpuscular Hemoglobin 29.7 pg (28.0-32.0); Mean Corpuscular Hgb Conc. 33.6 g/dL (32.0-36.0); Mean Corpuscular Volume 88.3 fL (80.0-100.0); Monocytes # (auto) 0.6 10 ^3/uL (0-1.3); Neutrophils # (auto) 10.6 10 ^3/uL (1.6-8.6); Neutrophils % (auto) 88.5 % (37.0-80.0); Nucleated Red Blood Cells % 0.1 %; Red Blood Cells 5.01 10^6/uL (4.0-5.20); Red Cell Distribution Width 15.6 % (11.8-14.3)
[2022-04-26 21:50] LABS: BUN/Creatinine Ratio 15.4; Calcium 9.4 mg/dL (8.5-10.1); Potassium 4.4 mmol/L (3.5-5.1)
[2022-04-26 21:53] LABS: Bilirubin, Total 0.7 mg/dL (0.2-1.0); Total Protein 6.9 g/dL (6.4-8.2)
[2022-04-27] MEDS: SODIUM CHLORIDE 0.9% 1,000 ML IV SCH ×2 (00:45→18:57)
[2022-04-27] MEDS ORDERED: MAALOX PLUS or MAALOX 30 ML PO PRN (00:45)
[2022-04-27] MEDS: MORPHINE SULFATE INJ 2 MG/ml SYRG IV PRN ×3 (01:01→21:22)
[2022-04-27] MEDS: LORazepam 0.5 MG TAB PO PRN ×3 (01:46→21:21)
[2022-04-27] MEDS ORDERED: ALBUTEROL SULF 2.5 MG/0.5ML(0.5%) NEB SOLN NEB PRN ×2 (02:00→02:15)
[2022-04-27] MEDS ORDERED: methylPREDNISolone SOD SUCC 40 MG/ML VL IM ONE (02:00)
[2022-04-27] MEDS ORDERED: IPRATROPIUM BROM 0.5 MG/2.5ML INH SOL NEB PRN ×2 (02:00→02:15)
[2022-04-27] MEDS ORDERED: ALBUTEROL MEDNEB 2.5 mg/3ml NEB ONE ×5 (02:08→13:06)
[2022-04-27] MEDS ORDERED: IPRATROPIUM BROM 0.5 MG/2.5ML INH SOL ONE ×2 (02:10→02:30)
[2022-04-27] MEDS ORDERED: ALBUTEROL SULF 2.5 MG/0.5ML(0.5%) NEB SOLN NEB ONE (02:40)
[2022-04-27 02:55] VITALS: BP 141/84
[2022-04-27] MEDS: ALBUTEROL SULF 2.5 MG/0.5ML(0.5%) NEB SOLN NEB SCH ×3 (07:19→13:18)
[2022-04-27] MEDS: IPRATROPIUM BROM 0.5 MG/2.5ML INH SOL NEB SCH ×5 (07:19→22:10)
[2022-04-27 07:59] LABS: Hematocrit 40.5 % (36.0-46.0); Hemoglobin 13.7 g/dL (12.2-16.2); Mean Corpuscular Hgb Conc. 33.7 g/dL (32.0-36.0); Mean Corpuscular Volume 88.8 fL (80.0-100.0); Red Blood Cells 4.56 10^6/uL (4.0-5.20); Red Cell Distribution Width 15.1 % (11.8-14.3); White Blood Cell 8.1 10^3/uL (4.4-10.8)
[2022-04-27 08:04] LABS: Basophils % (manual) 0 (0.0-2.0); Eosinophils % (manual) 0 (0-7)
[2022-04-27 08:05] LABS: Blast Cells 0; Metamyelocytes % 0; Myelocytes % 0; Promyelocytes % 0; Reactive Lymphocytes 0
[2022-04-27 08:18] LABS: BUN/Creatinine Ratio 23.5; Calcium 8.6 mg/dL (8.5-10.1); Potassium 4.8 mmol/L (3.5-5.1)
[2022-04-27] MEDS: methylPREDNISolone SOD SUCC 40 MG/ML VL IV SCH ×2 (09:25→22:17)
[2022-04-27 13:18] LABS: Band Neutrophils % (manual) 20; Lymphocytes % (manual) 2 (10.0-50.0); Monocytes % (manual) 1 (0-12)
[2022-04-27] MEDS ORDERED: ALBUTEROL MEDNEB 2.5 mg/3ml NEB NEB PRN (16:15)
[2022-04-27] MEDS: ALBUTEROL MEDNEB 2.5 mg/3ml NEB NEB SCH ×2 (18:55→22:11)
[2022-04-27] MEDS: ONDANSETRON HCL 4 MG/2 ML VIAL IV PRN (21:21)
[2022-04-27] MEDS: ACETAMINOPHEN 325 MG TAB PO PRN (22:18)
[2022-04-28] MEDS: HYDROcodone-ACET 5/325MG TAB PO PRN ×3 (00:33→17:47)
[2022-04-28] MEDS: ALBUTEROL MEDNEB 2.5 mg/3ml NEB NEB SCH ×6 (02:28→22:53)
[2022-04-28] MEDS: IPRATROPIUM BROM 0.5 MG/2.5ML INH SOL NEB SCH ×6 (02:28→22:53)
[2022-04-28] MEDS: MORPHINE SULFATE INJ 2 MG/ml SYRG IV PRN (06:21)
[2022-04-28] MEDS: ONDANSETRON HCL 4 MG/2 ML VIAL IV PRN (06:21)
[2022-04-28] MEDS: LORazepam 0.5 MG TAB PO PRN ×2 (07:22→18:11)
[2022-04-28] MEDS: methylPREDNISolone SOD SUCC 40 MG/ML VL IV SCH ×2 (09:55→21:20)
[2022-04-28] MEDS: SODIUM CHLORIDE 0.9% 1,000 ML IV SCH (10:05)
[2022-04-28] MEDS ORDERED: IOHEXOL 350 MG/ML 100ML IJ ONE ×2 (11:53→12:20)
[2022-04-28] MEDS: ACETAMINOPHEN 325 MG TAB PO PRN ×2 (15:25→21:49)
[2022-04-28 17:25] VITALS: BP 117/70
[2022-04-28 17:55] VITALS: BP 117/70
[2022-04-28] MEDS ORDERED: LACTULOSE 20Gm/30ML SOLN PO ONE (19:00)
[2022-04-28 22:06] VITALS: BP 101/54
[2022-04-28] MEDS: TEMAZEPAM 15 MG CAP PO PRN (22:54)
[2022-04-29] MEDS ORDERED: ALBUTEROL MEDNEB 2.5 mg/3ml NEB NEB SCH (01:00)
[2022-04-29] MEDS: ALBUTEROL MEDNEB 2.5 mg/3ml NEB NEB SCH ×6 (02:33→22:09)
[2022-04-29] MEDS: IPRATROPIUM BROM 0.5 MG/2.5ML INH SOL NEB SCH ×6 (02:34→22:09)
[2022-04-29 05:00] VITALS: BP 117/78
[2022-04-29] MEDS: ACETAMINOPHEN 325 MG TAB PO PRN ×2 (06:30→21:07)
[2022-04-29 08:15] VITALS: BP 119/76
[2022-04-29] MEDS: LORazepam 0.5 MG TAB PO PRN ×2 (08:22→19:48)
[2022-04-29 09:00] VITALS: BP 119/76
[2022-04-29] MEDS: methylPREDNISolone SOD SUCC 40 MG/ML VL IV SCH (09:46)
[2022-04-29] MEDS: MORPHINE SULFATE INJ 2 MG/ml SYRG IV PRN ×2 (09:58→14:09)
[2022-04-29 13:00] VITALS: BP 119/76
[2022-04-29] MEDS: methylPREDNISolone SOD SUCC 125 MG/2 ML VL IV SCH ×2 (14:20→23:37)
[2022-04-29 17:00] VITALS: BP_SYST 118; BP_SYST 161; BP_DIAS 71; BP_DIAS 96
[2022-04-29] MEDS ORDERED: MILK OF MAGNESIA 30ML SUSP PO ONE (17:15)
[2022-04-29] MEDS: cefTRIAXone 1GM/50ML D5W 50 ML IV SCH (18:30)
[2022-04-29] MEDS: AZITHROMYCIN 500MG/ 250ML 250 ML IV SCH (18:30)
[2022-04-29] MEDS: TEMAZEPAM 15 MG CAP PO PRN (21:06)
[2022-04-29 21:54] VITALS: BP 151/79
[2022-04-29] MEDS ORDERED: LACTULOSE 20Gm/30ML SOLN PO ONE (22:45)
[2022-04-30] MEDS: IPRATROPIUM BROM 0.5 MG/2.5ML INH SOL NEB SCH ×6 (02:17→21:52)
[2022-04-30] MEDS: ALBUTEROL MEDNEB 2.5 mg/3ml NEB NEB SCH ×6 (02:18→21:52)
[2022-04-30 03:01] VITALS: BP 151/79
[2022-04-30 05:00] VITALS: BP 116/69
[2022-04-30] MEDS: methylPREDNISolone SOD SUCC 125 MG/2 ML VL IV SCH ×3 (06:18→21:19)
[2022-04-30] MEDS: MORPHINE SULFATE INJ 2 MG/ml SYRG IV PRN ×3 (06:20→20:38)
[2022-04-30 08:10] LABS: Basophils # (auto) 0 10 ^3/uL (0-0.2); Eosinophils # (auto) 0 10 ^3/uL (0-0.8); Hematocrit 36.5 % (36.0-46.0); Hemoglobin 12.3 g/dL (12.2-16.2); Lymphocytes # (auto) 0.4 10 ^3/uL (0.4-5.4); Lymphocytes % (auto) 5.8 % (10.0-50.0); Mean Corpuscular Hemoglobin 30.1 pg (28.0-32.0); Mean Corpuscular Hgb Conc. 33.7 g/dL (32.0-36.0); Mean Corpuscular Volume 89.3 fL (80.0-100.0); Monocytes # (auto) 0.3 10 ^3/uL (0-1.3); Monocytes % (auto) 3.8 % (0.0-12.0); Neutrophils # (auto) 6.5 10 ^3/uL (1.6-8.6); Neutrophils % (auto) 90.4 % (37.0-80.0); Red Blood Cells 4.09 10^6/uL (4.0-5.20); Red Cell Distribution Width 14.5 % (11.8-14.3); White Blood Cell 7.2 10^3/uL (4.4-10.8)
[2022-04-30 08:20] VITALS: BP 118/76
[2022-04-30 08:27] LABS: Calcium 8.5 mg/dL (8.5-10.1); Potassium 4.8 mmol/L (3.5-5.1)
[2022-04-30 08:29] LABS: BUN/Creatinine Ratio 25.9
[2022-04-30 09:02] VITALS: BP 118/76
[2022-04-30] MEDS: cefTRIAXone 1GM/50ML D5W 50 ML IV SCH (09:12)
[2022-04-30] MEDS: LORazepam 0.5 MG TAB PO PRN ×2 (09:12→15:32)
[2022-04-30] MEDS: AZITHROMYCIN 500MG/ 250ML 250 ML IV SCH (10:38)
[2022-04-30 13:00] VITALS: BP 112/75
[2022-04-30] MEDS: TEMAZEPAM 15 MG CAP PO PRN (21:20)
[2022-04-30] MEDS: DOCUSATE SOD 100 MG CAP PO PRN (21:20)
[2022-04-30 21:50] VITALS: BP 124/79
[2022-05-01] MEDS: IPRATROPIUM BROM 0.5 MG/2.5ML INH SOL NEB SCH ×6 (02:43→21:47)
[2022-05-01] MEDS: ALBUTEROL MEDNEB 2.5 mg/3ml NEB NEB SCH ×6 (02:43→21:46)
[2022-05-01] MEDS: MORPHINE SULFATE INJ 2 MG/ml SYRG IV PRN ×3 (03:38→18:38)
[2022-05-01 05:00] VITALS: BP 101/55
[2022-05-01] MEDS: methylPREDNISolone SOD SUCC 125 MG/2 ML VL IV SCH ×2 (05:12→22:14)
[2022-05-01 08:00] VITALS: BP 126/81
[2022-05-01 08:10] VITALS: BP 116/53
[2022-05-01] MEDS: LORazepam 0.5 MG TAB PO PRN ×2 (08:22→20:00)
[2022-05-01] MEDS: cefTRIAXone 1GM/50ML D5W 50 ML IV SCH (09:02)
[2022-05-01] MEDS: AZITHROMYCIN 500MG/ 250ML 250 ML IV SCH (10:45)
[2022-05-01] MEDS ORDERED: LACTULOSE 20Gm/30ML SOLN PO ONE (11:45)
[2022-05-01 12:00] VITALS: BP 108/66
[2022-05-01 16:00] VITALS: BP 115/78
[2022-05-01] MEDS: DOCUSATE SOD 100 MG CAP PO PRN (22:14)
[2022-05-01] MEDS: TEMAZEPAM 15 MG CAP PO PRN (22:15)
[2022-05-01] MEDS: HYDROcodone-ACET 5/325MG TAB PO PRN (22:31)
[2022-05-01 23:16] VITALS: BP 106/68
[2022-05-02] MEDS: IPRATROPIUM BROM 0.5 MG/2.5ML INH SOL NEB SCH ×4 (02:32→14:56)
[2022-05-02] MEDS: ALBUTEROL MEDNEB 2.5 mg/3ml NEB NEB SCH ×4 (02:32→14:56)
[2022-05-02 05:35] VITALS: BP 111/60
[2022-05-02] MEDS: MORPHINE SULFATE INJ 2 MG/ml SYRG IV PRN ×2 (05:48→13:01)
[2022-05-02 06:16] LABS: Basophils # (auto) 0 10 ^3/uL (0-0.2); Eosinophils # (auto) 0 10 ^3/uL (0-0.8); Eosinophils % (auto) 0.1 % (0.0-7.0); Hematocrit 37.4 % (36.0-46.0); Hemoglobin 12.5 g/dL (12.2-16.2); Lymphocytes # (auto) 0.4 10 ^3/uL (0.4-5.4); Lymphocytes % (auto) 7.3 % (10.0-50.0); Mean Corpuscular Hemoglobin 29.9 pg (28.0-32.0); Mean Corpuscular Hgb Conc. 33.4 g/dL (32.0-36.0); Mean Corpuscular Volume 89.6 fL (80.0-100.0); Monocytes # (auto) 0.2 10 ^3/uL (0-1.3); Monocytes % (auto) 3.7 % (0.0-12.0); Neutrophils # (auto) 5.4 10 ^3/uL (1.6-8.6); Neutrophils % (auto) 88.9 % (37.0-80.0); Nucleated Red Blood Cells % 0.1 %; Red Blood Cells 4.17 10^6/uL (4.0-5.20); Red Cell Distribution Width 14.6 % (11.8-14.3)
[2022-05-02 06:24] LABS: Calcium 8.8 mg/dL (8.5-10.1); Potassium 4.6 mmol/L (3.5-5.1)
[2022-05-02 06:27] LABS: BUN/Creatinine Ratio 31.7
[2022-05-02 09:00] VITALS: BP 123/67
[2022-05-02] MEDS: cefTRIAXone 1GM/50ML D5W 50 ML IV SCH ×2 (09:00→09:18)
[2022-05-02] MEDS: methylPREDNISolone SOD SUCC 125 MG/2 ML VL IV SCH (09:18)
[2022-05-02] MEDS: LORazepam 0.5 MG TAB PO PRN (09:18)
[2022-05-02] MEDS: DOCUSATE SOD 100 MG CAP PO PRN (09:18)
[2022-05-02] MEDS ORDERED: AZITHROMYCIN 250 MG TAB PO SCH (10:00)
[2022-05-02] MEDS ORDERED: PRED20TA2 PO ×2 (11:50→11:52)
[2022-05-02] MEDS ORDERED: AMOX500T86 PO ×2 (11:50→11:53)
[2022-05-02 13:00] VITALS: BP 140/86
[2022-05-02 13:01] VITALS: BP 140/86
[2022-05-02] MEDS: HYDROcodone-ACET 5/325MG TAB PO PRN (17:43)
== END 2022-05-02 18:43 | disposition home or self-care (01) | DRG 720 ==
LOC: ER 19:54 → TELE 04-27 00:45 → TELE-WESTW 04-28 16:55
PROVIDERS: ADMIT Hospitalist; ATTEND Internal Medicine Pulmonary Disease
PROC: 5A09357 Assistance with Respiratory Ventilation, Less than 24 Consecutive Hours, Continuous Positive Airway Pressure (ICD-10-PCS; principal; 2022-04-27)
DX: A41.9 Sepsis, unspecified organism (principal); J96.21 Acute and chronic respiratory failure with hypoxia; J18.1 Lobar pneumonia, unspecified organism; J45.902 Unspecified asthma with status asthmaticus; K59.00 Constipation, unspecified; F41.9 Anxiety disorder, unspecified; Z20.822 Contact with and (suspected) exposure to COVID-19; Z82.49 Family history of ischemic heart disease and other diseases of the circulatory system; Z87.891 Personal history of nicotine dependence
CPT/HCPCS: 36415; 36600; 71045; 71275; 80048; 80053; 81025; 82805; 84484; 85007; 85025; 85027; 87426; 93005; 94640; 94660; 96365; 96375; 99291; G0378; J0696; J2405; J3490

== ENCOUNTER 2022-05-22 15:36 | Inpatient (IN) | payer MEDICAID ==
[~2022-05-22] VITALS: Ht 162.6 cm; Wt 55.2 kg
[~2022-05-22 15:36] MED LIST changes: +AMOX500T86 PO
[2022-05-22] MEDS ORDERED: methylPREDNISolone SOD SUCC 125 MG/2 ML VL IV ONE (15:45)
[2022-05-22] MEDS ORDERED: ALBUTEROL SULF 2.5 MG/0.5ML(0.5%) NEB SOLN HHN ONE ×2 (15:45→18:00)
[2022-05-22] MEDS ORDERED: IPRATROPIUM BROM 0.5 MG/2.5ML INH SOL HHN ONE ×2 (15:45→18:00)
[2022-05-22] MEDS ORDERED: ALBUTEROL MEDNEB 2.5 mg/3ml NEB ONE ×3 (16:06→21:59)
[2022-05-22 16:29] LABS: Basophils # (auto) 0 10 ^3/uL (0-0.2); Basophils % (auto) 0.5 % (0.0-2.0); Eosinophils # (auto) 0.1 10 ^3/uL (0-0.8); Eosinophils % (auto) 1.2 % (0.0-7.0); Hematocrit 41.3 % (36.0-46.0); Hemoglobin 13.6 g/dL (12.2-16.2); Lymphocytes # (auto) 0.9 10 ^3/uL (0.4-5.4); Lymphocytes % (auto) 13.5 % (10.0-50.0); Mean Corpuscular Hemoglobin 29.7 pg (28.0-32.0); Mean Corpuscular Hgb Conc. 32.9 g/dL (32.0-36.0); Mean Corpuscular Volume 90.3 fL (80.0-100.0); Monocytes # (auto) 0.4 10 ^3/uL (0-1.3); Monocytes % (auto) 6.9 % (0.0-12.0); Neutrophils # (auto) 5.1 10 ^3/uL (1.6-8.6); Neutrophils % (auto) 77.9 % (37.0-80.0); Nucleated Red Blood Cells % 0.1 %; Red Blood Cells 4.57 10^6/uL (4.0-5.20); Red Cell Distribution Width 15.1 % (11.8-14.3); White Blood Cell 6.5 10^3/uL (4.4-10.8)
[2022-05-22 16:40] LABS: Albumin 3.5 g/dL (3.4-5.0); Calcium 8.4 mg/dL (8.5-10.1); Potassium 4.1 mmol/L (3.5-5.1)
[2022-05-22 16:44] LABS: BUN/Creatinine Ratio 12.3; Bilirubin, Total 0.2 mg/dL (0.2-1.0); Total Protein 6.4 g/dL (6.4-8.2)
[2022-05-22] MEDS ORDERED: ONDANSETRON HCL 4 MG/2 ML VIAL IV PRN (19:45)
[2022-05-22] MEDS ORDERED: ALPRAZolam 0.5 MG TAB PO PRN (19:45)
[2022-05-22] MEDS ORDERED: ACETAMINOPHEN 325 MG TAB PO PRN (19:45)
[2022-05-22] MEDS: MAGNESIUM SULFATE 1GM/100ML 100 ML IV SCH ×2 (20:35→21:45)
[2022-05-22 20:48] VITALS: BP 134/79
[2022-05-22] MEDS: ALBUTEROL SULF 2.5 MG/0.5ML(0.5%) NEB SOLN NEB SCH (22:00)
[2022-05-22] MEDS ORDERED: IPRATROPIUM BROM 0.5 MG/2.5ML INH SOL NEB SCH (22:00)
[2022-05-22] MEDS ORDERED: ALBUTEROL SULF 2.5 MG/0.5ML(0.5%) NEB SOLN NEB SCH (22:00)
[2022-05-22] MEDS: IPRATROPIUM BROM 0.5 MG/2.5ML INH SOL NEB SCH (22:06)
[2022-05-23] VITALS (8 sets, daily range): BP systolic 106–138; BP diastolic 62–75
[2022-05-23] MEDS ORDERED: ALBUTEROL MEDNEB 2.5 mg/3ml NEB ONE ×6 (02:25→22:04)
[2022-05-23] MEDS: IPRATROPIUM BROM 0.5 MG/2.5ML INH SOL NEB SCH ×6 (02:43→22:18)
[2022-05-23] MEDS: ALBUTEROL SULF 2.5 MG/0.5ML(0.5%) NEB SOLN NEB SCH ×6 (02:43→22:18)
[2022-05-23 05:49] LABS: Basophils # (auto) 0 10 ^3/uL (0-0.2); Basophils % (auto) 0.2 % (0.0-2.0); Eosinophils # (auto) 0 10 ^3/uL (0-0.8); Hematocrit 38.2 % (36.0-46.0); Hemoglobin 12.4 g/dL (12.2-16.2); Lymphocytes # (auto) 0.5 10 ^3/uL (0.4-5.4); Lymphocytes % (auto) 15.1 % (10.0-50.0); Mean Corpuscular Hemoglobin 29.2 pg (28.0-32.0); Mean Corpuscular Hgb Conc. 32.5 g/dL (32.0-36.0); Mean Corpuscular Volume 89.7 fL (80.0-100.0); Monocytes # (auto) 0.2 10 ^3/uL (0-1.3); Monocytes % (auto) 6.2 % (0.0-12.0); Neutrophils # (auto) 2.6 10 ^3/uL (1.6-8.6); Neutrophils % (auto) 78.5 % (37.0-80.0); Nucleated Red Blood Cells % 0.1 %; Red Blood Cells 4.26 10^6/uL (4.0-5.20); Red Cell Distribution Width 15.2 % (11.8-14.3); White Blood Cell 3.3 10^3/uL (4.4-10.8)
[2022-05-23 06:07] LABS: Albumin 3.2 g/dL (3.4-5.0); Calcium 8.4 mg/dL (8.5-10.1)
[2022-05-23 06:12] LABS: BUN/Creatinine Ratio 12.5; Bilirubin, Total 0.3 mg/dL (0.2-1.0); Total Protein 6.1 g/dL (6.4-8.2)
[2022-05-23] MEDS: DOCUSATE SOD 100 MG CAP PO PRN ×2 (08:15→20:59)
[2022-05-23] MEDS: HYDROcodone-ACET 5/325MG TAB PO PRN ×2 (08:15→18:54)
[2022-05-23] MEDS ORDERED: PANTOPRAZOLE 40 MG/10 ML VIAL INJ IV SCH (10:00)
[2022-05-23] MEDS ORDERED: LACTULOSE 20Gm/30ML SOLN PO ONE (10:45)
[2022-05-23] MEDS: methylPREDNISolone SOD SUCC 40 MG/ML VL IV SCH ×2 (11:15→18:54)
[2022-05-23] MEDS: ALPRAZolam 0.5 MG TAB PO PRN ×2 (11:15→18:54)
[2022-05-24] VITALS (7 sets, daily range): BP systolic 105–128; BP diastolic 60–87
[2022-05-24] MEDS: methylPREDNISolone SOD SUCC 40 MG/ML VL IV SCH ×5 (00:17→23:16)
[2022-05-24] MEDS ORDERED: ALBUTEROL MEDNEB 2.5 mg/3ml NEB ONE ×6 (01:57→21:44)
[2022-05-24] MEDS: ALBUTEROL SULF 2.5 MG/0.5ML(0.5%) NEB SOLN NEB SCH ×6 (02:02→21:44)
[2022-05-24] MEDS: IPRATROPIUM BROM 0.5 MG/2.5ML INH SOL NEB SCH ×6 (02:02→21:44)
[2022-05-24 05:04] LABS: Basophils # (auto) 0 10 ^3/uL (0-0.2); Basophils % (auto) 0.1 % (0.0-2.0); Eosinophils # (auto) 0 10 ^3/uL (0-0.8); Hematocrit 38.3 % (36.0-46.0); Hemoglobin 12.3 g/dL (12.2-16.2); Lymphocytes # (auto) 0.3 10 ^3/uL (0.4-5.4); Lymphocytes % (auto) 7.5 % (10.0-50.0); Mean Corpuscular Volume 90.4 fL (80.0-100.0); Monocytes # (auto) 0.1 10 ^3/uL (0-1.3); Monocytes % (auto) 2.3 % (0.0-12.0); Neutrophils # (auto) 4.1 10 ^3/uL (1.6-8.6); Neutrophils % (auto) 90.1 % (37.0-80.0); Nucleated Red Blood Cells % 0.1 %; Red Blood Cells 4.24 10^6/uL (4.0-5.20); White Blood Cell 4.6 10^3/uL (4.4-10.8)
[2022-05-24 05:22] LABS: Calcium 8.5 mg/dL (8.5-10.1); Potassium 4.9 mmol/L (3.5-5.1)
[2022-05-24 05:25] LABS: BUN/Creatinine Ratio 11.9
[2022-05-24] MEDS: HYDROcodone-ACET 5/325MG TAB PO PRN ×4 (05:45→21:34)
[2022-05-24] MEDS: ALPRAZolam 0.5 MG TAB PO PRN ×3 (05:45→23:16)
[2022-05-24] MEDS: LACTULOSE 20Gm/30ML SOLN PO SCH (09:34)
[2022-05-24] MEDS: LACTULOSE 20Gm/30ML SOLN PO PRN ×2 (12:08→21:35)
[2022-05-25] MEDS ORDERED: ALBUTEROL MEDNEB 2.5 mg/3ml NEB ONE ×6 (02:09→21:29)
[2022-05-25] MEDS: IPRATROPIUM BROM 0.5 MG/2.5ML INH SOL NEB SCH ×6 (02:10→21:32)
[2022-05-25] MEDS: ALBUTEROL SULF 2.5 MG/0.5ML(0.5%) NEB SOLN NEB SCH ×6 (02:10→21:32)
[2022-05-25 05:00] VITALS: BP_SYST 100; BP_SYST 86; BP_DIAS 58; BP_DIAS 69
[2022-05-25] MEDS: methylPREDNISolone SOD SUCC 40 MG/ML VL IV SCH ×4 (05:10→23:31)
[2022-05-25 08:00] VITALS: BP 121/81
[2022-05-25] MEDS: HYDROcodone-ACET 5/325MG TAB PO PRN ×2 (08:15→21:36)
[2022-05-25] MEDS: LACTULOSE 20Gm/30ML SOLN PO SCH (08:15)
[2022-05-25 09:06] VITALS: BP 121/81
[2022-05-25] MEDS: ALPRAZolam 0.5 MG TAB PO PRN ×2 (10:17→18:51)
[2022-05-25 12:52] VITALS: BP 112/71
[2022-05-25 16:32] VITALS: BP 123/79
[2022-05-25] MEDS: LACTULOSE 20Gm/30ML SOLN PO PRN (21:37)
[2022-05-25 22:01] VITALS: BP 115/65
[2022-05-26] MEDS ORDERED: ALBUTEROL MEDNEB 2.5 mg/3ml NEB ONE ×4 (01:38→13:51)
[2022-05-26] MEDS: ALBUTEROL SULF 2.5 MG/0.5ML(0.5%) NEB SOLN NEB SCH ×4 (01:39→14:15)
[2022-05-26] MEDS: IPRATROPIUM BROM 0.5 MG/2.5ML INH SOL NEB SCH ×4 (01:39→14:16)
[2022-05-26 02:33] VITALS: BP 115/65
[2022-05-26 05:00] VITALS: BP 116/63
[2022-05-26 05:35] LABS: BUN/Creatinine Ratio 14.7; Basophils # (auto) 0 10 ^3/uL (0-0.2); Basophils % (auto) 0.1 % (0.0-2.0); Eosinophils # (auto) 0 10 ^3/uL (0-0.8); Hematocrit 37.6 % (36.0-46.0); Hemoglobin 12.3 g/dL (12.2-16.2); Lymphocytes # (auto) 0.4 10 ^3/uL (0.4-5.4); Lymphocytes % (auto) 7.7 % (10.0-50.0); Mean Corpuscular Hemoglobin 29.9 pg (28.0-32.0); Mean Corpuscular Hgb Conc. 32.8 g/dL (32.0-36.0); Mean Corpuscular Volume 91.3 fL (80.0-100.0); Monocytes # (auto) 0.3 10 ^3/uL (0-1.3); Monocytes % (auto) 5.8 % (0.0-12.0); Neutrophils # (auto) 4.8 10 ^3/uL (1.6-8.6); Neutrophils % (auto) 86.4 % (37.0-80.0); Potassium 4.8 mmol/L (3.5-5.1); Red Blood Cells 4.12 10^6/uL (4.0-5.20); Red Cell Distribution Width 14.8 % (11.8-14.3); White Blood Cell 5.6 10^3/uL (4.4-10.8)
[2022-05-26] MEDS: methylPREDNISolone SOD SUCC 40 MG/ML VL IV SCH ×2 (05:51→11:57)
[2022-05-26] MEDS: HYDROcodone-ACET 5/325MG TAB PO PRN (05:52)
[2022-05-26 08:00] VITALS: BP 132/79
[2022-05-26] MEDS: LACTULOSE 20Gm/30ML SOLN PO SCH (08:53)
[2022-05-26] MEDS: ALPRAZolam 0.5 MG TAB PO PRN (08:54)
[2022-05-26 09:09] VITALS: BP 132/79
[2022-05-26] MEDS ORDERED: ALBU108A5 INH (10:44)
[2022-05-26] MEDS ORDERED: ALB5IS NEB (10:44)
[2022-05-26] MEDS ORDERED: PRED20TA2 PO (10:44)
[2022-05-26 12:48] VITALS: BP 106/61
[2022-05-26 14:00] VITALS: BP 106/61
== END 2022-05-26 16:20 | disposition home or self-care (01) | DRG 141 ==
LOC: ER 15:36 → OVERFLOW 19:46 → EAST 23:30
PROVIDERS: ADMIT Nurse Practitioner Family; ATTEND Internal Medicine Pulmonary Disease
DX: J45.902 Unspecified asthma with status asthmaticus (principal); J96.11 Chronic respiratory failure with hypoxia; F41.9 Anxiety disorder, unspecified; Z82.49 Family history of ischemic heart disease and other diseases of the circulatory system; Z87.891 Personal history of nicotine dependence; Z20.822 Contact with and (suspected) exposure to COVID-19
CPT/HCPCS: 36415; 71046; 80048; 80053; 85025; 87081; 87426; 94640; 94644; 96365; 96366; 96375; C9113; G0378

== ENCOUNTER 2025-02-25 21:41 | Inpatient (IN) | payer MEDICAID, OTHER ==
[~2025-02-25] VITALS: Ht 165.1 cm; Wt 67.5 kg
[~2025-02-25 21:41] MED LIST changes: -AMOX500T86 PO
[2025-02-25] MEDS ORDERED: diphenhydrAMINE HCL 50 MG/1 ML VL IV ONE (22:15)
--- NOTE | 2025-02-25 22:17 | ED.PDOC ---
GI ASSESSMENT HPI Comments 44 year old female presents to the ED with a chief complaint of hematemesis onset today. Patient states consumes ETOH daily, experiences nausea/vomiting frequently. She has been drinking ETOH today, noticed blood in emesis, diffused abdominal pain, came to ED. Denies fever, chills, diarrhea, headache, dizziness, headache, numbness/tingling. No other symptoms or modifying factors present at this time. Chief Complaint: Nausea/Vomiting Time Seen by MD: 22:14 Primary Care Provider: HARMONY Quintanilla Notes: Medications, Allergies Allergies: Coded Allergies: NO KNOWN ALLERGIES (Unverified , 09/18/19) Home Meds Active Scripts Prednisone (Prednisone) 20 Mg Tab, 20 MG PO BID for 5 Days, #10 TAB Prov:CAYETANO MCCARTHY MD 05/26/22 Albuterol Sulfate (Ventolin) 2.5 Mg/0.5 Ml Nb, 2.5 MG NEB Q6HPRN for 90 Days, #1 20 DOSE Prov:CAYETANO MCCARTHY MD 05/26/22 Albuterol Sulfate (Albuterol Sulfate Hfa) 108 Mcg/Act Aer, 2 PUFF INH Q6HPRN PRN for SHORTNESS OF BREATH for 90 Days, #1 AER Prov:CAYETANO MCCARTHY MD 05/26/22 Budesonide (Inhalation) (Budesonide) 0.5 Mg/2 Ml Aleena, 1 VIAL NEB BID, #30 VIAL Prov:TITO MENDOSA MD 04/10/22 Albuterol Sulfate (VENTOLIN MDI) 90 Mcg Ih, 90 MCG IN Q6HPRN PRN for 30 Days, #1 INHALER 1 Refill Prov:CAYETANO MCCARTHY MD 04/10/22 Ipratropium [place] (Ipratropium [place]) 0.02 % Huyen, 0.5 MG NEB Q6HPRN for 60 Days, #120 DOSE Prov:CAYETANO MCCARTHY MD 04/10/22 Budesonide (Inhalation) (Budesonide) 0.5 Mg/2 Ml Aleena, 0.5 MG IN BID for 30 Days, #1 ML Prov:HUANG REYNA AIR ANALYST 01/25/22 Reported Medications Alprazolam (Xanax) 1 Mg Tab, 0.5 MG PO PRN, #60 TAB 01/23/22 Mepolizumab (Nucala) Unknown Strength Inj, SC 09/17/21 Information Source: Patient Mode of Arrival: Ambulatory Timing: Hours Duration: Since onset Prehospital treatment: None Quality: Sharp Vomitus: Bright Red Bood Severity: Moderate Recent: Ingestion of ETOH Recent Hx of: None Pain Location: Diffuse Modifying Factors: Nothing Associated sign and symptoms: Nausea, Vomiting, Hematemesis, Abdominal Pain Past Medical History PAST MEDICAL HISTORY: Anxiety, Asthma Surgical History: INDUSTRIAL CONTROLLER History: No Pertinent INDUSTRIAL CONTROLLER History Family History Family History: Reviewed,noncontributory to illness Social History Smoker: Quit Less Than 1 Year, Secondhand Alcohol: Heavy Drugs: Denies Drug Use Lives In: Home Constitutional: denies: chills, diaphoresis, fatigue, fever, malaise, sweats, weakness, others EENTM: denies: blurred vision, double vision, ear bleeding, ear discharge, ear drainage, ear pain, ear ringing, eye pain, eye redness, hearing loss, mouth pain, mouth swelling, nasal discharge, nose bleeding, nose congestion, nose pain, photophobia, tearing, throat pain, throat swelling, voice changes, others Respiratory: denies: cough, hemoptysis, orthopnea, SOB at rest, shortness of breath, SOB with excertion, stridor, wheezing, others Cardiovascular: denies: chest pain, dizzy spells, diaphoresis, Dyspnea on exer tion, edema, irregular heart beat, left arm pain, lightheadedness, palpitations, PND, syncope, others Gastrointestinal: reports: abdominal pain, hematemesis, nausea, vomiting; denies: abdomen distended, blood streaked bowels, constipated, diarrhea, dysphagia, difficulty swallowing, melena, poor appetite, poor fluid intake, rectal bleeding, rectal pain, others Genitourinary: denies: abnormal vagina bleeding, burning, dyspareunia, dysuria, flank pain, frequency, hematuria, incontinence, pain, , vagina discharge, urgency, others Neurological: denies: dizziness, fainting, headache, left sided numbness, left sided weakness, numbness, paresthesia, pre-existing deficit, right sided numbness, right sided weakness, seizure, speech problems, tingling, tremors, weakness, others Musculoskeletal: denies: back pain, gout, joint pain, joint swelling, muscle pain, muscle stiffness, neck pain, others Integumetry: denies: bruises, change in color, change in hair/nails, dryness, laceration, lesions, lumps, rash, wounds, others Allergic/Immunocompromised: denies: Difficulty Healing, Frequent Infections, Hives, Itching, others Hematologic/Lymphatic: denies: anemia, blood clots, easy bleeding, easy bruising, swollen glands, others Endocrine: denies: excessive hunger, excessive sweating, excessive thirst, excessive urination, flushing, intolerance to cold, intolerance to heat, unexplained weight gain, unexplained weight loss, others Psychiatric: denies: anxiety, bipolar disorder, depression, hopeless, panic disorder, schizophrenia, sleepless, suicidal, others All Other Systems: Reviewed and Negative Physical Exam General Appearance: Normal HEENT: Normal ENT Inspection, Pharynx Normal, TMs Normal Neck: Full Range of Motion, Non-Tender, Normal, Normal Inspection Respiratory: Chest Non-Tender, Lungs Clear, No Accessory Muscle Use, No Respiratory Distress, Normal Breath Sounds Cardiovascular: No Edema, No JVD, No Murmur, No Gallop, Normal Peripheral Pulses, Regular Rate/Rhythm Breast Exam: Deferred Gastrointestinal: No Organomegaly, Non Tender, No Pulsatile Mass, Normal Bowel Sounds, Soft Genitalia: Deferred Pelvic: Deferred Rectal: Deferred Extremities: No calf tenderness, Normal capillary refill, Normal inspection, Normal range of motion, Non-tender, No pedal edema Musculoskeletal : Apperance: Normal Neurologic: Alert, glass silverer II-XII nml as Tested, No Motor Deficits, Normal Affect, Normal Mood, No Sensory Deficits Cerebellar Function: Normal Reflexes: Normal Skin: Dry, Normal Color, Warm Lymphatic: No Adenopathy Was a procedure done? Was a procedure done?: No GI differential Dx Differential Diagnosis: Appendicitis, Threatened , Abruptio placentae, Angina/NH, Bowel Obstruction, Cholangitis, Cholecystitis, Constipation, Gastritis/PUD, Gastroenteritis, GI hemorrhage, Trauma intraabdominal, Dehydration, Electrolyte Imbalance, Food Poisoning, Other X-Ray, Labs, Meds, VS Vital Signs Date Time Temp Pulse Resp B/P (MAP) Pulse Ox O2 Delivery O2 Flow Rate FiO2 02/25/25 21:48 97.1 105 18 151/112 97 97.1 Lab Test 02/25/25 22:22 Range/Units White Blood Count 4.3 L 4.4-10.8 10^3/uL Red Blood Count 4.22 4.0-5.20 10^6/uL Hemoglobin 15.0 12.2-16.2 g/dL Hematocrit 43.0 36.0-46.0 % Mean Corpuscular Volume 101.9 H 80.0-100.0 fL Mean Corpuscular Hemoglobin 35.5 H 28.0-32.0 pg Mean Corpuscular Hemoglobin Concent 34.8 32.0-36.0 g/dL Red Cell Distribution Width 14.9 H 11.8-14.3 % Platelet Count 181 140-450 10^3/uL Mean Platelet Volume 7.9 6.9-10.8 fL Neutrophils (%) (Auto) 70.7 37.0-80.0 % Lymphocytes (%) (Auto) 19.1 10.0-50.0 % Monocytes (%) (Auto) 8.8 0.0-12.0 % Eosinophils (%) (Auto) 0.2 0.0-7.0 % Basophils (%) (Auto) 1.2 0.0-2.0 % Neutrophils # (Auto) 3.0 1.6-8.6 10 ^3/uL Lymphocytes # (Auto) 0.8 0.4-5.4 10 ^3/uL Monocytes # (Auto) 0.4 0-1.3 10 ^3/uL Eosinophils # (Auto) 0 0-0.8 10 ^3/uL Basophils # (Auto) 0.1 0-0.2 10 ^3/uL Nucleated Red Blood Cells 0.3 % Sodium Level 140 136-145 mmol/L Potassium Level 3.2 L 3.5-5.1 mmol/L Chloride Level 96 L 98-107 mmol/L Carbon Dioxide Level 24 20-31 mmol/L Anion Gap 20 H 5-15 Blood Urea Nitrogen < 5 L 9-23 mg/dL Creatinine 0.76 0.550-1.02 mg/dL Glomerular Filtration Rate Calc 100 >90 mL/min BUN/Creatinine Ratio 6.6 L 10.0-20.0 Serum Glucose 115 H 74-106 mg/dL Calcium Level 9.1 8.7-10.4 mg/dL Total Bilirubin 1.2 H 0.2-1.0 mg/dL Aspartate Amino Transferase (AST) 408 H 13-40 U/L Alanine Aminotransferase (ALT) 121 H 7-40 U/L Alkaline Phosphatase 238 H 46-116 U/L Ammonia 23 11-32 umol/L Total Protein 7.8 5.7-8.2 g/dL Albumin 4.3 3.2-4.8 g/dL Lipase 61 H 12-53 U/L Plasma/Serum Blood Alcohol 139.8 H <10 mg/dL Time of 1ST Reevaluation: 22:44 Reevaluation 1ST: Unchanged Patient Education/Counseling: Diagnosis, Treatment, Prognosis Family Education/Counseling: No Family Present SEPSIS Sepsis Screen Date sepsis recognized/suspect: Feb 25, 2025 Time Sepsis recognized/suspect: 2151 Recent Procedure: No On Antibiotic Therapy: No Respiratory Rate >20: No Heart Rate >90: Yes Temp<36 C (96.8 F) or >38.3 C: No SBP <90 or MAP <65 mmHG: No New Acute Mental Status Change: No Is the patient on CPAP, BIPAP,: No Physician Orders Urinalysis (02/25/25 22:11) Drug Screen (02/25/25 22:11) Vital Signs Date Time Temp Pulse Resp B/P (MAP) Pulse Ox O2 Delivery O2 Flow Rate FiO2 02/25/25 21:48 97.1 105 18 151/112 97 97.1 Laboratory Tests Test 02/25/25 22:22 White Blood Count 4.3 10^3/uL (4.4-10.8) L Departure 1 Departure Time of Disposition: 00:46 Impression: Primary Impression: Alcohol withdrawal syndrome with complication Additional Impressions: Nausea and vomiting Dehydration Disposition: ADMITTED INPATIENT Admit to: Med Surg Condition: Guarded Discharged With: Self Comments 44-year-old female admits to alcoholism. Patient states that she has been nausea and vomiting today and has not been able to drink much. She is quite shaky and agitated. Her CIWA score is 26: CIWA-Ar for Alcohol Withdrawal from [email or web address] on 02/26/2025 RESULT SUMMARY: 26 points Patients with scores ?20 frequently require medication for withdrawal, and may also require admission to the ICU for observation for seizures or development of delirium tremens, and more frequent medication dosing. INPUTS: Nausea/vomiting > 5 = (More severe symptoms) Tremor > 4 = Moderate, with patient's arms extended Paroxysmal sweats > 2 = (More severe symptoms) Anxiety > 4 = Moderately anxious, or guarded, so anxiety is inferred Agitation > 4 = Moderately fidgety and restless Tactile disturbances > 1 = Very mild itching, pin and needles, burning, or numb ness Auditory disturbances > 2 = Mild harshness or ability to frighten Visual disturbances > 2 = Mild sensitivity Headache/fullness in head > 2 = Mild Orientation/clouding of sensorium > 0 = Oriented, can do serial additions Patient was given IV fluids and Ativan and and antiemetics. Patient will need to be admitted for supportive care and further workup. Critical Care Note Critical Care Time?: Yes (35 min-critical care time only) Critical care comment: Total critical care time: Approximately 36 minutes Due to a high probability of clinically significant, life threatening deterioration, the patient required my highest level of preparedness to intervene emergently and I personally spent this critical care time directly and personally managing the patient. This critical care time included obtaining a history; examining the patient; pulse oximetry; ordering and review of studies; arranging urgent treatment with development of a management plan; evaluation of patient's response to treatment; frequent reassessment; and, discussions with other providers. This critical care time was performed to assess and manage the high probability of imminent, life-threatening deterioration that could result in multi-organ failure. It was exclusive of separately billable procedures and treating other patients. Stability Stability form required: No Heart Score Heart Score: Heart Score Response (Comments) Value History N/A 0 EKG N/A 0 Age N/A 0 Risk Factors N/A 0 Troponin N/A 0 Total 0 I personally scribed for JENNIFER ASTORGA MD ([email or web address]) on 02/25/25 at 22:16. Electronically submitted by Lisa Matson ([email or web address]). JENNIFER ASTORGA MD Feb 25, 2025 22:16
[2025-02-25 22:45] LABS: Hematocrit 43.0 % (36.0-46.0); Hemoglobin 15.0 g/dL (12.2-16.2); Mean Corpuscular Hemoglobin 35.5 pg (28.0-32.0); Mean Corpuscular Volume 101.9 fL (80.0-100.0); Nucleated Red Blood Cells % 0.3 %
[2025-02-25 23:00] LABS: Anion Gap 20 (5-15); Calcium 9.1 mg/dL (8.7-10.4); Carbon Dioxide 24 mmol/L (20-31); Sodium 140 mmol/L (136-145); Total Protein 7.8 g/dL (5.7-8.2)
[2025-02-25 23:01] LABS: Albumin 4.3 g/dL (3.2-4.8); Bilirubin, Total 1.2 mg/dL (0.2-1.0)
[2025-02-25 23:07] LABS: Alanine Aminotransferase 121 U/L (7-40); Alkaline Phosphatase 238 U/L (46-116); BUN/Creatinine Ratio 6.6 (10.0-20.0); Blood Urea Nitrogen < 5 mg/dL (9-23); Chloride 96 mmol/L (98-107); Glucose 115 mg/dL (74-106); Potassium 3.2 mmol/L (3.5-5.1)
[2025-02-25 23:18] LABS: Lipase 61 U/L (12-53)
[2025-02-26] VITALS (13 sets, daily range): BP systolic 134–163; BP diastolic 76–115; PULSE 96–129; RESP 16–22; TEMP 97.1–99.6; O2SAT 96–99
[2025-02-26] MEDS: SOD CHL 0.9%/ KCL 20MEQ 1,000 ML IV ONE (01:15)
[2025-02-26] MEDS ORDERED: ALBUTEROL SULF 2.5 MG/0.5ML(0.5%) NEB SOLN NEB PRN (01:15)
[2025-02-26] MEDS ORDERED: NITROGLYCERIN 0.4 MG SL TAB SL PRN (01:15)
[2025-02-26] MEDS ORDERED: MORPHINE SULFATE INJ 2 MG/ml SYRG IV PRN ×2 (01:15→01:30)
[2025-02-26] MEDS ORDERED: ONDANSETRON HCL 4 MG/2 ML VIAL IV PRN (01:15)
[2025-02-26 01:17] LABS: Urine Protein, UAD 1+ (Negative)
--- NOTE | 2025-02-26 01:29 | DVHHP2 ---
History of Present Illness Reason for Visit: Nausea and vomiting History of Present Illness 44-year-old female presents for evaluation of nausea and vomiting. Patient has boyfriend is at the bedside. He reports patient having nausea and vomiting since yesterday with associated diffuse abdominal pain. He also reports patient being a heavy drinker last drink being today in the morning. Today he noticed patient vomiting blood so he brought her in for evaluation. Patient denies melena. Patient reports tremors and palpitations. No chest pain or shortness for breath. No other acute complaints. Past Medical History Asthma, anxiety, alcoholism Past Surgical History Family History Noncontributory Smoke: No ALCOHOL: heavy Drugs: None Lives: with Family Review of Systems Review of Systems Review of systems are currently negative otherwise addressed in HPI. Allergies: Coded Allergies: NO KNOWN ALLERGIES (Unverified , 09/18/19) Medications Current Medications Medications Dose Ordered Sig/Ricky Route Start Time Stop Time Status Last Admin Dose Admin Lorazepam 1 mg Q6HP PRN IV 02/26/25 01:15 Ondansetron HCl 4 mg Q4HP PRN IV 02/26/25 01:15 Nitroglycerin 0.4 mg Q5MINP PRN SL 02/26/25 01:15 Morphine Sulfate 2 mg Q30M PRN IV 02/26/25 01:15 Albuterol 2.5 mg Q6HPRN PRN NEB 02/26/25 01:15 UNV Exam Vital Signs Vital Signs Date Time Temp Pulse Resp B/P (MAP) Pulse Ox O2 Delivery O2 Flow Rate FiO2 02/25/25 21:48 97.1 105 18 151/112 97 97.1 Exam Gen: 44-year-old female in mild distress Skin: Warm, dry, normal color and texture, no rash. HEENT: Normocephalic atraumatic, mucous membranes moist and pink. Neck: Cervical and supraclavicular nodes normal without enlargement, trachea is midline, thyroid gland is normal without masses. Pulmonary: Clear to auscultation and percussion bilaterally. Cardiac: Regular rate and rhythm. No murmur Abdomen: Soft, nontender, nondistended, bowel sounds present all 4 quadrants, no guarding, no rigidity, no organomegaly. Extremities: No cyanosis, clubbing, no edema Neuro: Cranial nerves II through XII grossly intact, normal affect and speech, no focal motor deficits. Labs/Xrays Labs Test 02/25/25 22:22 02/25/25 21:45 Range/Units White Blood Count 4.3 L 4.4-10.8 10^3/uL Red Blood Count 4.22 4.0-5.20 10^6/uL Hemoglobin 15.0 12.2-16.2 g/dL Hematocrit 43.0 36.0-46.0 % Mean Corpuscular Volume 101.9 H 80.0-100.0 fL Mean Corpuscular Hemoglobin 35.5 H 28.0-32.0 pg Mean Corpuscular Hemoglobin Concent 34.8 32.0-36.0 g/dL Red Cell Distribution Width 14.9 H 11.8-14.3 % Platelet Count 181 140-450 10^3/uL Mean Platelet Volume 7.9 6.9-10.8 fL Neutrophils (%) (Auto) 70.7 37.0-80.0 % Lymphocytes (%) (Auto) 19.1 10.0-50.0 % Monocytes (%) (Auto) 8.8 0.0-12.0 % Eosinophils (%) (Auto) 0.2 0.0-7.0 % Basophils (%) (Auto) 1.2 0.0-2.0 % Neutrophils # (Auto) 3.0 1.6-8.6 10 ^3/uL Lymphocytes # (Auto) 0.8 0.4-5.4 10 ^3/uL Monocytes # (Auto) 0.4 0-1.3 10 ^3/uL Eosinophils # (Auto) 0 0-0.8 10 ^3/uL Basophils # (Auto) 0.1 0-0.2 10 ^3/uL Nucleated Red Blood Cells 0.3 % Sodium Level 140 136-145 mmol/L Potassium Level 3.2 L 3.5-5.1 mmol/L Chloride Level 96 L 98-107 mmol/L Carbon Dioxide Level 24 20-31 mmol/L Anion Gap 20 H 5-15 Blood Urea Nitrogen < 5 L 9-23 mg/dL Creatinine 0.76 0.550-1.02 mg/dL Glomerular Filtration Rate Calc 100 >90 mL/min BUN/Creatinine Ratio 6.6 L 10.0-20.0 Serum Glucose 115 H 74-106 mg/dL Calcium Level 9.1 8.7-10.4 mg/dL Total Bilirubin 1.2 H 0.2-1.0 mg/dL Aspartate Amino Transferase (AST) 408 H 13-40 U/L Alanine Aminotransferase (ALT) 121 H 7-40 U/L Alkaline Phosphatase 238 H 46-116 U/L Ammonia 23 11-32 umol/L Total Protein 7.8 5.7-8.2 g/dL Albumin 4.3 3.2-4.8 g/dL Lipase 61 H 12-53 U/L Plasma/Serum Blood Alcohol 139.8 H <10 mg/dL Urine Color Yellow Yellow Urine Clarity Turbid H Clear Urine pH 5.5 5.0-9.0 Urine Specific [place] 1.026 1.001-1.035 Urine Protein 1+ H Negative Urine Ketones 1+ H Negative Urine Blood Negative Negative /uL Urine Nitrite Negative Negative Urine Bilirubin Negative Negative Urine Urobilinogen 3 H Negative mg/dL Urine Leukocyte Esterase Trace Negative /uL Urine RBC 2 0 - 4 /hpf Urine Microscopic WBC 3 0-5 /HPF Urine Squamous Epithelial Cells Mod <5 /hpf Urine Bacteria None seen None Seen /hpf Urine Hyaline Casts Many 0 - 2 /lpf Urine Mucus Few None Seen Urine Glucose Normal Normal mg/dL SEPSIS Sepsis Screen Date sepsis recognized/suspect: Feb 25, 2025 Time Sepsis recognized/suspect: 2151 Recent Procedure: No On Antibiotic Therapy: No Respiratory Rate >20: No Heart Rate >90: Yes Temp<36 C (96.8 F) or >38.3 C: No SBP <90 or MAP <65 mmHG: No New Acute Mental Status Change: No Is the patient on CPAP, BIPAP,: No Physician Orders Drug Screen (02/25/25 22:11) Ct Ab Pel Wo Con-No Oral Or Iv (02/26/25 01:12) Lorazepam 2mg/Ml Inj (Ativan Inj) (02/26/25 01:15) Type And Screen (02/26/25 01:12) PTPTT (02/26/25 01:12) * Gi Dvh Heel S[employer] (02/26/25 01:12) Gastric Occult Blood (02/26/25 01:12) Stool Occult Blood (02/26/25 01:12) Admit (02/26/25 01:12) Ondansetron Hcl (Zofran) (02/26/25 01:15) Complete Blood Count (02/27/25 04:00) Comprehensive Metabolic Panel (02/27/25 04:00) Npo (Nothing By Mouth) Diet (02/26/25 Breakfast) Condition: Fair (02/26/25 01:12) Bedrest With Bathroom Privileg (02/26/25 01:12) Nitroglycerin Sublingual (Ntrostat Subli (02/26/25 01:15) Morphine Sulfate Injection (02/26/25 01:15) Stat Ekg For Chest Pain (02/26/25 01:12) Notify Of Changes From Base (02/26/25 01:12) Renewable Energy Project Manager For 24 Hours (02/26/25 01:12) Emergency Dysrhythmia Protocol (02/26/25 01:12) Rhythm Strips Once Every Shift (02/26/25 01:12) Oxygen By Nasal Cannula (02/26/25 01:12) Albuterol Medneb (Ventolin Medneb) (02/26/25 01:15) Sod Chl 0.9%/ Kcl 20meq (02/26/25 01:15) Vital Signs Date Time Temp Pulse Resp B/P (MAP) Pulse Ox O2 Delivery O2 Flow Rate FiO2 02/25/25 21:48 97.1 105 18 151/112 97 97.1 Laboratory Tests Test 02/25/25 22:22 White Blood Count 4.3 10^3/uL (4.4-10.8) L Assessment/Plan Assessment/Plan Assessment ? GI bleed Alcohol withdrawal Liver cirrhosis Transaminitis secondary to the above Hypokalemia Plan Admit the patient to telemetry to the hospitalist GI consult NPO Replete electrolytes Continue treatment per orders. Plan discussed with: Patient My Orders Orders - NILES WESLEY AGACNP Procedure Category Date Status Time Ct Ab Pel Wo Con-No CT 02/26/25 Logged Oral Or Iv 01:12 Lorazepam 2mg/Ml Inj PHA 02/26/25 In Process (Ativan Inj) 01:15 Type And Screen BBK 02/26/25 Logged 01:12 PTPTT LAB 02/26/25 Logged 01:12 * Gi Dvh Heel [employer] CONS 02/26/25 Transmitted 01:12 Gastric Occult Blood LAB 02/26/25 Logged 01:12 Stool Occult Blood LAB 02/26/25 Logged 01:12 Admit ADMIT 02/26/25 Transmitted 01:12 Ondansetron Hcl [facility] 02/26/25 In Process (Zofran) 01:15 Complete Blood Count LAB 02/27/25 Verified 04:00 Comprehensive LAB 02/27/25 Verified Metabolic Panel 04:00 Npo (Nothing By DIET 02/26/25 Transmitted Mouth) Diet Breakfast Condition: Fair [facility] 02/26/25 In Process 01:12 Bedrest With Bathroom [facility] 02/26/25 In Process Privileg 01:12 Nitroglycerin [facility] 02/26/25 Logged Sublingual (Ntrostat 01:15 Morphine Sulfate [facility] 02/26/25 Logged Injection 01:15 Stat Ekg For Chest [facility] 02/26/25 In Process Pain 01:12 Notify Of Changes [facility] 02/26/25 In Process From Base 01:12 Renewable Energy Project Manager For [facility] 02/26/25 In Process 24 Hours 01:12 Emergency Dysrhythmia [facility] 02/26/25 In Process Protocol 01:12 Rhythm Strips Once [facility] 02/26/25 In Process Every Shift 01:12 Oxygen By Nasal RT 02/26/25 Transmitted Cannula 01:12 Albuterol Medneb [facility] 02/26/25 Logged (Ventolin Medneb) 01:15 Sod Chl 0.9%/ Kcl [facility] 02/26/25 Logged 20meq 01:15 Date of Service: Feb 26, 2025 Billing Provider: NILES WESLEY Common Visit Codes: [id number] INP/OBS CARE (HIGH) NILES WESLEY Feb 26, 2025 01:29
[2025-02-26 02:06] LABS: INR 1.05 (0.9-1.15); Partial Thromboplastin Time 24.5 SEC (24.5-34.5); Prothrombin Time 11.1 sec (9.3-11.8)
[2025-02-26 02:08] LABS: Amphetamine Screen, Urine Neg (NEGATIVE); Barbiturate Scree,Urine Neg (NEGATIVE); Benzodiazephine Screen, Urine Neg (NEGATIVE); Cannabinoid Screen, Urine Pos (NEGATIVE); Cocaine Screen, Urine Neg (NEGATIVE); Opiate Scree,Urine Neg (NEGATIVE); Phencyclidine Screen, Urine Neg (NEGATIVE)
--- NOTE | 2025-02-26 02:30 | DVH ---
Exam: CT CT AB PEL WO CON-NO ORAL OR IV History: gi bleed Comparison Study: CXR2 on DOS: 05/22/22, CXR1 on DOS: 04/26/22, CXRP on DOS: 04/10/22, CXRP on DOS: 04/05/22, CXRP on DOS: 02/09/22 Technique: Multidetector spiral CT of the abdomen was performed from lung bases to pubic symphysis. Imaging was performed without IV contrast. Axial, coronal and sagittal multiplanar reformats were obtained from the axial data set by the technologist. Radiation Dose : 1. Abdomen/Pelvis: CTDIvol 14.3 mGy, DLP 749.21 mGy*cm. Findings: Evaluation of solid organs is limited due to lack of intravenous contrast use. Lung Bases: No acute or significant lung base finding. Normal heart size. No pleural or pericardial effusion. Liver: The liver is enlarged. Diffuse hepatic steatosis. No focal lesions. Gallbladder and Biliary Tree: Unremarkable Spleen: Unremarkable Pancreas: The pancreas is grossly normal in appearance. Adrenal Glands: Unremarkable Kidneys: Kidneys are grossly normal without calculi or hydronephrosis. Bladder: Grossly unremarkable for degree of distention. Bowel: Small sliding-type hiatal hernia. The stomach is grossly normal in appearance. Moderate circumferential wall thickening and intramural edema of the cecum and ascending colon may represent sequelae of colitis. Small bowel and colon are otherwise normal in caliber and distribution. The appendix is normal. Ascites: Absent Lymphadenopathy: No mesenteric, retroperitoneal or periportal lymphadenopathy. Abdominal Wall and Mesentery: Unremarkable. Vasculature: The visualized abdominal aorta is normal in size and caliber. Evaluation of abdominal and pelvic vessels is limited due to lack of intravenous contrast. Pelvic Organs: Unremarkable Musculoskeletal: No aggressive focal bony lesions, acute fractures or dislocation. IMPRESSION: 1. Moderate circumferential wall thickening and intramural edema of the cecum and ascending colon may represent sequelae of colitis, infectious versus inflammatory. 2. Hepatomegaly and hepatic steatosis. Radiation optimization: All CT scans at this facility use at least one of these dose optimization techniques: automated exposure control mA and/or kV adjustment per patient size (includes targeted exams where dose is matched to clinical indication) or iterative reconstruction.
[2025-02-26] MEDS: METOCLOPRAMIDE HCL 5MG/ml INJ 2ml VIAL IV ONE (02:54)
[2025-02-26] MEDS: LORazepam 2MG/ML-1ML VIAL IV ONE (02:54)
[2025-02-26] MEDS: SODIUM CHLORIDE 0.9% 1,000 ML IVB ONE (02:55)
[2025-02-26] MEDS: LORazepam 2MG/ML-1ML VIAL IV PRN ×2 (04:19→10:14)
[2025-02-26] MEDS ORDERED: METH-1214 PO (06:17)
[2025-02-26] MEDS: SODIUM CHLORIDE 0.9% 1,000 ML IV SCH (10:17)
[2025-02-26] MEDS: SODIUM CHLORIDE 0.9% 500 ML IV ONE (10:56)
[2025-02-26] MEDS: THIAMINE 100mg/ml INJ (200mg/2ml VIAL) IV SCH (11:09)
[2025-02-26] MEDS ORDERED: THIAMINE 100mg/ml INJ (200mg/2ml VIAL) IV ONE (11:15)
[2025-02-26] MEDS: FOLIC ACID 1 MG in D5W 5% 50 ML INJ SCH (12:52)
--- NOTE | 2025-02-26 12:54 | DVHPN2 ---
Reviewed: Care Plan, H&P, Labs, Medications, Previous Orders, Radiology Changes from previous H/P or p: No Changes Objective Vitals Vital Signs Date Time Temp Pulse Resp B/P (MAP) Pulse Ox O2 Delivery O2 Flow Rate FiO2 02/26/25 10:09 97 Room Air 02/26/25 10:09 0 21 02/26/25 08:51 99.6 129 21 145/104 (118) 99.6 Medications Current Medications Medications Dose Ordered Sig/Ricky Route Start Time Stop Time Status Last Admin Dose Admin Ondansetron HCl 4 mg Q4HP PRN IV 02/26/25 01:15 Nitroglycerin 0.4 mg Q5MINP PRN SL 02/26/25 01:15 Morphine Sulfate 2 mg Q30M PRN IV 02/26/25 01:15 Albuterol 2.5 mg Q6HPRN PRN NEB 02/26/25 01:15 Morphine Sulfate 2 mg Q6HPRN PRN IV 02/26/25 01:30 Thiamine HCl 100 mg DAILY IV 02/26/25 10:00 02/26/25 11:09 100 MG Folic Acid 1 mg/ Multivitamins 10 ml/Magnesium Sulfate 8 meq/ Thiamine HCl 100 mg/Dextrose 1,013.2 ml @ 125.001 mls/hr DAILY@1800 INJ 02/26/25 18:00 Folic Acid 1 mg/ Dextrose 50.2 ml @ 200.8 mls/ hr DAILY INJ 02/26/25 10:00 Sodium Chloride 1,000 ml @ 100 mls/hr Q10H IV 02/26/25 09:30 02/26/25 10:17 100 MLS/HR Lorazepam 1 mg Q4HR IV 02/26/25 14:00 Laboratory Results Laboratory Tests 02/25/25 22:22 Chemistry Test 02/25/25 22:22 Albumin 4.3 g/dL (3.2-4.8) Calcium Level 9.1 mg/dL (8.7-10.4) Total Protein 7.8 g/dL (5.7-8.2) Coagulation Test 02/25/25 22:22 Prothrombin Time 11.1 sec (9.3-11.8) Prothrombin Time INR 1.05 (0.9-1.15) Activated Partial Thromboplast Time 24.5 SEC (24.5-34.5) Lipid panel Test 02/25/25 22:22 Lipase 61 U/L (12-53) H LFT Test 02/25/25 22:22 Alanine Aminotransferase (ALT) 121 U/L (7-40) H Alkaline Phosphatase 238 U/L (46-116) H Aspartate Amino Transferase (AST) 408 U/L (13-40) H Total Bilirubin 1.2 mg/dL (0.2-1.0) H Urinalysis Test 02/25/25 21:45 Urine Color Yellow (Yellow) Urine Clarity Turbid (Clear) H Urine pH 5.5 (5.0-9.0) Urine Specific [place] 1.026 (1.001-1.035) Urine Protein 1+ (Negative) H Urine Ketones 1+ (Negative) H Urine Blood Negative /uL (Negative) Urine Nitrite Negative (Negative) Urine Bilirubin Negative (Negative) Urine Urobilinogen 3 mg/dL (Negative) H Urine Leukocyte Esterase Trace /uL (Negative) Urine RBC 2 /hpf (0 - 4) Urine Microscopic WBC 3 /HPF (0-5) Urine Squamous Epithelial Cells Mod /hpf (<5) Urine Bacteria None seen /hpf (None Seen) Urine Hyaline Casts Many /lpf (0 - 2) Urine Mucus Few (None Seen) Urine Glucose Normal mg/dL (Normal) Labs and/or images reviewed: Labs reviewed by me, Image(s) reviewed by me Assessment/Plan Assessment/Plan Acute alcoholic intoxication blood alcohol 139: Banana bag Librium Acute dehydration: IV fluids Intractable nausea and vomiting secondary to alcohol abuse: Zofran pantoprazole Acute mild pancreatitis lipase 60 Alcoholic withdrawal Assessment Alcohol withdrawal Liver cirrhosis: Consult by GI Dr. Emily Curiel Transaminitis secondary to the above Hypokalemia Time spent 55 minutes Patient is full code Advanced care planning time 20 mts Plan discussed with: Patient Date of Service: Feb 26, 2025 Billing Provider: HANNAH PENALOZA MD Common Visit Codes: [id number] INP/OBS CARE(HIGH) HANNAH PENALOZA MD Feb 26, 2025 12:54
[2025-02-26] MEDS: METHADONE HCL 10 MG TAB PO ONE (13:27)
--- NOTE | 2025-02-26 13:41 | DVHCONRES ---
Date Seen: Feb 26, 2025 Resident Creating Document: JHAJJ,SARPUNEET RESIDENT Referring Physician FATIMAH Segundo Reason for Consultation Hematemesis History of Present Illness 44-year-old female presents for evaluation of nausea and vomiting. Patient has boyfriend is at the bedside. He reports patient having nausea and vomiting since yesterday with associated diffuse abdominal pain. He also reports patient being a heavy drinker last drink being today in the morning. Today he noticed patient vomiting blood so he brought her in for evaluation. Patient denies melena. Patient reports tremors and palpitations. No chest pain or shortness for breath. No other acute complaints. Past Medical History Asthma, anxiety, alcoholism Past Surgical History C- Section Family History: Cardiovascular disease G8 MOTHER G8 FATHER FH: ND (myocardial infarction) G8 MOTHER Ischemic heart disease G8 MOTHER Family History non contributory Social History heavy alcohol use, currently on methadone , smokes cannabis denies any other drug use Allergies: Coded Allergies: NO KNOWN ALLERGIES (Unverified , 09/18/19) Home Meds Active Scripts Prednisone (Prednisone) 20 Mg Tab, 20 MG PO BID for 5 Days, #10 TAB Prov:CAYETANO MCCARTHY MD 05/26/22 Albuterol Sulfate (Ventolin) 2.5 Mg/0.5 Ml Nb, 2.5 MG NEB Q6HPRN for 90 Days, #120 DOSE Prov:CAYETANO MCCARTHY MD 05/26/22 Albuterol Sulfate (Albuterol Sulfate Hfa) 108 Mcg/Act Aer, 2 PUFF INH Q6HPRN PRN for SHORTNESS OF BREATH for 90 Days, #1 AER Prov:CAYETANO MCCARTHY MD 05/26/22 Budesonide (Inhalation) (Budesonide) 0.5 Mg/2 Ml Aleena, 1 VIAL NEB BID, #30 VIAL Prov:TITO MENDOSA MD 04/10/22 Albuterol Sulfate (VENTOLIN MDI) 90 Mcg Ih, 90 MCG IN Q6HPRN PRN for 30 Days, #1 INHALER 1 Refill Prov:CAYETANO MCCARTHY MD 04/10/22 Ipratropium [place] (Ipratropium [place]) 0.02 % Huyen, 0.5 MG NEB Q6HPRN for 60 Days, #120 DOSE Prov:CAYETANO MCCARTHY MD 04/10/22 Budesonide (Inhalation) (Budesonide) 0.5 Mg/2 Ml Aleena, 0.5 MG IN BID for 30 Days, #1 ML Prov:HUANG REYNA [employer] B[employer] DESIGNER 01/25/22 Reported Medications Methadone Hcl (METHADONE HCL TABLET) 10 Mg Tb, 1 TAB PO BID, #60 TAB 02/26/25 Alprazolam (Xanax) 1 Mg Tab, 0.5 MG PO PRN, #60 TAB 01/23/22 Mepolizumab (Nucala) Unknown Strength Inj, SC 09/17/21 Current Medications Current Medications Medications (Trade) Dose Ordered Sig/Ricky Route PRN Reason Start Time Stop Time Status Last Admin Lorazepam (Ativan Inj) 1 mg Q6HP PRN IV ANXIETY 02/26/25 01:15 02/26/25 09:37 DC 02/26/25 04:19 Ondansetron HCl (Zofran) 4 mg Q4HP PRN IV NAUSEA / VOMITING 02/26/25 01:15 Nitroglycerin (Ntrostat Sublingual) 0.4 mg Q5MINP PRN SL FOR CHEST PAIN 02/26/25 01:15 Morphine Sulfate 2 mg Q30M PRN IV FOR CHEST PAIN 02/26/25 01:15 Albuterol (Ventolin Medneb) 2.5 mg Q6HPRN PRN NEB SHORTNESS OF BREATH 02/26/25 01:15 Morphine Sulfate 2 mg Q6HPRN PRN IV SEVERE PAIN (7-10 PAIN SCALE) 02/26/25 01:30 Lorazepam (Ativan Inj) 1 mg Q4HP PRN IV ANXIETY 02/26/25 09:30 02/26/25 11:07 DC 02/26/25 10:14 Thiamine HCl 100 mg DAILY IV 02/26/25 10:00 02/26/25 11:09 Folic Acid 1 mg/ Multivitamins 10 ml/Magnesium Sulfate 8 meq/ Thiamine HCl 100 mg/Dextrose 1,013.2 ml @ 125.001 mls/hr DAILY@1800 INJ 02/26/25 18:00 Folic Acid 1 mg/ Dextrose 50.2 ml @ 200.8 mls/ hr DAILY INJ 02/26/25 10:00 02/26/25 12:52 Sodium Chloride 1,000 ml @ 100 mls/hr Q10H IV 02/26/25 09:30 02/26/25 10:17 Lorazepam (Ativan Inj) 1 mg Q4HR IV 02/26/25 14:00 Pantoprazole Sodium (Protonix) 40 mg DAILY IV 02/27/25 10:00 Methadone HCl (Methadone HCl Tablet) 130 mg DAILY PO 02/27/25 10:00 UNV Review of Systems patient seen and examined at the bedside currently having symptoms of alcohol withdrawal with nausea, headache, tremors, anxiety reportedly had an episode of hematemesis yesterday, none after that Vital Signs Vital Signs Date Time Temp Pulse Resp B/P (MAP) Pulse Ox O2 Delivery O2 Flow Rate FiO2 02/26/25 12:59 98.5 100 19 151/104 (120) 96 98.5 02/26/25 10:09 Room Air 02/26/25 10:09 0 21 Physical Exam Gen - no pallor, no scleral icterus Skin - Patients skin is warm and dry. HEENT - normocephalic, atraumatic, dry mucous membranes. Neck - supple, no lymphadenopathy Pulmonary - B/L equal air entry with vesicular breath sounds cardiovascular - regular S1,S2 heard GI - soft nontender abdomen. Bowel sounds normoactive. Neurological - Patient is alert and oriented x3 and is following commands Labs/Diagnostic Data Labs Test 02/25/25 22:22 02/25/25 21:45 Range/Units White Blood Count 4.3 L 4.4-10.8 10^3/uL Red Blood Count 4.22 4.0-5.20 10^6/uL Hemoglobin 15.0 12.2-16.2 g/dL Hematocrit 43.0 36.0-46.0 % Mean Corpuscular Volume 101.9 H 80.0-100.0 fL Mean Corpuscular Hemoglobin 35.5 H 28.0-32.0 pg Mean Corpuscular Hemoglobin Concent 34.8 32.0-36.0 g/dL Red Cell Distribution Width 14.9 H 11.8-14.3 % Platelet Count 181 140-450 10^3/uL Mean Platelet Volume 7.9 6.9-10.8 fL Neutrophils (%) (Auto) 70.7 37.0-80.0 % Lymphocytes (%) (Auto) 19.1 10.0-50.0 % Monocytes (%) (Auto) 8.8 0.0-12.0 % Eosinophils (%) (Auto) 0.2 0.0-7.0 % Basophils (%) (Auto) 1.2 0.0-2.0 % Neutrophils # (Auto) 3.0 1.6-8.6 10 ^3/uL Lymphocytes # (Auto) 0.8 0.4-5.4 10 ^3/uL Monocytes # (Auto) 0.4 0-1.3 10 ^3/uL Eosinophils # (Auto) 0 0-0.8 10 ^3/uL Basophils # (Auto) 0.1 0-0.2 10 ^3/uL Nucleated Red Blood Cells 0.3 % Prothrombin Time 11.1 9.3-11.8 sec Prothrombin Time INR 1.05 0.9-1.15 Activated Partial Thromboplast Time 24.5 24.5-34.5 SEC Sodium Level 140 136-145 mmol/L Potassium Level 3.2 L 3.5-5.1 mmol/L Chloride Level 96 L 98-107 mmol/L Carbon Dioxide Level 24 20-31 mmol/L Anion Gap 20 H 5-15 Blood Urea Nitrogen < 5 L 9-23 mg/dL Creatinine 0.76 0.550-1.02 mg/dL Glomerular Filtration Rate Calc 100 >90 mL/min BUN/Creatinine Ratio 6.6 L 10.0-20.0 Serum Glucose 115 H 74-106 mg/dL Calcium Level 9.1 8.7-10.4 mg/dL Total Bilirubin 1.2 H 0.2-1.0 mg/dL Aspartate Amino Transferase (AST) 408 H 13-40 U/L Alanine Aminotransferase (ALT) 121 H 7-40 U/L Alkaline Phosphatase 238 H 46-116 U/L Ammonia 23 11-32 umol/L Total Protein 7.8 5.7-8.2 g/dL Albumin 4.3 3.2-4.8 g/dL Lipase 61 H 12-53 U/L Plasma/Serum Blood Alcohol 139.8 H <10 mg/dL Urine Color Yellow Yellow Urine Clarity Turbid H Clear Urine pH 5.5 5.0-9.0 Urine Specific [place] 1.026 1.001-1.035 Urine Protein 1+ H Negative Urine Ketones 1+ H Negative Urine Blood Negative Negative /uL Urine Nitrite Negative Negative Urine Bilirubin Negative Negative Urine Urobilinogen 3 H Negative mg/dL Urine Leukocyte Esterase Trace Negative /uL Urine RBC 2 0 - 4 /hpf Urine Microscopic WBC 3 0-5 /HPF Urine Squamous Epithelial Cells Mod <5 /hpf Urine Bacteria None seen None Seen /hpf Urine Hyaline Casts Many 0 - 2 /lpf Urine Mucus Few None Seen Urine Glucose Normal Normal mg/dL Urine Opiates Screen Neg NEGATIVE Urine Fentanyl Screen Neg NEGATIVE Urine Barbiturates Screen Neg NEGATIVE Urine Phencyclidine Screen Neg NEGATIVE Urine Amphetamines Screen Neg NEGATIVE Urine Benzodiazepines Screen Neg NEGATIVE Urine Cocaine Screen Neg NEGATIVE Urine Cannabinoids Screen Pos NEGATIVE Assessment ?Hematemesis Alcohol withdrawal acute abd pain likely gastritis Alcoholic hepatitis transaminitis Acute colitis Plan - IV ativan for alcohol withdrawal - IV fluids - IV thiamine and banana bag - monitor H&H - PUD prophylaxis with protonix - since the patient is not having any signs of active bleeding, we will manage conservatively for now and depending on the clinical course patient may benefit from upper endoscopy inpatient or outpatient Plan discussed with Dr. Curiel Plan discussed with: Patient, Other (ASTER Gomez) CRISTINO HIGGINS RESIDENT Feb 26, 2025 13:41
[2025-02-26] MEDS: LORazepam 2MG/ML-1ML VIAL IV SCH (15:18)
[2025-02-26] MEDS: FOLIC ACID 1 MG, MULTIPLE VITAMIN 10 ML, MAGNESIUM SULF SDV 50% 8 MEQ, THIAMINE INJ 100... INJ SCH (20:43)
[2025-02-27] VITALS (8 sets, daily range): BP systolic 143–155; BP diastolic 90–113; PULSE 101–118; RESP 17–20; TEMP 97.8–98.7; O2SAT 96–99
[2025-02-27 06:41] LABS: Albumin 3.6 g/dL (3.2-4.8); Anion Gap 13 (5-15); Carbon Dioxide 28 mmol/L (20-31); Chloride 98 mmol/L (98-107); Hematocrit 37.2 % (36.0-46.0); Hemoglobin 13.0 g/dL (12.2-16.2); Mean Corpuscular Hemoglobin 35.7 pg (28.0-32.0); Mean Corpuscular Volume 102.1 fL (80.0-100.0); Nucleated Red Blood Cells % 0.3 %; Sodium 139 mmol/L (136-145); Total Protein 6.5 g/dL (5.7-8.2)
[2025-02-27 06:57] LABS: Alanine Aminotransferase 92 U/L (7-40); Alkaline Phosphatase 164 U/L (46-116); BUN/Creatinine Ratio 7.5 (10.0-20.0); Bilirubin, Total 2.1 mg/dL (0.2-1.0); Blood Urea Nitrogen < 5 mg/dL (9-23); Calcium 8.5 mg/dL (8.7-10.4); Glucose 124 mg/dL (74-106); Potassium 2.6 mmol/L (3.5-5.1)
[2025-02-27] MEDS: PANTOPRAZOLE 40 MG/10 ML VIAL INJ IV SCH (08:50)
[2025-02-27] MEDS: METHADONE HCL 10 MG TAB PO SCH (08:50)
--- NOTE | 2025-02-27 10:10 | DVHPN2 ---
Reviewed: Care Plan, H&P, Labs, Medications, Previous Orders, Radiology Changes from previous H/P or p: No Changes Objective Vitals Vital Signs Date Time Temp Pulse Resp B/P (MAP) Pulse Ox O2 Delivery O2 Flow Rate FiO2 02/27/25 09:00 97.8 116 17 149/106 (120) 99 97.8 02/26/25 20:45 Room Air 02/26/25 20:45 0 21 Intake/Output Intake and Output 02/27/25 07:00 Intake Total 1900.2 ml Balance 1900.2 ml Intake Oral 1350 ml IV Total 550.2 ml # Voids 6 # Bowel Movements 1 Medications Current Medications Medications Dose Ordered Sig/Ricky Route Start Time Stop Time Status Last Admin Dose Admin Ondansetron HCl 4 mg Q4HP PRN IV 02/26/25 01:15 Nitroglycerin 0.4 mg Q5MINP PRN SL 02/26/25 01:15 Morphine Sulfate 2 mg Q30M PRN IV 02/26/25 01:15 Albuterol 2.5 mg Q6HPRN PRN NEB 02/26/25 01:15 Morphine Sulfate 2 mg Q6HPRN PRN IV 02/26/25 01:30 Thiamine HCl 100 mg DAILY IV 02/26/25 10:00 02/27/25 08:50 100 MG Folic Acid 1 mg/ Multivitamins 10 ml/Magnesium Sulfate 8 meq/ Thiamine HCl 100 mg/Dextrose 1,013.2 ml @ 125.001 mls/hr DAILY@1800 INJ 02/26/25 18:00 02/26/25 20:43 125.001 MLS/HR Folic Acid 1 mg/ Dextrose 50.2 ml @ 200.8 mls/ hr DAILY INJ 02/26/25 10:00 02/26/25 12:52 200.8 MLS/HR Sodium Chloride 1,000 ml @ 100 mls/hr Q10H IV 02/26/25 09:30 02/26/25 10:17 100 MLS/HR Lorazepam 1 mg Q4HR IV 02/26/25 14:00 02/27/25 08:51 1 MG Pantoprazole Sodium 40 mg DAILY IV 02/27/25 10:00 02/27/25 08:50 40 MG Methadone HCl 130 mg DAILY PO 02/27/25 10:00 02/27/25 08:50 130 MG Laboratory Results Laboratory Tests 02/27/25 05:40 Chemistry Test 02/27/25 05:40 Albumin 3.6 g/dL (3.2-4.8) Calcium Level 8.5 mg/dL (8.7-10.4) L Total Protein 6.5 g/dL (5.7-8.2) LFT Test 02/27/25 05:40 Alanine Aminotransferase (ALT) 92 U/L (7-40) H Alkaline Phosphatase 164 U/L (46-116) H Aspartate Amino Transferase (AST) 278 U/L (13-40) H Total Bilirubin 2.1 mg/dL (0.2-1.0) H Urinalysis Test 02/25/25 21:45 Urine Color Yellow (Yellow) Urine Clarity Turbid (Clear) H Urine pH 5.5 (5.0-9.0) Urine Specific [place] 1.026 (1.001-1.035) Urine Protein 1+ (Negative) H Urine Ketones 1+ (Negative) H Urine Blood Negative /uL (Negative) Urine Nitrite Negative (Negative) Urine Bilirubin Negative (Negative) Urine Urobilinogen 3 mg/dL (Negative) H Urine Leukocyte Esterase Trace /uL (Negative) Urine RBC 2 /hpf (0 - 4) Urine Microscopic WBC 3 /HPF (0-5) Urine Squamous Epithelial Cells Mod /hpf (<5) Urine Bacteria None seen /hpf (None Seen) Urine Hyaline Casts Many /lpf (0 - 2) Urine Mucus Few (None Seen) Urine Glucose Normal mg/dL (Normal) Labs and/or images reviewed: Labs reviewed by me, Image(s) reviewed by me Assessment/Plan Assessment/Plan Acute alcoholic intoxication blood alcohol 139: Banana bag Librium Acute dehydration: IV fluids Intractable nausea and vomiting secondary to alcohol abuse: Zofran pantoprazole seen by GI Dr. Emily Curiel advised to continue conservative management Acute mild pancreatitis lipase 60 Alcoholic withdrawal Assessment Alcohol withdrawal Liver cirrhosis: Consult by GI Dr. Emily Curiel Transaminitis secondary to the above Hypokalemia Patient feels better Boyfriend at bedside ASTER Kaplan at bedside Being discharged home Plan discussed with: Patient My Orders Orders - HANNAH PENALOZA MD Procedure Category Date Status Time Pantoprazole PHA 02/27/25 In Process (Protonix) 10:00 Methadone Hcl Tablet PHA 02/27/25 In Process (Methadone Hcl Tabl 10:00 Date of Service: Feb 27, 2025 Billing Provider: HANNAH PENALOZA MD Common Visit Codes: [id number] INP/OBS CARE(HIGH) HANNAH PENALOZA MD Feb 27, 2025 10:10
--- NOTE | 2025-02-27 10:20 | DVHDS2 ---
Discharge Summary Date of Admission Feb 26, 2025 at 01:12 Date of Discharge: Feb 27, 2025 Admitting Diagnosis Acute alcoholic intoxication Wounds: None Labs/Diagnostic Data: Laboratory Results Test 02/27/25 05:40 02/25/25 22:22 02/25/25 21:45 White Blood Count 3.4 10^3/uL (4.4-10.8) Red Blood Count 3.64 10^6/uL (4.0-5.20) Hemoglobin 13.0 g/dL (12.2-16.2) Hematocrit 37.2 % (36.0-46.0) Mean Corpuscular Volume 102.1 fL (80.0-100.0) Mean Corpuscular Hemoglobin 35.7 pg (28.0-32.0) Mean Corpuscular Hemoglobin Concent 34.9 g/dL (32.0-36.0) Red Cell Distribution Width 15.0 % (11.8-14.3) Platelet Count 122 10^3/uL (140-450) Mean Platelet Volume 8.5 fL (6.9-10.8) Neutrophils (%) (Auto) 55.6 % (37.0-80.0) Lymphocytes (%) (Auto) 33.4 % (10.0-50.0) Monocytes (%) (Auto) 9.3 % (0.0-12.0) Eosinophils (%) (Auto) 0.8 % (0.0-7.0) Basophils (%) (Auto) 0.9 % (0.0-2.0) Neutrophils # (Auto) 1.9 10 ^3/uL (1.6-8.6) Lymphocytes # (Auto) 1.1 10 ^3/uL (0.4-5.4) Monocytes # (Auto) 0.3 10 ^3/uL (0-1.3) Eosinophils # (Auto) 0 10 ^3/uL (0-0.8) Basophils # (Auto) 0 10 ^3/uL (0-0.2) Nucleated Red Blood Cells 0.3 % Sodium Level 139 mmol/L (136-145) Potassium Level 2.6 mmol/L (3.5-5.1) Chloride Level 98 mmol/L (98-107) Carbon Dioxide Level 28 mmol/L (20-31) Anion Gap 13 (5-15) Blood Urea Nitrogen < 5 mg/dL (9-23) Creatinine 0.67 mg/dL (0.550-1.02) Glomerular Filtration Rate Calc 111 mL/min (>90) BUN/Creatinine Ratio 7.5 (10.0-20.0) Serum Glucose 124 mg/dL (74-106) Calcium Level 8.5 mg/dL (8.7-10.4) Total Bilirubin 2.1 mg/dL (0.2-1.0) Aspartate Amino Transferase (AST) 278 U/L (13-40) Alanine Aminotransferase (ALT) 92 U/L (7-40) Alkaline Phosphatase 164 U/L (46-116) Total Protein 6.5 g/dL (5.7-8.2) Albumin 3.6 g/dL (3.2-4.8) Prothrombin Time 11.1 sec (9.3-11.8) Prothrombin Time INR 1.05 (0.9-1.15) Activated Partial Thromboplast Time 24.5 SEC (24.5-34.5) Ammonia 23 umol/L (11-32) Lipase 61 U/L (12-53) Plasma/Serum Blood Alcohol 139.8 mg/dL (<10) Urine Color Yellow (Yellow) Urine Clarity Turbid (Clear) Urine pH 5.5 (5.0-9.0) Urine Specific [place] 1.026 (1.001-1.035) Urine Protein 1+ (Negative) Urine Ketones 1+ (Negative) Urine Blood Negative /uL (Negative) Urine Nitrite Negative (Negative) Urine Bilirubin Negative (Negative) Urine Urobilinogen 3 mg/dL (Negative) Urine Leukocyte Esterase Trace /uL (Negative) Urine RBC 2 /hpf (0 - 4) Urine Microscopic WBC 3 /HPF (0-5) Urine Squamous Epithelial Cells Mod /hpf (<5) Urine Bacteria None seen /hpf (None Seen) Urine Hyaline Casts Many /lpf (0 - 2) Urine Mucus Few (None Seen) Urine Glucose Normal mg/dL (Normal) Urine Opiates Screen Neg (NEGATIVE) Urine Fentanyl Screen Neg (NEGATIVE) Urine Barbiturates Screen Neg (NEGATIVE) Urine Phencyclidine Screen Neg (NEGATIVE) Urine Amphetamines Screen Neg (NEGATIVE) Urine Benzodiazepines Screen Neg (NEGATIVE) Urine Cocaine Screen Neg (NEGATIVE) Urine Cannabinoids Screen Pos (NEGATIVE) Other Laboratory Tests 02/27/25 05:40 Brief Hx & Hospital Course: 44-year-old female with a chronic alcohol abuse, on methadone for opiate abuse came in for abdominal pain. CT abdomen pelvis without contrast was negative for any acute pathology blood alcohol was 139 treated with a banana bag and Librium acute dehydration treated with the IV fluids patient was placed on pantoprazole and Zofran GI consult by Dr. Emily Curiel the patient has mild pancreatitis lipase is 60 patient was given Librium for alcohol withdrawal And banana bag. Patient feels better boyfriend at the bedside being discharged home. Medications transmitted to the pharmacy she will follow up with the methadone clinic and also primary Dr and GI Dr. Emily Curiel Patient has alcoholic hepatitis with the elevated liver enzymes which are coming down Consults/Reason for consult GI Dr. Emily Curiel Operations or Procedures CT abdomen pelvis without contrast Condition at Discharge: Fair Final Diagnosis/Problems List Acute alcoholic intoxication blood alcohol 139: Banana bag Librium Acute dehydration: IV fluids Intractable nausea and vomiting secondary to alcohol abuse: Zofran pantoprazole seen by GI Dr. Emily Curiel advised to continue conservative management Acute mild pancreatitis lipase 60 Alcoholic withdrawal Assessment Alcohol withdrawal Liver cirrhosis: Consult by GI Dr. Emily Curiel Transaminitis secondary to the above Hypokalemia Discharge Disposition: Home Discharge Instruct/Medications Diet: Regular Activity: Light activity Follow Up/Referral: Stop drinking alcohol Follow up with your primary Dr and methadone Clinic Follow up with GI Dr. Emily Curiel in 10 days Medications: Thiamine Folic acid Multivitamin Librium Pantoprazole Transmitted to pharmacy Scheduled Albuterol Sulfate (Ventolin), 2.5 MG NEB Q6HPRN Alprazolam (Xanax), 0.5 MG PO PRN, (Reported) Budesonide (Inhalation) (Budesonide), 0.5 MG IN BID Budesonide (Inhalation) (Budesonide), 1 VIAL NEB BID Ipratropium [place] (Ipratropium [place]), 0.5 MG NEB Q6HPRN Methadone Hcl (Methadone Hcl Tablet), 1 TAB PO BID, (Reported) Prednisone (Prednisone), 20 MG PO BID Scheduled PRN Albuterol Sulfate (Ventolin Mdi), 90 MCG IN Q6HPRN PRN Albuterol Sulfate (Albuterol Sulfate Hfa), 2 PUFF INH Q6HPRN PRN for SHORTNESS OF BREATH Miscellaneous Medications Mepolizumab (Nucala), Unknown Dose SC, (Reported) 36 (Time taken for discharge summary 36 minutes) Discharge Statement: "Patient was advised to return to the ER or call 911 if any headaches, dizziness, shortness of breath, chest pain, abdominal pain, bleeding, fevers, or worsening of medical condition. Patient was counseled about treatment plan, medications, possible side effects, patientverbalized understanding. All questions were answered to the best of my ability. This discharge took greater then 30 minutes in planning, reviewing documentation, counseling the patient, and discussing with other team members." ASSESSMENT ASSESSMENT Hospital Course Improved Assessment Acute alcoholic intoxication blood alcohol 139: Banana bag Librium Acute dehydration: IV fluids Intractable nausea and vomiting secondary to alcohol abuse: Zofran pantoprazole seen by GI Dr. Emily Curiel advised to continue conservative management Acute mild pancreatitis lipase 60 Alcoholic withdrawal Assessment Alcohol withdrawal Liver cirrhosis: Consult by GI Dr. Emily Curiel Transaminitis secondary to the above Hypokalemia Date of Service: Feb 27, 2025 Billing Provider: HANNAH PENALOZA MD Common Visit Codes: [id number] DISCH DAY >30min HANNAH PENALOZA MD Feb 27, 2025 10:20
[2025-02-27] MEDS ORDERED: PANT40T PO (10:22)
[2025-02-27] MEDS ORDERED: THIA100T13 PO (10:22)
[2025-02-27] MEDS ORDERED: CHL25C PO (10:22)
[2025-02-27] MEDS ORDERED: MULT-1018 PO (10:22)
[2025-02-27] MEDS ORDERED: FOLI-119 PO (10:22)
[2025-02-27] MEDS: POTASSIUM EFFERVESENT TAB 25 MEQ PO SCH (11:29)
[2025-02-27 15:49] LABS: Potassium 3.9 mmol/L (3.5-5.1)
[2025-02-27 15:56] LABS: Magnesium 1.7 mg/dL (1.6-2.6)
--- NOTE | 2025-02-27 17:28 | DVHPN2 ---
Progress Note Date Seen: Feb 27, 2025 Resident Creating Document: JHJasminJCRISTINO Strickland RESIDENT Medical Necessity Reason Pt with a Central, PICC or Fol: No Subjective Review of Systems Patient denies any abdominal pain, nausea or vomiting Tolerating clear liquid diet and we will advanced to soft diet today Still having symptoms of alcohol withdrawal with the anxiety, tremors, sweating, tachycardia Objective vital signs Vital Sign Date Time Temp Pulse Resp B/P (MAP) Pulse Ox O2 Delivery O2 Flow Rate FiO2 02/27/25 17:11 98.7 117 20 143/107 (119) 96 98.7 02/27/25 10:14 Room Air 0.0 02/27/25 10:14 21 Total Intake and Output 02/26/25 02/26/25 02/27/25 15:00 23:00 07:00 Intake Total 500 ml 600.2 ml 800 ml Balance 500 ml 600.2 ml 800 ml medications Current Medications Medications Dose Ordered Sig/Ricky Route Start Time Stop Time Status Last Admin Dose Admin Ondansetron HCl 4 mg Q4HP PRN IV 02/26/25 01:15 Nitroglycerin 0.4 mg Q5MINP PRN SL 02/26/25 01:15 Morphine Sulfate 2 mg Q30M PRN IV 02/26/25 01:15 Albuterol 2.5 mg Q6HPRN PRN NEB 02/26/25 01:15 Morphine Sulfate 2 mg Q6HPRN PRN IV 02/26/25 01:30 Sodium Chloride 1,000 ml @ 100 mls/hr Q10H IV 02/26/25 09:30 02/27/25 15:21 100 MLS/HR Lorazepam 1 mg Q4HR IV 02/26/25 14:00 02/27/25 13:20 1 MG Pantoprazole Sodium 40 mg DAILY IV 02/27/25 10:00 02/27/25 08:50 40 MG Methadone HCl 130 mg DAILY PO 02/27/25 10:00 02/27/25 08:50 130 MG Folic Acid 1 mg DAILY PO 02/28/25 10:00 Multivitamins 1 tab DAILY PO 02/28/25 10:00 Magnesium Oxide 400 mg DAILY PO 02/28/25 10:00 Thiamine HCl 100 mg DAILY PO 02/28/25 10:00 Examination Gen - no pallor, no scleral icterus Skin - Patients skin is warm and dry. HEENT - normocephalic, atraumatic, dry mucous membranes. Neck - supple, no lymphadenopathy Pulmonary - B/L equal air entry with vesicular breath sounds cardiovascular - regular S1,S2 heard GI - soft nontender abdomen. Bowel sounds normoactive. Neurological - Patient is alert and oriented x3 and is following commands laboratory and microbiology Laboratory Tests 02/27/25 14:55 02/27/25 05:40 Test 02/27/25 05:40 Range/Units Serum Glucose 124 H 74-106 mg/dL Problem List/Assessment/Plan Problem List/Assessment/Plan ?Hematemesis Alcohol withdrawal acute abd pain likely gastritis Alcoholic hepatitis transaminitis Acute colitis Plan - IV ativan for alcohol withdrawal - IV fluids - IV thiamine and banana bag - monitor H&H - PUD prophylaxis with protonix - since the patient is not having any signs of active bleeding, we will manage conservatively for now and depending on the clinical course patient may benefit from upper endoscopy inpatient or outpatient Plan discussed with Dr. Curiel Plan discussed with: Patient, Other (ASTER Lyons) My Orders My Orders Orders - CRISTINO HIGGINS RESIDENT Procedure Category Date Status Time Soft Diet DIET 02/27/25 Transmitted Lunch Magnesium Oxide PHA 02/27/25 In Process Tablet (Mag-Ox Tablet) 18:00 Folic Acid Tablet PHA 02/28/25 In Process 10:00 Multiple Vitamin PHA 02/28/25 In Process Tablet (Mvi Tab) 10:00 Magnesium Oxide PHA 02/28/25 In Process Tablet (Mag-Ox Tablet) 10:00 Thiamine Tab PHA 02/28/25 In Process 10:00 Complete Blood Count LAB 02/28/25 Verified 04:00 Magnesium LAB 02/28/25 Verified 04:00 Comprehensive LAB 02/28/25 Verified Metabolic Panel 04:00 Magnesium [place] PHA 02/27/25 Verified 17:30 CRISTINO HIGGINS RESIDENT Feb 27, 2025 17:28
[2025-02-27] MEDS ORDERED: MAGNESIUM SULFATE 1GM/100ML 100 ML IV ONE (17:30)
[2025-02-27] MEDS ORDERED: MAGNESIUM OXIDE 400 MG TAB PO ONE (18:00)
[2025-02-28] MEDS ORDERED: THIAMINE HCL 100 MG TAB PO SCH (10:00)
[2025-02-28] MEDS ORDERED: MULTIPLE VITAMIN TAB PO SCH (10:00)
[2025-02-28] MEDS ORDERED: MAGNESIUM OXIDE 400 MG TAB PO SCH (10:00)
[2025-02-28] MEDS ORDERED: FOLIC ACID 1 MG TAB PO SCH (10:00)
== END 2025-02-27 17:17 | disposition home or self-care (01) | DRG 432 ==
LOC: ER 21:41 → OVERFLOW 02-26 01:12 → TELE-EAST 02-26 04:03
PROVIDERS: ADMIT Family Medicine; ATTEND Family Medicine
DX: K70.10 Alcoholic hepatitis without ascites (principal); K85.90 Acute pancreatitis without necrosis or infection, unspecified; K92.0 Hematemesis; F11.20 Opioid dependence, uncomplicated; F10.239 Alcohol dependence with withdrawal, unspecified; K74.60 Unspecified cirrhosis of liver; J45.909 Unspecified asthma, uncomplicated; K52.9 Noninfective gastroenteritis and colitis, unspecified; E86.0 Dehydration; F10.229 Alcohol dependence with intoxication, unspecified; E87.6 Hypokalemia; F41.9 Anxiety disorder, unspecified; R74.8 Abnormal levels of other serum enzymes; Z87.891 Personal history of nicotine dependence; Z82.49 Family history of ischemic heart disease and other diseases of the circulatory system; Y90.6 Blood alcohol level of 120-199 mg/100 ml
CPT/HCPCS: 36415; 74176; 80053; 80307; 80320; 81001; 82140; 83690; 83735; 84132; 85025; 85610; 85730; 86850; 86870; 86900; 86901; 99291; G0378; J2470; J7060